=== PATIENT | male | born 1950 | race Caucasian/White ===

== ENCOUNTER 2018-07-02 09:15 | Inpatient (IN) | payer MEDICARE, OTHER ==
[2018-07-02] MEDS ORDERED: IPRATROPIUM-ALBUTEROL 3 ML NEB INHALATION STA (09:45)
[2018-07-02 10:14] LABS: Basophils % (A) 0 %; Eosinophils % (A) 1 %; HCT 37.6 % (39.0-53.0); HGB 12.8 gm/dL (13.0-17.5); Lymphocytes # (A) 0.6 k/uL (1.0-4.8); Lymphocytes % (A) 12 %; MCH 29.5 pg (25.0-35.0); MCV 86.8 fL (80.0-100.0); Mean Platelet Volume 7.6; Monocytes # (A) 0.2 k/uL (0-1.0); Monocytes % (A) 5 %; Neutrophils # (A) 3.6 k/uL (1.3-7.7); Neutrophils % (A) 81 %; Platelet Count 179 k/uL (150-450); RBC 4.33 m/uL (4.30-5.90); RDW 13.2 % (11.5-15.5); WBC 4.5 k/uL (3.8-10.6)
--- NOTE | 2018-07-02 10:15 | ED ---
SOB HPI - General Chief Complaint: Shortness of Breath Stated Complaint: SOB, Chest Pain Time Seen by Provider: 07/02/18 09:37 Source: patient, RN notes reviewed Mode of arrival: ambulatory Limitations: no limitations - History of Present Illness Initial Comments: 67-year-old male presents emergency Department with chief complaint of shortness breath, hemoptysis. Patient states that he was diagnosed with influenza few days ago. Patient states that he's had increased shortness of breath, wheezing. Patient states today he was coughing up chunks of blood. Denies any chest pain. Patient denies any history of PE, blood clots and denies any blood thinners. Patient denies any nausea vomiting diarrhea constipation. Patient states that he had fevers at home. No recent Tylenol Motrin. Denies any history of liver disease no esophageal varices. Patient is a former smoker. - Related Data Home Medications Medication Instructions Recorded Confirmed Lisinopril [Prinivil] 20 mg PO DAILY 02/21/15 07/02/18 Metoprolol Succinate [Toprol XL] 50 mg PO DAILY 02/21/15 07/02/18 Montelukast [Singulair] 10 mg PO HS 02/21/15 07/02/18 Sertraline [Zoloft] 100 mg PO DAILY 02/21/15 07/02/18 lamoTRIgine [LaMICtal] 100 mg PO DAILY 02/21/15 07/02/18 Azithromycin [Zithromax Z-pack] See Taper PO DAILY 07/02/18 07/02/18 Allergies Allergy/AdvReac Type Severity Reaction Status Date / Time Penicillins Allergy Unknown Verified 07/02/18 10:23 Review of Systems ROS Statement: Those systems with pertinent positive or pertinent negative responses have been documented in the HPI. ROS Other: All systems not noted in ROS Statement are negative. Past Medical History Past Medical History: COPD, Hypertension History of Any Multi-Drug Resistant Organisms: None Reported Past Surgical History: No Surgical Hx Reported Past Psychological History: Depression Smoking Status: Former smoker Past Alcohol Use History: Daily Past Drug Use History: None Reported General Exam Limitations: no limitations General appearance: alert, in no apparent distress Head exam: Present: atraumatic, normocephalic, normal inspection Eye exam: Present: normal appearance, PERRL, EOMI. Absent: scleral icterus, conjunctival injection, periorbital swelling ENT exam: Present: normal exam, normal oropharynx, mucous membranes moist Neck exam: Present: normal inspection. Absent: tenderness, meningismus, lymphadenopathy Respiratory exam: Present: wheezes, rhonchi. Absent: normal lung sounds bilaterally, respiratory distress, rales, stridor Cardiovascular Exam: Present: regular rate, normal rhythm, normal heart sounds. Absent: systolic murmur, diastolic murmur, rubs, gallop, clicks GI/Abdominal exam: Present: soft, normal bowel sounds. Absent: distended, tenderness, guarding, rebound, rigid Skin exam: Present: warm, dry, intact, normal color. Absent: rash Course Vital Signs 07/02/18 07/02/18 07/02/18 09:16 10:06 10:36 Temperature 98.2 F Pulse Rate 78 76 Respiratory 18 20 Rate Blood Pressure 98/63 O2 Sat by Pulse 81 L Oximetry 07/02/18 10:51 Temperature Pulse Rate 78 Respiratory Rate Blood Pressure O2 Sat by Pulse Oximetry Medical Decision Making - Medical Decision Making 67 show male presents emergency Department with shortness breath, coughing up of blood. Patient has pneumonia, influenza be admitted for respiratory distress , hypoxic - Lab Data Result diagrams: 07/02/18 09:55 07/02/18 09:55 Lab Results 07/02/18 07/02/18 07/02/18 Range/Units 09:55 09:55 09:55 WBC 4.5 (3.8-10.6) k/uL RBC 4.33 (4.30-5.90) m/uL Hgb 12.8 L (13.0-17.5) gm/dL Hct 37.6 L (39.0-53.0) % MCV 86.8 (80.0-100.0) fL MCH 29.5 (25.0-35.0) pg MCHC 34.0 (31.0-37.0) g/dL RDW 13.2 (11.5-15.5) % Plt Count 179 (150-450) k/uL Neutrophils % 81 % Lymphocytes % 12 % Monocytes % 5 % Eosinophils % 1 % Basophils % 0 % Neutrophils # 3.6 (1.3-7.7) k/uL Lymphocytes # 0.6 L (1.0-4.8) k/uL Monocytes # 0.2 (0-1.0) k/uL Eosinophils # 0.0 (0-0.7) k/uL Basophils # 0.0 (0-0.2) k/uL PT (9.0-12.0) sec INR (<1.2) APTT (22.0-30.0) sec Sodium 128 L (137-145) mmol/L Potassium 3.8 (3.5-5.1) mmol/L Chloride 94 L (98-107) mmol/L Carbon Dioxide 22 (22-30) mmol/L Anion Gap 12 mmol/L BUN 26 H (9-20) mg/dL Creatinine 0.79 (0.66-1.25) mg/dL Est GFR (CKD-EPI)AfAm >90 (>60 ml/min/1.73 sqM) Est GFR (CKD-EPI)NonAf >90 (>60 ml/min/1.73 sqM) Glucose 101 H (74-99) mg/dL Plasma Lactic Acid Shan (0.7-2.0) mmol/L Calcium 8.2 L (8.4-10.2) mg/dL Magnesium 2.0 (1.6-2.3) mg/dL Total Bilirubin 0.6 (0.2-1.3) mg/dL AST 77 H (17-59) U/L ALT 39 (21-72) U/L Alkaline Phosphatase 54 (38-126) U/L Total Creatine Kinase 469 H (55-170) U/L CK-MB (CK-2) 2.2 (0.0-2.4) ng/mL CK-MB (CK-2) Rel Index 0.5 Troponin I <0.012 (0.000-0.034) ng/mL NT-Pro-B Natriuret Pep pg/mL Total Protein 6.4 (6.3-8.2) g/dL Albumin 3.5 (3.5-5.0) g/dL 07/02/18 07/02/18 07/02/18 Range/Units 09:55 09:55 09:55 WBC (3.8-10.6) k/uL RBC (4.30-5.90) m/uL Hgb (13.0-17.5) gm/dL Hct (39.0-53.0) % MCV (80.0-100.0) fL MCH (25.0-35.0) pg MCHC (31.0-37.0) g/dL RDW (11.5-15.5) % Plt Count (150-450) k/uL Neutrophils % % Lymphocytes % % Monocytes % % Eosinophils % % Basophils % % Neutrophils # (1.3-7.7) k/uL Lymphocytes # (1.0-4.8) k/uL Monocytes # (0-1.0) k/uL Eosinophils # (0-0.7) k/uL Basophils # (0-0.2) k/uL PT 9.7 (9.0-12.0) sec INR 0.9 (<1.2) APTT 26.9 (22.0-30.0) sec Sodium (137-145) mmol/L Potassium (3.5-5.1) mmol/L Chloride (98-107) mmol/L Carbon Dioxide (22-30) mmol/L Anion Gap mmol/L BUN (9-20) mg/dL Creatinine (0.66-1.25) mg/dL Est GFR (CKD-EPI)AfAm (>60 ml/min/1.73 sqM) Est GFR (CKD-EPI)NonAf (>60 ml/min/1.73 sqM) Glucose (74-99) mg/dL Plasma Lactic Acid Shan 0.9 (0.7-2.0) mmol/L Calcium (8.4-10.2) mg/dL Magnesium (1.6-2.3) mg/dL Total Bilirubin (0.2-1.3) mg/dL AST (17-59) U/L ALT (21-72) U/L Alkaline Phosphatase (38-126) U/L Total Creatine Kinase (55-170) U/L CK-MB (CK-2) (0.0-2.4) ng/mL CK-MB (CK-2) Rel Index Troponin I (0.000-0.034) ng/mL NT-Pro-B Natriuret Pep 170 pg/mL Total Protein (6.3-8.2) g/dL Albumin (3.5-5.0) g/dL Disposition Clinical Impression: Hypoxic, COPD (chronic obstructive pulmonary disease), Pneumonia, Influenza Disposition: ADMITTED IP TO THIS HOSP Condition: Fair Referrals: Dimas Christy MD [Primary Care Provider] - 1-2 days
[2018-07-02 10:25] LABS: ALT 39 U/L (21-72); AST 77 U/L (17-59); Albumin 3.5 g/dL (3.5-5.0); Alkaline Phosphatase 54 U/L (38-126); Anion Gap 12 mmol/L; Blood Urea Nitrogen 26 mg/dL (9-20); Calcium 8.2 mg/dL (8.4-10.2); Carbon Dioxide 22 mmol/L (22-30); Chloride 94 mmol/L (98-107); Glucose 101 mg/dL (74-99); Potassium 3.8 mmol/L (3.5-5.1); Sodium 128 mmol/L (137-145); Total Bilirubin 0.6 mg/dL (0.2-1.3); Total Protein 6.4 g/dL (6.3-8.2)
[2018-07-02 10:29] LABS: INR 0.9 (<1.2); Partial Thromboplastin Time 26.9 sec (22.0-30.0); Prothrombin Time 9.7 sec (9.0-12.0)
[2018-07-02 10:36] LABS: Creatine Kinase 469 U/L (55-170)
--- NOTE | 2018-07-02 10:43 | XR ---
EXAMINATION TYPE: XR chest 2V DATE OF EXAM: 07/02/2018 COMPARISON: 03/27/2010 HISTORY: Shortness of breath TECHNIQUE: Frontal and lateral views of the chest are obtained. FINDINGS: Scattered senescent parenchymal changes noted. Hyperinflation compatible with COPD. Patchy perihilar and basilar infiltrates noted. Correlate for pneumonia. Heart size is stable. Mediastinal structures are stable and grossly unremarkable. No evidence for hilar prominence. Degenerative changes dorsal spine. IMPRESSION: 1. Patchy perihilar and basilar infiltrates noted. Correlate for pneumonia.
[2018-07-02 10:49] LABS: Creatine Kinase MB 2.2 ng/mL (0.0-2.4); Troponin I <0.012 ng/mL (0.000-0.034)
[2018-07-02] MEDS ORDERED: AZITHROMYCIN 500 MG in SODIUM CHLORIDE 0.9% 250 ML IVPB STA (10:50)
[2018-07-02] MEDS ORDERED: methylPREDNISolone SOD SUCCI 125 MG/2 ML VIAL IV STA (11:23)
[2018-07-02] MEDS ORDERED: PNEUMONIA PROTOCOL UTILIZED 1 EACH MISC PO PRN (11:24)
[2018-07-02 12:44] LABS: VBG PH 7.32 (7.31-7.41)
[2018-07-02] MEDS: IPRATROPIUM-ALBUTEROL 3 ML NEB INHALATION SCH ×2 (16:17→20:12)
[2018-07-02] MEDS: HEPARIN SODIUM,PORCINE 5,000 UNIT/ML 1 ML VIAL SQ SCH (16:20)
--- NOTE | 2018-07-02 16:57 | P.HPIM ---
History of Present Illness H&P Date: 07/02/18 Chief Complaint: Multilobar pneumonia This is a 67-year-old male one of Dr. Christy with a previous medical history significant for hypertension and hypertensive cardiovascular disease, mild CAD involving the RCA and the the LAD, with a last heart catheterization was done back in 2014, history of bipolar disorder, COPD, remote history of tobacco use and dependence, patient went to a walking clinic on Tuesday and he was diagnosed of having the flu according to him and he was given a Z-Osmani patient was feeling better up until today when he developed to have a significant coughing and increased yellow phlegm production with bloody streaks to it so he ended up coming to the ER at [facility] where he was found to have a multilobar pneumonia he was started on IV antibiotic in the form of Rocephin and Zithromax and and he was placed in droplet precautions until after obtaining the result of the flu swab, pulmonary consultation was obtained from Dr. ADOLFO Ayon. Review of Systems Constitutional: Reports chills, Reports fever, Reports weakness Eyes: denies blurred vision, denies bulging eye Ears: deny: decreased hearing Ears, nose, mouth and throat: Denies dysphagia, Denies neck lump, Denies swelling in throat, Denies sore throat Cardiovascular: Reports decreased exercise tolerance, Reports shortness of breath, Denies chest pain, Denies lightheadedness, Denies rapid heart beat, Denies syncope Respiratory: Reports congestion, Reports cough, Reports hemoptysis, Reports wheezing, Denies home oxygen, Denies sleep apnea, Denies snoring Gastrointestinal: Denies abdominal pain, Denies belching, Denies bloating, Denies heartburn, Denies melena, Denies nausea, Denies vomiting Genitourinary: Denies dysuria, Denies nocturia Musculoskeletal: Denies myalgias Musculoskeletal: absent: ankle pain, ankle stiffness, ankle swelling, elbow pain , elbow stiffness, elbow swelling, foot pain, foot stiffness, foot swelling, hand pain, hand stiffness, hand swelling, hip pain, hip stiffness, hip swelling , knee pain, knee stiffness, knee swelling, shoulder pain, shoulder stiffness, shoulder swelling, wrist pain, wrist stiffness, wrist swelling Integumentary: Denies pruritus, Denies rash Neurological: Denies numbness, Denies weakness Psychiatric: Denies anxiety, Denies depression Endocrine: Denies fatigue, Denies weight change Past Medical History Past Medical History: Coronary Artery Disease (CAD), COPD, Hypertension, Osteoarthritis (OA) History of Any Multi-Drug Resistant Organisms: None Reported Past Surgical History: No Surgical Hx Reported, Heart Catheterization Past Psychological History: Depression Smoking Status: Former smoker (Patient is smoke about pack every day he quit about 12 years ago.) Past Alcohol Use History: Daily Past Drug Use History: None Reported - Past Family History Father Family Medical History: COPD (Father at age of 89 from old age and he also had COPD.) Mother Family Medical History: No Reported History (Mother at age of 68 and she also had history of fibromyalgia.) Brother(s) Family Medical History: No Reported History (Patient has 3 brothers no major medical problems.) Sister(s) Family Medical History: No Reported History (Patient has one sister no major medical problems.) Daughter(s) Family Medical History: No Reported History (Patient has 4 daughters no medical issues.) Medications and Allergies Home Medications Medication Instructions Recorded Confirmed Type Lisinopril [Prinivil] 20 mg PO DAILY 02/21/15 07/02/18 History Metoprolol Succinate [Toprol XL] 50 mg PO DAILY 02/21/15 07/02/18 History Montelukast [Singulair] 10 mg PO HS 02/21/15 07/02/18 History Sertraline [Zoloft] 100 mg PO DAILY 02/21/15 07/02/18 History lamoTRIgine [LaMICtal] 100 mg PO DAILY 02/21/15 07/02/18 History Azithromycin [Zithromax Z-pack] See Taper PO DAILY 07/02/18 07/02/18 History Allergies Allergy/AdvReac Type Severity Reaction Status Date / Time Penicillins Allergy Unknown Verified 07/02/18 10:23 Physical Exam Vitals: Vital Signs Temp Pulse Resp BP Pulse Ox 07/02/18 12:13 83 106/53 94 L 07/02/18 12:00 84 15 95 07/02/18 11:30 81 26 H 93 L 07/02/18 11:00 78 18 88 L 07/02/18 10:51 78 07/02/18 10:45 22 07/02/18 10:36 76 07/02/18 10:33 75 33 H 95 07/02/18 10:06 20 07/02/18 10:00 75 25 H 96 07/02/18 09:30 75 20 89 L 07/02/18 09:26 75 L 07/02/18 09:16 98.2 F 78 18 98/63 81 L Intake and Output 07/02/18 07/02/18 07/02/18 06:59 14:59 22:59 Intake Total 610 Balance 610 Intake: Amount of Fluid Infused ( 250 ml) Oral 360 Other: Weight 86.183 kg - Constitutional General appearance: average body habitus, mild distress - EENT Eyes: anicteric sclerae, EOMI, PERRLA, no ptosis, no scleral icterus, normal appearance ENT: hearing grossly normal, NA/AT, normal oropharynx, no thrush Ears: bilateral: normal - Neck Neck: no lymphadenopathy, normal ROM, no rigidity Carotids: bilateral: upstroke normal Thyroid: bilateral: normal size - Respiratory Respiratory: bilateral: diminished, rhonchi, wheezing, prolonged expiration, negative: dullness, rales - Cardiovascular Rhythm: regular Heart sounds: normal: S1, S2 Abnormal Heart Sounds: systolic murmur, no S3 Gallop, no S4 Gallop - Gastrointestinal General gastrointestinal: normal bowel sounds, soft, no splenomegaly, no tenderness, no umbilical hernia, no ventral hernia - Integumentary Integumentary: normal, normal turgor - Neurologic Neurologic: CNII-XII intact - Musculoskeletal Musculoskeletal: gait normal, strength equal bilaterally - Psychiatric Psychiatric: A&O x's 3, appropriate affect, intact judgment & insight Results CBC & Chem 7: 07/02/18 09:55 07/02/18 09:55 Labs: Abnormal Lab Results - Last 24 Hours (Table) 07/02/18 07/02/18 07/02/18 Range/Units 09:55 09:55 09:55 Hgb 12.8 L (13.0-17.5) gm/dL Hct 37.6 L (39.0-53.0) % Lymphocytes # 0.6 L (1.0-4.8) k/uL Sodium 128 L (137-145) mmol/L Chloride 94 L (98-107) mmol/L BUN 26 H (9-20) mg/dL Glucose 101 H (74-99) mg/dL Calcium 8.2 L (8.4-10.2) mg/dL AST 77 H (17-59) U/L Total Creatine Kinase 469 H (55-170) U/L Thrombosis Risk Factor Assmnt - DVT/VTE Prophylaxis DVT/VTE Prophylaxis: Pharmacologic Prophylaxis ordered, Mechanical Prophylaxis ordered Assessment and Plan Assessment: Assessment and plan: 1. Acute respiratory failure secondary to multilobar pneumonia and acute COPD exacerbation. Continue patient on Rocephin 1 g IV piggyback every 24 hours, Zithromax 500 mg IV piggyback every 24 hours, DuoNeb 3 mL nebulization 4 times every day, Pulmicort 4 mg nebulization twice every day, oxygen 5 L nasal cannula keep saturation greater than 92%, pulmonary consultation from Dr. ADOLFO yAon, droplet isolation, influenza swab, if it's positive start the patient on Tamiflu 75 mg orally twice every day for 5 days. Sputum culture. 2. COPD exacerbation. Continue oxygen, DuoNeb 3 mL nebulization 4 times every day, Pulmicort 1 mg nebulization twice every day, Solu-Medrol 40 mg IV push every 8 hours. 3. Mild CAD status post left heart cath physician back in 2014 that showed mild disease of the LAD and RCA. Stable at this time continue patient on Toprol -XL 50 mg orally once every day. 4. Hypertension and hypertensive cardiovascular disease. Continue Toprol-XL 50 mg orally once every day, lisinopril 20 mg orally once every day. 5. Bipolar disorder. Continue Lamictal 100 mg orally once every day as well as sertraline 100 mg orally once every day. 6. GI prophylaxis. Protonix 40 mg once every day. 7. DVT prophylaxis. Heparin 5000 units subcutaneously every 8 hours. 8. Admit to inpatient. Estimated length of stay 2 midnights. 9. Patient is full code.
[2018-07-02] MEDS: methylPREDNISolone SOD SUCCI 40 MG/ML 1 ML VIAL IV SCH (17:46)
[2018-07-02] MEDS: BUDESONIDE 1 MG/2 ML NEBU INHALATION SCH (20:12)
[2018-07-02] MEDS: MONTELUKAST 10 MG TAB PO SCH (20:33)
[2018-07-03] MEDS: HEPARIN SODIUM,PORCINE 5,000 UNIT/ML 1 ML VIAL SQ SCH ×4 (00:45→23:29)
[2018-07-03] MEDS: methylPREDNISolone SOD SUCCI 40 MG/ML 1 ML VIAL IV SCH ×4 (00:45→23:30)
[2018-07-03 06:49] LABS: Basophils % (A) 0 %; Eosinophils % (A) 0 %; HCT 40.2 % (39.0-53.0); HGB 13.2 gm/dL (13.0-17.5); Lymphocytes # (A) 0.7 k/uL (1.0-4.8); Lymphocytes % (A) 13 %; MCH 29.6 pg (25.0-35.0); MCHC 32.8 g/dL (31.0-37.0); MCV 90.4 fL (80.0-100.0); Mean Platelet Volume 6.7; Monocytes # (A) 0.3 k/uL (0-1.0); Monocytes % (A) 5 %; Neutrophils # (A) 4.2 k/uL (1.3-7.7); Neutrophils % (A) 80 %; Platelet Count 183 k/uL (150-450); RBC 4.45 m/uL (4.30-5.90); RDW 13.2 % (11.5-15.5); WBC 5.2 k/uL (3.8-10.6)
[2018-07-03 07:17] LABS: ALT 32 U/L (21-72); AST 68 U/L (17-59); Albumin 3.3 g/dL (3.5-5.0); Alkaline Phosphatase 50 U/L (38-126); Anion Gap 7 mmol/L; Blood Urea Nitrogen 20 mg/dL (9-20); Calcium 8.7 mg/dL (8.4-10.2); Carbon Dioxide 26 mmol/L (22-30); Chloride 104 mmol/L (98-107); Glucose 179 mg/dL (74-99); Potassium 4.1 mmol/L (3.5-5.1); Sodium 137 mmol/L (137-145); Total Bilirubin 0.4 mg/dL (0.2-1.3); Total Protein 6.2 g/dL (6.3-8.2)
[2018-07-03] MEDS: BUDESONIDE 1 MG/2 ML NEBU INHALATION SCH ×3 (07:58→20:40)
[2018-07-03] MEDS: IPRATROPIUM-ALBUTEROL 3 ML NEB INHALATION SCH ×4 (07:58→20:38)
[2018-07-03] MEDS: AZITHROMYCIN 500 MG in SODIUM CHLORIDE 0.9% 250 ML IVPB SCH (08:10)
[2018-07-03] MEDS: PANTOPRAZOLE 40 MG TABLET PO SCH (08:10)
[2018-07-03] MEDS: lamoTRIgine 100 MG TAB PO SCH (08:11)
[2018-07-03] MEDS: METOPROLOL SUCCINATE (ER) 50 MG TAB.ER.24H PO SCH (08:11)
[2018-07-03] MEDS: SERTRALINE 100 MG TAB PO SCH (08:11)
[2018-07-03] MEDS: LISINOPRIL 20 MG TAB PO SCH (08:11)
--- NOTE | 2018-07-03 09:37 | XR ---
EXAMINATION TYPE: XR chest 2V DATE OF EXAM: 07/03/2018 COMPARISON: 07/02/2018 TECHNIQUE: PA and lateral views submitted. HISTORY: Cough possible pneumonia FINDINGS: Patchy bilateral areas of infiltrate with coarsened interstitium correlate for chronic interstitial l nida disease. Small bilateral effusion. No pneumothorax. Arthropathy shoulders. Heart size normal. IMPRESSION: 1. Chronic interstitial lung disease with underlying COPD and stable patchy bilateral infiltrate.
--- NOTE | 2018-07-03 11:16 | CT ---
EXAMINATION TYPE: CT angio chest DATE OF EXAM: 07/03/2018 COMPARISON: NONE HISTORY: Pneumonia, Influenza, COPD and Hypoxia CT DLP: 410.3 mGycm. Automated Exposure Control for Dose Reduction was Utilized. CONTRAST: CTA scan of the thorax is performed without and with IV Contrast, patient injected with 100 ml mL of Isovue 370, pulmonary embolism protocol. MIP Images are created on CT scanner and reviewed. FINDINGS: LUNGS: Peripheral basilar predominant groundglass opacities and consolidations. These are predominant ly paraseptal in location and seen centrally surrounding the mediastinum in the upper lungs. Scattere d blebs are noted throughout the lungs. Minimal bibasilar Focal bronchiectasis is noted. MEDIASTINUM: There is suboptimal enhancement of the pulmonary artery and its branches, there is no ev idence for intra-pulmonary embolism. Subsegmental pulmonary arteries are nondiagnostic for evaluation of pulmonary embolus and. There are no greater than 1 cm hilar or mediastinal lymph nodes. No card iomegaly or pericardial effusion is seen. OTHER: 2.5 cm right thyroid peripherally calcified nodule is seen for which thyroid ultrasound is rec ommended for further evaluation. Multilevel degenerative change of the thoracic spine is noted. IMPRESSION: 1. No evidence of central pulmonary embolism. Subsegmental pulmonary arteries are nondiagnostic. 2. Interstitial lung disease. Findings favoring NSIP with no current evidence of fibrosis. Alternativ luz maria hypersensitivity pneumonitis or cryptogenic organizing pneumonia are possible.
--- NOTE | 2018-07-03 11:59 | P.PN ---
Subjective Progress Note Date: 07/03/18 This is a 67-year-old male one of Dr. Christy with a previous medical history significant for hypertension and hypertensive cardiovascular disease, mild CAD involving the RCA and the the LAD, with a last heart catheterization was done back in 2014, history of bipolar disorder, COPD, remote history of tobacco use and dependence, patient went to a walking clinic on Tuesday and he was diagnosed of having the flu according to him and he was given a Z-Osmani patient was feeling better up until today when he developed to have a significant coughing and increased yellow phlegm production with bloody streaks to it so he ended up coming to the ER at [facility] where he was found to have a multilobar pneumonia he was started on IV antibiotic in the form of Rocephin and Zithromax and and he was placed in droplet precautions until after obtaining the result of the flu swab, pulmonary consultation was obtained from Dr. ADOLFO Ayon. 07/03: Patient is currently on 10 L high flow O2 pulse oxing 92-96%. He states he is slightly better from yesterday. He is having more cough today. Influenza testing came back negative. Repeat chest x-ray this morning shows chronic interstitial lung disease with underlying COPD and stable patchy bilateral infiltrate. CT injury of the chest showed no evidence of central pulmonary embolism. Subsegmental pulmonary arteries are nondiagnostic. Interstitial lung disease. Findings favoring NSIP with no current evidence of fibrosis. Alternatively hypersensitivity pneumonitis or cryptogenic organizing pneumonia or possible. Consult in place with pulmonary medicine which will be seeing him today. Solu-Medrol will remain the same at 40 mg IV every 8 hours. Continue same medications. Review of Systems Constitutional: Reports chills, Reports fever, Reports weakness Eyes: denies blurred vision, denies bulging eye Ears: deny: decreased hearing Ears, nose, mouth and throat: Denies dysphagia, Denies neck lump, Denies swelling in throat, Denies sore throat Cardiovascular: Reports decreased exercise tolerance, Reports shortness of breath, Denies chest pain, Denies lightheadedness, Denies rapid heart beat, Denies syncope Respiratory: Reports congestion, Reports cough, Reports hemoptysis, Reports wheezing, Denies home oxygen, Denies sleep apnea, Denies snoring Gastrointestinal: Denies abdominal pain, Denies belching, Denies bloating, Denies heartburn, Denies melena, Denies nausea, Denies vomiting Genitourinary: Denies dysuria, Denies nocturia Musculoskeletal: Denies myalgias Musculoskeletal: absent: ankle pain, ankle stiffness, ankle swelling, elbow pain , elbow stiffness, elbow swelling, foot pain, foot stiffness, foot swelling, hand pain, hand stiffness, hand swelling, hip pain, hip stiffness, hip swelling , knee pain, knee stiffness, knee swelling, shoulder pain, shoulder stiffness, shoulder swelling, wrist pain, wrist stiffness, wrist swelling Integumentary: Denies pruritus, Denies rash Neurological: Denies numbness, Denies weakness Psychiatric: Denies anxiety, Denies depression Endocrine: Denies fatigue, Objective - Vital Signs Vital signs: Vital Signs Temp 98.2 F 07/03/18 00:01 Pulse 80 07/03/18 08:09 Resp 16 07/03/18 00:01 BP 135/78 07/03/18 00:01 Pulse Ox 96 07/03/18 00:01 Intake & Output 07/02/18 07/03/18 07/03/18 18:59 06:59 18:59 Intake Total 906 400 Output Total 1 Balance 905 400 Weight 86.183 kg Intake: Amount of Fluid Infused ( 250 ml) Oral 656 400 Output: Urine 1 Other: Voiding Method Toilet # Voids 1 - Exam General appearance: average body habitus, mild distress while at rest - EENT Eyes: anicteric sclerae, EOMI, PERRLA, no ptosis, no scleral icterus, normal appearance ENT: hearing grossly normal, NA/AT, normal oropharynx, no thrush Ears: bilateral: normal - Neck Neck: no lymphadenopathy, normal ROM, no rigidity Carotids: bilateral: upstroke normal Thyroid: bilateral: normal size - Respiratory Respiratory: bilateral: diminished, rhonchi, wheezing, prolonged expiration, negative: dullness, rales - Cardiovascular Rhythm: regular Heart sounds: normal: S1, S2 Abnormal Heart Sounds: systolic murmur, no S3 Gallop, no S4 Gallop - Gastrointestinal General gastrointestinal: normal bowel sounds, soft, no splenomegaly, no tenderness, no umbilical hernia, no ventral hernia - Integumentary Integumentary: normal, normal turgor - Neurologic Neurologic: CNII-XII intact - Musculoskeletal Musculoskeletal: gait normal, strength equal bilaterally - Psychiatric Psychiatric: A&O x's 3, appropriate affect, intact judgment & insight - Labs CBC & Chem 7: 07/03/18 06:27 07/03/18 06:27 Labs: Abnormal Lab Results - Last 24 Hours (Table) 07/02/18 07/02/18 07/02/18 Range/Units 09:55 09:55 09:55 Hgb 12.8 L (13.0-17.5) gm/dL Hct 37.6 L (39.0-53.0) % Lymphocytes # 0.6 L (1.0-4.8) k/uL Sodium 128 L (137-145) mmol/L Chloride 94 L (98-107) mmol/L BUN 26 H (9-20) mg/dL Glucose 101 H (74-99) mg/dL Calcium 8.2 L (8.4-10.2) mg/dL AST 77 H (17-59) U/L Total Creatine Kinase 469 H (55-170) U/L Total Protein (6.3-8.2) g/dL Albumin (3.5-5.0) g/dL 07/03/18 07/03/18 Range/Units 06:27 06:27 Hgb (13.0-17.5) gm/dL Hct (39.0-53.0) % Lymphocytes # 0.7 L (1.0-4.8) k/uL Sodium (137-145) mmol/L Chloride (98-107) mmol/L BUN (9-20) mg/dL Glucose 179 H (74-99) mg/dL Calcium (8.4-10.2) mg/dL AST 68 H (17-59) U/L Total Creatine Kinase (55-170) U/L Total Protein 6.2 L (6.3-8.2) g/dL Albumin 3.3 L (3.5-5.0) g/dL Assessment and Plan Plan: 1. Acute hypoxic respiratory failure secondary to multilobar pneumonia and acute COPD exacerbation. Continue patient on Rocephin 1 g IV piggyback every 24 hours, Zithromax 500 mg IV piggyback every 24 hours, DuoNeb 3 mL nebulization 4 times every day, Pulmicort 4 mg nebulization twice every day, oxygen 5 L nasal cannula keep saturation greater than 92%, pulmonary consultation from Dr. ADOLFO Ayon, influenza testing was negative. Sputum culture. Solu-Medrol 40 mg IV every 8 hours. CTA of the chest as above. 2. COPD exacerbation. Continue oxygen, DuoNeb 3 mL nebulization 4 times every day, Pulmicort 1 mg nebulization twice every day, Solu-Medrol 40 mg IV push every 8 hours. 3. Mild CAD status post left heart cath physician back in 2014 that showed mild disease of the LAD and RCA. Stable at this time continue patient on Toprol -XL 50 mg orally once every day. 4. Hypertension and hypertensive cardiovascular disease. Continue Toprol-XL 50 mg orally once every day, lisinopril 20 mg orally once every day. 5. Bipolar disorder. Continue Lamictal 100 mg orally once every day as well as sertraline 100 mg orally once every day. 6. GI prophylaxis. Protonix 40 mg once every day. 7. DVT prophylaxis. Heparin 5000 units subcutaneously every 8 hours. 8. Patient is full code. Discharge plan: Return home Impression and plan of care have been directed as dictated by the signing physician. Meghna Larry nurse practitioner acting as scribe for signing physician.
[2018-07-03] MEDS: INSULIN ASPART (NovoLOG) 100 UNIT/ML VIAL SQ SCH ×3 (13:43→22:29)
--- NOTE | 2018-07-03 14:40 | P.CNPUL ---
<Samaria Simmons E - Last Filed: 07/03/18 16:10> History of Present Illness Consult date: 07/03/18 Requesting physician: Hai Anderson Reason for consult: dyspnea, pneumonia Chief complaint: shortness of breath History of present illness: This is a 67-year-old male being seen examined and evaluated today for consultation. This patient does have a past medical history significant for hypertension, hypertensive cardiovascular disease, mild CAD involving the RCA and the LAD, last stent heart catheterization was in 2014, history of bipolar, COPD, remote history of tobacco use and dependence. The patient was seen in the urgent care setting on Tuesday and was told he has "the flu" and the patient was given a Z-Osmani to take in the outpatient setting. The patient was starting to feel better and then he started to get significantly worse yesterday so he came into the emergency room. The patient was found to have a multilobar pneumonia he was started on IV antibiotics and steroids. He did have an influenza swab that was negative. 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 He denies any exposures to any birds or farm animals or farmland. He has 3. He quit smoking approximately 12 years ago. He does not have wood-burning stove at home. Upon examination the patient's resting up in bed on 10 L of high flow and oxygen via nasal cannula. He continues to have shortness of breath cough and congestion. He has been unable to provide a sputum sample thus far. He does feel the breathing treatments are helping. He has been afebrile no further complaints. Review of Systems 14 point review of systems was completed and is negative unless noted above in the HPI Past Medical History Past Medical History: Coronary Artery Disease (CAD), COPD, Hypertension, Osteoarthritis (OA) History of Any Multi-Drug Resistant Organisms: None Reported Past Surgical History: No Surgical Hx Reported, Heart Catheterization Past Psychological History: Depression Smoking Status: Former smoker (Patient is smoke about pack every day he quit about 12 years ago.) Past Alcohol Use History: Daily Past Drug Use History: None Reported - Past Family History Father Family Medical History: COPD (Father at age of 89 from old age and he also had COPD.) Mother Family Medical History: No Reported History (Mother at age of 68 and she also had history of fibromyalgia.) Brother(s) Family Medical History: No Reported History (Patient has 3 brothers no major medical problems.) Sister(s) Family Medical History: No Reported History (Patient has one sister no major medical problems.) Daughter(s) Family Medical History: No Reported History (Patient has 4 daughters no medical issues.) Medications and Allergies Home Medications Medication Instructions Recorded Confirmed Type Lisinopril [Prinivil] 20 mg PO DAILY 02/21/15 07/02/18 History Metoprolol Succinate [Toprol XL] 50 mg PO DAILY 02/21/15 07/02/18 History Montelukast [Singulair] 10 mg PO HS 02/21/15 07/02/18 History Sertraline [Zoloft] 100 mg PO DAILY 02/21/15 07/02/18 History lamoTRIgine [LaMICtal] 100 mg PO DAILY 02/21/15 07/02/18 History Azithromycin [Zithromax Z-pack] See Taper PO DAILY 07/02/18 07/02/18 History Allergies Allergy/AdvReac Type Severity Reaction Status Date / Time Penicillins Allergy Unknown Verified 07/02/18 10:23 Physical Exam Vitals: Vital Signs Temp Pulse Pulse Resp BP Pulse Ox 07/03/18 11:51 80 07/03/18 11:38 84 07/03/18 11:24 92 L 07/03/18 08:09 80 07/03/18 07:58 80 07/03/18 07:00 97.4 F L 83 17 125/78 92 L 07/03/18 00:01 98.2 F 85 16 135/78 96 07/02/18 20:30 81 92 L 07/02/18 20:14 79 07/02/18 19:15 97.5 F L 82 15 116/68 93 L 07/02/18 16:30 83 07/02/18 16:23 93 L 07/02/18 16:22 81 Intake and Output 07/02/18 07/03/18 07/03/18 22:59 06:59 14:59 Intake Total 496 200 Output Total 1 Balance 495 200 Intake: Oral 496 200 Output: Urine 1 Other: Voiding Method Toilet Toilet # Voids 1 1 GENERAL EXAM: Alert, mild apparent distress. HEAD: Normocephalic. EYES: Normal reaction of pupils, equal size. NOSE: Clear with pink turbinates. THROAT: No erythema or exudates. NECK: No masses, no JVD. CHEST: No chest wall deformity. LUNGS: Lungs noted to be rhonchorous with wheezing scattered throughout and prolonged expiration CVS: S1 and S2 normal with no audible mumurs, regular rhythm. ABDOMEN: No hepatosplenomegaly, normal bowel sounds, no guarding or rigidity. EXTREMITIES: No edema noted, pedal pulses palpable. CENTRAL NERVOUS SYSTEM: No focal deficits, tone is normal in all 4 extremities. Results - Laboratory Findings CBC and BMP: 07/03/18 06:27 07/03/18 06:27 PT/INR, D-dimer PT 9.7 sec (9.0-12.0) 07/02/18 09:55 INR 0.9 (<1.2) 07/02/18 09:55 Abnormal lab findings: Abnormal Labs 07/02/18 07/02/18 07/02/18 09:55 09:55 09:55 Hgb 12.8 L Hct 37.6 L Lymphocytes # 0.6 L Sodium 128 L Chloride 94 L BUN 26 H Glucose 101 H Calcium 8.2 L AST 77 H Total Creatine Kinase 469 H Total Protein Albumin Procalcitonin 07/02/18 07/03/18 07/03/18 09:55 06:27 06:27 Hgb Hct Lymphocytes # 0.7 L Sodium Chloride BUN Glucose 179 H Calcium AST 68 H Total Creatine Kinase Total Protein 6.2 L Albumin 3.3 L Procalcitonin 0.23 H - Diagnostic Findings Chest x-ray: report reviewed, image reviewed Assessment and Plan Assessment: Assessment Acute hypoxic respiratory failure requiring supplemental oxygen Acute exacerbation of COPD Multilobar pneumonia CAD with previous stenting Hypertension Bipolar disorder Plan Medications have been reviewed and will be continued as ordered. Lab work including HP panel, allergens, IgE, A1AT Continue antibiotics and steroid taper Obtain sputum culture Influenza swab negative CTA of the chest reviewed, we'll need a repeat CT in the outpatient setting in 4 -6 weeks Chest x-ray reviewed Initiate and encourage incentive spirometer Continue with pulmonary hygiene, coughing and deep breathing exercises, and supportive care. Supplemental oxygen to maintain oxygen saturations of 92% or better. Continue nebulizer treatments. GI and DVT prophylaxis. We will continue to monitor labs/results and adjust treatment as necessary. Further recommendations pending. I, the signing physician performed an examination of the patient, discussed and directed their management with the nurse practitioner. I have reviewed the nurse practitioner's note and agree with the documented findings, orders and plan of care. Nurse practitioner acting as a scribe for the signing physician. <Muriel Delgado - Last Filed: 07/03/18 16:21> Physical Exam Osteopathic Statement: *. No significant issues noted on an osteopathic structural exam other than those noted in the History and Physical/Consult. Vitals: Vital Signs Temp Pulse Pulse Resp BP Pulse Ox 07/03/18 11:51 80 07/03/18 11:38 84 07/03/18 11:24 92 L 07/03/18 08:09 80 07/03/18 07:58 80 07/03/18 07:00 97.4 F L 83 17 125/78 92 L 07/03/18 00:01 98.2 F 85 16 135/78 96 07/02/18 20:30 81 92 L 07/02/18 20:14 79 07/02/18 19:15 97.5 F L 82 15 116/68 93 L 07/02/18 16:30 83 07/02/18 16:23 93 L 07/02/18 16:22 81 Intake and Output 07/03/18 07/03/18 07/03/18 06:59 14:59 22:59 Intake Total 200 Balance 200 Intake: Oral 200 Other: Voiding Method Toilet # Voids 1 1 Results - Laboratory Findings CBC and BMP: 07/03/18 06:27 07/03/18 06:27 PT/INR, D-dimer PT 9.7 sec (9.0-12.0) 07/02/18 09:55 INR 0.9 (<1.2) 07/02/18 09:55 Abnormal lab findings: Abnormal Labs 07/02/18 07/02/18 07/02/18 09:55 09:55 09:55 Hgb 12.8 L Hct 37.6 L Lymphocytes # 0.6 L Sodium 128 L Chloride 94 L BUN 26 H Glucose 101 H Calcium 8.2 L AST 77 H Total Creatine Kinase 469 H Total Protein Albumin Procalcitonin 07/02/18 07/03/18 07/03/18 09:55 06:27 06:27 Hgb Hct Lymphocytes # 0.7 L Sodium Chloride BUN Glucose 179 H Calcium AST 68 H Total Creatine Kinase Total Protein 6.2 L Albumin 3.3 L Procalcitonin 0.23 H Assessment and Plan Assessment: Patient seen and examined. CT of the chest is reviewed and discussed with the patient at length. Questionable NSI PE versus HP. The patient denies any exposures that he is aware of. He does have cats in the home. Influenza is negative. Will check mycoplasma, legionella. Sputum culture pending. HP and ALLERGY panel pending. Patient should have 1 mg/kg daily of prednisone. We will taper this as an outpatient. This is discussed with the patient at length. ~Muriel Delgado DO
[2018-07-03 17:13] LABS: Glucose,Whole Blood 209 mg/dL (75-99)
[2018-07-03 20:09] LABS: Hemoglobin A1C 6.2 % (4.0-6.0)
[2018-07-03 20:42] LABS: Glucose,Whole Blood 143 mg/dL (75-99)
[2018-07-03] MEDS: MONTELUKAST 10 MG TAB PO SCH (22:30)
[2018-07-04 06:56] LABS: Glucose,Whole Blood 147 mg/dL (75-99)
[2018-07-04] MEDS: INSULIN ASPART (NovoLOG) 100 UNIT/ML VIAL SQ SCH ×4 (07:32→20:29)
[2018-07-04] MEDS: SERTRALINE 100 MG TAB PO SCH (07:32)
[2018-07-04] MEDS: methylPREDNISolone SOD SUCCI 40 MG/ML 1 ML VIAL IV SCH ×2 (07:33→17:10)
[2018-07-04] MEDS: LISINOPRIL 20 MG TAB PO SCH (07:33)
[2018-07-04] MEDS: PANTOPRAZOLE 40 MG TABLET PO SCH (07:33)
[2018-07-04] MEDS: HEPARIN SODIUM,PORCINE 5,000 UNIT/ML 1 ML VIAL SQ SCH ×2 (07:33→17:10)
[2018-07-04] MEDS: lamoTRIgine 100 MG TAB PO SCH (07:33)
[2018-07-04] MEDS: METOPROLOL SUCCINATE (ER) 50 MG TAB.ER.24H PO SCH (07:34)
[2018-07-04] MEDS: IPRATROPIUM-ALBUTEROL 3 ML NEB INHALATION SCH ×4 (09:41→20:08)
[2018-07-04] MEDS: BUDESONIDE 1 MG/2 ML NEBU INHALATION SCH ×2 (09:41→20:08)
[2018-07-04] MEDS: AZITHROMYCIN 500 MG in SODIUM CHLORIDE 0.9% 250 ML IVPB SCH (10:22)
[2018-07-04 12:04] LABS: Glucose,Whole Blood 146 mg/dL (75-99)
--- NOTE | 2018-07-04 12:45 | P.PN ---
Subjective Progress Note Date: 07/04/18 HPI: This is a 67-year-old male being seen examined and evaluated today for consultation. This patient does have a past medical history significant for hypertension, hypertensive cardiovascular disease, mild CAD involving the RCA and the LAD, last stent heart catheterization was in 2014, history of bipolar, COPD, remote history of tobacco use and dependence. The patient was seen in the urgent care setting on Tuesday and was told he has "the flu" and the patient was given a Z-Osmani to take in the outpatient setting. The patient was starting to feel better and then he started to get significantly worse yesterday so he came into the emergency room. The patient was found to have a multilobar pneumonia he was started on IV antibiotics and steroids. He did have an influenza swab that was negative. 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 He denies any exposures to any birds or farm animals or farmland. He has 3. He quit smoking approximately 12 years ago. He does not have wood-burning stove at home. Upon examination the patient's resting up in bed on 10 L of high flow and oxygen via nasal cannula. He continues to have shortness of breath cough and congestion. He has been unable to provide a sputum sample thus far. He does feel the breathing treatments are helping. He has been afebrile no further complaints. Interval History: 07/04/18- patient is being seen examined and evaluated today on rounds. He is resting up in bed on 10 L high flow nasal cannula. Still feels quite dyspneic and short of breath even at rest. We will switch patient over to Airvo to help his breathing. Currently being worked up for questionable an SIEP versus HP. Multiple labs have been obtained and are pending. Patient will require 1 mg/kg daily of prednisone with a very slow outpatient taper. This is again discussed with the patient at length and he is agreeable. He is afebrile. All labs and reports reviewed Objective - Vital Signs Vital signs: Vital Signs Temp 98.5 F 07/04/18 07:40 Pulse 84 07/04/18 09:47 Resp 20 07/04/18 07:40 BP 131/70 07/04/18 07:40 Pulse Ox 90 L 07/04/18 10:54 Intake & Output 07/03/18 07/04/18 07/04/18 18:59 06:59 18:59 Intake Total 1600 296 Balance 1600 296 Intake: IV 1200 0.9 Normal Saline 1200 Oral 400 296 Other: Voiding Method Toilet Toilet # Voids 1 2 - Exam GENERAL EXAM: Alert, mild apparent distress. HEAD: Normocephalic. EYES: Normal reaction of pupils, equal size. NOSE: Clear with pink turbinates. THROAT: No erythema or exudates. NECK: No masses, no JVD. CHEST: No chest wall deformity. LUNGS: Lungs noted to be rhonchorous with wheezing scattered throughout and prolonged expiration CVS: S1 and S2 normal with no audible mumurs, regular rhythm. ABDOMEN: No hepatosplenomegaly, normal bowel sounds, no guarding or rigidity. EXTREMITIES: No edema noted, pedal pulses palpable. CENTRAL NERVOUS SYSTEM: No focal deficits, tone is normal in all 4 extremities. - Labs CBC & Chem 7: 07/03/18 06:27 07/03/18 06:27 Labs: Abnormal Lab Results - Last 24 Hours (Table) 07/03/18 07/03/18 07/03/18 Range/Units 06:27 17:11 20:41 POC Glucose (mg/dL) 209 H 143 H (75-99) mg/dL Hemoglobin A1c 6.2 H (4.0-6.0) % 07/04/18 07/04/18 Range/Units 06:54 12:02 POC Glucose (mg/dL) 147 H 146 H (75-99) mg/dL Hemoglobin A1c (4.0-6.0) % Microbiology - Last 24 Hours (Table) 07/02/18 09:55 Blood Culture - Preliminary Blood No Growth after 48 hours 07/02/18 20:00 Gram Stain - Preliminary Sputum Assessment and Plan Assessment: Assessment Acute hypoxic respiratory failure requiring supplemental oxygen Acute exacerbation of COPD Multilobar pneumonia CAD with previous stenting Hypertension Bipolar disorder Plan Medications have been reviewed and will be continued as ordered. Lab work including HP panel, allergens, IgE, A1AT, Legionella and Mycoplasma all pending Continue antibiotics and steroid taper Obtain sputum culture Influenza swab negative CTA of the chest reviewed, we'll need a repeat CT in the outpatient setting in 4 -6 weeks questionable NSIP vs HP Will require 1mg/kg daily of prednisone with a slow taper in the outpatient setting Chest x-ray reviewed Initiate and encourage incentive spirometer Continue with pulmonary hygiene, coughing and deep breathing exercises, and supportive care. Supplemental oxygen to maintain oxygen saturations of 92% or better. Continue nebulizer treatments. GI and DVT prophylaxis. We will continue to monitor labs/results and adjust treatment as necessary. Further recommendations pending. I, the signing physician performed an examination of the patient, discussed and directed their management with the nurse practitioner. I have reviewed the nurse practitioner's note and agree with the documented findings, orders and plan of care. Nurse practitioner acting as a scribe for the signing physician.
--- NOTE | 2018-07-04 16:01 | P.PN ---
Subjective Progress Note Date: 07/04/18 This is a 67-year-old male one of Dr. Christy with a previous medical history significant for hypertension and hypertensive cardiovascular disease, mild CAD involving the RCA and the the LAD, with a last heart catheterization was done back in 2014, history of bipolar disorder, COPD, remote history of tobacco use and dependence, patient went to a walking clinic on Tuesday and he was diagnosed of having the flu according to him and he was given a Z-Osmani patient was feeling better up until today when he developed to have a significant coughing and increased yellow phlegm production with bloody streaks to it so he ended up coming to the ER at [facility] where he was found to have a multilobar pneumonia he was started on IV antibiotic in the form of Rocephin and Zithromax and and he was placed in droplet precautions until after obtaining the result of the flu swab, pulmonary consultation was obtained from Dr. ADOLFO Ayon. 07/03: Patient is currently on 10 L high flow O2 pulse oxing 92-96%. He states he is slightly better from yesterday. He is having more cough today. Influenza testing came back negative. Repeat chest x-ray this morning shows chronic interstitial lung disease with underlying COPD and stable patchy bilateral infiltrate. CT injury of the chest showed no evidence of central pulmonary embolism. Subsegmental pulmonary arteries are nondiagnostic. Interstitial lung disease. Findings favoring NSIP with no current evidence of fibrosis. Alternatively hypersensitivity pneumonitis or cryptogenic organizing pneumonia or possible. Consult in place with pulmonary medicine which will be seeing him today. Solu-Medrol will remain the same at 40 mg IV every 8 hours. Continue same medications. 07/04: CT results reviewed with patient. 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 Patient states that he had a rough night and does not seem like he is much better. He is bringing up sputum that is light in color. Patient was seen by Dr. Delgado. Solu-Medrol will remain at 40 mg every 8 hours. Sputum culture is in progress. Blood cultures showing no growth after 24 hours. He has been afebrile, heart rate running in the 80s and 90s, blood pressure 131/70, pulse ox 92% on 10 L high flow. Patient is now on humidified oxygen. Review of Systems Constitutional: Reports chills, Reports fever, Reports weakness Eyes: denies blurred vision, denies bulging eye Ears: deny: decreased hearing Ears, nose, mouth and throat: Denies dysphagia, Denies neck lump, Denies swelling in throat, Denies sore throat Cardiovascular: Reports decreased exercise tolerance, Reports shortness of breath, Denies chest pain, Denies lightheadedness, Denies rapid heart beat, Denies syncope Respiratory: Reports congestion, Reports cough, reports sputum, Reports hemoptysis, Reports wheezing, Denies home oxygen, Denies sleep apnea, Denies snoring Gastrointestinal: Denies abdominal pain, Denies belching, Denies bloating, Denies heartburn, Denies melena, Denies nausea, Denies vomiting Genitourinary: Denies dysuria, Denies nocturia Musculoskeletal: Denies myalgias Musculoskeletal: absent: ankle pain, ankle stiffness, ankle swelling, elbow pain , elbow stiffness, elbow swelling, foot pain, foot stiffness, foot swelling, hand pain, hand stiffness, hand swelling, hip pain, hip stiffness, hip swelling , knee pain, knee stiffness, knee swelling, shoulder pain, shoulder stiffness, shoulder swelling, wrist pain, wrist stiffness, wrist swelling Integumentary: Denies pruritus, Denies rash Neurological: Denies numbness, Denies weakness Psychiatric: Denies anxiety, Denies depression Endocrine: Denies fatigue, Objective - Vital Signs Vital signs: Vital Signs Temp 98.5 F 07/04/18 07:40 Pulse 92 07/04/18 07:40 Resp 20 07/04/18 07:40 BP 131/70 07/04/18 07:40 Pulse Ox 92 L 07/04/18 07:40 Intake & Output 07/03/18 07/04/18 07/04/18 18:59 06:59 18:59 Intake Total 1600 296 Balance 1600 296 Intake: IV 1200 0.9 Normal Saline 1200 Oral 400 296 Other: Voiding Method Toilet Toilet # Voids 1 2 - Exam General appearance: average body habitus, mild distress while at rest. - EENT Eyes: anicteric sclerae, EOMI, PERRLA, no ptosis, no scleral icterus, normal appearance ENT: hearing grossly normal, NA/AT, normal oropharynx, no thrush Ears: bilateral: normal - Neck Neck: no lymphadenopathy, normal ROM, no rigidity Carotids: bilateral: upstroke normal Thyroid: bilateral: normal size - Respiratory Respiratory: bilateral: diminished, rhonchi, wheezing, prolonged expiration, negative: dullness, rales - Cardiovascular Rhythm: regular Heart sounds: normal: S1, S2 Abnormal Heart Sounds: systolic murmur, no S3 Gallop, no S4 Gallop - Gastrointestinal General gastrointestinal: normal bowel sounds, soft, no splenomegaly, no tenderness, no umbilical hernia, no ventral hernia - Integumentary Integumentary: normal, normal turgor - Neurologic Neurologic: CNII-XII intact - Musculoskeletal Musculoskeletal: gait normal, strength equal bilaterally - Psychiatric Psychiatric: A&O x's 3, appropriate affect, intact judgment & insight - Labs CBC & Chem 7: 07/03/18 06:27 07/03/18 06:27 Labs: Abnormal Lab Results - Last 24 Hours (Table) 07/02/18 07/03/18 07/03/18 Range/Units 09:55 06:27 17:11 POC Glucose (mg/dL) 209 H (75-99) mg/dL Hemoglobin A1c 6.2 H (4.0-6.0) % Procalcitonin 0.23 H (0.02-0.09) ng/mL 07/03/18 07/04/18 Range/Units 20:41 06:54 POC Glucose (mg/dL) 143 H 147 H (75-99) mg/dL Hemoglobin A1c (4.0-6.0) % Procalcitonin (0.02-0.09) ng/mL Microbiology - Last 24 Hours (Table) 07/02/18 20:00 Gram Stain - Preliminary Sputum 07/02/18 09:55 Blood Culture - Preliminary Blood No Growth after 24 hours Assessment and Plan Plan: 1. Acute hypoxic respiratory failure secondary to multilobar pneumonia and acute COPD exacerbation. Continue patient on Rocephin 1 g IV piggyback every 24 hours, Zithromax 500 mg IV piggyback every 24 hours, DuoNeb 3 mL nebulization 4 times every day, Pulmicort 4 mg nebulization twice every day, oxygen 5 L nasal cannula keep saturation greater than 92%, pulmonary consultation from Dr. Delgado, influenza testing was negative. Sputum culture. Solu-Medrol 40 mg IV every 8 hours. CTA of the chest as above. 2. COPD exacerbation. Continue oxygen, DuoNeb 3 mL nebulization 4 times every day, Pulmicort 1 mg nebulization twice every day, Solu-Medrol 40 mg IV push every 8 hours. 3. Mild CAD status post left heart cath physician back in 2014 that showed mild disease of the LAD and RCA. Stable at this time continue patient on Toprol -XL 50 mg orally once every day. 4. Hypertension and hypertensive cardiovascular disease. Continue Toprol-XL 50 mg orally once every day, lisinopril 20 mg orally once every day. 5. Bipolar disorder. Continue Lamictal 100 mg orally once every day as well as sertraline 100 mg orally once every day. 6. GI prophylaxis. Protonix 40 mg once every day. 7. DVT prophylaxis. Heparin 5000 units subcutaneously every 8 hours. 8. Patient is full code. Discharge plan: Return home Impression and plan of care have been directed as dictated by the signing physician. Meghna Larry nurse practitioner acting as scribe for signing physician.
[2018-07-04 17:06] LABS: Glucose,Whole Blood 130 mg/dL (75-99)
[2018-07-04] MEDS ORDERED: ACETAMINOPHEN TAB 325 MG TAB PO PRN (18:02)
[2018-07-04 20:13] LABS: Glucose,Whole Blood 144 mg/dL (75-99)
[2018-07-04] MEDS: MONTELUKAST 10 MG TAB PO SCH (20:29)
[2018-07-05] MEDS: methylPREDNISolone SOD SUCCI 40 MG/ML 1 ML VIAL IV SCH ×3 (00:13→17:12)
[2018-07-05] MEDS: HEPARIN SODIUM,PORCINE 5,000 UNIT/ML 1 ML VIAL SQ SCH ×3 (00:13→17:12)
[2018-07-05 07:20] LABS: Glucose,Whole Blood 144 mg/dL (75-99)
[2018-07-05] MEDS: AZITHROMYCIN 500 MG TAB PO SCH (07:44)
[2018-07-05] MEDS: PANTOPRAZOLE 40 MG TABLET PO SCH (07:44)
[2018-07-05] MEDS: SERTRALINE 100 MG TAB PO SCH (07:45)
[2018-07-05] MEDS: lamoTRIgine 100 MG TAB PO SCH (07:45)
[2018-07-05] MEDS: METOPROLOL SUCCINATE (ER) 50 MG TAB.ER.24H PO SCH (07:45)
[2018-07-05] MEDS: LISINOPRIL 20 MG TAB PO SCH (07:45)
[2018-07-05] MEDS: INSULIN ASPART (NovoLOG) 100 UNIT/ML VIAL SQ SCH ×4 (07:53→20:40)
[2018-07-05] MEDS: BUDESONIDE 1 MG/2 ML NEBU INHALATION SCH ×2 (08:26→20:21)
[2018-07-05] MEDS: IPRATROPIUM-ALBUTEROL 3 ML NEB INHALATION SCH ×4 (08:26→20:21)
[2018-07-05 11:36] LABS: Basophils % (A) 0 %; Eosinophils % (A) 0 %; HCT 35.3 % (39.0-53.0); HGB 11.2 gm/dL (13.0-17.5); Lymphocytes # (A) 0.4 k/uL (1.0-4.8); Lymphocytes % (A) 6 %; MCH 29.2 pg (25.0-35.0); MCHC 31.8 g/dL (31.0-37.0); MCV 91.7 fL (80.0-100.0); Mean Platelet Volume 7.4; Monocytes # (A) 0.4 k/uL (0-1.0); Monocytes % (A) 6 %; Neutrophils # (A) 6.5 k/uL (1.3-7.7); Neutrophils % (A) 86 %; Platelet Count 208 k/uL (150-450); RBC 3.85 m/uL (4.30-5.90); RDW 14.1 % (11.5-15.5); WBC 7.6 k/uL (3.8-10.6)
[2018-07-05 11:49] LABS: ALT 42 U/L (21-72); AST 65 U/L (17-59); Albumin 2.7 g/dL (3.5-5.0); Alkaline Phosphatase 49 U/L (38-126); Anion Gap 4 mmol/L; Blood Urea Nitrogen 15 mg/dL (9-20); Calcium 7.8 mg/dL (8.4-10.2); Carbon Dioxide 26 mmol/L (22-30); Chloride 105 mmol/L (98-107); Glucose 183 mg/dL (74-99); Potassium 3.9 mmol/L (3.5-5.1); Sodium 135 mmol/L (137-145); Total Bilirubin 0.3 mg/dL (0.2-1.3); Total Protein 5.2 g/dL (6.3-8.2)
[2018-07-05 12:03] LABS: Glucose,Whole Blood 157 mg/dL (75-99)
--- NOTE | 2018-07-05 12:24 | P.PN ---
Subjective Progress Note Date: 07/05/18 HPI: This is a 67-year-old male being seen examined and evaluated today for consultation. This patient does have a past medical history significant for hypertension, hypertensive cardiovascular disease, mild CAD involving the RCA and the LAD, last stent heart catheterization was in 2014, history of bipolar, COPD, remote history of tobacco use and dependence. The patient was seen in the urgent care setting on Tuesday and was told he has "the flu" and the patient was given a Z-Osmani to take in the outpatient setting. The patient was starting to feel better and then he started to get significantly worse yesterday so he came into the emergency room. The patient was found to have a multilobar pneumonia he was started on IV antibiotics and steroids. He did have an influenza swab that was negative. 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 He denies any exposures to any birds or farm animals or farmland. He has 3. He quit smoking approximately 12 years ago. He does not have wood-burning stove at home. Upon examination the patient's resting up in bed on 10 L of high flow and oxygen via nasal cannula. He continues to have shortness of breath cough and congestion. He has been unable to provide a sputum sample thus far. He does feel the breathing treatments are helping. He has been afebrile no further complaints. Interval History: 07/04/18- patient is being seen examined and evaluated today on rounds. He is resting up in bed on 10 L high flow nasal cannula. Still feels quite dyspneic and short of breath even at rest. We will switch patient over to Airvo to help his breathing. Currently being worked up for questionable an SIEP versus HP. Multiple labs have been obtained and are pending. Patient will require 1 mg/kg daily of prednisone with a very slow outpatient taper. This is again discussed with the patient at length and he is agreeable. He is afebrile. All labs and reports reviewed 07/05/18- patient is being seen examined and evaluated today on rounds. He currenlty is one Airvo high flow at 55 L and 90% FiO2. He feels his breathing is less labored with using this type of supplemental oxygen. He is slowly improving. Most likely will require a home oxygen assessment prior to discharge. Objective - Vital Signs Vital signs: Vital Signs Temp 97.5 F L 07/05/18 07:55 Pulse 84 07/05/18 12:04 Resp 22 07/05/18 12:04 BP 125/71 07/05/18 07:55 Pulse Ox 94 L 07/05/18 10:35 Intake & Output 07/04/18 07/05/18 07/05/18 18:59 06:59 18:59 Intake Total 1362 1070 240 Output Total 300 Balance 1362 770 240 Intake: Intake, IV Titration 650 Amount Azithromycin 500 mg In 250 Sodium Chloride 0.9% 250 ml @ 250 mls/hr IVPB DAILY [facility] Rx#:[id number] cefTRIAXone 1,000 mg In 400 Sodium Chloride 0.9% 50 ml @ 100 mls/hr IVPB Q24HR [facility] Rx#:[id number] Oral 712 1070 240 Output: Urine 300 Other: # Voids 2 1 - Exam GENERAL EXAM: Alert, mild apparent distress. HEAD: Normocephalic. EYES: Normal reaction of pupils, equal size. NOSE: Clear with pink turbinates. THROAT: No erythema or exudates. NECK: No masses, no JVD. CHEST: No chest wall deformity. LUNGS: Lungs noted to be rhonchorous with wheezing scattered throughout and prolonged expiration, slowly improving CVS: S1 and S2 normal with no audible mumurs, regular rhythm. ABDOMEN: No hepatosplenomegaly, normal bowel sounds, no guarding or rigidity. EXTREMITIES: No edema noted, pedal pulses palpable. CENTRAL NERVOUS SYSTEM: No focal deficits, tone is normal in all 4 extremities. - Labs CBC & Chem 7: 07/05/18 10:57 07/05/18 10:57 Labs: Abnormal Lab Results - Last 24 Hours (Table) 07/04/18 07/04/18 07/04/18 Range/Units 17:04 18:24 20:12 RBC (4.30-5.90) m/uL Hgb (13.0-17.5) gm/dL Hct (39.0-53.0) % Lymphocytes # (1.0-4.8) k/uL Sodium (137-145) mmol/L Glucose (74-99) mg/dL POC Glucose (mg/dL) 130 H 144 H (75-99) mg/dL Calcium (8.4-10.2) mg/dL AST (17-59) U/L Total Protein (6.3-8.2) g/dL Albumin (3.5-5.0) g/dL IgE 115.00 H (0.00-114.00) IU/mL 07/05/18 07/05/18 07/05/18 Range/Units 07:08 10:57 10:57 RBC 3.85 L (4.30-5.90) m/uL Hgb 11.2 L (13.0-17.5) gm/dL Hct 35.3 L (39.0-53.0) % Lymphocytes # 0.4 L (1.0-4.8) k/uL Sodium 135 L (137-145) mmol/L Glucose 183 H (74-99) mg/dL POC Glucose (mg/dL) 144 H (75-99) mg/dL Calcium 7.8 L (8.4-10.2) mg/dL AST 65 H (17-59) U/L Total Protein 5.2 L (6.3-8.2) g/dL Albumin 2.7 L (3.5-5.0) g/dL IgE (0.00-114.00) IU/mL 07/05/18 Range/Units 11:44 RBC (4.30-5.90) m/uL Hgb (13.0-17.5) gm/dL Hct (39.0-53.0) % Lymphocytes # (1.0-4.8) k/uL Sodium (137-145) mmol/L Glucose (74-99) mg/dL POC Glucose (mg/dL) 157 H (75-99) mg/dL Calcium (8.4-10.2) mg/dL AST (17-59) U/L Total Protein (6.3-8.2) g/dL Albumin (3.5-5.0) g/dL IgE (0.00-114.00) IU/mL Microbiology - Last 24 Hours (Table) 07/02/18 09:55 Blood Culture - Preliminary Blood No Growth after 72 hours 07/02/18 20:00 Gram Stain - Final Sputum Sputum Culture - Final Assessment and Plan Assessment: Assessment Acute hypoxic respiratory failure requiring supplemental oxygen Acute exacerbation of COPD Multilobar pneumonia CAD with previous stenting Hypertension Bipolar disorder Plan Medications have been reviewed and will be continued as ordered. Lab work including HP panel, allergens, IgE, A1AT, Legionella and Mycoplasma all pending Continue antibiotics and steroid taper Obtain sputum culture Influenza swab negative CTA of the chest reviewed, we'll need a repeat CT in the outpatient setting in 4 -6 weeks questionable NSIP vs HP Will require 1mg/kg daily of prednisone with a slow taper in the outpatient setting Chest x-ray reviewed Initiate and encourage incentive spirometer Continue with pulmonary hygiene, coughing and deep breathing exercises, and supportive care. Supplemental oxygen to maintain oxygen saturations of 92% or better. Continue nebulizer treatments. GI and DVT prophylaxis. We will continue to monitor labs/results and adjust treatment as necessary. Further recommendations pending. I, the signing physician performed an examination of the patient, discussed and directed their management with the nurse practitioner. I have reviewed the nurse practitioner's note and agree with the documented findings, orders and plan of care. Nurse practitioner acting as a scribe for the signing physician.
--- NOTE | 2018-07-05 14:26 | P.PN ---
Subjective Progress Note Date: 07/05/18 This is a 67-year-old male one of Dr. Christy with a previous medical history significant for hypertension and hypertensive cardiovascular disease, mild CAD involving the RCA and the the LAD, with a last heart catheterization was done back in 2014, history of bipolar disorder, COPD, remote history of tobacco use and dependence, patient went to a walking clinic on Tuesday and he was diagnosed of having the flu according to him and he was given a Z-Osmani patient was feeling better up until today when he developed to have a significant coughing and increased yellow phlegm production with bloody streaks to it so he ended up coming to the ER at [facility] where he was found to have a multilobar pneumonia he was started on IV antibiotic in the form of Rocephin and Zithromax and and he was placed in droplet precautions until after obtaining the result of the flu swab, pulmonary consultation was obtained from Dr. ADOLFO Ayon. 07/03: Patient is currently on 10 L high flow O2 pulse oxing 92-96%. He states he is slightly better from yesterday. He is having more cough today. Influenza testing came back negative. Repeat chest x-ray this morning shows chronic interstitial lung disease with underlying COPD and stable patchy bilateral infiltrate. CT injury of the chest showed no evidence of central pulmonary embolism. Subsegmental pulmonary arteries are nondiagnostic. Interstitial lung disease. Findings favoring NSIP with no current evidence of fibrosis. Alternatively hypersensitivity pneumonitis or cryptogenic organizing pneumonia or possible. Consult in place with pulmonary medicine which will be seeing him today. Solu-Medrol will remain the same at 40 mg IV every 8 hours. Continue same medications. 07/04: CT results reviewed with patient. 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 Patient states that he had a rough night and does not seem like he is much better. He is bringing up sputum that is light in color. Patient was seen by Dr. Delgado. Solu-Medrol will remain at 40 mg every 8 hours. Sputum culture is in progress. Blood cultures showing no growth after 24 hours. He has been afebrile, heart rate running in the 80s and 90s, blood pressure 131/70, pulse ox 92% on 10 L high flow. Patient is now on humidified oxygen. 07/05: Patient is now on Airvo with FiO2 of 55 pulse oxing 94%. Breathing status is more comfortable using this. Discussed case with Dr. Delgado for possible bronchoscopy. Patient has had a bowel movement. He denies any diarrhea. Legionella, mycoplasma, hypersensitivity panels and alpha-1 antitrypsin are all pending. IgE is elevated at 115. His white count is normal, hemoglobin 9.2, creatinine 0.68. Blood sugars running between 144 and 187. Sputum culture is finalized with normal respiratory mehran. Review of Systems Constitutional: Reports chills, Reports fever, Reports weakness Eyes: denies blurred vision, denies double vision, denies bulging eye Ears: deny: decreased hearing Ears, nose, mouth and throat: Denies dysphagia, Denies neck lump, Denies swelling in throat, Denies sore throat Cardiovascular: Reports decreased exercise tolerance, Reports shortness of breath, Denies chest pain, Denies lightheadedness, Denies rapid heart beat, Denies syncope Respiratory: Reports congestion, Reports cough, reports sputum, Reports hemoptysis, Reports wheezing, Denies home oxygen, Denies sleep apnea, Denies snoring Gastrointestinal: Denies abdominal pain, Denies belching, Denies bloating, Denies heartburn, Denies melena, Denies nausea, Denies vomiting Genitourinary: Denies dysuria, Denies nocturia Musculoskeletal: Denies myalgias Musculoskeletal: absent: ankle pain, ankle stiffness, ankle swelling, elbow pain , elbow stiffness, elbow swelling, foot pain, foot stiffness, foot swelling, hand pain, hand stiffness, hand swelling, hip pain, hip stiffness, hip swelling , knee pain, knee stiffness, knee swelling, shoulder pain, shoulder stiffness, shoulder swelling, wrist pain, wrist stiffness, wrist swelling Integumentary: Denies pruritus, Denies rash Neurological: Denies numbness, Denies weakness Psychiatric: Denies anxiety, Denies depression Endocrine: Denies fatigue, Objective - Vital Signs Vital signs: Vital Signs Temp 97.5 F L 07/05/18 07:55 Pulse 84 07/05/18 12:04 Resp 22 07/05/18 12:04 BP 125/71 07/05/18 07:55 Pulse Ox 94 L 07/05/18 10:35 Intake & Output 07/04/18 07/05/18 07/05/18 18:59 06:59 18:59 Intake Total 1362 1070 240 Output Total 300 Balance 1362 770 240 Intake: Intake, IV Titration 650 Amount Azithromycin 500 mg In 250 Sodium Chloride 0.9% 250 ml @ 250 mls/hr IVPB DAILY [facility] Rx#:[id number] cefTRIAXone 1,000 mg In 400 Sodium Chloride 0.9% 50 ml @ 100 mls/hr IVPB Q24HR [facility] Rx#:[id number] Oral 712 1070 240 Output: Urine 300 Other: # Voids 2 1 - Exam General appearance: average body habitus, mild distress while at rest. Appears more comfortable today on Airvo. - EENT Eyes: anicteric sclerae, EOMI, PERRLA, no ptosis, no scleral icterus, normal appearance ENT: hearing grossly normal, NA/AT, normal oropharynx, no thrush Ears: bilateral: normal - Neck Neck: no lymphadenopathy, normal ROM, no rigidity Carotids: bilateral: upstroke normal Thyroid: bilateral: normal size - Respiratory Respiratory: bilateral: diminished, rhonchi, wheezing, prolonged expiration, negative: dullness, rales - Cardiovascular Rhythm: regular Heart sounds: normal: S1, S2 Abnormal Heart Sounds: systolic murmur, no S3 Gallop, no S4 Gallop - Gastrointestinal General gastrointestinal: normal bowel sounds, soft, no splenomegaly, no tenderness, no umbilical hernia, no ventral hernia - Integumentary Integumentary: normal, normal turgor - Neurologic Neurologic: CNII-XII intact - Musculoskeletal Musculoskeletal: gait normal, strength equal bilaterally - Psychiatric Psychiatric: A&O x's 3, appropriate affect, intact judgment & insight - Labs CBC & Chem 7: 07/05/18 10:57 07/05/18 10:57 Labs: Abnormal Lab Results - Last 24 Hours (Table) 07/04/18 07/04/18 07/04/18 Range/Units 17:04 18:24 20:12 RBC (4.30-5.90) m/uL Hgb (13.0-17.5) gm/dL Hct (39.0-53.0) % Lymphocytes # (1.0-4.8) k/uL Sodium (137-145) mmol/L Glucose (74-99) mg/dL POC Glucose (mg/dL) 130 H 144 H (75-99) mg/dL Calcium (8.4-10.2) mg/dL AST (17-59) U/L Total Protein (6.3-8.2) g/dL Albumin (3.5-5.0) g/dL IgE 115.00 H (0.00-114.00) IU/mL 07/05/18 07/05/18 07/05/18 Range/Units 07:08 10:57 10:57 RBC 3.85 L (4.30-5.90) m/uL Hgb 11.2 L (13.0-17.5) gm/dL Hct 35.3 L (39.0-53.0) % Lymphocytes # 0.4 L (1.0-4.8) k/uL Sodium 135 L (137-145) mmol/L Glucose 183 H (74-99) mg/dL POC Glucose (mg/dL) 144 H (75-99) mg/dL Calcium 7.8 L (8.4-10.2) mg/dL AST 65 H (17-59) U/L Total Protein 5.2 L (6.3-8.2) g/dL Albumin 2.7 L (3.5-5.0) g/dL IgE (0.00-114.00) IU/mL 07/05/18 Range/Units 11:44 RBC (4.30-5.90) m/uL Hgb (13.0-17.5) gm/dL Hct (39.0-53.0) % Lymphocytes # (1.0-4.8) k/uL Sodium (137-145) mmol/L Glucose (74-99) mg/dL POC Glucose (mg/dL) 157 H (75-99) mg/dL Calcium (8.4-10.2) mg/dL AST (17-59) U/L Total Protein (6.3-8.2) g/dL Albumin (3.5-5.0) g/dL IgE (0.00-114.00) IU/mL Microbiology - Last 24 Hours (Table) 07/02/18 09:55 Blood Culture - Preliminary Blood No Growth after 72 hours 07/02/18 20:00 Gram Stain - Final Sputum Sputum Culture - Final Assessment and Plan Plan: 1. Acute hypoxic respiratory failure secondary to multilobar pneumonia and acute COPD exacerbation. Continue patient on Rocephin 1 g IV piggyback every 24 hours, Zithromax 500 mg IV piggyback every 24 hours, DuoNeb 3 mL nebulization 4 times every day, Pulmicort 4 mg nebulization twice every day, oxygen to keep saturation greater than 92%, pulmonary consultation from Dr. Delgado, influenza testing was negative. Sputum culture reveals normal mehran. Solu-Medrol 40 mg IV every 8 hours. CTA of the chest as above. 2. COPD exacerbation. Continue oxygen, DuoNeb 3 mL nebulization 4 times every day, Pulmicort 1 mg nebulization twice every day, Solu-Medrol 40 mg IV push every 8 hours. 3. Mild CAD status post left heart cath physician back in 2014 that showed mild disease of the LAD and RCA. Stable at this time continue patient on Toprol -XL 50 mg orally once every day. 4. Hypertension and hypertensive cardiovascular disease. Continue Toprol-XL 50 mg orally once every day, lisinopril 20 mg orally once every day. 5. Bipolar disorder. Continue Lamictal 100 mg orally once every day as well as sertraline 100 mg orally once every day. 6. GI prophylaxis. Protonix 40 mg once every day. 7. DVT prophylaxis. Heparin 5000 units subcutaneously every 8 hours. 8. Patient is full code. Discharge plan: Return home Impression and plan of care have been directed as dictated by the signing physician. Meghna Larry nurse practitioner acting as scribe for signing physician.
[2018-07-05] MEDS: ACETYLCYSTEINE 800 MG/4 ML VIAL INHALATION SCH ×2 (16:47→20:21)
[2018-07-05 17:17] LABS: Glucose,Whole Blood 157 mg/dL (75-99)
[2018-07-05 19:55] LABS: Glucose,Whole Blood 192 mg/dL (75-99)
[2018-07-05] MEDS: FORMOTEROL FUMARATE 20 MCG/2 ML NEBU INHALATION SCH (20:21)
[2018-07-05] MEDS: MONTELUKAST 10 MG TAB PO SCH (20:40)
[2018-07-05] MEDS: FUROSEMIDE 10 MG/ML 2 ML VIAL IV SCH (20:40)
[2018-07-06] MEDS: methylPREDNISolone SOD SUCCI 40 MG/ML 1 ML VIAL IV SCH ×2 (00:13→07:51)
[2018-07-06] MEDS: HEPARIN SODIUM,PORCINE 5,000 UNIT/ML 1 ML VIAL SQ SCH ×4 (00:13→23:26)
[2018-07-06 06:54] LABS: Glucose,Whole Blood 140 mg/dL (75-99)
[2018-07-06] MEDS: BUDESONIDE 1 MG/2 ML NEBU INHALATION SCH ×2 (07:17→19:58)
[2018-07-06] MEDS: ACETYLCYSTEINE 800 MG/4 ML VIAL INHALATION SCH ×4 (07:17→19:58)
[2018-07-06] MEDS: FORMOTEROL FUMARATE 20 MCG/2 ML NEBU INHALATION SCH ×2 (07:17→19:58)
[2018-07-06] MEDS: IPRATROPIUM-ALBUTEROL 3 ML NEB INHALATION SCH ×4 (07:17→19:58)
[2018-07-06] MEDS: PANTOPRAZOLE 40 MG TABLET PO SCH (07:48)
[2018-07-06] MEDS: AZITHROMYCIN 500 MG TAB PO SCH (07:49)
[2018-07-06] MEDS: lamoTRIgine 100 MG TAB PO SCH (07:49)
[2018-07-06] MEDS: FUROSEMIDE 10 MG/ML 2 ML VIAL IV SCH ×2 (07:50→20:35)
[2018-07-06] MEDS: LISINOPRIL 20 MG TAB PO SCH (07:50)
[2018-07-06] MEDS: SERTRALINE 100 MG TAB PO SCH (07:50)
[2018-07-06] MEDS: METOPROLOL SUCCINATE (ER) 50 MG TAB.ER.24H PO SCH (07:50)
[2018-07-06] MEDS ORDERED: cefTRIAXone 1 GM VIAL ONE (07:50)
[2018-07-06] MEDS: INSULIN ASPART (NovoLOG) 100 UNIT/ML VIAL SQ SCH ×4 (07:51→20:35)
[2018-07-06 09:54] LABS: Basophils % (A) 0 %; Eosinophils % (A) 0 %; HCT 38.8 % (39.0-53.0); HGB 12.1 gm/dL (13.0-17.5); Lymphocytes # (A) 0.5 k/uL (1.0-4.8); Lymphocytes % (A) 4 %; MCH 28.6 pg (25.0-35.0); MCHC 31.1 g/dL (31.0-37.0); Mean Platelet Volume 7.5; Monocytes # (A) 0.8 k/uL (0-1.0); Monocytes % (A) 7 %; Neutrophils # (A) 9.3 k/uL (1.3-7.7); Neutrophils % (A) 86 %; Platelet Count 326 k/uL (150-450); RBC 4.21 m/uL (4.30-5.90); WBC 10.8 k/uL (3.8-10.6)
[2018-07-06 10:10] LABS: ALT 47 U/L (21-72); AST 64 U/L (17-59); Albumin 3.1 g/dL (3.5-5.0); Alkaline Phosphatase 60 U/L (38-126); Anion Gap 8 mmol/L; Blood Urea Nitrogen 19 mg/dL (9-20); Calcium 8.3 mg/dL (8.4-10.2); Carbon Dioxide 25 mmol/L (22-30); Chloride 104 mmol/L (98-107); Glucose 162 mg/dL (74-99); Potassium 3.6 mmol/L (3.5-5.1); Sodium 137 mmol/L (137-145); Total Bilirubin 0.4 mg/dL (0.2-1.3); Total Protein 5.9 g/dL (6.3-8.2)
[2018-07-06] MEDS: LEVOFLOXACIN 750 MG TAB PO SCH (10:39)
[2018-07-06 11:29] LABS: Alpha 1 Anti-Trypsin 197 mg/dL (90 - 200)
--- NOTE | 2018-07-06 11:33 | P.PN ---
Subjective Progress Note Date: 07/06/18 HPI: This is a 67-year-old male being seen examined and evaluated today for consultation. This patient does have a past medical history significant for hypertension, hypertensive cardiovascular disease, mild CAD involving the RCA and the LAD, last stent heart catheterization was in 2014, history of bipolar, COPD, remote history of tobacco use and dependence. The patient was seen in the urgent care setting on Tuesday and was told he has "the flu" and the patient was given a Z-Osmani to take in the outpatient setting. The patient was starting to feel better and then he started to get significantly worse yesterday so he came into the emergency room. The patient was found to have a multilobar pneumonia he was started on IV antibiotics and steroids. He did have an influenza swab that was negative. 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 He denies any exposures to any birds or farm animals or farmland. He has 3. He quit smoking approximately 12 years ago. He does not have wood-burning stove at home. Upon examination the patient's resting up in bed on 10 L of high flow and oxygen via nasal cannula. He continues to have shortness of breath cough and congestion. He has been unable to provide a sputum sample thus far. He does feel the breathing treatments are helping. He has been afebrile no further complaints. Interval History: 07/04/18- patient is being seen examined and evaluated today on rounds. He is resting up in bed on 10 L high flow nasal cannula. Still feels quite dyspneic and short of breath even at rest. We will switch patient over to Airvo to help his breathing. Currently being worked up for questionable an SIEP versus HP. Multiple labs have been obtained and are pending. Patient will require 1 mg/kg daily of prednisone with a very slow outpatient taper. This is again discussed with the patient at length and he is agreeable. He is afebrile. All labs and reports reviewed 07/05/18- patient is being seen examined and evaluated today on rounds. He currenlty is one Airvo high flow at 55 L and 90% FiO2. He feels his breathing is less labored with using this type of supplemental oxygen. He is slowly improving. Most likely will require a home oxygen assessment prior to discharge. 07/06/18- patient is being seen examined and evaluated today on rounds. He continues on Airvo high flow oxygen at 55 L and 90% FiO2. He is very slow to recover when he does get short of breath. His steroids are increased. His antibiotics is switched to Levaquin. Yesterday we also added Perforomist and Mucomyst inhalation. He seems to feel those are helping him as well. The patient could potentially undergo a bronchoscopy once his oxygen demand significantly decreased. He is not a candidate at this time due to his high oxygen demands. This is discussed with him at length as well as the attending provider. The patient has not ambulated much since being admitted. We will consult PT and OT as well as PMNR for possible inpatient rehab on discharge. Objective - Vital Signs Vital signs: Vital Signs Temp 98.5 F 07/06/18 07:07 Pulse 76 07/06/18 11:10 Resp 20 07/06/18 07:07 BP 126/84 07/06/18 07:07 Pulse Ox 92 L 07/06/18 07:07 Intake & Output 07/05/18 07/06/18 07/06/18 18:59 06:59 18:59 Intake Total 580 240 Output Total 1850 Balance 580 -1850 240 Intake: Oral 480 240 Other 100 Output: Urine 1850 Other: # Voids 3 - Exam GENERAL EXAM: Alert, mild apparent distress. HEAD: Normocephalic. EYES: Normal reaction of pupils, equal size. NOSE: Clear with pink turbinates. THROAT: No erythema or exudates. NECK: No masses, no JVD. CHEST: No chest wall deformity. LUNGS: Lungs noted to be rhonchorous with wheezing scattered throughout and prolonged expiration, slowly improving CVS: S1 and S2 normal with no audible mumurs, regular rhythm. ABDOMEN: No hepatosplenomegaly, normal bowel sounds, no guarding or rigidity. EXTREMITIES: No edema noted, pedal pulses palpable. CENTRAL NERVOUS SYSTEM: No focal deficits, tone is normal in all 4 extremities. - Labs CBC & Chem 7: 07/06/18 09:07 07/06/18 09:07 Labs: Abnormal Lab Results - Last 24 Hours (Table) 07/05/18 07/05/18 07/05/18 Range/Units 10:57 10:57 11:44 WBC (3.8-10.6) k/uL RBC 3.85 L (4.30-5.90) m/uL Hgb 11.2 L (13.0-17.5) gm/dL Hct 35.3 L (39.0-53.0) % Neutrophils # (1.3-7.7) k/uL Lymphocytes # 0.4 L (1.0-4.8) k/uL Sodium 135 L (137-145) mmol/L Glucose 183 H (74-99) mg/dL POC Glucose (mg/dL) 157 H (75-99) mg/dL Calcium 7.8 L (8.4-10.2) mg/dL AST 65 H (17-59) U/L Total Protein 5.2 L (6.3-8.2) g/dL Albumin 2.7 L (3.5-5.0) g/dL 07/05/18 07/05/18 07/06/18 Range/Units 17:05 19:53 06:52 WBC (3.8-10.6) k/uL RBC (4.30-5.90) m/uL Hgb (13.0-17.5) gm/dL Hct (39.0-53.0) % Neutrophils # (1.3-7.7) k/uL Lymphocytes # (1.0-4.8) k/uL Sodium (137-145) mmol/L Glucose (74-99) mg/dL POC Glucose (mg/dL) 157 H 192 H 140 H (75-99) mg/dL Calcium (8.4-10.2) mg/dL AST (17-59) U/L Total Protein (6.3-8.2) g/dL Albumin (3.5-5.0) g/dL 07/06/18 07/06/18 Range/Units 09:07 09:07 WBC 10.8 H (3.8-10.6) k/uL RBC 4.21 L (4.30-5.90) m/uL Hgb 12.1 L (13.0-17.5) gm/dL Hct 38.8 L (39.0-53.0) % Neutrophils # 9.3 H (1.3-7.7) k/uL Lymphocytes # 0.5 L (1.0-4.8) k/uL Sodium (137-145) mmol/L Glucose 162 H (74-99) mg/dL POC Glucose (mg/dL) (75-99) mg/dL Calcium 8.3 L (8.4-10.2) mg/dL AST 64 H (17-59) U/L Total Protein 5.9 L (6.3-8.2) g/dL Albumin 3.1 L (3.5-5.0) g/dL Microbiology - Last 24 Hours (Table) 07/04/18 18:24 Blood Culture - Preliminary Blood No Growth after 24 hours 07/02/18 09:55 Blood Culture - Preliminary Blood No Growth after 72 hours 07/02/18 20:00 Gram Stain - Final Sputum Sputum Culture - Final Assessment and Plan Assessment: Assessment Acute hypoxic respiratory failure requiring supplemental oxygen Acute exacerbation of COPD Multilobar pneumonia CAD with previous stenting Hypertension Bipolar disorder Plan Medications have been reviewed and will be continued as ordered. Lab work including HP panel, allergens, IgE, A1AT, Legionella and Mycoplasma all pending Antibiotics switched to Levaquin Solu-Medrol dose is increased DuoNeb, budesonide, Mucomyst and Perforomist Potential bronchoscopy once oxygen demands significantly decreased Obtain sputum culture Influenza swab negative CTA of the chest reviewed, we'll need a repeat CT in the outpatient setting in 4 -6 weeks questionable NSIP vs HP Will require 1mg/kg daily of prednisone with a slow taper in the outpatient setting Chest x-ray reviewed Initiate and encourage incentive spirometer Continue with pulmonary hygiene, coughing and deep breathing exercises, and supportive care. Supplemental oxygen to maintain oxygen saturations of 92% or better. Continue nebulizer treatments. GI and DVT prophylaxis. Increase activity as tolerated, PT and OT, PM & R consultation We will continue to monitor labs/results and adjust treatment as necessary. Further recommendations pending. I, the signing physician performed an examination of the patient, discussed and directed their management with the nurse practitioner. I have reviewed the nurse practitioner's note and agree with the documented findings, orders and plan of care. Nurse practitioner acting as a scribe for the signing physician.
--- NOTE | 2018-07-06 11:56 | P.PN ---
Subjective Progress Note Date: 07/06/18 This is a 67-year-old male one of Dr. Christy with a previous medical history significant for hypertension and hypertensive cardiovascular disease, mild CAD involving the RCA and the the LAD, with a last heart catheterization was done back in 2014, history of bipolar disorder, COPD, remote history of tobacco use and dependence, patient went to a walking clinic on Tuesday and he was diagnosed of having the flu according to him and he was given a Z-Osmani patient was feeling better up until today when he developed to have a significant coughing and increased yellow phlegm production with bloody streaks to it so he ended up coming to the ER at [facility] where he was found to have a multilobar pneumonia he was started on IV antibiotic in the form of Rocephin and Zithromax and and he was placed in droplet precautions until after obtaining the result of the flu swab, pulmonary consultation was obtained from Dr. ADOLFO Ayon. 07/03: Patient is currently on 10 L high flow O2 pulse oxing 92-96%. He states he is slightly better from yesterday. He is having more cough today. Influenza testing came back negative. Repeat chest x-ray this morning shows chronic interstitial lung disease with underlying COPD and stable patchy bilateral infiltrate. CT injury of the chest showed no evidence of central pulmonary embolism. Subsegmental pulmonary arteries are nondiagnostic. Interstitial lung disease. Findings favoring NSIP with no current evidence of fibrosis. Alternatively hypersensitivity pneumonitis or cryptogenic organizing pneumonia or possible. Consult in place with pulmonary medicine which will be seeing him today. Solu-Medrol will remain the same at 40 mg IV every 8 hours. Continue same medications. 07/04: CT results reviewed with patient. 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 Patient states that he had a rough night and does not seem like he is much better. He is bringing up sputum that is light in color. Patient was seen by Dr. Delgado. Solu-Medrol will remain at 40 mg every 8 hours. Sputum culture is in progress. Blood cultures showing no growth after 24 hours. He has been afebrile, heart rate running in the 80s and 90s, blood pressure 131/70, pulse ox 92% on 10 L high flow. Patient is now on humidified oxygen. 07/05: Patient is now on Airvo with FiO2 of 55 pulse oxing 94%. Breathing status is more comfortable using this. Discussed case with Dr. Delgado for possible bronchoscopy. Patient has had a bowel movement. He denies any diarrhea. Legionella, mycoplasma, hypersensitivity panels and alpha-1 antitrypsin are all pending. IgE is elevated at 115. His white count is normal, hemoglobin 9.2, creatinine 0.68. Blood sugars running between 144 and 187. Sputum culture is finalized with normal respiratory mehran. 07/06: Patient is requiring FiO2 of 90% on Airvo. Pulse ox is 92%. Patient has been afebrile, heart rate running in the 80s. Blood pressure 126/84. Dr. Delgado does not plan to do bronchoscopy while patient oxygen needs are high. Her recommendations are to increase steroids to 60 mg IV every 6 hours and change antibiotics to Levaquin. Perforomist and Mucomyst were added yesterday. Pulmonary as noted in consult with Dr. Ware for inpatient rehab. Alpha I antitrypsin came back negative. Mycoplasma and Legionella are pending. Review of Systems Constitutional: Reports chills, Reports fever, Reports weakness Eyes: denies blurred vision, denies double vision, denies bulging eye Ears: deny: decreased hearing Ears, nose, mouth and throat: Denies dysphagia, Denies neck lump, Denies swelling in throat, Denies sore throat Cardiovascular: Reports decreased exercise tolerance, Reports shortness of breath, Denies chest pain, Denies lightheadedness, Denies rapid heart beat, Denies syncope Respiratory: Reports congestion, Reports cough, reports sputum, Reports hemoptysis, Reports wheezing, Denies home oxygen, Denies sleep apnea, Denies snoring Gastrointestinal: Denies abdominal pain, Denies belching, Denies bloating, Denies heartburn, Denies melena, Denies nausea, Denies vomiting Genitourinary: Denies dysuria, Denies nocturia Musculoskeletal: Denies myalgias Musculoskeletal: absent: ankle pain, ankle stiffness, ankle swelling, elbow pain , elbow stiffness, elbow swelling, foot pain, foot stiffness, foot swelling, hand pain, hand stiffness, hand swelling, hip pain, hip stiffness, hip swelling , knee pain, knee stiffness, knee swelling, shoulder pain, shoulder stiffness, shoulder swelling, wrist pain, wrist stiffness, wrist swelling Integumentary: Denies pruritus, Denies rash Neurological: Denies numbness, Denies weakness Psychiatric: Denies anxiety, Denies depression Endocrine: Denies fatigue, abnormal blood sugars Objective - Vital Signs Vital signs: Vital Signs Temp 98.5 F 07/06/18 07:07 Pulse 76 07/06/18 07:53 Resp 20 07/06/18 07:07 BP 126/84 07/06/18 07:07 Pulse Ox 92 L 07/06/18 07:07 Intake & Output 07/05/18 07/06/18 07/06/18 18:59 06:59 18:59 Intake Total 580 Output Total 1850 Balance 580 -1850 Intake: Oral 480 Other 100 Output: Urine 1850 Other: # Voids 3 - Exam General appearance: average body habitus, mild to moderate distress while at rest. - EENT Eyes: anicteric sclerae, EOMI, PERRLA, no ptosis, no scleral icterus, normal appearance ENT: hearing grossly normal, NA/AT, normal oropharynx, no thrush Ears: bilateral: normal - Neck Neck: no lymphadenopathy, normal ROM, no rigidity Carotids: bilateral: upstroke normal Thyroid: bilateral: normal size - Respiratory Respiratory: bilateral: diminished, rhonchi, wheezing, prolonged expiration, negative: dullness, rales - Cardiovascular Rhythm: regular Heart sounds: normal: S1, S2 Abnormal Heart Sounds: systolic murmur, no S3 Gallop, no S4 Gallop - Gastrointestinal General gastrointestinal: normal bowel sounds, soft, no splenomegaly, no tenderness, no umbilical hernia, no ventral hernia - Integumentary Integumentary: normal, normal turgor - Neurologic Neurologic: CNII-XII intact - Musculoskeletal Musculoskeletal: gait normal, strength equal bilaterally - Psychiatric Psychiatric: A&O x's 3, appropriate affect, intact judgment & insight - Labs CBC & Chem 7: 07/06/18 09:07 07/06/18 09:07 Labs: Abnormal Lab Results - Last 24 Hours (Table) 07/05/18 07/05/18 07/05/18 Range/Units 10:57 10:57 11:44 RBC 3.85 L (4.30-5.90) m/uL Hgb 11.2 L (13.0-17.5) gm/dL Hct 35.3 L (39.0-53.0) % Lymphocytes # 0.4 L (1.0-4.8) k/uL Sodium 135 L (137-145) mmol/L Glucose 183 H (74-99) mg/dL POC Glucose (mg/dL) 157 H (75-99) mg/dL Calcium 7.8 L (8.4-10.2) mg/dL AST 65 H (17-59) U/L Total Protein 5.2 L (6.3-8.2) g/dL Albumin 2.7 L (3.5-5.0) g/dL 07/05/18 07/05/18 07/06/18 Range/Units 17:05 19:53 06:52 RBC (4.30-5.90) m/uL Hgb (13.0-17.5) gm/dL Hct (39.0-53.0) % Lymphocytes # (1.0-4.8) k/uL Sodium (137-145) mmol/L Glucose (74-99) mg/dL POC Glucose (mg/dL) 157 H 192 H 140 H (75-99) mg/dL Calcium (8.4-10.2) mg/dL AST (17-59) U/L Total Protein (6.3-8.2) g/dL Albumin (3.5-5.0) g/dL Microbiology - Last 24 Hours (Table) 07/04/18 18:24 Blood Culture - Preliminary Blood No Growth after 24 hours 07/02/18 09:55 Blood Culture - Preliminary Blood No Growth after 72 hours 07/02/18 20:00 Gram Stain - Final Sputum Sputum Culture - Final Assessment and Plan Plan: 1. Acute hypoxic respiratory failure secondary to multilobar pneumonia and acute COPD exacerbation. Continue patient on Rocephin 1 g IV piggyback every 24 hours, Zithromax changed to Levaquin, DuoNeb 3 mL nebulization 4 times every day, Pulmicort 4 mg nebulization twice every day, oxygen to keep saturation greater than 92%, pulmonary consultation from Dr. Delgado, influenza testing was negative. Sputum culture reveals normal mehran. Solu-Medrol increased to 60 mg IV every 6 hours. Perforomist and Mucomyst added yesterday by pulmonary medicine. CTA of the chest as above. 2. COPD exacerbation. Continue oxygen, DuoNeb 3 mL nebulization 4 times every day, Pulmicort 1 mg nebulization twice every day, Solu-Medrol. Continue as in # 1 3. Mild CAD status post left heart cath physician back in 2014 that showed mild disease of the LAD and RCA. Stable at this time continue patient on Toprol -XL 50 mg orally once every day. 4. Hypertension and hypertensive cardiovascular disease. Continue Toprol-XL 50 mg orally once every day, lisinopril 20 mg orally once every day. 5. Bipolar disorder. Continue Lamictal 100 mg orally once every day as well as sertraline 100 mg orally once every day. 6. GI prophylaxis. Protonix 40 mg once every day. 7. DVT prophylaxis. Heparin 5000 units subcutaneously every 8 hours. 8. Patient is full code. Discharge plan: Return home. Consult with Dr. Ware for inpatient rehab, PT and OT Impression and plan of care have been directed as dictated by the signing physician. Meghna Larry nurse practitioner acting as scribe for signing physician.
--- NOTE | 2018-07-06 12:03 | P.CONS ---
History of Present Illness - Chief Complaint Medical debility - History of Present Illness I had the opportunity to see patient for inpatient rehab consultation with regard to medical debility. He was admitted to [facility] July 02 with multilobular pneumonia, acute respiratory failure, hypoxic as well as COPD exacerbation. Seen by Drs. Dillard her band instrument repairer. Chest x-ray demonstrates only chronic interstitial change. Chest CTA negative for PE. PT and OT prescribed. Previous functional history as elicited patient: 67 showed right-handed white male who is lives and 2 floor home alone. Retired. Describes independent with cooking, laundry, sitdown shower and gait without device. Does not drive. Dr. Christy is regular doctor. History smoking but doesn't smoke or drink currently. Review of Systems Review of systems: ENT: Denies sneezes or discharge. Eyes: Denies discharge or photophobia. Cardiac: Denies chest pain or palpitation. Pulmonary: At least mild shortness of breath. Gastrointestinal: Denies nausea, emesis, constipation, diarrhea. Genitourinary: Denies discharge or frequency. Musculoskeletal: Denies muscle or bone aches. Neurologic: At least mild generalized weakness. Endocrine: Denies shakes or sweats. Oncology: Denies cancers. Dermatologic: Denies rash, itching, pruritus. ALLERGY/immunology: Denies sneezes, rashes. Past Medical History Past Medical History: Coronary Artery Disease (CAD), COPD, Hypertension, Osteoarthritis (OA) History of Any Multi-Drug Resistant Organisms: None Reported Past Surgical History: No Surgical Hx Reported, Heart Catheterization Past Psychological History: Depression Smoking Status: Former smoker (Patient is smoke about pack every day he quit about 12 years ago.) Past Alcohol Use History: Daily Past Drug Use History: None Reported - Past Family History Father Family Medical History: COPD (Father at age of 89 from old age and he also had COPD.) Mother Family Medical History: No Reported History (Mother at age of 68 and she also had history of fibromyalgia.) Brother(s) Family Medical History: No Reported History (Patient has 3 brothers no major medical problems.) Sister(s) Family Medical History: No Reported History (Patient has one sister no major medical problems.) Daughter(s) Family Medical History: No Reported History (Patient has 4 daughters no medical issues.) Medications and Allergies Home Medications Medication Instructions Recorded Confirmed Type Lisinopril [Prinivil] 20 mg PO DAILY 02/21/15 07/02/18 History Metoprolol Succinate [Toprol XL] 50 mg PO DAILY 02/21/15 07/02/18 History Montelukast [Singulair] 10 mg PO HS 02/21/15 07/02/18 History Sertraline [Zoloft] 100 mg PO DAILY 02/21/15 07/02/18 History lamoTRIgine [LaMICtal] 100 mg PO DAILY 02/21/15 07/02/18 History Azithromycin [Zithromax Z-pack] See Taper PO DAILY 07/02/18 07/02/18 History Allergies Allergy/AdvReac Type Severity Reaction Status Date / Time Penicillins Allergy Unknown Verified 07/02/18 10:23 Physical Exam Vitals: Vital Signs Temp Pulse Pulse Resp BP Pulse Ox 07/06/18 11:10 76 07/06/18 11:01 72 07/06/18 07:53 76 07/06/18 07:46 80 07/06/18 07:30 82 07/06/18 07:07 98.5 F 83 20 126/84 92 L 07/05/18 23:00 86 128/71 93 L 07/05/18 20:45 78 07/05/18 20:37 71 07/05/18 20:22 74 07/05/18 20:12 92 L 07/05/18 19:16 98.1 F 87 36 H 136/78 92 L 07/05/18 16:53 78 07/05/18 16:42 73 20 93 L 07/05/18 15:00 98.0 F 82 18 121/70 92 L 07/05/18 14:25 92 L 07/05/18 12:29 94 L 07/05/18 12:04 84 22 Intake and Output 07/05/18 07/06/18 07/06/18 22:59 06:59 14:59 Intake Total 240 Output Total 1500 350 Balance -1500 -350 240 Intake: Oral 240 Output: Urine 1500 350 Skin: Good color, texture, turgor. General: Medium build and comfortable appearance. Head: Normocephalic, atraumatic. Eyes: Symmetric. Pupils equal round. Ears: Symmetric. Hearing within normal limits. Mouth: Clear. Neck: Supple. Carotid without bruit. Cardiac: Regular rate and rhythm. Lungs: Clear anteriorly and posteriorly. Abdomen: Soft active nontender. Extremities: Normal tone. Neurological: Mental status: Alert, cooperative, pleasant. Cranial nerves: Symmetric facial tone and trapezius. Motor: Normal strength and isolation all 4 limbs. Sensation: Intact throughout. DTRs: Symmetric and equal throughout. Mobility: Describes independent in room. Results CBC & Chem 7: 07/06/18 09:07 07/06/18 09:07 Labs: Abnormal Lab Results - Last 24 Hours (Table) 07/05/18 07/05/18 07/05/18 Range/Units 11:44 17:05 19:53 WBC (3.8-10.6) k/uL RBC (4.30-5.90) m/uL Hgb (13.0-17.5) gm/dL Hct (39.0-53.0) % Neutrophils # (1.3-7.7) k/uL Lymphocytes # (1.0-4.8) k/uL Glucose (74-99) mg/dL POC Glucose (mg/dL) 157 H 157 H 192 H (75-99) mg/dL Calcium (8.4-10.2) mg/dL AST (17-59) U/L Total Protein (6.3-8.2) g/dL Albumin (3.5-5.0) g/dL 07/06/18 07/06/18 07/06/18 Range/Units 06:52 09:07 09:07 WBC 10.8 H (3.8-10.6) k/uL RBC 4.21 L (4.30-5.90) m/uL Hgb 12.1 L (13.0-17.5) gm/dL Hct 38.8 L (39.0-53.0) % Neutrophils # 9.3 H (1.3-7.7) k/uL Lymphocytes # 0.5 L (1.0-4.8) k/uL Glucose 162 H (74-99) mg/dL POC Glucose (mg/dL) 140 H (75-99) mg/dL Calcium 8.3 L (8.4-10.2) mg/dL AST 64 H (17-59) U/L Total Protein 5.9 L (6.3-8.2) g/dL Albumin 3.1 L (3.5-5.0) g/dL Microbiology - Last 24 Hours (Table) 07/04/18 18:24 Blood Culture - Preliminary Blood No Growth after 24 hours 07/02/18 09:55 Blood Culture - Preliminary Blood No Growth after 72 hours 07/02/18 20:00 Gram Stain - Final Sputum Sputum Culture - Final Assessment and Plan (1) COPD (chronic obstructive pulmonary disease) Current Visit: Yes Status: Acute Code(s): J44.9 - CHRONIC OBSTRUCTIVE PULMONARY DISEASE, UNSPECIFIED SNOMED Code(s): 31834532 (2) Hypoxic Current Visit: Yes Status: Acute Code(s): R09.02 - HYPOXEMIA SNOMED Code(s ): 589562221 (3) Pneumonia Current Visit: Yes Status: Acute Code(s): J18.9 - PNEUMONIA, UNSPECIFIED ORGANISM SNOMED Code(s): 091745875 Plan: Impression: 1. Medical debility. 2. Acute hypoxic respiratory failure. 3. COPD exacerbation. 4. Coronary disease. 5. Hypertension. 6. Osteoarthritis. Constant plan: At this time PT and OT prescribed. We'll follow therapies with yourself. At this time anticipate patient will do well though.
[2018-07-06 12:12] LABS: Alt. alternata IgE Class CLASS 0; Alternaria alternata IgE <0.35 kU/L (<0.35); Asperg. fumagatus IgE <0.35 kU/L (<0.35); Asperg. fumagatus IgE Class CLASS 0; Bermuda Grass IgE 7.76 kU/L (<0.35); Birch(Com.Silvr) IgE 4.99 kU/L (<0.35); Birch(Com.Silvr) IgE Class CLASS III; Cat Epith & Dander IgE <0.35 kU/L (<0.35); Cat Epith & Dander IgE Class CLASS 0; Clad herbarum IgE <0.35 kU/L (<0.35); Cockroach IgE 4.72 kU/L (<0.35); Cottonwood IgE 5.56 kU/L (<0.35); Dermato. farinae IgE 1.61 kU/L (<0.35); Dermato. farinae IgE Class CLASS II; Dog Dander IgE <0.35 kU/L (<0.35); Elm IgE 8.01 kU/L (<0.35); Maple (Box Elder) IgE 7.38 kU/L (<0.35); Maple (Box Elder) IgE Class CLASS III; Mountain Cedar IgE 5.59 kU/L (<0.35); Mountain Cedar IgE Class CLASS III; Mouse Urine IgE Class CLASS 0; Nettle IgE 5.39 kU/L (<0.35); Nettle IgE Class CLASS III; Oak IgE 7.41 kU/L (<0.35); Penicillium notatum IgE Class CLASS 0; Rough Marshelder IgE 7.59 kU/L (<0.35); Rough Marshelder IgE Class CLASS III; Timothy Grass IgE 7.95 kU/L (<0.35); White Ash IgE Class CLASS III
[2018-07-06 12:25] LABS: Glucose,Whole Blood 129 mg/dL (75-99)
[2018-07-06] MEDS: methylPREDNISolone SOD SUCCI 125 MG/2 ML VIAL IV SCH ×3 (12:43→23:26)
[2018-07-06] MEDS ORDERED: MAGNESIUM HYDROXIDE 2,400 MG/10 ML CUP PO PRN (13:55)
[2018-07-06 17:13] LABS: Glucose,Whole Blood 145 mg/dL (75-99)
[2018-07-06] MEDS ORDERED: Potassium Replacement Protocol 1 EACH MISC MISCELLANE PRN (19:33)
[2018-07-06 20:31] LABS: Glucose,Whole Blood 235 mg/dL (75-99)
[2018-07-06] MEDS: MONTELUKAST 10 MG TAB PO SCH (20:35)
[2018-07-07] MEDS: methylPREDNISolone SOD SUCCI 125 MG/2 ML VIAL IV SCH ×4 (06:06→23:47)
[2018-07-07 06:20] LABS: Mycoplasma IgM Antibody 0.13 INDEX (<=0.90)
[2018-07-07 07:10] LABS: Glucose,Whole Blood 132 mg/dL (75-99)
[2018-07-07 07:41] LABS: Basophils % (A) 0 %; Eosinophils % (A) 0 %; HCT 34.2 % (39.0-53.0); HGB 11.1 gm/dL (13.0-17.5); Lymphocytes # (A) 0.6 k/uL (1.0-4.8); Lymphocytes % (A) 5 %; MCH 29.5 pg (25.0-35.0); MCHC 32.4 g/dL (31.0-37.0); MCV 90.9 fL (80.0-100.0); Mean Platelet Volume 7.4; Monocytes # (A) 0.6 k/uL (0-1.0); Monocytes % (A) 5 %; Neutrophils # (A) 9.3 k/uL (1.3-7.7); Neutrophils % (A) 88 %; Platelet Count 363 k/uL (150-450); RBC 3.76 m/uL (4.30-5.90); RDW 13.9 % (11.5-15.5); WBC 10.6 k/uL (3.8-10.6)
[2018-07-07 07:58] LABS: ALT 41 U/L (21-72); AST 48 U/L (17-59); Albumin 2.8 g/dL (3.5-5.0); Alkaline Phosphatase 58 U/L (38-126); Anion Gap 4 mmol/L; Blood Urea Nitrogen 17 mg/dL (9-20); Carbon Dioxide 29 mmol/L (22-30); Chloride 103 mmol/L (98-107); Glucose 134 mg/dL (74-99); Sodium 136 mmol/L (137-145); Total Bilirubin 0.5 mg/dL (0.2-1.3); Total Protein 5.5 g/dL (6.3-8.2)
[2018-07-07] MEDS: FUROSEMIDE 10 MG/ML 2 ML VIAL IV SCH (08:07)
[2018-07-07] MEDS: HEPARIN SODIUM,PORCINE 5,000 UNIT/ML 1 ML VIAL SQ SCH ×3 (08:07→23:47)
[2018-07-07] MEDS: LISINOPRIL 20 MG TAB PO SCH (08:08)
[2018-07-07] MEDS: INSULIN ASPART (NovoLOG) 100 UNIT/ML VIAL SQ SCH ×4 (08:08→21:15)
[2018-07-07] MEDS: lamoTRIgine 100 MG TAB PO SCH (08:08)
[2018-07-07] MEDS: PANTOPRAZOLE 40 MG TABLET PO SCH (08:08)
[2018-07-07] MEDS: METOPROLOL SUCCINATE (ER) 50 MG TAB.ER.24H PO SCH (08:08)
[2018-07-07] MEDS: SERTRALINE 100 MG TAB PO SCH (08:08)
[2018-07-07] MEDS: LEVOFLOXACIN 750 MG TAB PO SCH (08:08)
[2018-07-07] MEDS: BUDESONIDE 1 MG/2 ML NEBU INHALATION SCH ×2 (08:57→20:20)
[2018-07-07] MEDS: IPRATROPIUM-ALBUTEROL 3 ML NEB INHALATION SCH ×4 (08:57→20:19)
[2018-07-07] MEDS: FORMOTEROL FUMARATE 20 MCG/2 ML NEBU INHALATION SCH ×2 (08:57→20:19)
[2018-07-07] MEDS: ACETYLCYSTEINE 800 MG/4 ML VIAL INHALATION SCH ×4 (08:57→20:19)
[2018-07-07 11:35] LABS: Glucose,Whole Blood 136 mg/dL (75-99)
--- NOTE | 2018-07-07 12:34 | P.PN ---
Subjective Progress Note Date: 07/07/18 HPI: This is a 67-year-old male being seen examined and evaluated today for consultation. This patient does have a past medical history significant for hypertension, hypertensive cardiovascular disease, mild CAD involving the RCA and the LAD, last stent heart catheterization was in 2014, history of bipolar, COPD, remote history of tobacco use and dependence. The patient was seen in the urgent care setting on Tuesday and was told he has "the flu" and the patient was given a Z-Osmani to take in the outpatient setting. The patient was starting to feel better and then he started to get significantly worse yesterday so he came into the emergency room. The patient was found to have a multilobar pneumonia he was started on IV antibiotics and steroids. He did have an influenza swab that was negative. 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 He denies any exposures to any birds or farm animals or farmland. He has 3. He quit smoking approximately 12 years ago. He does not have wood-burning stove at home. Upon examination the patient's resting up in bed on 10 L of high flow and oxygen via nasal cannula. He continues to have shortness of breath cough and congestion. He has been unable to provide a sputum sample thus far. He does feel the breathing treatments are helping. He has been afebrile no further complaints. Interval History: 07/04/18- patient is being seen examined and evaluated today on rounds. He is resting up in bed on 10 L high flow nasal cannula. Still feels quite dyspneic and short of breath even at rest. We will switch patient over to Airvo to help his breathing. Currently being worked up for questionable an SIEP versus HP. Multiple labs have been obtained and are pending. Patient will require 1 mg/kg daily of prednisone with a very slow outpatient taper. This is again discussed with the patient at length and he is agreeable. He is afebrile. All labs and reports reviewed 07/05/18- patient is being seen examined and evaluated today on rounds. He currenlty is one Airvo high flow at 55 L and 90% FiO2. He feels his breathing is less labored with using this type of supplemental oxygen. He is slowly improving. Most likely will require a home oxygen assessment prior to discharge. 07/06/18- patient is being seen examined and evaluated today on rounds. He continues on Airvo high flow oxygen at 55 L and 90% FiO2. He is very slow to recover when he does get short of breath. His steroids are increased. His antibiotics is switched to Levaquin. Yesterday we also added Perforomist and Mucomyst inhalation. He seems to feel those are helping him as well. The patient could potentially undergo a bronchoscopy once his oxygen demand significantly decreased. He is not a candidate at this time due to his high oxygen demands. This is discussed with him at length as well as the attending provider. The patient has not ambulated much since being admitted. We will consult PT and OT as well as PMNR for possible inpatient rehab on discharge. 07/07/18- patient is being seen examined and evaluated today on rounds. The patient continues on Airvo high flow oxygen and 55 L and 90% FiO2. This is discussed with the patient's direct care nurse to start weaning the patient, on oxygen as tolerated. He states he feels less short of breath today. He does have multiple environmental ALLERGIES that came back positive which are discussed with him today. He will be provided a list of these ALLERGIES. Neoplasm was negative. Legionella is pending, HP panel is pending. He seems to be responding well to the increase in steroids in the antibiotics. All labs and reports have been reviewed. Objective - Vital Signs Vital signs: Vital Signs Temp 98.5 F 07/07/18 07:00 Pulse 78 07/07/18 12:12 Resp 18 07/07/18 12:12 BP 152/87 07/07/18 07:00 Pulse Ox 91 L 07/07/18 07:00 Intake & Output 07/06/18 07/07/18 07/07/18 18:59 06:59 18:59 Intake Total 480 240 Balance 480 240 Intake: Oral 480 240 Other: Voiding Method Toilet # Voids 3 1 - Exam GENERAL EXAM: Alert, mild apparent distress. HEAD: Normocephalic. EYES: Normal reaction of pupils, equal size. NOSE: Clear with pink turbinates. THROAT: No erythema or exudates. NECK: No masses, no JVD. CHEST: No chest wall deformity. LUNGS: Lungs noted to be rhonchorous with wheezing scattered throughout and prolonged expiration, slowly improving CVS: S1 and S2 normal with no audible mumurs, regular rhythm. ABDOMEN: No hepatosplenomegaly, normal bowel sounds, no guarding or rigidity. EXTREMITIES: No edema noted, pedal pulses palpable. CENTRAL NERVOUS SYSTEM: No focal deficits, tone is normal in all 4 extremities. - Labs CBC & Chem 7: 07/07/18 06:45 07/07/18 06:45 Labs: Abnormal Lab Results - Last 24 Hours (Table) 07/06/18 07/06/18 07/07/18 Range/Units 17:12 20:30 06:45 RBC 3.76 L (4.30-5.90) m/uL Hgb 11.1 L (13.0-17.5) gm/dL Hct 34.2 L (39.0-53.0) % Neutrophils # 9.3 H (1.3-7.7) k/uL Lymphocytes # 0.6 L (1.0-4.8) k/uL Sodium (137-145) mmol/L Glucose (74-99) mg/dL POC Glucose (mg/dL) 145 H 235 H (75-99) mg/dL Calcium (8.4-10.2) mg/dL Total Protein (6.3-8.2) g/dL Albumin (3.5-5.0) g/dL 07/07/18 07/07/18 07/07/18 Range/Units 06:45 07:05 11:33 RBC (4.30-5.90) m/uL Hgb (13.0-17.5) gm/dL Hct (39.0-53.0) % Neutrophils # (1.3-7.7) k/uL Lymphocytes # (1.0-4.8) k/uL Sodium 136 L (137-145) mmol/L Glucose 134 H (74-99) mg/dL POC Glucose (mg/dL) 132 H 136 H (75-99) mg/dL Calcium 8.0 L (8.4-10.2) mg/dL Total Protein 5.5 L (6.3-8.2) g/dL Albumin 2.8 L (3.5-5.0) g/dL Microbiology - Last 24 Hours (Table) 07/02/18 09:55 Blood Culture - Preliminary Blood No Growth after 120 hours 07/04/18 18:24 Blood Culture - Preliminary Blood No Growth after 48 hours Assessment and Plan Assessment: Assessment Acute hypoxic respiratory failure requiring supplemental oxygen Acute exacerbation of COPD Multilobar pneumonia CAD with previous stenting Hypertension Bipolar disorder Plan Medications have been reviewed and will be continued as ordered. Lab work including HP panel, Legionella pending Results for allergens, IgE, A1AT, and Mycoplasma all reviewed with the patient Allergen avoidance is discussed with the patient Antibiotics switched to Levaquin Solu-Medrol as ordered DuoNeb, budesonide, Mucomyst and Perforomist Potential bronchoscopy once oxygen demands significantly decreased Obtain sputum culture Influenza swab negative CTA of the chest reviewed, we'll need a repeat CT in the outpatient setting in 4 -6 weeks questionable NSIP vs HP Will require 1mg/kg daily of prednisone with a slow taper in the outpatient setting Chest x-ray reviewed Initiate and encourage incentive spirometer Continue with pulmonary hygiene, coughing and deep breathing exercises, and supportive care. Supplemental oxygen to maintain oxygen saturations of 92% or better. Continue nebulizer treatments. GI and DVT prophylaxis. Increase activity as tolerated, PT and OT, PM & R consultation We will continue to monitor labs/results and adjust treatment as necessary. Further recommendations pending. I, the signing physician performed an examination of the patient, discussed and directed their management with the nurse practitioner. I have reviewed the nurse practitioner's note and agree with the documented findings, orders and plan of care. Nurse practitioner acting as a scribe for the signing physician.
--- NOTE | 2018-07-07 14:56 | P.PN ---
Subjective Progress Note Date: 07/07/18 This is a 67-year-old male one of Dr. Christy with a previous medical history significant for hypertension and hypertensive cardiovascular disease, mild CAD involving the RCA and the the LAD, with a last heart catheterization was done back in 2014, history of bipolar disorder, COPD, remote history of tobacco use and dependence, patient went to a walking clinic on Tuesday and he was diagnosed of having the flu according to him and he was given a Z-Osmani patient was feeling better up until today when he developed to have a significant coughing and increased yellow phlegm production with bloody streaks to it so he ended up coming to the ER at [facility] where he was found to have a multilobar pneumonia he was started on IV antibiotic in the form of Rocephin and Zithromax and and he was placed in droplet precautions until after obtaining the result of the flu swab, pulmonary consultation was obtained from Dr. ADOLFO Ayon. 07/03: Patient is currently on 10 L high flow O2 pulse oxing 92-96%. He states he is slightly better from yesterday. He is having more cough today. Influenza testing came back negative. Repeat chest x-ray this morning shows chronic interstitial lung disease with underlying COPD and stable patchy bilateral infiltrate. CT injury of the chest showed no evidence of central pulmonary embolism. Subsegmental pulmonary arteries are nondiagnostic. Interstitial lung disease. Findings favoring NSIP with no current evidence of fibrosis. Alternatively hypersensitivity pneumonitis or cryptogenic organizing pneumonia or possible. Consult in place with pulmonary medicine which will be seeing him today. Solu-Medrol will remain the same at 40 mg IV every 8 hours. Continue same medications. 07/04: CT results reviewed with patient. 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 Patient states that he had a rough night and does not seem like he is much better. He is bringing up sputum that is light in color. Patient was seen by Dr. Delgado. Solu-Medrol will remain at 40 mg every 8 hours. Sputum culture is in progress. Blood cultures showing no growth after 24 hours. He has been afebrile, heart rate running in the 80s and 90s, blood pressure 131/70, pulse ox 92% on 10 L high flow. Patient is now on humidified oxygen. 07/05: Patient is now on Airvo with FiO2 of 55 pulse oxing 94%. Breathing status is more comfortable using this. Discussed case with Dr. Delgado for possible bronchoscopy. Patient has had a bowel movement. He denies any diarrhea. Legionella, mycoplasma, hypersensitivity panels and alpha-1 antitrypsin are all pending. IgE is elevated at 115. His white count is normal, hemoglobin 9.2, creatinine 0.68. Blood sugars running between 144 and 187. Sputum culture is finalized with normal respiratory mehran. 07/06: Patient is requiring FiO2 of 90% on Airvo. Pulse ox is 92%. Patient has been afebrile, heart rate running in the 80s. Blood pressure 126/84. Dr. Delgado does not plan to do bronchoscopy while patient oxygen needs are high. Her recommendations are to increase steroids to 60 mg IV every 6 hours and change antibiotics to Levaquin. Perforomist and Mucomyst were added yesterday. Pulmonary as noted in consult with Dr. Ware for inpatient rehab. Alpha I antitrypsin came back negative. Mycoplasma and Legionella are pending. 07/07: Patient continues to have significant shortness of breath and states he can 't catch his breath. He is now on FiO2 of 90. He states he feels well otherwise and is found sitting up in a recliner. He did receive Lasix which is discontinued. Mycoplasma came back negative. Legionella pending. White count was normal, hemoglobin 11.1, creatinine 0.74. Blood sugars run between 132 and 235. Pulse ox is 95% on high flow nasal cannula, afebrile, heart rate running in the 70s and 80s, blood pressure 135/78. Patient has been seen by Dr. Ware and plan is to follow notes. Doubt the patient will be a candidate for inpatient rehab. Review of Systems Constitutional: Reports chills, Reports fever, Reports weakness Eyes: denies blurred vision, denies double vision, denies bulging eye Ears: deny: decreased hearing Ears, nose, mouth and throat: Denies dysphagia, Denies neck lump, Denies swelling in throat, Denies sore throat Cardiovascular: Reports decreased exercise tolerance, Reports shortness of breath, Denies chest pain, Denies lightheadedness, Denies rapid heart beat, Denies syncope Respiratory: Reports shortness of breath, reports congestion, Reports cough, reports sputum, Reports hemoptysis, Reports wheezing, Denies home oxygen, Denies sleep apnea, Denies snoring Gastrointestinal: Denies abdominal pain, Denies belching, Denies bloating, Denies heartburn, Denies melena, Denies nausea, Denies vomiting Genitourinary: Denies dysuria, Denies nocturia Musculoskeletal: Denies myalgias Musculoskeletal: absent: ankle pain, ankle stiffness, ankle swelling, elbow pain , elbow stiffness, elbow swelling, foot pain, foot stiffness, foot swelling, hand pain, hand stiffness, hand swelling, hip pain, hip stiffness, hip swelling , knee pain, knee stiffness, knee swelling, shoulder pain, shoulder stiffness, shoulder swelling, wrist pain, wrist stiffness, wrist swelling Integumentary: Denies pruritus, Denies rash Neurological: Denies numbness, Denies weakness Psychiatric: Denies anxiety, Denies depression Endocrine: Denies fatigue, abnormal blood sugars Objective - Vital Signs Vital signs: Vital Signs Temp 98.5 F 07/07/18 07:00 Pulse 90 07/07/18 09:30 Resp 18 07/07/18 09:30 BP 152/87 07/07/18 07:00 Pulse Ox 91 L 07/07/18 07:00 Intake & Output 07/06/18 07/07/18 07/07/18 18:59 06:59 18:59 Intake Total 480 240 Balance 480 240 Intake: Oral 480 240 Other: # Voids 3 1 - Exam General appearance: average body habitus, moderate distress while at rest in recliner. - EENT Eyes: anicteric sclerae, EOMI, PERRLA, no ptosis, no scleral icterus, normal appearance ENT: hearing grossly normal, NA/AT, normal oropharynx, no thrush Ears: bilateral: normal - Neck Neck: no lymphadenopathy, normal ROM, no rigidity Carotids: bilateral: upstroke normal Thyroid: bilateral: normal size - Respiratory Respiratory: bilateral: diminished, rhonchi, wheezing, prolonged expiration, negative: dullness, rales - Cardiovascular Rhythm: regular Heart sounds: normal: S1, S2 Abnormal Heart Sounds: systolic murmur, no S3 Gallop, no S4 Gallop - Gastrointestinal General gastrointestinal: normal bowel sounds, soft, no splenomegaly, no tenderness, no umbilical hernia, no ventral hernia - Integumentary Integumentary: normal, normal turgor - Neurologic Neurologic: CNII-XII intact - Musculoskeletal Musculoskeletal: gait normal, strength equal bilaterally - Psychiatric Psychiatric: A&O x's 3, appropriate affect, intact judgment & insight - Labs CBC & Chem 7: 07/07/18 06:45 07/07/18 06:45 Labs: Abnormal Lab Results - Last 24 Hours (Table) 07/03/18 07/06/18 07/06/18 Range/Units 14:14 12:21 17:12 RBC (4.30-5.90) m/uL Hgb (13.0-17.5) gm/dL Hct (39.0-53.0) % Neutrophils # (1.3-7.7) k/uL Lymphocytes # (1.0-4.8) k/uL Sodium (137-145) mmol/L Glucose (74-99) mg/dL POC Glucose (mg/dL) 129 H 145 H (75-99) mg/dL Calcium (8.4-10.2) mg/dL Total Protein (6.3-8.2) g/dL Albumin (3.5-5.0) g/dL D. farinae Allrgen IgE 1.61 H (<0.35) kU/L D. pteronyssinus IgE 0.60 H (<0.35) kU/L Amenia IgE Ab 4.99 H (<0.35) kU/L [place] IgE Ab 5.56 H (<0.35) kU/L Elm Tree Allergen IgE 8.01 H (<0.35) kU/L Maple (Lamb) IgE 7.38 H (<0.35) kU/L [place] Tree IgE Ab 5.59 H (<0.35) kU/L [place] Tree IgE Ab 5.52 H (<0.35) kU/L [place] Tree Allerg IgE Ab 7.41 H (<0.35) kU/L White Rob[place] Tree IgE Ab 8.23 H (<0.35) kU/L [place]erm[place] Grass IgE Ab 7.76 H (<0.35) kU/L Fredi Grass IgE Ab 7.95 H (<0.35) kU/L Common Ragweed IgE Ab 7.57 H (<0.35) kU/L Leonard Elder (Rough) 7.59 H (<0.35) kU/L Nettle Allerg IgE Ab 5.39 H (<0.35) kU/L Latvian Thistle IgE Ab 7.55 H (<0.35) kU/L Cockroach Allergen IgE 4.72 H (<0.35) kU/L 07/06/18 07/07/18 07/07/18 Range/Units 20:30 06:45 06:45 RBC 3.76 L (4.30-5.90) m/uL Hgb 11.1 L (13.0-17.5) gm/dL Hct 34.2 L (39.0-53.0) % Neutrophils # 9.3 H (1.3-7.7) k/uL Lymphocytes # 0.6 L (1.0-4.8) k/uL Sodium 136 L (137-145) mmol/L Glucose 134 H (74-99) mg/dL POC Glucose (mg/dL) 235 H (75-99) mg/dL Calcium 8.0 L (8.4-10.2) mg/dL Total Protein 5.5 L (6.3-8.2) g/dL Albumin 2.8 L (3.5-5.0) g/dL D. farinae Allrgen IgE (<0.35) kU/L D. pteronyssinus IgE (<0.35) kU/L Amenia IgE Ab (<0.35) kU/L [place] IgE Ab (<0.35) kU/L Elm Tree Allergen IgE (<0.35) kU/L Maple (Lamb) IgE (<0.35) kU/L [place] Tree IgE Ab (<0.35) kU/L [place] Tree IgE Ab (<0.35) kU/L [place] Tree Allerg IgE Ab (<0.35) kU/L [place] Rob[place] Tree IgE Ab (<0.35) kU/L [place] Grass IgE Ab (<0.35) kU/L Fredi Grass IgE Ab (<0.35) kU/L Common Ragweed IgE Ab (<0.35) kU/L Leonard Elder (Rough) (<0.35) kU/L Nettle Allerg IgE Ab (<0.35) kU/L Latvian Thistle IgE Ab (<0.35) kU/L Cockroach Allergen IgE (<0.35) kU/L 07/07/18 Range/Units 07:05 RBC (4.30-5.90) m/uL Hgb (13.0-17.5) gm/dL Hct (39.0-53.0) % Neutrophils # (1.3-7.7) k/uL Lymphocytes # (1.0-4.8) k/uL Sodium (137-145) mmol/L Glucose (74-99) mg/dL POC Glucose (mg/dL) 132 H (75-99) mg/dL Calcium (8.4-10.2) mg/dL Total Protein (6.3-8.2) g/dL Albumin (3.5-5.0) g/dL D. farinae Allrgen IgE (<0.35) kU/L D. pteronyssinus IgE (<0.35) kU/L Amenia IgE Ab (<0.35) kU/L [place] IgE Ab (<0.35) kU/L Elm Tree Allergen IgE (<0.35) kU/L Maple (Lamb) IgE (<0.35) kU/L [place] Tree IgE Ab (<0.35) kU/L [place] Tree IgE Ab (<0.35) kU/L [place] Tree Allerg IgE Ab (<0.35) kU/L [place] Tree IgE Ab (<0.35) kU/L [place] Grass IgE Ab (<0.35) kU/L Fredi Grass IgE Ab (<0.35) kU/L Common Ragweed IgE Ab (<0.35) kU/L Leonard Elder (Rough) (<0.35) kU/L Nettle Allerg IgE Ab (<0.35) kU/L Latvian Thistle IgE Ab (<0.35) kU/L Cockroach Allergen IgE (<0.35) kU/L Microbiology - Last 24 Hours (Table) 07/04/18 18:24 Blood Culture - Preliminary Blood No Growth after 48 hours 07/02/18 09:55 Blood Culture - Preliminary Blood No Growth after 96 hours Assessment and Plan Plan: 1. Acute hypoxic respiratory failure secondary to multilobar pneumonia and acute COPD exacerbation. Continue patient on Rocephin 1 g IV piggyback every 24 hours, Zithromax changed to Levaquin, DuoNeb 3 mL nebulization 4 times every day, Pulmicort 4 mg nebulization twice every day, oxygen to keep saturation greater than 92%, pulmonary consultation from Dr. Delgado, influenza testing was negative. Sputum culture reveals normal mehran. Solu-Medrol increased to 60 mg IV every 6 hours. Perforomist and Mucomyst added yesterday by pulmonary medicine. CTA of the chest as above. No changes in medications today 2. COPD exacerbation. Continue oxygen, DuoNeb 3 mL nebulization 4 times every day, Pulmicort 1 mg nebulization twice every day, Solu-Medrol. Continue as in # 1 3. Mild CAD status post left heart cath physician back in 2014 that showed mild disease of the LAD and RCA. Stable at this time continue patient on Toprol -XL 50 mg orally once every day. 4. Hypertension and hypertensive cardiovascular disease. Continue Toprol-XL 50 mg orally once every day, lisinopril 20 mg orally once every day. 5. Bipolar disorder. Continue Lamictal 100 mg orally once every day as well as sertraline 100 mg orally once every day. 6. GI prophylaxis. Protonix 40 mg once every day. 7. DVT prophylaxis. Heparin 5000 units subcutaneously every 8 hours. 8. Patient is full code. Discharge plan: Return home. Consult with Dr. Ware for inpatient rehab, PT and OT Impression and plan of care have been directed as dictated by the signing physician. Meghna Larry nurse practitioner acting as scribe for signing physician.
[2018-07-07 16:44] LABS: Glucose,Whole Blood 155 mg/dL (75-99)
[2018-07-07 20:17] LABS: Glucose,Whole Blood 217 mg/dL (75-99)
[2018-07-07] MEDS: MONTELUKAST 10 MG TAB PO SCH (21:15)
[2018-07-08] MEDS: methylPREDNISolone SOD SUCCI 125 MG/2 ML VIAL IV SCH ×4 (05:59→23:58)
[2018-07-08 07:13] LABS: Glucose,Whole Blood 136 mg/dL (75-99)
[2018-07-08] MEDS: lamoTRIgine 100 MG TAB PO SCH (07:26)
[2018-07-08] MEDS: HEPARIN SODIUM,PORCINE 5,000 UNIT/ML 1 ML VIAL SQ SCH ×3 (07:26→23:50)
[2018-07-08] MEDS: INSULIN ASPART (NovoLOG) 100 UNIT/ML VIAL SQ SCH ×4 (07:26→21:06)
[2018-07-08] MEDS: METOPROLOL SUCCINATE (ER) 50 MG TAB.ER.24H PO SCH (07:27)
[2018-07-08] MEDS: LISINOPRIL 20 MG TAB PO SCH (07:27)
[2018-07-08] MEDS: PANTOPRAZOLE 40 MG TABLET PO SCH (07:27)
[2018-07-08] MEDS: SERTRALINE 100 MG TAB PO SCH (07:27)
[2018-07-08] MEDS: LEVOFLOXACIN 750 MG TAB PO SCH (07:27)
[2018-07-08] MEDS: ACETYLCYSTEINE 800 MG/4 ML VIAL INHALATION SCH ×2 (08:03→11:09)
[2018-07-08] MEDS: IPRATROPIUM-ALBUTEROL 3 ML NEB INHALATION SCH ×4 (08:04→20:28)
[2018-07-08] MEDS: FORMOTEROL FUMARATE 20 MCG/2 ML NEBU INHALATION SCH ×2 (08:04→20:28)
[2018-07-08] MEDS: BUDESONIDE 1 MG/2 ML NEBU INHALATION SCH ×2 (08:04→20:28)
[2018-07-08 09:13] LABS: Basophils % (A) 0 %; Eosinophils % (A) 0 %; HCT 36.3 % (39.0-53.0); HGB 11.7 gm/dL (13.0-17.5); Lymphocytes # (A) 0.5 k/uL (1.0-4.8); Lymphocytes % (A) 5 %; MCH 29.8 pg (25.0-35.0); MCHC 32.2 g/dL (31.0-37.0); MCV 92.7 fL (80.0-100.0); Mean Platelet Volume 6.6; Monocytes # (A) 0.4 k/uL (0-1.0); Monocytes % (A) 3 %; Neutrophils # (A) 9.3 k/uL (1.3-7.7); Neutrophils % (A) 90 %; Platelet Count 449 k/uL (150-450); RBC 3.91 m/uL (4.30-5.90); RDW 13.8 % (11.5-15.5); WBC 10.3 k/uL (3.8-10.6)
[2018-07-08 09:20] VITALS: BMI 28.8
[2018-07-08 09:26] LABS: ALT 42 U/L (21-72); AST 54 U/L (17-59); Albumin 2.8 g/dL (3.5-5.0); Alkaline Phosphatase 61 U/L (38-126); Anion Gap 6 mmol/L; Blood Urea Nitrogen 17 mg/dL (9-20); Carbon Dioxide 30 mmol/L (22-30); Chloride 103 mmol/L (98-107); Glucose 165 mg/dL (74-99); Potassium 3.8 mmol/L (3.5-5.1); Sodium 139 mmol/L (137-145); Total Bilirubin 0.6 mg/dL (0.2-1.3); Total Protein 5.6 g/dL (6.3-8.2)
[2018-07-08] MEDS: FLUCONAZOLE 100 MG TAB PO SCH (09:53)
[2018-07-08] MEDS: guaiFENesin 600 MG TABLET.ER PO SCH ×2 (09:53→21:03)
[2018-07-08 11:35] LABS: Glucose,Whole Blood 176 mg/dL (75-99)
--- NOTE | 2018-07-08 13:03 | XR ---
EXAMINATION TYPE: XR chest 1V portable DATE OF EXAM: 07/08/2018 COMPARISON: 07/03/2018 HISTORY: Follow-up for pneumonia. Influenza, COPD and hypoxemia. TECHNIQUE: Single frontal view of the chest is obtained. FINDINGS: There is marked worsening of the multifocal opacities in comparison to the prior chest rad iograph. These are alveolar and interstitial. Cardiomediastinal silhouette is mildly enlarged. Trace pleural effusions are seen with no sizable pneumothorax. Osseous structures appear grossly intact. IMPRESSION: Marked worsening of the multifocal alveolar and interstitial opacities in comparison to the prior of 07/03/2018. Multifocal pneumonia, pulmonary edema, or ARDS should be considered.
--- NOTE | 2018-07-08 13:19 | P.PN ---
Subjective Progress Note Date: 07/08/18 HPI: This is a 67-year-old male being seen examined and evaluated today for consultation. This patient does have a past medical history significant for hypertension, hypertensive cardiovascular disease, mild CAD involving the RCA and the LAD, last stent heart catheterization was in 2014, history of bipolar, COPD, remote history of tobacco use and dependence. The patient was seen in the urgent care setting on Tuesday and was told he has "the flu" and the patient was given a Z-Osmani to take in the outpatient setting. The patient was starting to feel better and then he started to get significantly worse yesterday so he came into the emergency room. The patient was found to have a multilobar pneumonia he was started on IV antibiotics and steroids. He did have an influenza swab that was negative. 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 He denies any exposures to any birds or farm animals or farmland. He has 3. He quit smoking approximately 12 years ago. He does not have wood-burning stove at home. Upon examination the patient's resting up in bed on 10 L of high flow and oxygen via nasal cannula. He continues to have shortness of breath cough and congestion. He has been unable to provide a sputum sample thus far. He does feel the breathing treatments are helping. He has been afebrile no further complaints. Interval History: 07/04/18- patient is being seen examined and evaluated today on rounds. He is resting up in bed on 10 L high flow nasal cannula. Still feels quite dyspneic and short of breath even at rest. We will switch patient over to Airvo to help his breathing. Currently being worked up for questionable an SIEP versus HP. Multiple labs have been obtained and are pending. Patient will require 1 mg/kg daily of prednisone with a very slow outpatient taper. This is again discussed with the patient at length and he is agreeable. He is afebrile. All labs and reports reviewed 07/05/18- patient is being seen examined and evaluated today on rounds. He currenlty is one Airvo high flow at 55 L and 90% FiO2. He feels his breathing is less labored with using this type of supplemental oxygen. He is slowly improving. Most likely will require a home oxygen assessment prior to discharge. 07/06/18- patient is being seen examined and evaluated today on rounds. He continues on Airvo high flow oxygen at 55 L and 90% FiO2. He is very slow to recover when he does get short of breath. His steroids are increased. His antibiotics is switched to Levaquin. Yesterday we also added Perforomist and Mucomyst inhalation. He seems to feel those are helping him as well. The patient could potentially undergo a bronchoscopy once his oxygen demand significantly decreased. He is not a candidate at this time due to his high oxygen demands. This is discussed with him at length as well as the attending provider. The patient has not ambulated much since being admitted. We will consult PT and OT as well as PMNR for possible inpatient rehab on discharge. 07/07/18- patient is being seen examined and evaluated today on rounds. The patient continues on Airvo high flow oxygen and 55 L and 90% FiO2. This is discussed with the patient's direct care nurse to start weaning the patient, on oxygen as tolerated. He states he feels less short of breath today. He does have multiple environmental ALLERGIES that came back positive which are discussed with him today. He will be provided a list of these ALLERGIES. Neoplasm was negative. Legionella is pending, HP panel is pending. He seems to be responding well to the increase in steroids in the antibiotics. All labs and reports have been reviewed. 07/08/2017: Patient seen and examined with his daughter at bedside. The patient states he is getting discouraged because he is still very short of breath with minimal exertion. The patient is on airvo at 55 L/m and 85% FiO2. Chest x-ray is obtained and reviewed. There is marked worsening of the bilateral infiltrates. Bronchoscopy is discussed with the patient at length. He is aware that he is too unstable at this point for bronchoscopy and that he would likely end up on mechanical ventilation if bronchoscopy were attempted. It is possible that later in the week it will be an option. Continue high-dose steroids and diuresis for now. Objective - Vital Signs Vital signs: Vital Signs Temp 98.4 F 07/08/18 07:34 Pulse 86 02/09/19 11:25 Resp 20 07/08/18 07:34 BP 130/71 07/08/18 07:34 Pulse Ox 94 L 07/08/18 11:15 Intake & Output 07/07/18 07/08/18 07/08/18 18:59 06:59 18:59 Intake Total 480 Output Total 150 500 Balance -150 -500 480 Weight 86.183 kg Intake: Oral 480 Output: Urine 150 500 Other: Voiding Method Toilet Urinal # Voids 2 3 - Exam GENERAL EXAM: Alert, mild apparent distress. HEAD: Normocephalic. EYES: Normal reaction of pupils, equal size. NOSE: Clear with pink turbinates. THROAT: No erythema or exudates. NECK: No masses, no JVD. CHEST: No chest wall deformity. LUNGS: Lungs noted to be rhonchorous with wheezing scattered throughout and prolonged expiration, slowly improving CVS: S1 and S2 normal with no audible mumurs, regular rhythm. ABDOMEN: No hepatosplenomegaly, normal bowel sounds, no guarding or rigidity. EXTREMITIES: No edema noted, pedal pulses palpable. CENTRAL NERVOUS SYSTEM: No focal deficits, tone is normal in all 4 extremities. - Labs CBC & Chem 7: 07/08/18 07:39 07/08/18 07:39 Labs: Abnormal Lab Results - Last 24 Hours (Table) 07/07/18 07/07/18 07/08/18 Range/Units 16:41 20:16 07:10 RBC (4.30-5.90) m/uL Hgb (13.0-17.5) gm/dL Hct (39.0-53.0) % Neutrophils # (1.3-7.7) k/uL Lymphocytes # (1.0-4.8) k/uL Glucose (74-99) mg/dL POC Glucose (mg/dL) 155 H 217 H 136 H (75-99) mg/dL Calcium (8.4-10.2) mg/dL Total Protein (6.3-8.2) g/dL Albumin (3.5-5.0) g/dL 07/08/18 07/08/18 07/08/18 Range/Units 07:39 07:39 11:33 RBC 3.91 L (4.30-5.90) m/uL Hgb 11.7 L (13.0-17.5) gm/dL Hct 36.3 L (39.0-53.0) % Neutrophils # 9.3 H (1.3-7.7) k/uL Lymphocytes # 0.5 L (1.0-4.8) k/uL Glucose 165 H (74-99) mg/dL POC Glucose (mg/dL) 176 H (75-99) mg/dL Calcium 8.0 L (8.4-10.2) mg/dL Total Protein 5.6 L (6.3-8.2) g/dL Albumin 2.8 L (3.5-5.0) g/dL Microbiology - Last 24 Hours (Table) 07/02/18 09:55 Blood Culture - Final Blood No Growth after 144 hours 07/04/18 18:24 Blood Culture - Preliminary Blood No Growth after 72 hours Assessment and Plan Assessment: Acute hypoxic respiratory failure requiring supplemental oxygen Acute exacerbation of COPD Multilobar pneumonia -worsening bilateral infiltrates on CXR - ARDS/pulmonary edema/worsening pna/HP in the differential CAD with previous stenting Hypertension Bipolar disorder Multiple allergies with elevated IgE Plan Medications have been reviewed and will be continued as ordered. Results for allergens, IgE, A1AT, and Mycoplasma all reviewed with the patient Allergen avoidance is discussed with the patient Levaquin Solu-Medrol as ordered DuoNeb, budesonide, Perforomist Discontinue Mucomyst Potential bronchoscopy once oxygen demands significantly decreased CTA of the chest reviewed, we'll need a repeat CT in the outpatient setting in 4 -6 weeks questionable NSIP vs HP Will require 1mg/kg daily of prednisone with a slow taper in the outpatient setting Chest x-ray reviewed Initiate and encourage incentive spirometer and flutter tx Continue with pulmonary hygiene, coughing and deep breathing exercises, and supportive care. Supplemental oxygen to maintain oxygen saturations of 92% or better. Continue nebulizer treatments. GI and DVT prophylaxis. Increase activity as tolerated, PT and OT Diuresis to continue - Lasix 40 mg IV Q8 hours We will continue to monitor labs/results and adjust treatment as necessary. Further recommendations pending.
--- NOTE | 2018-07-08 13:53 | P.PN ---
Subjective Progress Note Date: 07/08/18 This is a 67-year-old male one of Dr. Christy with a previous medical history significant for hypertension and hypertensive cardiovascular disease, mild CAD involving the RCA and the the LAD, with a last heart catheterization was done back in 2014, history of bipolar disorder, COPD, remote history of tobacco use and dependence, patient went to a walking clinic on Tuesday and he was diagnosed of having the flu according to him and he was given a Z-Osmani patient was feeling better up until today when he developed to have a significant coughing and increased yellow phlegm production with bloody streaks to it so he ended up coming to the ER at [facility] where he was found to have a multilobar pneumonia he was started on IV antibiotic in the form of Rocephin and Zithromax and and he was placed in droplet precautions until after obtaining the result of the flu swab, pulmonary consultation was obtained from Dr. ADOLFO Ayon. 07/03: Patient is currently on 10 L high flow O2 pulse oxing 92-96%. He states he is slightly better from yesterday. He is having more cough today. Influenza testing came back negative. Repeat chest x-ray this morning shows chronic interstitial lung disease with underlying COPD and stable patchy bilateral infiltrate. CT injury of the chest showed no evidence of central pulmonary embolism. Subsegmental pulmonary arteries are nondiagnostic. Interstitial lung disease. Findings favoring NSIP with no current evidence of fibrosis. Alternatively hypersensitivity pneumonitis or cryptogenic organizing pneumonia or possible. Consult in place with pulmonary medicine which will be seeing him today. Solu-Medrol will remain the same at 40 mg IV every 8 hours. Continue same medications. 07/04: CT results reviewed with patient. 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 Patient states that he had a rough night and does not seem like he is much better. He is bringing up sputum that is light in color. Patient was seen by Dr. Delgado. Solu-Medrol will remain at 40 mg every 8 hours. Sputum culture is in progress. Blood cultures showing no growth after 24 hours. He has been afebrile, heart rate running in the 80s and 90s, blood pressure 131/70, pulse ox 92% on 10 L high flow. Patient is now on humidified oxygen. 07/05: Patient is now on Airvo with FiO2 of 55 pulse oxing 94%. Breathing status is more comfortable using this. Discussed case with Dr. Delgado for possible bronchoscopy. Patient has had a bowel movement. He denies any diarrhea. Legionella, mycoplasma, hypersensitivity panels and alpha-1 antitrypsin are all pending. IgE is elevated at 115. His white count is normal, hemoglobin 9.2, creatinine 0.68. Blood sugars running between 144 and 187. Sputum culture is finalized with normal respiratory mehran. 07/06: Patient is requiring FiO2 of 90% on Airvo. Pulse ox is 92%. Patient has been afebrile, heart rate running in the 80s. Blood pressure 126/84. Dr. Delgado does not plan to do bronchoscopy while patient oxygen needs are high. Her recommendations are to increase steroids to 60 mg IV every 6 hours and change antibiotics to Levaquin. Perforomist and Mucomyst were added yesterday. Pulmonary as noted in consult with Dr. Ware for inpatient rehab. Alpha I antitrypsin came back negative. Mycoplasma and Legionella are pending. 07/07: Patient continues to have significant shortness of breath and states he can 't catch his breath. He is now on FiO2 of 90. He states he feels well otherwise and is found sitting up in a recliner. He did receive Lasix which is discontinued. Mycoplasma came back negative. Legionella pending. White count was normal, hemoglobin 11.1, creatinine 0.74. Blood sugars run between 132 and 235. Pulse ox is 95% on high flow nasal cannula, afebrile, heart rate running in the 70s and 80s, blood pressure 135/78. Patient has been seen by Dr. Ware and plan is to follow notes. Doubt the patient will be a candidate for inpatient rehab. 07/08: Patient continues to have significant shortness of breath feeling that he cannot catch his breath at all. Mucinex, flutter valve and Diflucan added today. He states he has bringing up a little bit of sputum but not very much. He has been afebrile, pulse ox is 94% on FiO2 of 85, heart rate running in the 80s and 90s, blood pressure 130/71. Review of Systems Constitutional: Reports chills, Reports fever, Reports weakness Eyes: denies blurred vision, denies double vision, denies bulging eye Ears: deny: decreased hearing Ears, nose, mouth and throat: Denies dysphagia, Denies neck lump, Denies swelling in throat, Denies sore throat Cardiovascular: Reports decreased exercise tolerance, Reports shortness of breath, Denies chest pain, Denies lightheadedness, Denies rapid heart beat, Denies syncope Respiratory: Reports shortness of breath, reports congestion, Reports cough, reports sputum, Reports hemoptysis, Reports wheezing, Denies home oxygen, Denies sleep apnea, Denies snoring Gastrointestinal: Denies abdominal pain, Denies belching, Denies bloating, Denies heartburn, Denies melena, Denies nausea, Denies vomiting Genitourinary: Denies dysuria, Denies nocturia Musculoskeletal: Denies myalgias Musculoskeletal: absent: ankle pain, ankle stiffness, ankle swelling, elbow pain , elbow stiffness, elbow swelling, foot pain, foot stiffness, foot swelling, hand pain, hand stiffness, hand swelling, hip pain, hip stiffness, hip swelling , knee pain, knee stiffness, knee swelling, shoulder pain, shoulder stiffness, shoulder swelling, wrist pain, wrist stiffness, wrist swelling Integumentary: Denies pruritus, Denies rash, denies wounds Neurological: Denies numbness, Denies weakness Psychiatric: Denies anxiety, Denies depression Endocrine: Denies fatigue, abnormal blood sugars Objective - Vital Signs Vital signs: Vital Signs Temp 98.4 F 07/08/18 07:34 Pulse 88 07/08/18 08:35 Resp 20 07/08/18 07:34 BP 130/71 07/08/18 07:34 Pulse Ox 94 L 07/08/18 07:34 Intake & Output 07/07/18 07/08/18 07/08/18 18:59 06:59 18:59 Intake Total 480 Output Total 150 500 Balance -150 -500 480 Weight 86.183 kg Intake: Oral 480 Output: Urine 150 500 Other: Voiding Method Toilet Urinal # Voids 2 3 - Exam General appearance: average body habitus, moderate distress while at rest in bed - EENT Eyes: anicteric sclerae, EOMI, PERRLA, no ptosis, no scleral icterus, normal appearance ENT: hearing grossly normal, NA/AT, normal oropharynx, no thrush Ears: bilateral: normal - Neck Neck: no lymphadenopathy, normal ROM, no rigidity Carotids: bilateral: upstroke normal Thyroid: bilateral: normal size - Respiratory Respiratory: bilateral: diminished, rhonchi, wheezing, prolonged expiration, negative: dullness, rales - Cardiovascular Rhythm: regular Heart sounds: normal: S1, S2 Abnormal Heart Sounds: systolic murmur, no S3 Gallop, no S4 Gallop - Gastrointestinal General gastrointestinal: normal bowel sounds, soft, no splenomegaly, no tenderness, no umbilical hernia, no ventral hernia - Integumentary Integumentary: normal, normal turgor - Neurologic Neurologic: CNII-XII intact - Musculoskeletal Musculoskeletal: gait normal, strength equal bilaterally - Psychiatric Psychiatric: A&O x's 3, appropriate affect, intact judgment & insight - Labs CBC & Chem 7: 07/08/18 07:39 07/08/18 07:39 Labs: Abnormal Lab Results - Last 24 Hours (Table) 07/07/18 07/07/18 07/07/18 Range/Units 11:33 16:41 20:16 Glucose (74-99) mg/dL POC Glucose (mg/dL) 136 H 155 H 217 H (75-99) mg/dL Calcium (8.4-10.2) mg/dL Total Protein (6.3-8.2) g/dL Albumin (3.5-5.0) g/dL 07/08/18 07/08/18 Range/Units 07:10 07:39 Glucose 165 H (74-99) mg/dL POC Glucose (mg/dL) 136 H (75-99) mg/dL Calcium 8.0 L (8.4-10.2) mg/dL Total Protein 5.6 L (6.3-8.2) g/dL Albumin 2.8 L (3.5-5.0) g/dL Microbiology - Last 24 Hours (Table) 07/04/18 18:24 Blood Culture - Preliminary Blood No Growth after 72 hours 07/02/18 09:55 Blood Culture - Preliminary Blood No Growth after 120 hours Assessment and Plan Plan: 1. Acute hypoxic respiratory failure secondary to multilobar pneumonia and acute COPD exacerbation. Continue patient on Rocephin 1 g IV piggyback every 24 hours, Zithromax changed to Levaquin, DuoNeb 3 mL nebulization 4 times every day, Pulmicort 4 mg nebulization twice every day, oxygen to keep saturation greater than 92%, pulmonary consultation from Dr. Delgado, influenza testing was negative. Sputum culture reveals normal mehran. Solu-Medrol increased to 60 mg IV every 6 hours. Perforomist and Mucomyst. Mucinex and Diflucan added. Flutter valve added. CTA of the chest as above. No changes in medications today 2. COPD exacerbation. Continue oxygen, DuoNeb 3 mL nebulization 4 times every day, Pulmicort 1 mg nebulization twice every day, Solu-Medrol. Continue as in # 1 3. Mild CAD status post left heart cath physician back in 2014 that showed mild disease of the LAD and RCA. Stable at this time continue patient on Toprol -XL 50 mg orally once every day. 4. Hypertension and hypertensive cardiovascular disease. Continue Toprol-XL 50 mg orally once every day, lisinopril 20 mg orally once every day. 5. Bipolar disorder. Continue Lamictal 100 mg orally once every day as well as sertraline 100 mg orally once every day. 6. GI prophylaxis. Protonix 40 mg once every day. 7. DVT prophylaxis. Heparin 5000 units subcutaneously every 8 hours. 8. Patient is full code. Discharge plan: Return home. Consult with Dr. Ware for inpatient rehab, PT and OT Impression and plan of care have been directed as dictated by the signing physician. Meghna Larry nurse practitioner acting as scribe for signing physician.
[2018-07-08] MEDS: FUROSEMIDE 10 MG/ML 4 ML VIAL IV SCH ×2 (16:19→23:50)
[2018-07-08 16:52] LABS: Glucose,Whole Blood 194 mg/dL (75-99)
[2018-07-08] MEDS ORDERED: SODIUM CHLORIDE 0.9% NEBULIZ 3 ML INHALATION ONE (16:53)
[2018-07-08] MEDS: HYPERTONIC SALINE 3% NEBULIZ 4 ML NEBU INHALATION SCH (16:56)
[2018-07-08] MEDS ORDERED: OMALIZUMAB 150 MG/ML SYRINGE SQ ONE (18:00)
[2018-07-08 20:57] LABS: Glucose,Whole Blood 162 mg/dL (75-99)
[2018-07-08] MEDS: MONTELUKAST 10 MG TAB PO SCH (21:06)
[2018-07-09 00:14] LABS: Cat Epith & Dander IgE <0.10 kU/L
[2018-07-09 00:24] LABS: Dermato. farinae IgE 0.58 kU/L; Oak IgE 6.31 kU/L
[2018-07-09 00:26] LABS: Birch IgE 3.24 kU/L; Elm IgE 2.15 kU/L; Maple (Box Elder) IgE 5.86 kU/L; Ragweed,Common IgE 3.29 kU/L
[2018-07-09 00:27] LABS: Alternaria alternata IgE <0.10 kU/L
[2018-07-09 00:28] LABS: Dog Dander IgE <0.10 kU/L
[2018-07-09] MEDS: HYPERTONIC SALINE 3% NEBULIZ 4 ML NEBU INHALATION SCH ×3 (03:56→16:39)
[2018-07-09] MEDS: methylPREDNISolone SOD SUCCI 125 MG/2 ML VIAL IV SCH ×3 (06:05→17:35)
[2018-07-09 06:57] LABS: Glucose,Whole Blood 128 mg/dL (75-99)
[2018-07-09] MEDS: INSULIN ASPART (NovoLOG) 100 UNIT/ML VIAL SQ SCH ×4 (07:38→21:37)
[2018-07-09] MEDS: FUROSEMIDE 10 MG/ML 4 ML VIAL IV SCH ×2 (07:48→16:56)
[2018-07-09] MEDS: LISINOPRIL 20 MG TAB PO SCH (07:49)
[2018-07-09] MEDS: guaiFENesin 600 MG TABLET.ER PO SCH ×2 (07:49→21:37)
[2018-07-09] MEDS: lamoTRIgine 100 MG TAB PO SCH (07:49)
[2018-07-09] MEDS: HEPARIN SODIUM,PORCINE 5,000 UNIT/ML 1 ML VIAL SQ SCH ×2 (07:49→16:56)
[2018-07-09] MEDS: SERTRALINE 100 MG TAB PO SCH (07:49)
[2018-07-09] MEDS: METOPROLOL SUCCINATE (ER) 50 MG TAB.ER.24H PO SCH (07:49)
[2018-07-09] MEDS: FLUCONAZOLE 100 MG TAB PO SCH (07:50)
[2018-07-09] MEDS: PANTOPRAZOLE 40 MG TABLET PO SCH (07:50)
[2018-07-09] MEDS: LEVOFLOXACIN 750 MG TAB PO SCH (07:50)
[2018-07-09] MEDS: BUDESONIDE 1 MG/2 ML NEBU INHALATION SCH ×2 (08:21→20:52)
[2018-07-09] MEDS: IPRATROPIUM-ALBUTEROL 3 ML NEB INHALATION SCH ×4 (08:21→20:52)
[2018-07-09] MEDS: FORMOTEROL FUMARATE 20 MCG/2 ML NEBU INHALATION SCH ×2 (08:21→20:52)
[2018-07-09] MEDS ORDERED: OMALIZUMAB 150 MG/ML SYRINGE SQ ONE (09:00)
--- NOTE | 2018-07-09 10:13 | P.PN ---
Subjective Progress Note Date: 07/09/18 This is a 67-year-old male one of Dr. Christy with a previous medical history significant for hypertension and hypertensive cardiovascular disease, mild CAD involving the RCA and the the LAD, with a last heart catheterization was done back in 2014, history of bipolar disorder, COPD, remote history of tobacco use and dependence, patient went to a walking clinic on Tuesday and he was diagnosed of having the flu according to him and he was given a Z-Osmani patient was feeling better up until today when he developed to have a significant coughing and increased yellow phlegm production with bloody streaks to it so he ended up coming to the ER at [facility] where he was found to have a multilobar pneumonia he was started on IV antibiotic in the form of Rocephin and Zithromax and and he was placed in droplet precautions until after obtaining the result of the flu swab, pulmonary consultation was obtained from Dr. ADOLFO Ayon. 07/03: Patient is currently on 10 L high flow O2 pulse oxing 92-96%. He states he is slightly better from yesterday. He is having more cough today. Influenza testing came back negative. Repeat chest x-ray this morning shows chronic interstitial lung disease with underlying COPD and stable patchy bilateral infiltrate. CT injury of the chest showed no evidence of central pulmonary embolism. Subsegmental pulmonary arteries are nondiagnostic. Interstitial lung disease. Findings favoring NSIP with no current evidence of fibrosis. Alternatively hypersensitivity pneumonitis or cryptogenic organizing pneumonia or possible. Consult in place with pulmonary medicine which will be seeing him today. Solu-Medrol will remain the same at 40 mg IV every 8 hours. Continue same medications. 07/04: CT results reviewed with patient. 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 Patient states that he had a rough night and does not seem like he is much better. He is bringing up sputum that is light in color. Patient was seen by Dr. Delgado. Solu-Medrol will remain at 40 mg every 8 hours. Sputum culture is in progress. Blood cultures showing no growth after 24 hours. He has been afebrile, heart rate running in the 80s and 90s, blood pressure 131/70, pulse ox 92% on 10 L high flow. Patient is now on humidified oxygen. 07/05: Patient is now on Airvo with FiO2 of 55 pulse oxing 94%. Breathing status is more comfortable using this. Discussed case with Dr. Delgado for possible bronchoscopy. Patient has had a bowel movement. He denies any diarrhea. Legionella, mycoplasma, hypersensitivity panels and alpha-1 antitrypsin are all pending. IgE is elevated at 115. His white count is normal, hemoglobin 9.2, creatinine 0.68. Blood sugars running between 144 and 187. Sputum culture is finalized with normal respiratory mehran. 07/06: Patient is requiring FiO2 of 90% on Airvo. Pulse ox is 92%. Patient has been afebrile, heart rate running in the 80s. Blood pressure 126/84. Dr. Delgado does not plan to do bronchoscopy while patient oxygen needs are high. Her recommendations are to increase steroids to 60 mg IV every 6 hours and change antibiotics to Levaquin. Perforomist and Mucomyst were added yesterday. Pulmonary as noted in consult with Dr. Ware for inpatient rehab. Alpha I antitrypsin came back negative. Mycoplasma and Legionella are pending. 07/07: Patient continues to have significant shortness of breath and states he can 't catch his breath. He is now on FiO2 of 90. He states he feels well otherwise and is found sitting up in a recliner. He did receive Lasix which is discontinued. Mycoplasma came back negative. Legionella pending. White count was normal, hemoglobin 11.1, creatinine 0.74. Blood sugars run between 132 and 235. Pulse ox is 95% on high flow nasal cannula, afebrile, heart rate running in the 70s and 80s, blood pressure 135/78. Patient has been seen by Dr. Ware and plan is to follow notes. Doubt the patient will be a candidate for inpatient rehab. 07/08: Patient continues to have significant shortness of breath feeling that he cannot catch his breath at all. Mucinex, flutter valve and Diflucan added today. He states he has bringing up a little bit of sputum but not very much. He has been afebrile, pulse ox is 94% on FiO2 of 85, heart rate running in the 80s and 90s, blood pressure 130/71. 07/09: Dr. Delgado has added Lasix 40mg every 8 hours IV. Xolair was attempted but not covered as Inpatient treatment. He has been started on hypertonic nebulizer treatments. Patient denies any improvement in breathing today. He still feels he can't catch his breath. He is onFIO2 85 with pulse ox of 95%. He has been afebrile, heart rate in the 80s, BP 148/78. Repeat chest x-ray reveals marked worsening of multifocal alveolar and interstitial opacities. Multifocal pneumonia, pulmonary edema or ARDS. Chest physiotherapy ordered. Review of Systems Constitutional: Reports chills, Reports fever, Reports weakness Eyes: denies blurred vision, denies double vision, denies bulging eye Ears: deny: decreased hearing Ears, nose, mouth and throat: Denies dysphagia, Denies neck lump, Denies swelling in throat, Denies sore throat Cardiovascular: Reports decreased exercise tolerance, Reports shortness of breath, Denies chest pain, Denies lightheadedness, Denies rapid heart beat, Denies syncope Respiratory: Reports shortness of breath, reports congestion, Reports cough, reports sputum, Reports hemoptysis, Reports wheezing, Denies home oxygen, Denies sleep apnea, Denies snoring Gastrointestinal: Denies abdominal pain, Denies belching, Denies bloating, Denies heartburn, Denies melena, Denies nausea, Denies vomiting Genitourinary: Denies dysuria, Denies nocturia Musculoskeletal: Denies myalgias Integumentary: Denies pruritus, Denies rash, denies wounds Neurological: Denies numbness, Denies weakness Psychiatric: Denies anxiety, Denies depression Endocrine: Denies fatigue, abnormal blood sugars Objective - Vital Signs Vital signs: Vital Signs Temp 97.9 F 07/09/18 07:54 Pulse 84 07/09/18 08:22 Resp 20 07/09/18 07:54 BP 148/78 07/09/18 07:54 Pulse Ox 95 07/09/18 08:22 Intake & Output 07/08/18 07/09/18 07/09/18 18:59 06:59 18:59 Intake Total 1040 360 Output Total 700 Balance 1040 -340 Weight 86.183 kg Intake: IV 160 0.9 Normal Saline 160 Oral 840 200 Other 200 Output: Urine 700 Other: Voiding Method Toilet # Voids 1 - Exam General appearance: average body habitus, moderate distress while at rest in bed. Daughter at bedside. - EENT Eyes: anicteric sclerae, EOMI, PERRLA, no ptosis, no scleral icterus, normal appearance ENT: hearing grossly normal, NA/AT, normal oropharynx, no thrush Ears: bilateral: normal - Neck Neck: no lymphadenopathy, normal ROM, no rigidity Carotids: bilateral: upstroke normal Thyroid: bilateral: normal size - Respiratory Respiratory: bilateral: diminished, rhonchi, wheezing, prolonged expiration, negative: dullness, rales - Cardiovascular Rhythm: regular Heart sounds: normal: S1, S2 Abnormal Heart Sounds: systolic murmur, no S3 Gallop, no S4 Gallop - Gastrointestinal General gastrointestinal: normal bowel sounds, soft, no splenomegaly, no tenderness, no umbilical hernia, no ventral hernia - Integumentary Integumentary: normal, normal turgor - Neurologic Neurologic: CNII-XII intact - Musculoskeletal Musculoskeletal: gait normal, strength equal bilaterally - Psychiatric Psychiatric: A&O x's 3, appropriate affect, intact judgment & insight - Labs CBC & Chem 7: 07/08/18 07:39 07/08/18 07:39 Labs: Abnormal Lab Results - Last 24 Hours (Table) 07/08/18 07/08/18 07/08/18 Range/Units 07:39 07:39 11:33 RBC 3.91 L (4.30-5.90) m/uL Hgb 11.7 L (13.0-17.5) gm/dL Hct 36.3 L (39.0-53.0) % Neutrophils # 9.3 H (1.3-7.7) k/uL Lymphocytes # 0.5 L (1.0-4.8) k/uL Glucose 165 H (74-99) mg/dL POC Glucose (mg/dL) 176 H (75-99) mg/dL Calcium 8.0 L (8.4-10.2) mg/dL Total Protein 5.6 L (6.3-8.2) g/dL Albumin 2.8 L (3.5-5.0) g/dL 07/08/18 07/08/18 07/09/18 Range/Units 16:50 20:56 06:55 RBC (4.30-5.90) m/uL Hgb (13.0-17.5) gm/dL Hct (39.0-53.0) % Neutrophils # (1.3-7.7) k/uL Lymphocytes # (1.0-4.8) k/uL Glucose (74-99) mg/dL POC Glucose (mg/dL) 194 H 162 H 128 H (75-99) mg/dL Calcium (8.4-10.2) mg/dL Total Protein (6.3-8.2) g/dL Albumin (3.5-5.0) g/dL Microbiology - Last 24 Hours (Table) 07/04/18 18:24 Blood Culture - Preliminary Blood No Growth after 96 hours 07/02/18 09:55 Blood Culture - Final Blood No Growth after 144 hours Assessment and Plan Plan: 1. Acute hypoxic respiratory failure secondary to multilobar pneumonia and acute COPD exacerbation. Continue patient on Rocephin 1 g IV piggyback every 24 hours, Zithromax changed to Levaquin, DuoNeb 3 mL nebulization 4 times every day, Pulmicort 4 mg nebulization twice every day, oxygen to keep saturation greater than 92%, pulmonary consultation from Dr. Delgado, influenza testing was negative. Sputum culture reveals normal mehran. Solu-Medrol increased to 60 mg IV every 6 hours. Perforomist and Mucomyst. Mucinex and Diflucan added. Flutter valve added. CTA of the chest as above. Lasix 40mg every 8 hours IV. Xolair was attempted but not covered as Inpatient treatment. He has been started on hypertonic nebulizer treatments. Chest physiotherapy ordered. 2. COPD exacerbation. Continue oxygen, DuoNeb 3 mL nebulization 4 times every day, Pulmicort 1 mg nebulization twice every day, Solu-Medrol. Continue as in # 1 3. Mild CAD status post left heart cath physician back in 2014 that showed mild disease of the LAD and RCA. Stable at this time continue patient on Toprol -XL 50 mg orally once every day. 4. Hypertension and hypertensive cardiovascular disease. Continue Toprol-XL 50 mg orally once every day, lisinopril 20 mg orally once every day. 5. Bipolar disorder. Continue Lamictal 100 mg orally once every day as well as sertraline 100 mg orally once every day. 6. GI prophylaxis. Protonix 40 mg once every day. 7. DVT prophylaxis. Heparin 5000 units subcutaneously every 8 hours. 8. Patient is full code. Discharge plan: Return home. Consult with Dr. Jeanie for inpatient rehab, PT and OT Impression and plan of care have been directed as dictated by the signing physician. Meghna Larry nurse practitioner acting as scribe for signing physician.
[2018-07-09 11:53] LABS: Glucose,Whole Blood 125 mg/dL (75-99)
--- NOTE | 2018-07-09 12:32 | P.PN ---
Subjective Progress Note Date: 07/09/18 HPI: This is a 67-year-old male being seen examined and evaluated today for consultation. This patient does have a past medical history significant for hypertension, hypertensive cardiovascular disease, mild CAD involving the RCA and the LAD, last stent heart catheterization was in 2014, history of bipolar, COPD, remote history of tobacco use and dependence. The patient was seen in the urgent care setting on Tuesday and was told he has "the flu" and the patient was given a Z-Osmani to take in the outpatient setting. The patient was starting to feel better and then he started to get significantly worse yesterday so he came into the emergency room. The patient was found to have a multilobar pneumonia he was started on IV antibiotics and steroids. He did have an influenza swab that was negative. 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 He denies any exposures to any birds or farm animals or farmland. He has 3. He quit smoking approximately 12 years ago. He does not have wood-burning stove at home. Upon examination the patient's resting up in bed on 10 L of high flow and oxygen via nasal cannula. He continues to have shortness of breath cough and congestion. He has been unable to provide a sputum sample thus far. He does feel the breathing treatments are helping. He has been afebrile no further complaints. Interval History: 07/04/18- patient is being seen examined and evaluated today on rounds. He is resting up in bed on 10 L high flow nasal cannula. Still feels quite dyspneic and short of breath even at rest. We will switch patient over to Airvo to help his breathing. Currently being worked up for questionable an SIEP versus HP. Multiple labs have been obtained and are pending. Patient will require 1 mg/kg daily of prednisone with a very slow outpatient taper. This is again discussed with the patient at length and he is agreeable. He is afebrile. All labs and reports reviewed 07/05/18- patient is being seen examined and evaluated today on rounds. He currenlty is one Airvo high flow at 55 L and 90% FiO2. He feels his breathing is less labored with using this type of supplemental oxygen. He is slowly improving. Most likely will require a home oxygen assessment prior to discharge. 07/06/18- patient is being seen examined and evaluated today on rounds. He continues on Airvo high flow oxygen at 55 L and 90% FiO2. He is very slow to recover when he does get short of breath. His steroids are increased. His antibiotics is switched to Levaquin. Yesterday we also added Perforomist and Mucomyst inhalation. He seems to feel those are helping him as well. The patient could potentially undergo a bronchoscopy once his oxygen demand significantly decreased. He is not a candidate at this time due to his high oxygen demands. This is discussed with him at length as well as the attending provider. The patient has not ambulated much since being admitted. We will consult PT and OT as well as PMNR for possible inpatient rehab on discharge. 07/07/18- patient is being seen examined and evaluated today on rounds. The patient continues on Airvo high flow oxygen and 55 L and 90% FiO2. This is discussed with the patient's direct care nurse to start weaning the patient, on oxygen as tolerated. He states he feels less short of breath today. He does have multiple environmental ALLERGIES that came back positive which are discussed with him today. He will be provided a list of these ALLERGIES. Neoplasm was negative. Legionella is pending, HP panel is pending. He seems to be responding well to the increase in steroids in the antibiotics. All labs and reports have been reviewed. 07/08/2017: Patient seen and examined with his daughter at bedside. The patient states he is getting discouraged because he is still very short of breath with minimal exertion. The patient is on airvo at 55 L/m and 85% FiO2. Chest x-ray is obtained and reviewed. There is marked worsening of the bilateral infiltrates. Bronchoscopy is discussed with the patient at length. He is aware that he is too unstable at this point for bronchoscopy and that he would likely end up on mechanical ventilation if bronchoscopy were attempted. It is possible that later in the week it will be an option. Continue high-dose steroids and diuresis for now. 07/09/2018: Patient seen and examined with his daughter at bedside. The patient and his daughter expressed concerns that the patient is not getting any better. Chest x-ray from yesterday is reviewed with them and the patient was found to have worsening bilateral infiltrates. The risks versus benefits of doing a bronchoscopy is discussed with the patient. He would like to try to continue the hypertonic saline, antibiotics, diuresis for now and consider bronchoscopy in 48-72 hours if he is not improving. The possibility of a surgical lung biopsy was also discussed with the patient. I did discuss the possibility of Xolair with the pharmacy. It has been declined for inpatient use at this time. However I will continue to try to obtain this for the patient. Objective - Vital Signs Vital signs: Vital Signs Temp 97.9 F 07/09/18 07:54 Pulse 85 07/09/18 08:45 Resp 20 07/09/18 07:54 BP 148/78 07/09/18 07:54 Pulse Ox 95 07/09/18 08:22 Intake & Output 07/08/18 07/09/18 07/09/18 18:59 06:59 18:59 Intake Total 1040 360 200 Output Total 700 Balance 1040 -340 200 Weight 86.183 kg Intake: IV 160 0.9 Normal Saline 160 Oral 840 200 200 Other 200 Output: Urine 700 Other: Voiding Method Toilet Toilet # Voids 1 - Exam GENERAL EXAM: Alert, mild apparent distress. HEAD: Normocephalic. EYES: Normal reaction of pupils, equal size. NOSE: Clear with pink turbinates. THROAT: No erythema or exudates. NECK: No masses, no JVD. CHEST: No chest wall deformity. LUNGS: Lungs noted to be rhonchorous with wheezing scattered throughout and prolonged expiration, slowly improving CVS: S1 and S2 normal with no audible mumurs, regular rhythm. ABDOMEN: No hepatosplenomegaly, normal bowel sounds, no guarding or rigidity. EXTREMITIES: No edema noted, pedal pulses palpable. CENTRAL NERVOUS SYSTEM: No focal deficits, tone is normal in all 4 extremities. - Labs CBC & Chem 7: 07/08/18 07:39 07/08/18 07:39 Labs: Abnormal Lab Results - Last 24 Hours (Table) 07/08/18 07/08/18 07/09/18 Range/Units 16:50 20:56 06:55 POC Glucose (mg/dL) 194 H 162 H 128 H (75-99) mg/dL 02/10/19 Range/Units 11:51 POC Glucose (mg/dL) 125 H (75-99) mg/dL Microbiology - Last 24 Hours (Table) 07/04/18 18:24 Blood Culture - Preliminary Blood No Growth after 96 hours 07/02/18 09:55 Blood Culture - Final Blood No Growth after 144 hours Assessment and Plan Assessment: Acute hypoxic respiratory failure requiring supplemental oxygen Acute exacerbation of COPD Multilobar pneumonia -worsening bilateral infiltrates on CXR - ARDS/pulmonary edema/worsening pna/HP in the differential CAD with previous stenting Hypertension Bipolar disorder Multiple allergies with elevated IgE Plan Medications have been reviewed and will be continued as ordered. Results for allergens, IgE, A1AT, and Mycoplasma all reviewed with the patient Allergen avoidance is discussed with the patient Levaquin Solu-Medrol as ordered DuoNeb, budesonide, Perforomist Hypertonic saline nebs Potential bronchoscopy once oxygen demands significantly decreased CTA of the chest reviewed, we'll need a repeat CT in the outpatient setting in 4 -6 weeks questionable NSIP vs HP Will require 1mg/kg daily of prednisone with a slow taper in the outpatient setting Chest x-ray reviewed Initiate and encourage incentive spirometer and flutter tx, chest PT Continue with pulmonary hygiene, coughing and deep breathing exercises, and supportive care. Supplemental oxygen to maintain oxygen saturations of 92% or better. Continue nebulizer treatments. GI and DVT prophylaxis. Increase activity as tolerated, PT and OT Diuresis to continue - Lasix 40 mg IV Q8 hours We will continue to monitor labs/results and adjust treatment as necessary. Further recommendations pending. Repeat CXR in AM Consult ID, respiratory viral panel is pending
[2018-07-09 17:24] LABS: Glucose,Whole Blood 130 mg/dL (75-99)
--- NOTE | 2018-07-09 19:13 | CT ---
EXAMINATION TYPE: CT chest wo con DATE OF EXAM: 07/09/2018 COMPARISON: 07/03/2018 HISTORY: COPD, hypoxia, influenza, pneumonia/concern for NSIP/ILD CT DLP: 616.5 mGycm, Automated exposure control for dose reduction was used. CONTRAST: None TECHNIQUE: Axial images were obtained at 1 mm thick sections at 10 mm intervals. This will limit po rtions of the examination which may not be visualized within the [id number]. Images were obtained in the prone and supine views. FINDINGS: Portion of the thyroid visualized is normal. No suspicious lung nodules or focal infiltrat es are present. Less opacities are present throughout the bilateral lungs is slightly patchy distribution. Underlying emphysematous bulla and blebs are likely present. Bronchiectasis is present. There are scattered are as of pneumonitis within the periphery of the lungs. No enlarged mediastinal or hilar adenopathy is evident. The ascending aorta diameter at the level o f the main pulmonary artery is 3.4 cm. The main pulmonary artery diameter at the bifurcation is 2.[address] sections are obtained through the upper abdomen. Abdomen is essentially unremarkable. IMPRESSIONS: 1. There is a patchy distribution of groundglass opacities. Peripheral pneumonitis type changes and m ultiple tiny bulla. Consider ARDS, differential diagnosis should also Consider unusual etiologies suc h as hypersensitivity pneumonitis UIP and chronic hypersensitivity pneumonitis among other etiologies .
[2018-07-09 20:56] LABS: Glucose,Whole Blood 188 mg/dL (75-99)
[2018-07-09] MEDS: MONTELUKAST 10 MG TAB PO SCH (21:37)
[2018-07-10] MEDS: methylPREDNISolone SOD SUCCI 125 MG/2 ML VIAL IV SCH ×5 (00:03→23:27)
[2018-07-10] MEDS: FUROSEMIDE 10 MG/ML 4 ML VIAL IV SCH ×4 (00:03→23:28)
[2018-07-10] MEDS: HEPARIN SODIUM,PORCINE 5,000 UNIT/ML 1 ML VIAL SQ SCH ×4 (00:03→23:28)
[2018-07-10] MEDS: HYPERTONIC SALINE 3% NEBULIZ 4 ML NEBU INHALATION SCH ×3 (00:26→16:19)
--- NOTE | 2018-07-10 05:51 | CONS ---
CONSULTATION DATE OF SERVICE: 07/09/2018. REASON FOR CONSULTATION: Pneumonia. HISTORY OF PRESENT ILLNESS: The patient is a 67-year-old male presenting to the ER at on 07/02/2018 with chief complaints of increasing shortness of breath. The patient's symptoms apparently has been going on for a few days before he presented to the hospital and apparently has been diagnosed in outpatient setting with flu and has been treated with Zithromax. The patient's main symptom has been increasing shortness of breath with minimal exertion even at rest and did have an episode of blood-stained sputum. The patient denies having any chest pain. He did have a cough which was mild- to-moderate in intensity. Some sore throat, but no other URI symptoms. No nausea, no vomiting. No abdominal pain. No diarrhea and no choking on food. With these symptoms, the patient has been evaluated by the ER physician. On arrival to the ER, the patient did have a chest x-ray and that shows patchy perihilar and basilar infiltrate noted. Correlate for pneumonia. The patient treated with Rocephin and Zithromax. The patient also had a CT angiogram completed on 07/03/2018 that was negative for PE however did show interstitial lung disease hypersensitive pneumonitis or cryptogenic organizing pneumonia are a possibility. The patient did have influenza serology that was negative. The urine for Legionella antigen was negative. Mycoplasma as well as IgM were negative. The patient did have elevated IgE level. The patient has been treated with increasing courses of steroids as well as Levaquin. I was asked to see the patient today for further recommendation regarding antibiotic therapy and possible pneumonia. The patient did have only 1 fever during this admission which was 100.7 on 07/04 however no fever has been recorded since then. REVIEW OF SYSTEMS: Positive points have been mentioned in the HPI. Rest of the systems have been negative. PAST MEDICAL HISTORY: Coronary artery disease, COPD, hypertension, osteoarthritis. PAST SURGICAL HISTORY: Heart catheterization. SOCIAL HISTORY: Remote history of smoking, quit about 12 years ago. Rarely drinks. No drug use. FAMILY HISTORY: Father history of COPD. Mother with history of fibromyalgia. ALLERGIES: PENICILLIN, however tolerated without any problem. MEDICATION: Medications include the patient is currently on: Tylenol, DuoNeb, Pulmicort, Diflucan, Lasix, Mucinex, heparin, NovoLog, Lamictal, Levaquin 750 p.o. daily, Zestril, Milk of magnesia, Solu-Medrol. Toprol-XL, Singulair, Protonix, Zoloft, heparin and saline. PHYSICAL EXAMINATION: On examination, blood pressure 123/71 with a pulse of 78, temperature 98.3. He is 97% on room air. General description is an elderly male lying in bed in no distress. No tachypnea or accessory muscles of respiration use. HEENT: Shows no pallor or scleral icterus. Oral mucosal membranes are moist. No pharyngeal erythema or thrush. NECK: Trachea central. No thyromegaly. Lungs unlabored breathing with decreased intensity of breath sounds. No wheeze. Heart S1, S2. Regular rate and rhythm. Abdomen soft. No tenderness. No guarding. No rigidity. Extremities: No edema of the feet. Skin examination: No rash or mass palpable. Neurological: Patient is awake, alert, oriented times three. Mood and affect normal. LABS: Hemoglobin is 11.7, white count 10.3 with a BUN of 17, creatinine 0.77. Electrolytes have been normal. Liver enzymes are normal. Elevated IgE. Influenza, legionella and mycoplasma serologies were negative. CT report as mentioned above. DIAGNOSTIC IMPRESSION AND PLAN: Patient admitted to the hospital with difficulty in breathing, hypoxemia in this patient who predominantly has interstitial infiltrate with concern for possible cryptogenic organizing pneumonia to be the likely possibility or an atypical pneumonia less likely atypical bacterial pneumonia in this patient who apparently seemed to have shown clinical improvement to steroids and the Levaquin with no clear microbiological data. PLAN: 1. We will keep the patient on Levaquin 750 p.o. daily along with as started by Pulmonary in addition to the breathing treatment. 2. The patient may benefit from bronchoscopy as well as bronchial lavage and possible biopsy to better diagnose the underlying pulmonary condition. This was explained to the patient and will be discussed with Pulmonary. 3. We will follow up on clinical condition and further adjust medication if needed. Thank you for this consultation. Will follow this patient along with you. MMODL / IJN: [id number] /
[2018-07-10 07:07] LABS: Glucose,Whole Blood 153 mg/dL (75-99)
[2018-07-10] MEDS: IPRATROPIUM-ALBUTEROL 3 ML NEB INHALATION SCH ×4 (08:10→20:58)
[2018-07-10] MEDS: FORMOTEROL FUMARATE 20 MCG/2 ML NEBU INHALATION SCH ×2 (08:10→20:58)
[2018-07-10] MEDS: BUDESONIDE 1 MG/2 ML NEBU INHALATION SCH ×2 (08:10→20:58)
--- NOTE | 2018-07-10 08:11 | XR ---
EXAMINATION TYPE: XR chest 1V portable DATE OF EXAM: 07/10/2018 COMPARISON: Prior chest x-ray 07/08/2018 HISTORY: Hypoxia, pneumonia, COPD TECHNIQUE: Single frontal view of the chest is obtained. FINDINGS: Pleural-parenchymal changes may be slightly improved in the interval. Heart size is not si gnificantly changed. No evident pneumothorax or pleural effusion. There are cardiac leads. IMPRESSION: Some improvement in aeration
[2018-07-10] MEDS: SERTRALINE 100 MG TAB PO SCH (08:53)
[2018-07-10] MEDS: lamoTRIgine 100 MG TAB PO SCH (08:53)
[2018-07-10] MEDS: LISINOPRIL 20 MG TAB PO SCH (08:54)
[2018-07-10] MEDS: PANTOPRAZOLE 40 MG TABLET PO SCH (08:54)
[2018-07-10] MEDS: METOPROLOL SUCCINATE (ER) 50 MG TAB.ER.24H PO SCH (08:54)
[2018-07-10] MEDS: INSULIN ASPART (NovoLOG) 100 UNIT/ML VIAL SQ SCH ×4 (08:54→21:30)
[2018-07-10] MEDS: FLUCONAZOLE 100 MG TAB PO SCH (08:54)
[2018-07-10] MEDS: guaiFENesin 600 MG TABLET.ER PO SCH ×2 (08:54→21:30)
[2018-07-10] MEDS: LEVOFLOXACIN 750 MG TAB PO SCH (08:57)
[2018-07-10 09:20] LABS: Rheumatoid Factor 14 IU/mL (0-15)
[2018-07-10 09:54] LABS: Procalcitonin 0.08 ng/mL (0.02-0.09)
--- NOTE | 2018-07-10 12:06 | P.PN ---
Subjective Progress Note Date: 07/10/18 This is a 67-year-old male one of Dr. Christy with a previous medical history significant for hypertension and hypertensive cardiovascular disease, mild CAD involving the RCA and the the LAD, with a last heart catheterization was done back in 2014, history of bipolar disorder, COPD, remote history of tobacco use and dependence, patient went to a walking clinic on Tuesday and he was diagnosed of having the flu according to him and he was given a Z-Osmani patient was feeling better up until today when he developed to have a significant coughing and increased yellow phlegm production with bloody streaks to it so he ended up coming to the ER at [facility] where he was found to have a multilobar pneumonia he was started on IV antibiotic in the form of Rocephin and Zithromax and and he was placed in droplet precautions until after obtaining the result of the flu swab, pulmonary consultation was obtained from Dr. ADOLFO Ayon. 07/03: Patient is currently on 10 L high flow O2 pulse oxing 92-96%. He states he is slightly better from yesterday. He is having more cough today. Influenza testing came back negative. Repeat chest x-ray this morning shows chronic interstitial lung disease with underlying COPD and stable patchy bilateral infiltrate. CT injury of the chest showed no evidence of central pulmonary embolism. Subsegmental pulmonary arteries are nondiagnostic. Interstitial lung disease. Findings favoring NSIP with no current evidence of fibrosis. Alternatively hypersensitivity pneumonitis or cryptogenic organizing pneumonia or possible. Consult in place with pulmonary medicine which will be seeing him today. Solu-Medrol will remain the same at 40 mg IV every 8 hours. Continue same medications. 07/04: CT results reviewed with patient. 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 Patient states that he had a rough night and does not seem like he is much better. He is bringing up sputum that is light in color. Patient was seen by Dr. Delgado. Solu-Medrol will remain at 40 mg every 8 hours. Sputum culture is in progress. Blood cultures showing no growth after 24 hours. He has been afebrile, heart rate running in the 80s and 90s, blood pressure 131/70, pulse ox 92% on 10 L high flow. Patient is now on humidified oxygen. 07/05: Patient is now on Airvo with FiO2 of 55 pulse oxing 94%. Breathing status is more comfortable using this. Discussed case with Dr. Delgado for possible bronchoscopy. Patient has had a bowel movement. He denies any diarrhea. Legionella, mycoplasma, hypersensitivity panels and alpha-1 antitrypsin are all pending. IgE is elevated at 115. His white count is normal, hemoglobin 9.2, creatinine 0.68. Blood sugars running between 144 and 187. Sputum culture is finalized with normal respiratory mehran. 07/06: Patient is requiring FiO2 of 90% on Airvo. Pulse ox is 92%. Patient has been afebrile, heart rate running in the 80s. Blood pressure 126/84. Dr. Delgado does not plan to do bronchoscopy while patient oxygen needs are high. Her recommendations are to increase steroids to 60 mg IV every 6 hours and change antibiotics to Levaquin. Perforomist and Mucomyst were added yesterday. Pulmonary as noted in consult with Dr. Ware for inpatient rehab. Alpha I antitrypsin came back negative. Mycoplasma and Legionella are pending. 07/07: Patient continues to have significant shortness of breath and states he can 't catch his breath. He is now on FiO2 of 90. He states he feels well otherwise and is found sitting up in a recliner. He did receive Lasix which is discontinued. Mycoplasma came back negative. Legionella pending. White count was normal, hemoglobin 11.1, creatinine 0.74. Blood sugars run between 132 and 235. Pulse ox is 95% on high flow nasal cannula, afebrile, heart rate running in the 70s and 80s, blood pressure 135/78. Patient has been seen by Dr. Ware and plan is to follow notes. Doubt the patient will be a candidate for inpatient rehab. 07/08: Patient continues to have significant shortness of breath feeling that he cannot catch his breath at all. Mucinex, flutter valve and Diflucan added today. He states he has bringing up a little bit of sputum but not very much. He has been afebrile, pulse ox is 94% on FiO2 of 85, heart rate running in the 80s and 90s, blood pressure 130/71. 07/09: Dr. Delgado has added Lasix 40mg every 8 hours IV. Xolair was attempted but not covered as Inpatient treatment. He has been started on hypertonic nebulizer treatments. Patient denies any improvement in breathing today. He still feels he can't catch his breath. He is onFIO2 85 with pulse ox of 95%. He has been afebrile, heart rate in the 80s, BP 148/78. Repeat chest x-ray reveals marked worsening of multifocal alveolar and interstitial opacities. Multifocal pneumonia, pulmonary edema or ARDS. Chest physiotherapy ordered. 07/10: Patient denies any significant improvement from yesterday. He did start chest physiotherapy yesterday. He states he feels more tired today but he did sleep well last night. Cough is nonproductive. Dr. Núñez discussed case with Dr. Delgado and plan is if patient is not improved by Tuesday, transferred at [facility]. Pulse ox is 95% on FiO2 of 85 by high flow nasal cannula, heart rate running in the 90s, afebrile, blood pressure 103/68. No change in medications. Review of Systems Constitutional: Reports chills, Reports fever, Reports weakness, reports daytime sleepiness Eyes: denies blurred vision, denies double vision, denies bulging eye Ears: deny: decreased hearing Ears, nose, mouth and throat: Denies dysphagia, Denies neck lump, Denies swelling in throat, Denies sore throat Cardiovascular: Reports decreased exercise tolerance, Reports shortness of breath, Denies chest pain, Denies lightheadedness, Denies rapid heart beat, Denies syncope Respiratory: Reports shortness of breath, reports congestion, Reports cough, reports sputum, Reports hemoptysis, Reports wheezing, Denies home oxygen, Denies sleep apnea, Denies snoring Gastrointestinal: Denies abdominal pain, Denies belching, Denies bloating, Denies heartburn, Denies melena, Denies nausea, Denies vomiting Genitourinary: Denies dysuria, Denies nocturia Musculoskeletal: Denies myalgias Integumentary: Denies pruritus, Denies rash, denies wounds Neurological: Denies numbness, Denies weakness Psychiatric: Denies anxiety, Denies depression Endocrine: Denies fatigue, abnormal blood sugars Objective - Vital Signs Vital signs: Vital Signs Temp 97.9 F 07/09/18 23:25 Pulse 95 07/10/18 08:34 Resp 20 07/10/18 08:34 BP 128/74 07/09/18 23:25 Pulse Ox 95 07/10/18 08:10 Intake & Output 07/09/18 07/10/18 07/10/18 18:59 06:59 18:59 Intake Total 600 200 Output Total 1900 Balance 600 -1700 Intake: Oral 400 200 Other 200 Output: Urine 1900 Other: Voiding Method Toilet # Voids 3 4 - Exam General appearance: average body habitus, moderate distress while at rest in bed. - EENT Eyes: anicteric sclerae, EOMI, PERRLA, no ptosis, no scleral icterus, normal appearance ENT: hearing grossly normal, NA/AT, normal oropharynx, no thrush Ears: bilateral: normal - Neck Neck: no lymphadenopathy, normal ROM, no rigidity Carotids: bilateral: upstroke normal Thyroid: bilateral: normal size - Respiratory Respiratory: bilateral: diminished, rhonchi, wheezing, prolonged expiration, negative: dullness, rales - Cardiovascular Rhythm: regular Heart sounds: normal: S1, S2 Abnormal Heart Sounds: systolic murmur, no S3 Gallop, no S4 Gallop - Gastrointestinal General gastrointestinal: normal bowel sounds, soft, no splenomegaly, no tenderness, no umbilical hernia, no ventral hernia - Integumentary Integumentary: normal, normal turgor - Neurologic Neurologic: CNII-XII intact - Musculoskeletal Musculoskeletal: gait normal, strength equal bilaterally - Psychiatric Psychiatric: A&O x's 3, appropriate affect, intact judgment & insight - Labs CBC & Chem 7: 07/08/18 07:39 07/08/18 07:39 Labs: Abnormal Lab Results - Last 24 Hours (Table) 07/09/18 07/09/18 07/09/18 Range/Units 11:51 17:03 20:55 POC Glucose (mg/dL) 125 H 130 H 188 H (75-99) mg/dL 07/10/18 Range/Units 07:04 POC Glucose (mg/dL) 153 H (75-99) mg/dL Microbiology - Last 24 Hours (Table) 07/04/18 18:24 Blood Culture - Preliminary Blood No Growth after 120 hours Assessment and Plan Plan: 1. Acute hypoxic respiratory failure secondary to multilobar pneumonia and acute COPD exacerbation. Continue patient on Rocephin 1 g IV piggyback every 24 hours, Zithromax changed to Levaquin, DuoNeb 3 mL nebulization 4 times every day, Pulmicort 4 mg nebulization twice every day, oxygen to keep saturation greater than 92%, pulmonary consultation from Dr. Delgaod, influenza testing was negative. Sputum culture reveals normal mehran. Solu-Medrol increased to 60 mg IV every 6 hours. Perforomist and Mucomyst. Mucinex and Diflucan added. Flutter valve added. CTA of the chest as above. Lasix 40mg every 8 hours IV. Xolair was attempted but not covered as Inpatient treatment. He has been started on hypertonic nebulizer treatments. Chest physiotherapy in place. 2. COPD exacerbation. Continue oxygen, DuoNeb 3 mL nebulization 4 times every day, Pulmicort 1 mg nebulization twice every day, Solu-Medrol. Continue as in # 1 3. Mild CAD status post left heart cath physician back in 2014 that showed mild disease of the LAD and RCA. Stable at this time continue patient on Toprol -XL 50 mg orally once every day. 4. Hypertension and hypertensive cardiovascular disease. Continue Toprol-XL 50 mg orally once every day, lisinopril 20 mg orally once every day. 5. Bipolar disorder. Continue Lamictal 100 mg orally once every day as well as sertraline 100 mg orally once every day. 6. GI prophylaxis. Protonix 40 mg once every day. 7. DVT prophylaxis. Heparin 5000 units subcutaneously every 8 hours. 8. Patient is full code. Discharge plan: Return home. Consult with Dr. Ware for inpatient rehab, PT and OT Impression and plan of care have been directed as dictated by the signing physician. Meghna Larry nurse practitioner acting as scribe for signing physician.
[2018-07-10 12:07] LABS: Glucose,Whole Blood 117 mg/dL (75-99)
[2018-07-10 13:42] LABS: HIV P24 AG Non-Reactive (Non-Reactive)
[2018-07-10 13:43] LABS: HIV 1 AB Non-Reactive (Non-Reactive); HIV AB P24 Non-Reactive (Non-Reactive)
--- NOTE | 2018-07-10 15:31 | PN ---
PROGRESS NOTE DATE OF SERVICE: 07/10/2018 Patient is a 67-year-old male who is seen sitting up in bed. He is on BiPAP, appears comfortable at this time. The patient does verbalize starting to cough and bring up a little bit of phlegm, still hard to get up. The patient is afebrile. Hemodynamically stable in no acute distress. PHYSICAL EXAM: VITAL SIGNS: Temperature 97.5, heart rate 89, respiratory rate 18, blood pressure is 103/68, O2 sats 96% on high-flow O2 with an FiO2 at 85%. HEENT. Head is normocephalic, atraumatic. Neck is supple. Trachea is midline. LUNGS: Decreased with a few fine scattered rales. HEART: S1, S2 are heard. Not tachycardic. ABDOMEN: Soft. Bowel sounds are heard. EXTREMITIES: With no edema. NEUROLOGIC: Patient is awake and alert. LABS: No new labs to review. IMAGING: Chest x-ray done this morning shows some improvement in aeration. IMPRESSION: 1. Acute hypoxic respiratory failure requiring supplemental oxygen. 2. Acute exacerbation of chronic obstructive pulmonary disease. 3. Multilobar pneumonia, worsening bilateral infiltrates on chest x-ray - NSIP versus ARDS versus other. However, does show some improvement today. 4. Coronary artery disease with previous stenting. 5. Hypertension. 6. Bipolar disorder. 7. Multiple allergies with elevated IgE. PLAN: Continue current medications which have been reviewed. Continue bronchodilators , aerosol steroids. Continue IV Solu-Medrol. Continue IV antibiotics per Infectious Disease. Continue GI and DVT prophylaxis. Encourage incentive spirometry and flutter valve treatment. Continue with pulmonary hygiene, coughing and deep breathing exercises and supportive care. Continue oxygen to maintain sats greater than or equal to 92%. Increase activity as tolerated with PT, OT, and we will follow patient closely with you making further changes as necessary. I performed a History & Physical Examination of the patient and discussed their management with nurse practitioner. I reviewed the nurse practitioner's note and agree with the documented findings and plan of care. MMODL / IJN: [id number] / Patient seen and examined. Patient states he is starting to feel a little bit better. The patient did undergo repeat CT of the chest with high resolution imaging. This does show improvement of the bilateral infiltrates. Continue to titrate FiO2 for saturation greater than or equal to 92%. Continue steroids. I 'll check histoplasma and coccidiodes antibodies. Possible plan for bronchoscopy this week depending on the patient's clinic course. ~Muriel Delgado, DO WILLIAM
[2018-07-10 17:01] LABS: Glucose,Whole Blood 134 mg/dL (75-99)
[2018-07-10 20:30] LABS: Glucose,Whole Blood 173 mg/dL (75-99)
[2018-07-10] MEDS: MONTELUKAST 10 MG TAB PO SCH (21:30)
[2018-07-11] MEDS: HYPERTONIC SALINE 3% NEBULIZ 4 ML NEBU INHALATION SCH ×4 (00:21→23:17)
[2018-07-11] MEDS: IPRATROPIUM-ALBUTEROL 3 ML NEB INHALATION PRN (00:25)
[2018-07-11] MEDS: methylPREDNISolone SOD SUCCI 125 MG/2 ML VIAL IV SCH ×4 (05:26→23:33)
--- NOTE | 2018-07-11 07:06 | PN ---
PROGRESS NOTE DATE OF SERVICE: 07/10/2018. REASON FOR FOLLOWUP: Pneumonia. INTERVAL HISTORY: The patient is afebrile. He seems to be breathing slightly comfortably. The patient denies having any chest pain. Very minimal cough. No nausea, no vomiting. No abdominal pain. No diarrhea. PHYSICAL EXAMINATION: On examination, blood pressure 112/67 with a pulse of 81, temperature of 98.2. He is 95% on 55% high-flow oxygen. General description is an elderly male up in the bed in no distress. HEENT EXAMINATION: Slight pallor. No scleral icterus. LUNGS: Unlabored breathing, with decreased breath sounds at the bases. No wheeze. HEART: S1, S2. Regular rate and rhythm. ABDOMEN: Soft, no tenderness. LABS: No new labs been obtained today. Blood culture has been negative. DIAGNOSTIC IMPRESSION AND PLAN: Patient with interstitial pneumonitis with a question of infectious versus noninfectious etiology. The patient is currently on Levaquin and steroids to continue for now. Clinical suspicion for remains to be low. Once his respiratory status slightly stabilized then benefit from bronchoscopy. Discussed further with Pulmonary team and continue with supportive care. MMODL / IJN: [id number] /
[2018-07-11 07:12] LABS: Glucose,Whole Blood 139 mg/dL (75-99)
[2018-07-11] MEDS: BUDESONIDE 1 MG/2 ML NEBU INHALATION SCH ×2 (07:33→19:43)
[2018-07-11] MEDS: IPRATROPIUM-ALBUTEROL 3 ML NEB INHALATION SCH ×4 (07:34→19:43)
[2018-07-11] MEDS: FORMOTEROL FUMARATE 20 MCG/2 ML NEBU INHALATION SCH ×2 (07:34→19:43)
[2018-07-11 07:59] LABS: HCT 35.9 % (39.0-53.0); HGB 11.5 gm/dL (13.0-17.5); MCH 29.7 pg (25.0-35.0); MCHC 32.2 g/dL (31.0-37.0); MCV 92.2 fL (80.0-100.0); Mean Platelet Volume 6.8; Platelet Count 550 k/uL (150-450); RBC 3.89 m/uL (4.30-5.90); RDW 13.8 % (11.5-15.5); WBC 13.9 k/uL (3.8-10.6)
[2018-07-11] MEDS: guaiFENesin 600 MG TABLET.ER PO SCH ×2 (08:11→20:31)
[2018-07-11] MEDS: FLUCONAZOLE 100 MG TAB PO SCH (08:11)
[2018-07-11] MEDS: SERTRALINE 100 MG TAB PO SCH (08:11)
[2018-07-11] MEDS: LISINOPRIL 20 MG TAB PO SCH (08:11)
[2018-07-11] MEDS: METOPROLOL SUCCINATE (ER) 50 MG TAB.ER.24H PO SCH (08:11)
[2018-07-11] MEDS: PANTOPRAZOLE 40 MG TABLET PO SCH (08:11)
[2018-07-11] MEDS: lamoTRIgine 100 MG TAB PO SCH (08:12)
[2018-07-11] MEDS: INSULIN ASPART (NovoLOG) 100 UNIT/ML VIAL SQ SCH ×4 (08:12→20:26)
[2018-07-11] MEDS: LEVOFLOXACIN 750 MG TAB PO SCH (08:12)
[2018-07-11] MEDS: HEPARIN SODIUM,PORCINE 5,000 UNIT/ML 1 ML VIAL SQ SCH ×3 (08:13→23:34)
[2018-07-11] MEDS: FUROSEMIDE 10 MG/ML 4 ML VIAL IV SCH ×3 (08:14→23:33)
[2018-07-11 08:28] LABS: ALT 58 U/L (21-72); AST 36 U/L (17-59); Albumin 2.9 g/dL (3.5-5.0); Alkaline Phosphatase 60 U/L (38-126); Anion Gap 6 mmol/L; Blood Urea Nitrogen 30 mg/dL (9-20); Calcium 7.8 mg/dL (8.4-10.2); Carbon Dioxide 33 mmol/L (22-30); Chloride 101 mmol/L (98-107); Glucose 142 mg/dL (74-99); Potassium 3.8 mmol/L (3.5-5.1); Sodium 140 mmol/L (137-145); Total Bilirubin 0.5 mg/dL (0.2-1.3); Total Protein 5.8 g/dL (6.3-8.2)
[2018-07-11] MEDS ORDERED: OMALIZUMAB 150 MG/ML SYRINGE SQ NR (09:00)
[2018-07-11 11:56] LABS: Glucose,Whole Blood 120 mg/dL (75-99)
--- NOTE | 2018-07-11 12:19 | P.PN ---
Subjective Progress Note Date: 07/11/18 HPI: This is a 67-year-old male being seen examined and evaluated today for consultation. This patient does have a past medical history significant for hypertension, hypertensive cardiovascular disease, mild CAD involving the RCA and the LAD, last stent heart catheterization was in 2014, history of bipolar, COPD, remote history of tobacco use and dependence. The patient was seen in the urgent care setting on Tuesday and was told he has "the flu" and the patient was given a Z-Osmani to take in the outpatient setting. The patient was starting to feel better and then he started to get significantly worse yesterday so he came into the emergency room. The patient was found to have a multilobar pneumonia he was started on IV antibiotics and steroids. He did have an influenza swab that was negative. 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 He denies any exposures to any birds or farm animals or farmland. He has 3. He quit smoking approximately 12 years ago. He does not have wood-burning stove at home. Upon examination the patient's resting up in bed on 10 L of high flow and oxygen via nasal cannula. He continues to have shortness of breath cough and congestion. He has been unable to provide a sputum sample thus far. He does feel the breathing treatments are helping. He has been afebrile no further complaints. Interval History: 07/04/18- patient is being seen examined and evaluated today on rounds. He is resting up in bed on 10 L high flow nasal cannula. Still feels quite dyspneic and short of breath even at rest. We will switch patient over to Airvo to help his breathing. Currently being worked up for questionable an SIEP versus HP. Multiple labs have been obtained and are pending. Patient will require 1 mg/kg daily of prednisone with a very slow outpatient taper. This is again discussed with the patient at length and he is agreeable. He is afebrile. All labs and reports reviewed 07/05/18- patient is being seen examined and evaluated today on rounds. He currenlty is one Airvo high flow at 55 L and 90% FiO2. He feels his breathing is less labored with using this type of supplemental oxygen. He is slowly improving. Most likely will require a home oxygen assessment prior to discharge. 07/06/18- patient is being seen examined and evaluated today on rounds. He continues on Airvo high flow oxygen at 55 L and 90% FiO2. He is very slow to recover when he does get short of breath. His steroids are increased. His antibiotics is switched to Levaquin. Yesterday we also added Perforomist and Mucomyst inhalation. He seems to feel those are helping him as well. The patient could potentially undergo a bronchoscopy once his oxygen demand significantly decreased. He is not a candidate at this time due to his high oxygen demands. This is discussed with him at length as well as the attending provider. The patient has not ambulated much since being admitted. We will consult PT and OT as well as PMNR for possible inpatient rehab on discharge. 07/07/18- patient is being seen examined and evaluated today on rounds. The patient continues on Airvo high flow oxygen and 55 L and 90% FiO2. This is discussed with the patient's direct care nurse to start weaning the patient, on oxygen as tolerated. He states he feels less short of breath today. He does have multiple environmental ALLERGIES that came back positive which are discussed with him today. He will be provided a list of these ALLERGIES. Neoplasm was negative. Legionella is pending, HP panel is pending. He seems to be responding well to the increase in steroids in the antibiotics. All labs and reports have been reviewed. 07/08/2017: Patient seen and examined with his daughter at bedside. The patient states he is getting discouraged because he is still very short of breath with minimal exertion. The patient is on airvo at 55 L/m and 85% FiO2. Chest x-ray is obtained and reviewed. There is marked worsening of the bilateral infiltrates. Bronchoscopy is discussed with the patient at length. He is aware that he is too unstable at this point for bronchoscopy and that he would likely end up on mechanical ventilation if bronchoscopy were attempted. It is possible that later in the week it will be an option. Continue high-dose steroids and diuresis for now. 07/09/2018: Patient seen and examined with his daughter at bedside. The patient and his daughter expressed concerns that the patient is not getting any better. Chest x-ray from yesterday is reviewed with them and the patient was found to have worsening bilateral infiltrates. The risks versus benefits of doing a bronchoscopy is discussed with the patient. He would like to try to continue the hypertonic saline, antibiotics, diuresis for now and consider bronchoscopy in 48-72 hours if he is not improving. The possibility of a surgical lung biopsy was also discussed with the patient. I did discuss the possibility of Xolair with the pharmacy. It has been declined for inpatient use at this time. However I will continue to try to obtain this for the patient. 07/11/2018: Patient seen and examined. Patient states he feels like his breathing is starting to improve. He has been able to ambulate around the room. He states he finally feels hope that his breathing is improving. He denies fevers and chills. Objective - Vital Signs Vital signs: Vital Signs Temp 98.2 F 07/11/18 07:00 Pulse 77 07/11/18 11:32 Resp 17 07/11/18 08:15 BP 110/69 07/11/18 07:00 Pulse Ox 95 07/11/18 11:24 Intake & Output 07/10/18 07/11/18 07/11/18 18:59 06:59 18:59 Intake Total 636 320 Output Total 1200 Balance 636 -880 Intake: IV 320 0.9 Normal Saline 320 Oral 636 Output: Urine 1200 Other: Voiding Method Toilet Urinal Urinal # Voids 3 - Exam GENERAL EXAM: Alert, mild apparent distress. HEAD: Normocephalic. EYES: Normal reaction of pupils, equal size. NOSE: Clear with pink turbinates. THROAT: No erythema or exudates. NECK: No masses, no JVD. CHEST: No chest wall deformity. LUNGS: Lungs noted to be rhonchorous with wheezing scattered throughout and prolonged expiration, slowly improving CVS: S1 and S2 normal with no audible mumurs, regular rhythm. ABDOMEN: No hepatosplenomegaly, normal bowel sounds, no guarding or rigidity. EXTREMITIES: No edema noted, pedal pulses palpable. CENTRAL NERVOUS SYSTEM: No focal deficits, tone is normal in all 4 extremities. - Labs CBC & Chem 7: 07/11/18 07:36 07/11/18 07:36 Labs: Abnormal Lab Results - Last 24 Hours (Table) 07/08/18 07/10/1807/10/19 Range/Units 07:39 12:01 16:49 WBC (3.8-10.6) k/uL RBC (4.30-5.90) m/uL Hgb (13.0-17.5) gm/dL Hct (39.0-53.0) % Plt Count (150-450) k/uL Carbon Dioxide (22-30) mmol/L BUN (9-20) mg/dL Glucose (74-99) mg/dL POC Glucose (mg/dL) 117 H 134 H (75-99) mg/dL Calcium (8.4-10.2) mg/dL Total Protein (6.3-8.2) g/dL Albumin (3.5-5.0) g/dL TRACEY Screen POSITIVE H (NEGATIVE) 07/10/18 07/11/18 07/11/18 Range/Units 20:29 07:11 07:36 WBC 13.9 H (3.8-10.6) k/uL RBC 3.89 L (4.30-5.90) m/uL Hgb 11.5 L (13.0-17.5) gm/dL Hct 35.9 L (39.0-53.0) % Plt Count 550 H (150-450) k/uL Carbon Dioxide (22-30) mmol/L BUN (9-20) mg/dL Glucose (74-99) mg/dL POC Glucose (mg/dL) 173 H 139 H (75-99) mg/dL Calcium (8.4-10.2) mg/dL Total Protein (6.3-8.2) g/dL Albumin (3.5-5.0) g/dL TRACEY Screen (NEGATIVE) 07/11/18 07/11/18 Range/Units 07:36 11:53 WBC (3.8-10.6) k/uL RBC (4.30-5.90) m/uL Hgb (13.0-17.5) gm/dL Hct (39.0-53.0) % Plt Count (150-450) k/uL Carbon Dioxide 33 H (22-30) mmol/L BUN 30 H (9-20) mg/dL Glucose 142 H (74-99) mg/dL POC Glucose (mg/dL) 120 H (75-99) mg/dL Calcium 7.8 L (8.4-10.2) mg/dL Total Protein 5.8 L (6.3-8.2) g/dL Albumin 2.9 L (3.5-5.0) g/dL TRACEY Screen (NEGATIVE) Microbiology - Last 24 Hours (Table) 07/04/18 18:24 Blood Culture - Final Blood No Growth after 144 hours Assessment and Plan Assessment: Acute hypoxic respiratory failure requiring supplemental oxygen Acute exacerbation of COPD Multilobar pneumonia -worsening bilateral infiltrates on CXR - ARDS/pulmonary edema/worsening pna/HP in the differential CAD with previous stenting Hypertension Bipolar disorder Multiple allergies with elevated IgE Plan Medications have been reviewed and will be continued as ordered. Results for allergens, IgE, A1AT, and Mycoplasma all reviewed with the patient Allergen avoidance is discussed with the patient Levaquin Solu-Medrol as ordered DuoNeb, budesonide, Perforomist Hypertonic saline nebs Will require 1mg/kg daily of prednisone with a slow taper in the outpatient setting Chest x-ray reviewed Initiate and encourage incentive spirometer and flutter tx, chest PT Continue with pulmonary hygiene, coughing and deep breathing exercises, and supportive care. Supplemental oxygen to maintain oxygen saturations of 92% or better. Continue nebulizer treatments. GI and DVT prophylaxis. Increase activity as tolerated, PT and OT Diuresis to continue - Lasix 40 mg IV Q8 hours Repeat CXR in AM Plan for bronchoscopy tomorrow if O2 can be further titrated down
[2018-07-11 14:49] LABS: ANA Pattern See Footnote
--- NOTE | 2018-07-11 14:51 | ECHOF ---
Referral Reason:LVF MEASUREMENTS -------- HEIGHT: 172.7 cm WEIGHT: 86.2 kg BP: 110/69 RVIDd: 3.1 cm (< 3.3) IVSd: 1.1 cm (0.6 - 1.1) LVIDd: 4.1 cm (3.9 - 5.3) LVPWd: 1.0 cm (0.6 - 1.1) IVSs: 1.5 cm LVIDs: 2.6 cm LVPWs: 1.8 cm LA Diam: 3.4 cm (2.7 - 3.8) LAESV Index (A-L): 15.72 ml/m Ao Diam: 3.2 cm (2.0 - 3.7) AV Cusp: 2.2 cm (1.5 - 2.6) MV EXCURSION: 20.824 mm (> 18.000) MV EF SLOPE: 73 mm/s (70 - 150) EPSS: 0.7 cm MV E Wilmer: 0.95 m/s MV DecT: 249 ms MV A Wilmer: 1.16 m/s MV E/A Ratio: 0.82 RAP: 5.00 mmHg RVSP: 38.79 mmHg FINDINGS -------- Sinus rhythm. This was a technically adequate study. The left ventricular size is normal. There is borderline concentric left ventricular hypertrophy. Overall left ventricular systolic function is normal with, an EF between 60 - 65 %. The right ventricle is mildly enlarged. Normal LA size by volume 22+/-6 ml/m2. The right atrium is normal in size. The aortic valve is trileaflet and appears structurally normal. There is trace mitral regurgitation. Mild tricuspid regurgitation present. There is mild pulmonary hypertension. The right ventricular systolic pressure, as measured by Doppler, is 38.79mmHg. There is no pulmonic regurgitation present. The aortic root size is normal. Normal inferior vena cava with normal inspiratory collapse consistent with estimated right atrial pre ssure of 5 mmHg. There is no pericardial effusion. CONCLUSIONS -------- 1. Sinus rhythm. 2. This was a technically adequate study. 3. The left ventricular size is normal. 4. There is borderline concentric left ventricular hypertrophy. 5. Overall left ventricular systolic function is normal with, an EF between 60 - 65 %. 6. The right ventricle is mildly enlarged. 7. Normal LA size by volume 22+/-6 ml/m2. 8. The right atrium is normal in size. 9. The aortic valve is trileaflet and appears structurally normal. 10. There is trace mitral regurgitation. 11. Mild tricuspid regurgitation present. 12. There is mild pulmonary hypertension. 13. The right ventricular systolic pressure, as measured by Doppler, is 38.79mmHg. 14. There is no pulmonic regurgitation present. 15. The aortic root size is normal. 16. Normal inferior vena cava with normal inspiratory collapse consistent with estimated right atrial pressure of 5 mmHg. 17. There is no pericardial effusion. BRANCH LEAD: Faith Merino RDCS
--- NOTE | 2018-07-11 15:11 | P.PN ---
Subjective Progress Note Date: 07/11/18 This is a 67-year-old male one of Dr. Christy with a previous medical history significant for hypertension and hypertensive cardiovascular disease, mild CAD involving the RCA and the the LAD, with a last heart catheterization was done back in 2014, history of bipolar disorder, COPD, remote history of tobacco use and dependence, patient went to a walking clinic on Tuesday and he was diagnosed of having the flu according to him and he was given a Z-Osmani patient was feeling better up until today when he developed to have a significant coughing and increased yellow phlegm production with bloody streaks to it so he ended up coming to the ER at [facility] where he was found to have a multilobar pneumonia he was started on IV antibiotic in the form of Rocephin and Zithromax and and he was placed in droplet precautions until after obtaining the result of the flu swab, pulmonary consultation was obtained from Dr. ADOLFO Ayon. 07/03: Patient is currently on 10 L high flow O2 pulse oxing 92-96%. He states he is slightly better from yesterday. He is having more cough today. Influenza testing came back negative. Repeat chest x-ray this morning shows chronic interstitial lung disease with underlying COPD and stable patchy bilateral infiltrate. CT injury of the chest showed no evidence of central pulmonary embolism. Subsegmental pulmonary arteries are nondiagnostic. Interstitial lung disease. Findings favoring NSIP with no current evidence of fibrosis. Alternatively hypersensitivity pneumonitis or cryptogenic organizing pneumonia or possible. Consult in place with pulmonary medicine which will be seeing him today. Solu-Medrol will remain the same at 40 mg IV every 8 hours. Continue same medications. 07/04: CT results reviewed with patient. 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 Patient states that he had a rough night and does not seem like he is much better. He is bringing up sputum that is light in color. Patient was seen by Dr. Delgado. Solu-Medrol will remain at 40 mg every 8 hours. Sputum culture is in progress. Blood cultures showing no growth after 24 hours. He has been afebrile, heart rate running in the 80s and 90s, blood pressure 131/70, pulse ox 92% on 10 L high flow. Patient is now on humidified oxygen. 07/05: Patient is now on Airvo with FiO2 of 55 pulse oxing 94%. Breathing status is more comfortable using this. Discussed case with Dr. Delgado for possible bronchoscopy. Patient has had a bowel movement. He denies any diarrhea. Legionella, mycoplasma, hypersensitivity panels and alpha-1 antitrypsin are all pending. IgE is elevated at 115. His white count is normal, hemoglobin 9.2, creatinine 0.68. Blood sugars running between 144 and 187. Sputum culture is finalized with normal respiratory mehran. 07/06: Patient is requiring FiO2 of 90% on Airvo. Pulse ox is 92%. Patient has been afebrile, heart rate running in the 80s. Blood pressure 126/84. Dr. Delgado does not plan to do bronchoscopy while patient oxygen needs are high. Her recommendations are to increase steroids to 60 mg IV every 6 hours and change antibiotics to Levaquin. Perforomist and Mucomyst were added yesterday. Pulmonary as noted in consult with Dr. Ware for inpatient rehab. Alpha I antitrypsin came back negative. Mycoplasma and Legionella are pending. 07/07: Patient continues to have significant shortness of breath and states he can 't catch his breath. He is now on FiO2 of 90. He states he feels well otherwise and is found sitting up in a recliner. He did receive Lasix which is discontinued. Mycoplasma came back negative. Legionella pending. White count was normal, hemoglobin 11.1, creatinine 0.74. Blood sugars run between 132 and 235. Pulse ox is 95% on high flow nasal cannula, afebrile, heart rate running in the 70s and 80s, blood pressure 135/78. Patient has been seen by Dr. Ware and plan is to follow notes. Doubt the patient will be a candidate for inpatient rehab. 07/08: Patient continues to have significant shortness of breath feeling that he cannot catch his breath at all. Mucinex, flutter valve and Diflucan added today. He states he has bringing up a little bit of sputum but not very much. He has been afebrile, pulse ox is 94% on FiO2 of 85, heart rate running in the 80s and 90s, blood pressure 130/71. 07/09: Dr. Delgado has added Lasix 40mg every 8 hours IV. Xolair was attempted but not covered as Inpatient treatment. He has been started on hypertonic nebulizer treatments. Patient denies any improvement in breathing today. He still feels he can't catch his breath. He is onFIO2 85 with pulse ox of 95%. He has been afebrile, heart rate in the 80s, BP 148/78. Repeat chest x-ray reveals marked worsening of multifocal alveolar and interstitial opacities. Multifocal pneumonia, pulmonary edema or ARDS. Chest physiotherapy ordered. 07/10: Patient denies any significant improvement from yesterday. He did start chest physiotherapy yesterday. He states he feels more tired today but he did sleep well last night. Cough is nonproductive. Dr. Núñez discussed case with Dr. Delgado and plan is if patient is not improved by Tuesday, transferred at [facility]. Pulse ox is 95% on FiO2 of 85 by high flow nasal cannula, heart rate running in the 90s, afebrile, blood pressure 103/68. No change in medications. 07/11: Patient states that he woke up this morning feeling better. He states he can almost take a half of breath today. He is not bringing up sputum. Wheezing is improved. He has tried to increase activity within his room. He states he only received chest physiotherapy twice yesterday. We'll plan to request this done 4 times daily. He has been afebrile, heart rate running in the 70s, pulse ox 91% on FiO2 of 75. Dr. Delgado is attempting to obtain Xolair from the office for patient to take while in the hospital. Review of Systems Constitutional: Reports chills, Reports fever, Reports weakness, denies daytime sleepiness Eyes: denies blurred vision, denies double vision, denies bulging eye Ears: deny: decreased hearing Ears, nose, mouth and throat: Denies dysphagia, Denies neck lump, Denies swelling in throat, Denies sore throat Cardiovascular: Reports decreased exercise tolerance, Reports shortness of breath, Denies chest pain, Denies lightheadedness, Denies rapid heart beat, Denies syncope Respiratory: Reports shortness of breath, reports congestion, Reports cough, reports sputum, Reports hemoptysis, Reports wheezing, Denies home oxygen, Denies sleep apnea, Denies snoring Gastrointestinal: Denies abdominal pain, Denies belching, Denies bloating, Denies heartburn, Denies melena, Denies nausea, Denies vomiting Genitourinary: Denies dysuria, Denies nocturia Musculoskeletal: Denies myalgias Integumentary: Denies pruritus, Denies rash, denies wounds Neurological: Denies numbness, Denies weakness Psychiatric: Denies anxiety, Denies depression Endocrine: Denies fatigue, abnormal blood sugars Objective - Vital Signs Vital signs: Vital Signs Temp 98.2 F 07/11/18 07:00 Pulse 94 07/11/18 08:10 Resp 17 07/11/18 08:15 BP 110/69 07/11/18 07:00 Pulse Ox 94 L 07/11/18 07:35 Intake & Output 07/10/18 07/11/18 07/11/18 18:59 06:59 18:59 Intake Total 636 320 Output Total 1200 Balance 636 -880 Intake: IV 320 0.9 Normal Saline 320 Oral 636 Output: Urine 1200 Other: Voiding Method Toilet Urinal Urinal # Voids 3 - Exam General appearance: average body habitus, minimal distress while at rest in bed. - EENT Eyes: anicteric sclerae, EOMI, PERRLA, no ptosis, no scleral icterus, normal appearance ENT: hearing grossly normal, NA/AT, normal oropharynx, no thrush Ears: bilateral: normal - Neck Neck: no lymphadenopathy, normal ROM, no rigidity Carotids: bilateral: upstroke normal Thyroid: bilateral: normal size - Respiratory Respiratory: bilateral: diminished, rhonchi, wheezing, prolonged expiration, negative: dullness, rales - Cardiovascular Rhythm: regular Heart sounds: normal: S1, S2 Abnormal Heart Sounds: systolic murmur, no S3 Gallop, no S4 Gallop - Gastrointestinal General gastrointestinal: normal bowel sounds, soft, no splenomegaly, no tenderness, no umbilical hernia, no ventral hernia - Integumentary Integumentary: normal, normal turgor - Neurologic Neurologic: CNII-XII intact - Musculoskeletal Musculoskeletal: gait normal, strength equal bilaterally - Psychiatric Psychiatric: A&O x's 3, appropriate affect, intact judgment & insight - Labs CBC & Chem 7: 07/11/18 07:36 07/11/18 07:36 Labs: Abnormal Lab Results - Last 24 Hours (Table) 07/08/18 07/10/18 07/10/18 Range/Units 07:39 12:01 16:49 WBC (3.8-10.6) k/uL RBC (4.30-5.90) m/uL Hgb (13.0-17.5) gm/dL Hct (39.0-53.0) % Plt Count (150-450) k/uL Carbon Dioxide (22-30) mmol/L BUN (9-20) mg/dL Glucose (74-99) mg/dL POC Glucose (mg/dL) 117 H 134 H (75-99) mg/dL Calcium (8.4-10.2) mg/dL Total Protein (6.3-8.2) g/dL Albumin (3.5-5.0) g/dL TRACEY Screen POSITIVE H (NEGATIVE) 07/10/18 07/11/18 07/11/18 Range/Units 20:29 07:11 07:36 WBC 13.9 H (3.8-10.6) k/uL RBC 3.89 L (4.30-5.90) m/uL Hgb 11.5 L (13.0-17.5) gm/dL Hct 35.9 L (39.0-53.0) % Plt Count 550 H (150-450) k/uL Carbon Dioxide (22-30) mmol/L BUN (9-20) mg/dL Glucose (74-99) mg/dL POC Glucose (mg/dL) 173 H 139 H (75-99) mg/dL Calcium (8.4-10.2) mg/dL Total Protein (6.3-8.2) g/dL Albumin (3.5-5.0) g/dL TRACEY Screen (NEGATIVE) 07/11/18 Range/Units 07:36 WBC (3.8-10.6) k/uL RBC (4.30-5.90) m/uL Hgb (13.0-17.5) gm/dL Hct (39.0-53.0) % Plt Count (150-450) k/uL Carbon Dioxide 33 H (22-30) mmol/L BUN 30 H (9-20) mg/dL Glucose 142 H (74-99) mg/dL POC Glucose (mg/dL) (75-99) mg/dL Calcium 7.8 L (8.4-10.2) mg/dL Total Protein 5.8 L (6.3-8.2) g/dL Albumin 2.9 L (3.5-5.0) g/dL TRACEY Screen (NEGATIVE) Microbiology - Last 24 Hours (Table) 07/04/18 18:24 Blood Culture - Final Blood No Growth after 144 hours Assessment and Plan Plan: 1. Acute hypoxic respiratory failure secondary to multilobar pneumonia and acute COPD exacerbation. Continue patient on Rocephin 1 g IV piggyback every 24 hours, Zithromax changed to Levaquin, DuoNeb 3 mL nebulization 4 times every day, Pulmicort 4 mg nebulization twice every day, oxygen to keep saturation greater than 92%, pulmonary consultation from Dr. Delgado, influenza testing was negative. Sputum culture reveals normal mehran. Solu-Medrol increased to 60 mg IV every 6 hours. Perforomist and Mucomyst. Mucinex and Diflucan added. Flutter valve added. CTA of the chest as above. Lasix 40mg every 8 hours IV. Xolair was attempted but not covered as Inpatient treatment. He has been started on hypertonic nebulizer treatments. Chest physiotherapy in place. Continue current plan. Possible Xolair during hospital stay as samples from office. 2. COPD exacerbation. Continue oxygen, DuoNeb 3 mL nebulization 4 times every day, Pulmicort 1 mg nebulization twice every day, Solu-Medrol. Continue as in # 1 3. Mild CAD status post left heart cath physician back in 2014 that showed mild disease of the LAD and RCA. Stable at this time continue patient on Toprol -XL 50 mg orally once every day. 4. Hypertension and hypertensive cardiovascular disease. Continue Toprol-XL 50 mg orally once every day, lisinopril 20 mg orally once every day. 5. Bipolar disorder. Continue Lamictal 100 mg orally once every day as well as sertraline 100 mg orally once every day. 6. GI prophylaxis. Protonix 40 mg once every day. 7. DVT prophylaxis. Heparin 5000 units subcutaneously every 8 hours. 8. Patient is full code. Discharge plan: Return home. Consult with Dr. Ware for inpatient rehab, PT and OT Impression and plan of care have been directed as dictated by the signing physician. Meghna Larry nurse practitioner acting as scribe for signing physician.
[2018-07-11 17:07] LABS: Glucose,Whole Blood 182 mg/dL (75-99)
[2018-07-11 19:39] LABS: Glucose,Whole Blood 202 mg/dL (75-99)
[2018-07-11] MEDS: MONTELUKAST 10 MG TAB PO SCH (20:26)
[2018-07-12] MEDS: methylPREDNISolone SOD SUCCI 125 MG/2 ML VIAL IV SCH ×4 (05:15→23:48)
--- NOTE | 2018-07-12 06:10 | PN ---
PROGRESS NOTE DATE OF SERVICE: 07/11/2018 REASON FOR FOLLOWUP: Pneumonia and a question of . INTERVAL HISTORY: The patient is afebrile. He is feeling much better. He is able to take a deep breath. The patient's cough has much improved as well drainage. No nausea, no vomiting. No abdominal pain. No diarrhea. PHYSICAL EXAMINATION: On examination, blood pressure 118/67 with a pulse of 82, temperature 98.2. He is 93% on 55% oxygen. General description is an elderly male up in the bed in no distress. RESPIRATORY SYSTEM: Unlabored breathing with decreased breath sounds at the bases. No wheeze. HEART: S1, S2. Regular rate and rhythm. ABDOMEN: Soft, no tenderness. EXTREMITIES: No edema of the feet. LABS: BUN of 30, creatinine 0.85. Hemoglobin 11.5, white count 13.9. DIAGNOSTIC IMPRESSION AND PLAN: Patient with positive interstitial infiltrate and concern for possible atypical pneumonia versus the likely diagnosis as patient seems to be clinically responding to the high dose steroids we will be continuing in addition to the Levaquin while watching his clinical course closely. Continue supportive care. MMODL / IJN: [id number] /
[2018-07-12 07:10] LABS: Glucose,Whole Blood 161 mg/dL (75-99)
[2018-07-12] MEDS: METOPROLOL SUCCINATE (ER) 50 MG TAB.ER.24H PO SCH (07:40)
[2018-07-12] MEDS: guaiFENesin 600 MG TABLET.ER PO SCH ×2 (07:40→21:18)
[2018-07-12] MEDS: SERTRALINE 100 MG TAB PO SCH (07:40)
[2018-07-12] MEDS: LISINOPRIL 20 MG TAB PO SCH (07:40)
[2018-07-12] MEDS: lamoTRIgine 100 MG TAB PO SCH (07:40)
[2018-07-12] MEDS: LEVOFLOXACIN 750 MG TAB PO SCH (07:40)
[2018-07-12] MEDS: FLUCONAZOLE 100 MG TAB PO SCH (07:40)
[2018-07-12] MEDS: PANTOPRAZOLE 40 MG TABLET PO SCH (07:40)
[2018-07-12] MEDS: FUROSEMIDE 10 MG/ML 4 ML VIAL IV SCH ×3 (07:41→23:45)
[2018-07-12] MEDS: HEPARIN SODIUM,PORCINE 5,000 UNIT/ML 1 ML VIAL SQ SCH ×3 (07:43→23:48)
[2018-07-12] MEDS: INSULIN ASPART (NovoLOG) 100 UNIT/ML VIAL SQ SCH ×4 (07:43→21:19)
[2018-07-12] MEDS: BUDESONIDE 1 MG/2 ML NEBU INHALATION SCH ×2 (08:52→20:07)
[2018-07-12] MEDS: IPRATROPIUM-ALBUTEROL 3 ML NEB INHALATION SCH ×4 (08:52→20:07)
[2018-07-12] MEDS: HYPERTONIC SALINE 3% NEBULIZ 4 ML NEBU INHALATION SCH ×3 (08:52→23:43)
[2018-07-12] MEDS: FORMOTEROL FUMARATE 20 MCG/2 ML NEBU INHALATION SCH ×2 (08:52→20:18)
[2018-07-12] MEDS ORDERED: ALBUTEROL NEBULIZED 2.5 MG/3 ML INHALATION ONE (10:00)
[2018-07-12 11:36] LABS: Glucose,Whole Blood 112 mg/dL (75-99)
--- NOTE | 2018-07-12 11:39 | XR ---
EXAMINATION TYPE: XR chest 1V portable DATE OF EXAM: 07/12/2018 COMPARISON: Prior chest x-ray and chest CT 07/09/2018 HISTORY: Pneumonia TECHNIQUE: Single frontal view of the chest is obtained. FINDINGS: There are cardiac leads. Interstitial changes again noted with groundglass opacities. Ther e is underlying emphysematous change. Heart size is stable. IMPRESSION: Emphysema and interstitial lung disease.
[2018-07-12 12:01] LABS: Alternaria Alternata IgG 5.9 mcg/mL (< 13.6); Aspergillus fumigatus IgG Not detected (Not detected); Aureobasidium pullulans IgG 6.4 mcg/mL (< 13.6); Cladosporium herbarium IgG 13.2 mcg/mL (< 14.7); Phoma ssp. IgG 7.2 mcg/mL (< 6.6); Saccaharomospora viridis Not detected (Not detected); Saccaharopoly. rectivirgula Not detected (Not detected)
[2018-07-12] MEDS ORDERED: LIDOCAINE 2% (PF) 20 MG/ML 2 ML AMP INHALATION ONE (12:13)
[2018-07-12] MEDS ORDERED: KETAMINE 10 MG/ML 20 ML VIAL ONE (12:32)
[2018-07-12] MEDS ORDERED: LIDOCAINE 1% INJ 10MG/ML (20 ML MDV) ONE (12:32)
[2018-07-12] MEDS ORDERED: PROPOFOL 10 MG/ML 20 ML VIAL IV ONE (12:32)
[2018-07-12] MEDS ORDERED: IV FLUID CONTINUATION 1,000 ML IV ONE (13:00)
[2018-07-12] MEDS ORDERED: LIDOCAINE 2% INJ 20 MG/ML INTRATRACH ONE (13:00)
--- NOTE | 2018-07-12 13:15 | P.PCN ---
Date of Procedure: 07/12/18 Preoperative Diagnosis: Concern for an NSIP versus HP Acute hypoxic respiratory failure Postoperative Diagnosis: Same Procedure(s) Performed: Bronchoscopy Surgeon: Muriel Delgado Estimated Blood Loss (ml): 15 Condition: stable Disposition: floor Indications for Procedure: Bilateral interstitial changes with ground glass opacities concerning for ILD - NSIP versus HP Description of Procedure: After review of risks and benefits and discussion of alternative methods of diagnosis, the patient provided informed consent and is willing to proceed with evaluation is recommended. The patient, in endoscopy suite, was placed on continuous electrocardiogram, noninvasive blood pressure monitoring, and SpO2 monitoring. He was administered supplemental oxygen via Ventimask and given IV sedation by the Department of anesthesia. The video bronchoscope was passed through the left nares and carried down to the level of the vocal cords the vocal cords were seen to be moving freely and phonation and respiration. The larynx is normal. The trachea was normal although there does appear to be some excessive dynamic airway collapse with cough. The yaakov is sharp. The right mainstem bronchus was entered first where the right upper lobe, right middle lobe, and right lower lobe were identified. The patient was found to have multiple mucous plugs. Using saline, they are able to be suctioned clear. Pool washings were obtained from the right lung. Cytology brushing was done in the right middle lobe. Transbronchial biopsies were obtained from the right lower lobe. The bronchoscope was then directed into the left mainstem bronchus where a large mucous plug was noted. Using saline, the plug was suctioned clear. The lingula , left upper and left lower lobe were clear. Saline was instilled and suctioned for pooled washings of the left lung. Some bleeding occurred but hemostasis was achieved spontaneously. The bronchoscope was then retracted and the procedure was terminated. The patient tolerated the procedure well. He was discharged to the recovery suite in stable and satisfactory position. Family was updated in the waiting room.
--- NOTE | 2018-07-12 13:47 | P.PN ---
Subjective Progress Note Date: 07/12/18 This is a 67-year-old male one of Dr. Christy with a previous medical history significant for hypertension and hypertensive cardiovascular disease, mild CAD involving the RCA and the the LAD, with a last heart catheterization was done back in 2014, history of bipolar disorder, COPD, remote history of tobacco use and dependence, patient went to a walking clinic on Tuesday and he was diagnosed of having the flu according to him and he was given a Z-Osmani patient was feeling better up until today when he developed to have a significant coughing and increased yellow phlegm production with bloody streaks to it so he ended up coming to the ER at [facility] where he was found to have a multilobar pneumonia he was started on IV antibiotic in the form of Rocephin and Zithromax and and he was placed in droplet precautions until after obtaining the result of the flu swab, pulmonary consultation was obtained from Dr. ADOLFO Ayon. 07/03: Patient is currently on 10 L high flow O2 pulse oxing 92-96%. He states he is slightly better from yesterday. He is having more cough today. Influenza testing came back negative. Repeat chest x-ray this morning shows chronic interstitial lung disease with underlying COPD and stable patchy bilateral infiltrate. CT injury of the chest showed no evidence of central pulmonary embolism. Subsegmental pulmonary arteries are nondiagnostic. Interstitial lung disease. Findings favoring NSIP with no current evidence of fibrosis. Alternatively hypersensitivity pneumonitis or cryptogenic organizing pneumonia or possible. Consult in place with pulmonary medicine which will be seeing him today. Solu-Medrol will remain the same at 40 mg IV every 8 hours. Continue same medications. 07/04: CT results reviewed with patient. 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 Patient states that he had a rough night and does not seem like he is much better. He is bringing up sputum that is light in color. Patient was seen by Dr. Delgado. Solu-Medrol will remain at 40 mg every 8 hours. Sputum culture is in progress. Blood cultures showing no growth after 24 hours. He has been afebrile, heart rate running in the 80s and 90s, blood pressure 131/70, pulse ox 92% on 10 L high flow. Patient is now on humidified oxygen. 07/05: Patient is now on Airvo with FiO2 of 55 pulse oxing 94%. Breathing status is more comfortable using this. Discussed case with Dr. Delgado for possible bronchoscopy. Patient has had a bowel movement. He denies any diarrhea. Legionella, mycoplasma, hypersensitivity panels and alpha-1 antitrypsin are all pending. IgE is elevated at 115. His white count is normal, hemoglobin 9.2, creatinine 0.68. Blood sugars running between 144 and 187. Sputum culture is finalized with normal respiratory mehran. 07/06: Patient is requiring FiO2 of 90% on Airvo. Pulse ox is 92%. Patient has been afebrile, heart rate running in the 80s. Blood pressure 126/84. Dr. Delgado does not plan to do bronchoscopy while patient oxygen needs are high. Her recommendations are to increase steroids to 60 mg IV every 6 hours and change antibiotics to Levaquin. Perforomist and Mucomyst were added yesterday. Pulmonary as noted in consult with Dr. Ware for inpatient rehab. Alpha I antitrypsin came back negative. Mycoplasma and Legionella are pending. 07/07: Patient continues to have significant shortness of breath and states he can 't catch his breath. He is now on FiO2 of 90. He states he feels well otherwise and is found sitting up in a recliner. He did receive Lasix which is discontinued. Mycoplasma came back negative. Legionella pending. White count was normal, hemoglobin 11.1, creatinine 0.74. Blood sugars run between 132 and 235. Pulse ox is 95% on high flow nasal cannula, afebrile, heart rate running in the 70s and 80s, blood pressure 135/78. Patient has been seen by Dr. Ware and plan is to follow notes. Doubt the patient will be a candidate for inpatient rehab. 07/08: Patient continues to have significant shortness of breath feeling that he cannot catch his breath at all. Mucinex, flutter valve and Diflucan added today. He states he has bringing up a little bit of sputum but not very much. He has been afebrile, pulse ox is 94% on FiO2 of 85, heart rate running in the 80s and 90s, blood pressure 130/71. 07/09: Dr. Delgado has added Lasix 40mg every 8 hours IV. Xolair was attempted but not covered as Inpatient treatment. He has been started on hypertonic nebulizer treatments. Patient denies any improvement in breathing today. He still feels he can't catch his breath. He is onFIO2 85 with pulse ox of 95%. He has been afebrile, heart rate in the 80s, BP 148/78. Repeat chest x-ray reveals marked worsening of multifocal alveolar and interstitial opacities. Multifocal pneumonia, pulmonary edema or ARDS. Chest physiotherapy ordered. 07/10: Patient denies any significant improvement from yesterday. He did start chest physiotherapy yesterday. He states he feels more tired today but he did sleep well last night. Cough is nonproductive. Dr. Núñez discussed case with Dr. Delgado and plan is if patient is not improved by Tuesday, transferred at [facility]. Pulse ox is 95% on FiO2 of 85 by high flow nasal cannula, heart rate running in the 90s, afebrile, blood pressure 103/68. No change in medications. 07/11: Patient states that he woke up this morning feeling better. He states he can almost take a half of breath today. He is not bringing up sputum. Wheezing is improved. He has tried to increase activity within his room. He states he only received chest physiotherapy twice yesterday. We'll plan to request this done 4 times daily. He has been afebrile, heart rate running in the 70s, pulse ox 91% on FiO2 of 75. Dr. Delgado is attempting to obtain Xolair from the office for patient to take while in the hospital. 07/12: Patient is tentatively scheduled for bronchoscopy today with Dr. Delgado. He is currently pulse oxing 95% on a 73 FiO2, heart rate 70-80, but pressure 106 /69. He has been afebrile. He states he has been getting his chest physiotherapy. Dr. Tavarez is following and continues to recommend Levaquin for now. Patient is feeling more comfortable and breathing is improving very slowly. Patient has been afebrile, heart rate running in 70s and 80s, blood pressure 106/69. Review of Systems Constitutional: Reports chills, Reports fever, denies weakness, denies daytime sleepiness Eyes: denies blurred vision, denies double vision, denies bulging eye Ears: deny: decreased hearing Ears, nose, mouth and throat: Denies dysphagia, Denies neck lump, Denies swelling in throat, Denies sore throat Cardiovascular: Reports decreased exercise tolerance, Reports shortness of breath, Denies chest pain, Denies lightheadedness, Denies rapid heart beat, Denies syncope Respiratory: Reports shortness of breath, reports congestion, Reports cough, reports sputum, Reports hemoptysis, Reports wheezing, Denies home oxygen, Denies sleep apnea, Denies snoring Gastrointestinal: Denies abdominal pain, Denies belching, Denies bloating, Denies heartburn, Denies melena, Denies nausea, Denies vomiting Genitourinary: Denies dysuria, Denies nocturia Musculoskeletal: Denies myalgias Integumentary: Denies pruritus, Denies rash, denies wounds Neurological: Denies numbness, Denies weakness Psychiatric: Denies anxiety, Denies depression Endocrine: Denies fatigue, abnormal blood sugars Objective - Vital Signs Vital signs: Vital Signs Temp 98.6 F 07/12/18 06:53 Pulse 82 07/12/18 09:24 Resp 14 07/12/18 06:53 BP 106/69 07/12/18 06:53 Pulse Ox 95 07/12/18 08:52 Intake & Output 07/11/18 07/12/18 07/12/18 18:59 06:59 18:59 Intake Total 236 476 Output Total 800 1000 Balance -564 -524 Intake: Oral 236 476 Output: Urine 800 1000 Other: Voiding Method Urinal # Voids 1 1 - Exam General appearance: average body habitus, minimal distress while in bed. - EENT Eyes: anicteric sclerae, EOMI, PERRLA, no ptosis, no scleral icterus, normal appearance ENT: hearing grossly normal, NA/AT, normal oropharynx, no thrush Ears: bilateral: normal - Neck Neck: no lymphadenopathy, normal ROM, no rigidity Carotids: bilateral: upstroke normal Thyroid: bilateral: normal size - Respiratory Respiratory: bilateral: diminished, rhonchi, wheezing, prolonged expiration, negative: dullness, rales - Cardiovascular Rhythm: regular Heart sounds: normal: S1, S2 Abnormal Heart Sounds: systolic murmur, no S3 Gallop, no S4 Gallop - Gastrointestinal General gastrointestinal: normal bowel sounds, soft, no splenomegaly, no tenderness, no umbilical hernia, no ventral hernia - Integumentary Integumentary: normal, normal turgor - Neurologic Neurologic: CNII-XII intact - Musculoskeletal Musculoskeletal: gait normal, strength equal bilaterally - Psychiatric Psychiatric: A&O x's 3, appropriate affect, intact judgment & insight - Labs CBC & Chem 7: 07/11/18 07:36 07/11/18 07:36 Labs: Abnormal Lab Results - Last 24 Hours (Table) 07/11/18 07/11/18 07/11/18 Range/Units 11:53 17:06 19:27 POC Glucose (mg/dL) 120 H 182 H 202 H (75-99) mg/dL 07/12/18 Range/Units 07:08 POC Glucose (mg/dL) 161 H (75-99) mg/dL Assessment and Plan Plan: 1. Acute hypoxic respiratory failure secondary to multilobar pneumonia and acute COPD exacerbation. Continue patient on Rocephin 1 g IV piggyback every 24 hours, Zithromax changed to Levaquin, DuoNeb 3 mL nebulization 4 times every day, Pulmicort 4 mg nebulization twice every day, oxygen to keep saturation greater than 92%, pulmonary consultation from Dr. Delgado, influenza testing was negative. Sputum culture reveals normal mehran. Solu-Medrol increased to 60 mg IV every 6 hours. Perforomist and Mucomyst. Mucinex and Diflucan added. Flutter valve added. CTA of the chest as above. Lasix 40mg every 8 hours IV. Xolair was attempted but not covered as Inpatient treatment. He has been started on hypertonic nebulizer treatments. Chest physiotherapy in place. Continue current plan. Possible Xolair during hospital stay as samples from office. Bronchoscopy is scheduled for today. 2. COPD exacerbation. Continue oxygen, DuoNeb 3 mL nebulization 4 times every day, Pulmicort 1 mg nebulization twice every day, Solu-Medrol. Continue as in # 1 3. Mild CAD status post left heart cath physician back in 2014 that showed mild disease of the LAD and RCA. Stable at this time continue patient on Toprol -XL 50 mg orally once every day. 4. Hypertension and hypertensive cardiovascular disease. Continue Toprol-XL 50 mg orally once every day, lisinopril 20 mg orally once every day. 5. Bipolar disorder. Continue Lamictal 100 mg orally once every day as well as sertraline 100 mg orally once every day. 6. GI prophylaxis. Protonix 40 mg once every day. 7. DVT prophylaxis. Heparin 5000 units subcutaneously every 8 hours. 8. Patient is full code. Discharge plan: Return home. Consult with Dr. Ware for inpatient rehab, PT and OT Impression and plan of care have been directed as dictated by the signing physician. Meghna Larry nurse practitioner acting as scribe for signing physician.
--- NOTE | 2018-07-12 14:36 | XR ---
EXAMINATION TYPE: XR chest 1V portable DATE OF EXAM: 07/12/2018 COMPARISON: Prior chest x-ray same dated earlier time HISTORY: Post bronchoscopy TECHNIQUE: Single frontal view of the chest is obtained. FINDINGS: No interval change. IMPRESSION: No evident complication status post transbronchial biopsies
[2018-07-12 17:06] LABS: Glucose,Whole Blood 241 mg/dL (75-99)
[2018-07-12 20:26] LABS: Glucose,Whole Blood 182 mg/dL (75-99)
[2018-07-12] MEDS: MONTELUKAST 10 MG TAB PO SCH (21:18)
[2018-07-12 21:23] LABS: Appearance,BF Cloudy; Color,BF Colorless; Nucleated Cells, Body Fluid 40 /uL; RBC, Body Fluid 80 /uL
[2018-07-12 21:32] LABS: Mononuclear WBC,Body Fluid 88 %; Polynuclear WBC,Body Fluid 12 %; Total Cells Counted,Body Fluid 100
--- NOTE | 2018-07-12 23:16 | PN ---
PROGRESS NOTE DATE OF SERVICE: 07/12/2018. REASON FOR FOLLOWUP: Possible pneumonia. INTERVAL HISTORY: The patient was seen on rounds this afternoon. The patient had just come back from bronchoscopy. The patient was breathing much comfortably. Denies having any chest pain. Minimal cough. No nausea, vomiting, abdominal pain and no diarrhea. PHYSICAL EXAMINATION: Blood pressure 96/55 with a pulse of 94, temperature 97.7, he is 95% on high-flow oxygen. GENERAL DESCRIPTION: An elderly male lying in bed in no distress. RESPIRATORY SYSTEM: Unlabored breathing with decreased breath sounds in the bases. HEART: S1 and S2 regular. ABDOMEN: Soft, no tenderness. LABS: A bronchial wash was cloudy with 40 nucleated cells, predominantly mononuclear. Cultures currently pending. DIAGNOSTIC IMPRESSION AND PLAN: Patient with bilateral interstitial infiltrate with concern for possible interstitial pneumonitis or pulmonary fibrosis, status post bronch. Cultures obtained which are currently pending. Patient is to continue with steroids and Levaquin while waiting for culture. Condition is stabilized. Continue supportive care. MMODL / IJN: [id number] /
[2018-07-13] MEDS: methylPREDNISolone SOD SUCCI 125 MG/2 ML VIAL IV SCH ×4 (05:06→23:19)
[2018-07-13] MEDS: FORMOTEROL FUMARATE 20 MCG/2 ML NEBU INHALATION SCH ×2 (07:17→20:10)
[2018-07-13] MEDS: BUDESONIDE 1 MG/2 ML NEBU INHALATION SCH ×2 (07:17→20:10)
[2018-07-13] MEDS: IPRATROPIUM-ALBUTEROL 3 ML NEB INHALATION SCH ×4 (07:17→20:10)
[2018-07-13] MEDS: HYPERTONIC SALINE 3% NEBULIZ 4 ML NEBU INHALATION SCH ×3 (07:21→23:55)
[2018-07-13 07:27] LABS: Glucose,Whole Blood 177 mg/dL (75-99)
[2018-07-13] MEDS: LISINOPRIL 20 MG TAB PO SCH (09:09)
[2018-07-13] MEDS: HEPARIN SODIUM,PORCINE 5,000 UNIT/ML 1 ML VIAL SQ SCH ×3 (09:17→23:19)
[2018-07-13] MEDS: FUROSEMIDE 10 MG/ML 4 ML VIAL IV SCH ×2 (09:17→22:46)
[2018-07-13] MEDS: SERTRALINE 100 MG TAB PO SCH (09:18)
[2018-07-13] MEDS: PANTOPRAZOLE 40 MG TABLET PO SCH (09:18)
[2018-07-13] MEDS: INSULIN ASPART (NovoLOG) 100 UNIT/ML VIAL SQ SCH ×4 (09:18→22:42)
[2018-07-13] MEDS: FLUCONAZOLE 100 MG TAB PO SCH (09:18)
[2018-07-13] MEDS: guaiFENesin 600 MG TABLET.ER PO SCH ×2 (09:18→22:46)
[2018-07-13] MEDS: lamoTRIgine 100 MG TAB PO SCH (09:19)
[2018-07-13] MEDS: LEVOFLOXACIN 750 MG TAB PO SCH (09:19)
[2018-07-13] MEDS: METOPROLOL SUCCINATE (ER) 50 MG TAB.ER.24H PO SCH (09:19)
[2018-07-13 11:46] LABS: Glucose,Whole Blood 134 mg/dL (75-99)
--- NOTE | 2018-07-13 15:29 | P.PN ---
Subjective Progress Note Date: 07/13/18 HPI: This is a 67-year-old male being seen examined and evaluated today for consultation. This patient does have a past medical history significant for hypertension, hypertensive cardiovascular disease, mild CAD involving the RCA and the LAD, last stent heart catheterization was in 2014, history of bipolar, COPD, remote history of tobacco use and dependence. The patient was seen in the urgent care setting on Tuesday and was told he has "the flu" and the patient was given a Z-Osmani to take in the outpatient setting. The patient was starting to feel better and then he started to get significantly worse yesterday so he came into the emergency room. The patient was found to have a multilobar pneumonia he was started on IV antibiotics and steroids. He did have an influenza swab that was negative. 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 He denies any exposures to any birds or farm animals or farmland. He has 3. He quit smoking approximately 12 years ago. He does not have wood-burning stove at home. Upon examination the patient's resting up in bed on 10 L of high flow and oxygen via nasal cannula. He continues to have shortness of breath cough and congestion. He has been unable to provide a sputum sample thus far. He does feel the breathing treatments are helping. He has been afebrile no further complaints. Interval History: 07/04/18- patient is being seen examined and evaluated today on rounds. He is resting up in bed on 10 L high flow nasal cannula. Still feels quite dyspneic and short of breath even at rest. We will switch patient over to Airvo to help his breathing. Currently being worked up for questionable an SIEP versus HP. Multiple labs have been obtained and are pending. Patient will require 1 mg/kg daily of prednisone with a very slow outpatient taper. This is again discussed with the patient at length and he is agreeable. He is afebrile. All labs and reports reviewed 07/05/18- patient is being seen examined and evaluated today on rounds. He currenlty is one Airvo high flow at 55 L and 90% FiO2. He feels his breathing is less labored with using this type of supplemental oxygen. He is slowly improving. Most likely will require a home oxygen assessment prior to discharge. 07/06/18- patient is being seen examined and evaluated today on rounds. He continues on Airvo high flow oxygen at 55 L and 90% FiO2. He is very slow to recover when he does get short of breath. His steroids are increased. His antibiotics is switched to Levaquin. Yesterday we also added Perforomist and Mucomyst inhalation. He seems to feel those are helping him as well. The patient could potentially undergo a bronchoscopy once his oxygen demand significantly decreased. He is not a candidate at this time due to his high oxygen demands. This is discussed with him at length as well as the attending provider. The patient has not ambulated much since being admitted. We will consult PT and OT as well as PMNR for possible inpatient rehab on discharge. 07/07/18- patient is being seen examined and evaluated today on rounds. The patient continues on Airvo high flow oxygen and 55 L and 90% FiO2. This is discussed with the patient's direct care nurse to start weaning the patient, on oxygen as tolerated. He states he feels less short of breath today. He does have multiple environmental ALLERGIES that came back positive which are discussed with him today. He will be provided a list of these ALLERGIES. Neoplasm was negative. Legionella is pending, HP panel is pending. He seems to be responding well to the increase in steroids in the antibiotics. All labs and reports have been reviewed. 07/08/2017: Patient seen and examined with his daughter at bedside. The patient states he is getting discouraged because he is still very short of breath with minimal exertion. The patient is on airvo at 55 L/m and 85% FiO2. Chest x-ray is obtained and reviewed. There is marked worsening of the bilateral infiltrates. Bronchoscopy is discussed with the patient at length. He is aware that he is too unstable at this point for bronchoscopy and that he would likely end up on mechanical ventilation if bronchoscopy were attempted. It is possible that later in the week it will be an option. Continue high-dose steroids and diuresis for now. 07/09/2018: Patient seen and examined with his daughter at bedside. The patient and his daughter expressed concerns that the patient is not getting any better. Chest x-ray from yesterday is reviewed with them and the patient was found to have worsening bilateral infiltrates. The risks versus benefits of doing a bronchoscopy is discussed with the patient. He would like to try to continue the hypertonic saline, antibiotics, diuresis for now and consider bronchoscopy in 48-72 hours if he is not improving. The possibility of a surgical lung biopsy was also discussed with the patient. I did discuss the possibility of Xolair with the pharmacy. It has been declined for inpatient use at this time. However I will continue to try to obtain this for the patient. 07/11/2018: Patient seen and examined. Patient states he feels like his breathing is starting to improve. He has been able to ambulate around the room. He states he finally feels hope that his breathing is improving. He denies fevers and chills. 05/11/2019: See bronchoscopy report 05/12/2019: Patient seen and examined. Patient states he is feeling much better overall. He has been able to ambulate around the room. He has been coughing out some phlegm. He denies fevers and chills. Pathology and cultures are pending on bronchoscopy specimens. Objective - Vital Signs Vital signs: Vital Signs Temp 98.2 F 07/13/18 09:41 Pulse 88 07/13/18 11:32 Resp 16 07/13/18 09:41 BP 96/60 07/13/18 09:41 Pulse Ox 96 07/13/18 09:41 Intake & Output 07/12/18 07/13/18 07/13/18 18:59 06:59 18:59 Intake Total 450 118 Output Total 250 Balance 450 -250 118 Intake: IV 250 Oral 200 118 Output: Urine 250 Other: Voiding Method Urinal # Voids 2 # Bowel Movements 1 - Exam GENERAL EXAM: Alert, mild apparent distress. HEAD: Normocephalic. EYES: Normal reaction of pupils, equal size. NOSE: Clear with pink turbinates. THROAT: No erythema or exudates. NECK: No masses, no JVD. CHEST: No chest wall deformity. LUNGS: Lungs noted to be rhonchorous with wheezing scattered throughout and prolonged expiration, slowly improving CVS: S1 and S2 normal with no audible mumurs, regular rhythm. ABDOMEN: No hepatosplenomegaly, normal bowel sounds, no guarding or rigidity. EXTREMITIES: No edema noted, pedal pulses palpable. CENTRAL NERVOUS SYSTEM: No focal deficits, tone is normal in all 4 extremities. - Labs CBC & Chem 7: 07/11/18 07:36 07/11/18 07:36 Labs: Abnormal Lab Results - Last 24 Hours (Table) 07/12/18 07/12/18 07/13/18 Range/Units 16:51 20:25 07:20 POC Glucose (mg/dL) 241 H 182 H 177 H (75-99) mg/dL 07/13/18 Range/Units 11:37 POC Glucose (mg/dL) 134 H (75-99) mg/dL Microbiology - Last 24 Hours (Table) 07/12/18 12:48 Fungal Culture - Preliminary Bronchial Brushings - Right 07/12/18 12:48 Bronchial Washings Culture - Preliminary Bronchial Brushings - Left Assessment and Plan Assessment: Acute hypoxic respiratory failure requiring supplemental oxygen Acute exacerbation of COPD Multilobar pneumonia -worsening bilateral infiltrates on CXR - ARDS/pulmonary edema/worsening pna/HP in the differential CAD with previous stenting Hypertension Bipolar disorder Multiple allergies with elevated IgE Plan Medications have been reviewed and will be continued as ordered. Levaquin per ID Solu-Medrol - taper to 60mg Q8 hours DuoNeb, budesonide, Perforomist Hypertonic saline nebs Will require 1mg/kg daily of prednisone with a slow taper in the outpatient setting Initiate and encourage incentive spirometer and flutter tx, chest PT Continue with pulmonary hygiene, coughing and deep breathing exercises, and supportive care. Supplemental oxygen to maintain oxygen saturations of 92% or better. Continue nebulizer treatments. GI and DVT prophylaxis. Increase activity as tolerated, PT and OT Diuresis to continue - change to Lasix 40 mg IV Q12 hours Bronch cultures and pathology pending
[2018-07-13 16:38] LABS: Glucose,Whole Blood 206 mg/dL (75-99)
[2018-07-13 21:26] LABS: Glucose,Whole Blood 135 mg/dL (75-99)
[2018-07-13] MEDS: MONTELUKAST 10 MG TAB PO SCH (22:46)
--- NOTE | 2018-07-14 05:53 | PN ---
PROGRESS NOTE DATE OF SERVICE: 07/13/2018 REASON FOR FOLLOWUP: Pneumonia. INTERVAL HISTORY: The patient is currently afebrile. He is feeling much better, breathing comfortably. The patient denies having any chest pain. Did have some cough, not bringing up any sputum. No abdominal pain or diarrhea. PHYSICAL EXAMINATION: On examination, blood pressure 126/71 with a pulse of 90, temperature 98.1. He is 96% on high-flow oxygen. General description is an elderly male up in the bed in no distress. RESPIRATORY SYSTEM: Unlabored breathing with decreased breath sounds. No wheeze. HEART: S1, S2. Regular rate and rhythm. ABDOMEN: Soft, no tenderness. LABS: No CBC done today. A bronch culture is currently pending. DIAGNOSTIC IMPRESSION AND PLAN: Patient with bilateral multifocal infiltrate with concern for possible multifocal pneumonia versus interstitial lung disease status post bronchoscopy. We are waiting for the cultures to finalize. Keep the patient on Levaquin and steroid along with bronchodilator and continue supportive care. MMODL / IJN: [id number] /
[2018-07-14 07:07] LABS: Glucose,Whole Blood 146 mg/dL (75-99)
[2018-07-14] MEDS: INSULIN ASPART (NovoLOG) 100 UNIT/ML VIAL SQ SCH ×4 (07:30→21:36)
[2018-07-14] MEDS: PANTOPRAZOLE 40 MG TABLET PO SCH (07:30)
[2018-07-14 07:41] LABS: Basophils % (A) 0 %; Eosinophils % (A) 0 %; HCT 38.2 % (39.0-53.0); HGB 12.1 gm/dL (13.0-17.5); Lymphocytes # (A) 0.6 k/uL (1.0-4.8); Lymphocytes % (A) 5 %; MCH 29.4 pg (25.0-35.0); MCHC 31.7 g/dL (31.0-37.0); MCV 92.8 fL (80.0-100.0); Mean Platelet Volume 6.1; Monocytes # (A) 0.4 k/uL (0-1.0); Monocytes % (A) 3 %; Neutrophils # (A) 11.6 k/uL (1.3-7.7); Neutrophils % (A) 91 %; Platelet Count 501 k/uL (150-450); RBC 4.11 m/uL (4.30-5.90); RDW 13.6 % (11.5-15.5); WBC 12.7 k/uL (3.8-10.6)
[2018-07-14 07:55] LABS: ALT 52 U/L (21-72); AST 23 U/L (17-59); Alkaline Phosphatase 52 U/L (38-126); Anion Gap 6 mmol/L; Blood Urea Nitrogen 34 mg/dL (9-20); Calcium 8.1 mg/dL (8.4-10.2); Carbon Dioxide 33 mmol/L (22-30); Chloride 100 mmol/L (98-107); Glucose 144 mg/dL (74-99); Potassium 3.6 mmol/L (3.5-5.1); Sodium 139 mmol/L (137-145); Total Bilirubin 0.6 mg/dL (0.2-1.3); Total Protein 5.7 g/dL (6.3-8.2)
[2018-07-14] MEDS: FORMOTEROL FUMARATE 20 MCG/2 ML NEBU INHALATION SCH ×2 (08:49→21:10)
[2018-07-14] MEDS: BUDESONIDE 1 MG/2 ML NEBU INHALATION SCH ×2 (08:49→21:10)
[2018-07-14] MEDS: IPRATROPIUM-ALBUTEROL 3 ML NEB INHALATION SCH ×4 (08:49→21:10)
[2018-07-14] MEDS: METOPROLOL SUCCINATE (ER) 50 MG TAB.ER.24H PO SCH (09:57)
[2018-07-14] MEDS: HEPARIN SODIUM,PORCINE 5,000 UNIT/ML 1 ML VIAL SQ SCH ×3 (09:57→23:50)
[2018-07-14] MEDS: SERTRALINE 100 MG TAB PO SCH (09:57)
[2018-07-14] MEDS: FLUCONAZOLE 100 MG TAB PO SCH (09:57)
[2018-07-14] MEDS: guaiFENesin 600 MG TABLET.ER PO SCH ×2 (09:57→21:36)
[2018-07-14] MEDS: methylPREDNISolone SOD SUCCI 125 MG/2 ML VIAL IV SCH ×3 (09:57→23:50)
[2018-07-14] MEDS: LISINOPRIL 20 MG TAB PO SCH (09:57)
[2018-07-14] MEDS: FUROSEMIDE 10 MG/ML 4 ML VIAL IV SCH ×2 (09:57→21:36)
[2018-07-14] MEDS: lamoTRIgine 100 MG TAB PO SCH (09:58)
[2018-07-14 11:58] LABS: Glucose,Whole Blood 115 mg/dL (75-99)
[2018-07-14] MEDS: HYPERTONIC SALINE 3% NEBULIZ 4 ML NEBU INHALATION SCH ×2 (12:51→21:05)
--- NOTE | 2018-07-14 15:08 | P.PN ---
Subjective Progress Note Date: 07/13/18 This is a 67-year-old male one of Dr. Christy with a previous medical history significant for hypertension and hypertensive cardiovascular disease, mild CAD involving the RCA and the the LAD, with a last heart catheterization was done back in 2014, history of bipolar disorder, COPD, remote history of tobacco use and dependence, patient went to a walking clinic on Tuesday and he was diagnosed of having the flu according to him and he was given a Z-Osmani patient was feeling better up until today when he developed to have a significant coughing and increased yellow phlegm production with bloody streaks to it so he ended up coming to the ER at [facility] where he was found to have a multilobar pneumonia he was started on IV antibiotic in the form of Rocephin and Zithromax and and he was placed in droplet precautions until after obtaining the result of the flu swab, pulmonary consultation was obtained from Dr. ADOLFO Ayon. 07/03: Patient is currently on 10 L high flow O2 pulse oxing 92-96%. He states he is slightly better from yesterday. He is having more cough today. Influenza testing came back negative. Repeat chest x-ray this morning shows chronic interstitial lung disease with underlying COPD and stable patchy bilateral infiltrate. CT injury of the chest showed no evidence of central pulmonary embolism. Subsegmental pulmonary arteries are nondiagnostic. Interstitial lung disease. Findings favoring NSIP with no current evidence of fibrosis. Alternatively hypersensitivity pneumonitis or cryptogenic organizing pneumonia or possible. Consult in place with pulmonary medicine which will be seeing him today. Solu-Medrol will remain the same at 40 mg IV every 8 hours. Continue same medications. 07/04: CT results reviewed with patient. 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 Patient states that he had a rough night and does not seem like he is much better. He is bringing up sputum that is light in color. Patient was seen by Dr. Delgado. Solu-Medrol will remain at 40 mg every 8 hours. Sputum culture is in progress. Blood cultures showing no growth after 24 hours. He has been afebrile, heart rate running in the 80s and 90s, blood pressure 131/70, pulse ox 92% on 10 L high flow. Patient is now on humidified oxygen. 07/05: Patient is now on Airvo with FiO2 of 55 pulse oxing 94%. Breathing status is more comfortable using this. Discussed case with Dr. Delgado for possible bronchoscopy. Patient has had a bowel movement. He denies any diarrhea. Legionella, mycoplasma, hypersensitivity panels and alpha-1 antitrypsin are all pending. IgE is elevated at 115. His white count is normal, hemoglobin 9.2, creatinine 0.68. Blood sugars running between 144 and 187. Sputum culture is finalized with normal respiratory mehran. 07/06: Patient is requiring FiO2 of 90% on Airvo. Pulse ox is 92%. Patient has been afebrile, heart rate running in the 80s. Blood pressure 126/84. Dr. Delgado does not plan to do bronchoscopy while patient oxygen needs are high. Her recommendations are to increase steroids to 60 mg IV every 6 hours and change antibiotics to Levaquin. Perforomist and Mucomyst were added yesterday. Pulmonary as noted in consult with Dr. Ware for inpatient rehab. Alpha I antitrypsin came back negative. Mycoplasma and Legionella are pending. 07/07: Patient continues to have significant shortness of breath and states he can 't catch his breath. He is now on FiO2 of 90. He states he feels well otherwise and is found sitting up in a recliner. He did receive Lasix which is discontinued. Mycoplasma came back negative. Legionella pending. White count was normal, hemoglobin 11.1, creatinine 0.74. Blood sugars run between 132 and 235. Pulse ox is 95% on high flow nasal cannula, afebrile, heart rate running in the 70s and 80s, blood pressure 135/78. Patient has been seen by Dr. Ware and plan is to follow notes. Doubt the patient will be a candidate for inpatient rehab. 07/08: Patient continues to have significant shortness of breath feeling that he cannot catch his breath at all. Mucinex, flutter valve and Diflucan added today. He states he has bringing up a little bit of sputum but not very much. He has been afebrile, pulse ox is 94% on FiO2 of 85, heart rate running in the 80s and 90s, blood pressure 130/71. 07/09: Dr. Delgado has added Lasix 40mg every 8 hours IV. Xolair was attempted but not covered as Inpatient treatment. He has been started on hypertonic nebulizer treatments. Patient denies any improvement in breathing today. He still feels he can't catch his breath. He is onFIO2 85 with pulse ox of 95%. He has been afebrile, heart rate in the 80s, BP 148/78. Repeat chest x-ray reveals marked worsening of multifocal alveolar and interstitial opacities. Multifocal pneumonia, pulmonary edema or ARDS. Chest physiotherapy ordered. 07/10: Patient denies any significant improvement from yesterday. He did start chest physiotherapy yesterday. He states he feels more tired today but he did sleep well last night. Cough is nonproductive. Dr. Núñez discussed case with Dr. Delgado and plan is if patient is not improved by Tuesday, transferred at [facility]. Pulse ox is 95% on FiO2 of 85 by high flow nasal cannula, heart rate running in the 90s, afebrile, blood pressure 103/68. No change in medications. 07/11: Patient states that he woke up this morning feeling better. He states he can almost take a half of breath today. He is not bringing up sputum. Wheezing is improved. He has tried to increase activity within his room. He states he only received chest physiotherapy twice yesterday. We'll plan to request this done 4 times daily. He has been afebrile, heart rate running in the 70s, pulse ox 91% on FiO2 of 75. Dr. Delgado is attempting to obtain Xolair from the office for patient to take while in the hospital. 07/12: Patient is tentatively scheduled for bronchoscopy today with Dr. Delgado. He is currently pulse oxing 95% on a 73 FiO2, heart rate 70-80, but pressure 106 /69. He has been afebrile. He states he has been getting his chest physiotherapy. Dr. Tavarez is following and continues to recommend Levaquin for now. Patient is feeling more comfortable and breathing is improving very slowly. Patient has been afebrile, heart rate running in 70s and 80s, blood pressure 106/69. 07/13: Patient states that he is much better today. He is ambulating in his room he states he can actually take a normal breath at this point. He remains on AirVo. Blood pressure is stable, heart rate running and 80s, afebrile. Dr. Tavarez is following and continued on Levaquin. Patient underwent bronchoscopy with removal of mucous plugs. Cytology and cultures are in progress. Review of Systems Constitutional: Reports chills, Reports fever, denies weakness Eyes: denies blurred vision, denies double vision, denies bulging eye Ears: deny: decreased hearing Ears, nose, mouth and throat: Denies dysphagia, Denies neck lump, Denies swelling in throat, Denies sore throat Cardiovascular: Reports decreased exercise tolerance, Reports shortness of breath, Denies chest pain, Denies lightheadedness, Denies rapid heart beat, Denies syncope Respiratory: Reports shortness of breath, reports congestion, Reports cough, reports sputum, Reports hemoptysis, Reports wheezing, Denies home oxygen, Denies sleep apnea, Denies snoring Gastrointestinal: Denies abdominal pain, Denies belching, Denies bloating, Denies heartburn, Denies melena, Denies nausea, Denies vomiting Genitourinary: Denies dysuria, Denies nocturia Musculoskeletal: Denies myalgias Integumentary: Denies pruritus, Denies rash, denies wounds Neurological: Denies numbness, Denies weakness Psychiatric: Denies anxiety, Denies depression Endocrine: Denies fatigue, abnormal blood sugars Objective - Vital Signs Vital signs: Vital Signs Temp 97.9 F 07/13/18 01:11 Pulse 88 07/13/18 07:56 Resp 16 07/13/18 01:11 BP 110/69 07/13/18 01:11 Pulse Ox 94 L 07/13/18 01:11 Intake & Output 07/12/18 07/13/18 07/13/18 18:59 06:59 18:59 Intake Total 450 118 Output Total 250 Balance 450 -250 118 Intake: IV 250 Oral 200 118 Output: Urine 250 Other: Voiding Method Urinal # Bowel Movements 1 - Exam General appearance: average body habitus, no distress while in bed. - EENT Eyes: anicteric sclerae, EOMI, PERRLA, no ptosis, no scleral icterus, normal appearance ENT: hearing grossly normal, NA/AT, normal oropharynx, no thrush Ears: bilateral: normal - Neck Neck: no lymphadenopathy, normal ROM, no rigidity Carotids: bilateral: upstroke normal Thyroid: bilateral: normal size - Respiratory Respiratory: bilateral: diminished, rhonchi, wheezing, prolonged expiration, negative: dullness, rales - Cardiovascular Rhythm: regular Heart sounds: normal: S1, S2 Abnormal Heart Sounds: systolic murmur, no S3 Gallop, no S4 Gallop - Gastrointestinal General gastrointestinal: normal bowel sounds, soft, no splenomegaly, no tenderness, no umbilical hernia, no ventral hernia - Integumentary Integumentary: normal, normal turgor - Neurologic Neurologic: CNII-XII intact - Musculoskeletal Musculoskeletal: gait normal, strength equal bilaterally - Psychiatric Psychiatric: A&O x's 3, appropriate affect, intact judgment & insight - Labs CBC & Chem 7: 07/14/18 07:17 07/14/18 07:17 Labs: Abnormal Lab Results - Last 24 Hours (Table) 07/03/18 07/12/18 07/12/18 Range/Units 14:14 11:35 16:51 POC Glucose (mg/dL) 112 H 241 H (75-99) mg/dL Phoma species IgG Ab 7.2 H (< 6.6) mcg/mL 07/12/18 07/13/18 Range/Units 20:25 07:20 POC Glucose (mg/dL) 182 H 177 H (75-99) mg/dL Phoma species IgG Ab (< 6.6) mcg/mL Microbiology - Last 24 Hours (Table) 07/12/18 12:48 Bronchial Washings Culture - Preliminary Bronchial Brushings - Left 07/12/18 12:48 Fungal Culture - Preliminary Bronchial Brushings - Right Assessment and Plan Plan: 1. Acute hypoxic respiratory failure secondary to multilobar pneumonia and acute COPD exacerbation. Continue patient on Rocephin 1 g IV piggyback every 24 hours, Zithromax changed to Levaquin, DuoNeb 3 mL nebulization 4 times every day, Pulmicort 4 mg nebulization twice every day, oxygen to keep saturation greater than 92%, pulmonary consultation from Dr. Delgado, influenza testing was negative. Sputum culture reveals normal mehran. Solu-Medrol increased to 60 mg IV every 6 hours. Perforomist and Mucomyst. Mucinex and Diflucan added. Flutter valve added. CTA of the chest as above. Lasix 40mg every 8 hours IV. Xolair was attempted but not covered as Inpatient treatment. He has been started on hypertonic nebulizer treatments. Chest physiotherapy in place. Continue current plan. Possible Xolair during hospital stay as samples from office. Bronchoscopy completed yesterday. Cytology and cultures and progress. 2. COPD exacerbation. Continue oxygen, DuoNeb 3 mL nebulization 4 times every day, Pulmicort 1 mg nebulization twice every day, Solu-Medrol. Continue as in # 1 3. Mild CAD status post left heart cath physician back in 2014 that showed mild disease of the LAD and RCA. Stable at this time continue patient on Toprol -XL 50 mg orally once every day. 4. Hypertension and hypertensive cardiovascular disease. Continue Toprol-XL 50 mg orally once every day, lisinopril 20 mg orally once every day. 5. Bipolar disorder. Continue Lamictal 100 mg orally once every day as well as sertraline 100 mg orally once every day. 6. GI prophylaxis. Protonix 40 mg once every day. 7. DVT prophylaxis. Heparin 5000 units subcutaneously every 8 hours. 8. Patient is full code. Discharge plan: Return home. Consult with Dr. Ware for inpatient rehab, PT and OT Impression and plan of care have been directed as dictated by the signing physician. Meghna Larry nurse practitioner acting as scribe for signing physician.
--- NOTE | 2018-07-14 15:12 | P.PN ---
Subjective Progress Note Date: 07/14/18 This is a 67-year-old male one of Dr. Christy with a previous medical history significant for hypertension and hypertensive cardiovascular disease, mild CAD involving the RCA and the the LAD, with a last heart catheterization was done back in 2014, history of bipolar disorder, COPD, remote history of tobacco use and dependence, patient went to a walking clinic on Tuesday and he was diagnosed of having the flu according to him and he was given a Z-Osmani patient was feeling better up until today when he developed to have a significant coughing and increased yellow phlegm production with bloody streaks to it so he ended up coming to the ER at [facility] where he was found to have a multilobar pneumonia he was started on IV antibiotic in the form of Rocephin and Zithromax and and he was placed in droplet precautions until after obtaining the result of the flu swab, pulmonary consultation was obtained from Dr. ADOLFO Ayon. 07/03: Patient is currently on 10 L high flow O2 pulse oxing 92-96%. He states he is slightly better from yesterday. He is having more cough today. Influenza testing came back negative. Repeat chest x-ray this morning shows chronic interstitial lung disease with underlying COPD and stable patchy bilateral infiltrate. CT injury of the chest showed no evidence of central pulmonary embolism. Subsegmental pulmonary arteries are nondiagnostic. Interstitial lung disease. Findings favoring NSIP with no current evidence of fibrosis. Alternatively hypersensitivity pneumonitis or cryptogenic organizing pneumonia or possible. Consult in place with pulmonary medicine which will be seeing him today. Solu-Medrol will remain the same at 40 mg IV every 8 hours. Continue same medications. 07/04: CT results reviewed with patient. 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 Patient states that he had a rough night and does not seem like he is much better. He is bringing up sputum that is light in color. Patient was seen by Dr. Delgado. Solu-Medrol will remain at 40 mg every 8 hours. Sputum culture is in progress. Blood cultures showing no growth after 24 hours. He has been afebrile, heart rate running in the 80s and 90s, blood pressure 131/70, pulse ox 92% on 10 L high flow. Patient is now on humidified oxygen. 07/05: Patient is now on Airvo with FiO2 of 55 pulse oxing 94%. Breathing status is more comfortable using this. Discussed case with Dr. Delgado for possible bronchoscopy. Patient has had a bowel movement. He denies any diarrhea. Legionella, mycoplasma, hypersensitivity panels and alpha-1 antitrypsin are all pending. IgE is elevated at 115. His white count is normal, hemoglobin 9.2, creatinine 0.68. Blood sugars running between 144 and 187. Sputum culture is finalized with normal respiratory mehran. 07/06: Patient is requiring FiO2 of 90% on Airvo. Pulse ox is 92%. Patient has been afebrile, heart rate running in the 80s. Blood pressure 126/84. Dr. Delgado does not plan to do bronchoscopy while patient oxygen needs are high. Her recommendations are to increase steroids to 60 mg IV every 6 hours and change antibiotics to Levaquin. Perforomist and Mucomyst were added yesterday. Pulmonary as noted in consult with Dr. Ware for inpatient rehab. Alpha I antitrypsin came back negative. Mycoplasma and Legionella are pending. 07/07: Patient continues to have significant shortness of breath and states he can 't catch his breath. He is now on FiO2 of 90. He states he feels well otherwise and is found sitting up in a recliner. He did receive Lasix which is discontinued. Mycoplasma came back negative. Legionella pending. White count was normal, hemoglobin 11.1, creatinine 0.74. Blood sugars run between 132 and 235. Pulse ox is 95% on high flow nasal cannula, afebrile, heart rate running in the 70s and 80s, blood pressure 135/78. Patient has been seen by Dr. Ware and plan is to follow notes. Doubt the patient will be a candidate for inpatient rehab. 07/08: Patient continues to have significant shortness of breath feeling that he cannot catch his breath at all. Mucinex, flutter valve and Diflucan added today. He states he has bringing up a little bit of sputum but not very much. He has been afebrile, pulse ox is 94% on FiO2 of 85, heart rate running in the 80s and 90s, blood pressure 130/71. 07/09: Dr. Delgado has added Lasix 40mg every 8 hours IV. Xolair was attempted but not covered as Inpatient treatment. He has been started on hypertonic nebulizer treatments. Patient denies any improvement in breathing today. He still feels he can't catch his breath. He is onFIO2 85 with pulse ox of 95%. He has been afebrile, heart rate in the 80s, BP 148/78. Repeat chest x-ray reveals marked worsening of multifocal alveolar and interstitial opacities. Multifocal pneumonia, pulmonary edema or ARDS. Chest physiotherapy ordered. 07/10: Patient denies any significant improvement from yesterday. He did start chest physiotherapy yesterday. He states he feels more tired today but he did sleep well last night. Cough is nonproductive. Dr. Núñez discussed case with Dr. Delgado and plan is if patient is not improved by Tuesday, transferred at [facility]. Pulse ox is 95% on FiO2 of 85 by high flow nasal cannula, heart rate running in the 90s, afebrile, blood pressure 103/68. No change in medications. 07/11: Patient states that he woke up this morning feeling better. He states he can almost take a half of breath today. He is not bringing up sputum. Wheezing is improved. He has tried to increase activity within his room. He states he only received chest physiotherapy twice yesterday. We'll plan to request this done 4 times daily. He has been afebrile, heart rate running in the 70s, pulse ox 91% on FiO2 of 75. Dr. Delgado is attempting to obtain Xolair from the office for patient to take while in the hospital. 07/12: Patient is tentatively scheduled for bronchoscopy today with Dr. Delgado. He is currently pulse oxing 95% on a 73 FiO2, heart rate 70-80, but pressure 106 /69. He has been afebrile. He states he has been getting his chest physiotherapy. Dr. Tavarez is following and continues to recommend Levaquin for now. Patient is feeling more comfortable and breathing is improving very slowly. Patient has been afebrile, heart rate running in 70s and 80s, blood pressure 106/69. 07/13: Patient states that he is much better today. He is ambulating in his room he states he can actually take a normal breath at this point. He remains on AirVo. Blood pressure is stable, heart rate running and 80s, afebrile. Dr. Tavarez is following and continued on Levaquin. Patient underwent bronchoscopy with removal of mucous plugs. Cytology and cultures are in progress. 07/14: Patient states his breathing continues to be improving. He states he slept well last night. Patient states that Dr. Delgado mentioned he may need to have a second bronchoscopy during this hospitalization. He has been afebrile, blood pressure 113/70, afebrile, heart rate running in the 80s, pulse ox 95% on FiO2 of 70. Blood sugar running in the 140s, WBC 12.7, hemoglobin 12.1, platelet creatinine 0.91. Cytology is negative for malignancy. Anticipate patient will be here over the weekend too early to mid next week. Review of Systems Constitutional: Reports chills, Reports fever, denies weakness, denies daytime sleepiness Eyes: denies blurred vision, denies double vision Ears: deny: decreased hearing Ears, nose, mouth and throat: Denies dysphagia, Denies neck lump, Denies swelling in throat, Denies sore throat Cardiovascular: Reports decreased exercise tolerance, Reports shortness of breath, Denies chest pain, Denies lightheadedness, Denies rapid heart beat, Denies syncope Respiratory: Reports shortness of breath, reports congestion, Reports cough, reports sputum, Reports hemoptysis, Reports wheezing, Denies home oxygen, Denies sleep apnea, Denies snoring Gastrointestinal: Denies abdominal pain, Denies belching, Denies bloating, Denies heartburn, Denies melena, Denies nausea, Denies vomiting Genitourinary: Denies dysuria, Denies nocturia Musculoskeletal: Denies myalgias Integumentary: Denies pruritus, Denies rash, denies wounds Neurological: Denies numbness, Denies weakness Psychiatric: Denies anxiety, Denies depression Endocrine: Denies fatigue, abnormal blood sugars Objective - Vital Signs Vital signs: Vital Signs Temp 98.0 F 07/14/18 07:00 Pulse 84 07/14/18 08:50 Resp 18 07/14/18 08:50 BP 113/70 07/14/18 07:00 Pulse Ox 97 07/14/18 08:50 Intake & Output 07/13/18 07/14/18 07/14/18 18:59 06:59 18:59 Intake Total 338 1180 Output Total 600 Balance 338 580 Intake: Oral 338 1180 Output: Urine 600 Other: # Voids 2 1 - Exam General appearance: average body habitus, no distress while in bed, patient appears comfortable with AirVo. - EENT Eyes: anicteric sclerae, EOMI, PERRLA, no ptosis, no scleral icterus, normal appearance ENT: hearing grossly normal, NA/AT, normal oropharynx, no thrush Ears: bilateral: normal - Neck Neck: no lymphadenopathy, normal ROM, no rigidity Carotids: bilateral: upstroke normal Thyroid: bilateral: normal size - Respiratory Respiratory: bilateral: diminished, rhonchi, wheezing, prolonged expiration, negative: dullness, rales - Cardiovascular Rhythm: regular Heart sounds: normal: S1, S2 Abnormal Heart Sounds: systolic murmur, no S3 Gallop, no S4 Gallop - Gastrointestinal General gastrointestinal: normal bowel sounds, soft, no splenomegaly, no tenderness, no umbilical hernia, no ventral hernia - Integumentary Integumentary: normal, normal turgor - Neurologic Neurologic: CNII-XII intact - Musculoskeletal Musculoskeletal: gait normal, strength equal bilaterally - Psychiatric Psychiatric: A&O x's 3, appropriate affect, intact judgment & insight - Labs CBC & Chem 7: 07/14/18 07:17 07/14/18 07:17 Labs: Abnormal Lab Results - Last 24 Hours (Table) 07/13/18 07/13/18 07/13/18 Range/Units 11:37 16:34 21:25 WBC (3.8-10.6) k/uL RBC (4.30-5.90) m/uL Hgb (13.0-17.5) gm/dL Hct (39.0-53.0) % Plt Count (150-450) k/uL Neutrophils # (1.3-7.7) k/uL Lymphocytes # (1.0-4.8) k/uL Carbon Dioxide (22-30) mmol/L BUN (9-20) mg/dL Glucose (74-99) mg/dL POC Glucose (mg/dL) 134 H 206 H 135 H (75-99) mg/dL Calcium (8.4-10.2) mg/dL Total Protein (6.3-8.2) g/dL Albumin (3.5-5.0) g/dL 07/14/18 07/14/18 07/14/18 Range/Units 07:05 07:17 07:17 WBC 12.7 H (3.8-10.6) k/uL RBC 4.11 L (4.30-5.90) m/uL Hgb 12.1 L (13.0-17.5) gm/dL Hct 38.2 L (39.0-53.0) % Plt Count 501 H (150-450) k/uL Neutrophils # 11.6 H (1.3-7.7) k/uL Lymphocytes # 0.6 L (1.0-4.8) k/uL Carbon Dioxide 33 H (22-30) mmol/L BUN 34 H (9-20) mg/dL Glucose 144 H (74-99) mg/dL POC Glucose (mg/dL) 146 H (75-99) mg/dL Calcium 8.1 L (8.4-10.2) mg/dL Total Protein 5.7 L (6.3-8.2) g/dL Albumin 3.0 L (3.5-5.0) g/dL Microbiology - Last 24 Hours (Table) 07/12/18 12:48 Gram Stain - Preliminary Bronchial Brushings - Left Bronchial Washings Culture - Preliminary 07/12/18 12:48 Fungal Culture - Preliminary Bronchial Brushings - Right Assessment and Plan Plan: 1. Acute hypoxic respiratory failure secondary to multilobar pneumonia and acute COPD exacerbation. Continue patient on Rocephin 1 g IV piggyback every 24 hours, Zithromax changed to Levaquin, DuoNeb 3 mL nebulization 4 times every day, Pulmicort 4 mg nebulization twice every day, oxygen to keep saturation greater than 92%, pulmonary consultation from Dr. Delgado, influenza testing was negative. Sputum culture reveals normal mehran. Solu-Medrol increased to 60 mg IV every 6 hours. Perforomist and Mucomyst. Mucinex and Diflucan added. Flutter valve added. CTA of the chest as above. Lasix 40mg every 8 hours IV. Xolair was attempted but not covered as Inpatient treatment. He has been started on hypertonic nebulizer treatments. Chest physiotherapy in place. Continue current plan. Possible Xolair during hospital stay as samples from office. Bronchoscopy completed yesterday. Cultures in progress. Patient may require repeat on cost daily. 2. COPD exacerbation. Continue oxygen, DuoNeb 3 mL nebulization 4 times every day, Pulmicort 1 mg nebulization twice every day, Solu-Medrol. Continue as in # 1 3. Mild CAD status post left heart cath physician back in 2014 that showed mild disease of the LAD and RCA. Stable at this time continue patient on Toprol -XL 50 mg orally once every day. 4. Hypertension and hypertensive cardiovascular disease. Continue Toprol-XL 50 mg orally once every day, lisinopril 20 mg orally once every day. 5. Bipolar disorder. Continue Lamictal 100 mg orally once every day as well as sertraline 100 mg orally once every day. 6. GI prophylaxis. Protonix 40 mg once every day. 7. DVT prophylaxis. Heparin 5000 units subcutaneously every 8 hours. 8. Patient is full code. Discharge plan: Return home early to mid next week.. Consult with Dr. Ware for inpatient rehab, PT and OT Impression and plan of care have been directed as dictated by the signing physician. Meghna Larry nurse practitioner acting as scribe for signing physician.
--- NOTE | 2018-07-14 16:15 | PN ---
PROGRESS NOTE DATE OF SERVICE: 07/14/2018 Patient is a 67-year-old male who is seen sitting up in bed talking on the telephone, also visiting with a visitor. Patient feeling a bit better every day. He is ambulating in the room trying to increase his activity. Patient is hemodynamically stable, afebrile, in no acute distress. PHYSICAL EXAM: Vital signs, temp is 98.4, heart rate is 84, respiratory rate is 18, blood pressure is 95/65, O2 sats 97% on high-flow nasal cannula, O2 flow rate of 35 with an FiO2 of 65%. HEENT: Head is normocephalic, atraumatic. Neck is supple. Trachea is midline. LUNGS: With decreased breath sounds and a few fine crackles. Heart S1, S2 are heard. Not tachycardic. ABDOMEN: Soft. Bowel sounds are positive. EXTREMITIES: With no edema. NEUROLOGIC: Patient is awake and alert. LABS: White count is 12.7, hemoglobin is 12.1, hematocrit 38.2 with 501,000 platelets. Sodium is 139, potassium is 3.6, chloride is 100, CO2 is 33, anion gap is 6, BUN is 34, creatinine 0.91, glucose is 144, calcium is 8.1, total bilirubin 0.6, AST is 23, ALT is 52, alkaline phosphatase is 52, total protein is 5.7, albumin is 3.0. No new imaging to review. IMPRESSION: 1. Acute hypoxic respiratory failure requiring supplemental oxygen. 2. Acute exacerbation of chronic obstructive pulmonary disease. 3. Multilobar pneumonia, worsening bilateral infiltrates on chest x-ray-ARDS, pulmonary edema, worsening pneumonia HP in the differential. 4. Coronary artery disease with previous stenting. 5. Hypertension. 6. Bipolar disorder. 7. Multiple allergies with elevated IgE. PLAN: Continue current medications which have been reviewed. Continue IV Solu-Medrol, bronchodilators, aerosol steroids, and antibiotics per Infectious Disease. Continue pulmonary hygiene, incentive spirometry, coughing and deep breathing exercises. Continue oxygen to maintain sats greater than or equal to 92%. Continue GI and DVT prophylaxis. Continue to increase activity as tolerated. Results of bronch cultures and pathology will be reviewed with patient when obtained. The patient will require 1 mg/kg daily of prednisone with a slow taper in the outpatient setting. We will continue to follow patient closely with you making further changes as necessary. I performed a History & Physical Examination of the patient and discussed their management with nurse practitioner. I reviewed the nurse practitioner's note and agree with the documented findings and plan of care. SHEREE / MAKAYLA: [id number] /
[2018-07-14 16:57] LABS: Glucose,Whole Blood 169 mg/dL (75-99)
--- NOTE | 2018-07-14 18:05 | P.PN ---
Progress Note - Text Progress Note Date: 07/14/18 Patient seen and examined. Biopsy reports discussed at length. Diagnosis of cryptogenic organizing pneumonia. Patient will need intermediate project manager steroids Prednisone 1 mg/kg day, with slow taper over 2-3 months. As his oxygenation requirements improve, we will discuss discharge planning. See PLAQUE MAKER note.
[2018-07-14 20:40] LABS: Glucose,Whole Blood 205 mg/dL (75-99)
[2018-07-14] MEDS: MONTELUKAST 10 MG TAB PO SCH (21:36)
[2018-07-15] MEDS: HYPERTONIC SALINE 3% NEBULIZ 4 ML NEBU INHALATION SCH ×3 (01:45→16:35)
[2018-07-15 06:46] LABS: Glucose,Whole Blood 163 mg/dL (75-99)
[2018-07-15] MEDS: BUDESONIDE 1 MG/2 ML NEBU INHALATION SCH ×2 (08:12→21:14)
[2018-07-15] MEDS: FORMOTEROL FUMARATE 20 MCG/2 ML NEBU INHALATION SCH ×2 (08:13→21:14)
[2018-07-15] MEDS: IPRATROPIUM-ALBUTEROL 3 ML NEB INHALATION SCH ×4 (08:13→21:14)
[2018-07-15] MEDS: HEPARIN SODIUM,PORCINE 5,000 UNIT/ML 1 ML VIAL SQ SCH ×3 (08:31→23:15)
[2018-07-15] MEDS: methylPREDNISolone SOD SUCCI 125 MG/2 ML VIAL IV SCH ×2 (08:32→20:37)
[2018-07-15] MEDS: INSULIN ASPART (NovoLOG) 100 UNIT/ML VIAL SQ SCH ×4 (08:32→20:31)
[2018-07-15] MEDS: FUROSEMIDE 10 MG/ML 4 ML VIAL IV SCH ×2 (08:32→20:37)
[2018-07-15] MEDS: guaiFENesin 600 MG TABLET.ER PO SCH ×2 (08:33→20:37)
[2018-07-15] MEDS: METOPROLOL SUCCINATE (ER) 50 MG TAB.ER.24H PO SCH (08:33)
[2018-07-15] MEDS: FLUCONAZOLE 100 MG TAB PO SCH (08:33)
[2018-07-15] MEDS: lamoTRIgine 100 MG TAB PO SCH (08:33)
[2018-07-15] MEDS: SERTRALINE 100 MG TAB PO SCH (08:33)
[2018-07-15] MEDS: PANTOPRAZOLE 40 MG TABLET PO SCH (08:33)
[2018-07-15] MEDS: LISINOPRIL 20 MG TAB PO SCH (08:33)
--- NOTE | 2018-07-15 08:39 | PN ---
PROGRESS NOTE DATE OF SERVICE: 07/14/2018. REASON FOR FOLLOWUP: Bilateral interstitial pneumonia/BOOP. INTERVAL HISTORY: The patient is afebrile. He has been breathing more comfortably. The patient denies any chest pain. Did have some cough but not bringing up any sputum. No nausea, vomiting, or abdominal pain or diarrhea. PHYSICAL EXAMINATION: Blood pressure 148/87 with a pulse of 85, temperature 98.3. He is 97% on high-flow oxygen. General description is an elderly male up in the bed in no distress. Respiratory system: Unlabored breathing with decreased breath sounds in the bases. No wheeze. Heart S1, S2. Regular rate and rhythm. Abdomen soft no tenderness. LABS: Hemoglobin 12.1, white count 4.7, BUN 34, creatinine 0.91. Bronch culture has been negative. DIAGNOSTIC IMPRESSION AND PLAN: Patient with bilateral , the patient admitted to the hospital with increasing shortness of breath, status post bronch. Culture has been negative. Biopsy possible BOOP. The patient was treated continue, antibiotic can be safely discontinued. Continue supportive care. MMODL / IJN: [id number] /
[2018-07-15 10:52] LABS: Glucose,Whole Blood 197 mg/dL (75-99)
--- NOTE | 2018-07-15 14:11 | P.PN ---
Subjective Progress Note Date: 07/15/18 HPI: This is a 67-year-old male being seen examined and evaluated today for consultation. This patient does have a past medical history significant for hypertension, hypertensive cardiovascular disease, mild CAD involving the RCA and the LAD, last stent heart catheterization was in 2014, history of bipolar, COPD, remote history of tobacco use and dependence. The patient was seen in the urgent care setting on Tuesday and was told he has "the flu" and the patient was given a Z-Osmani to take in the outpatient setting. The patient was starting to feel better and then he started to get significantly worse yesterday so he came into the emergency room. The patient was found to have a multilobar pneumonia he was started on IV antibiotics and steroids. He did have an influenza swab that was negative. 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 He denies any exposures to any birds or farm animals or farmland. He has 3. He quit smoking approximately 12 years ago. He does not have wood-burning stove at home. Upon examination the patient's resting up in bed on 10 L of high flow and oxygen via nasal cannula. He continues to have shortness of breath cough and congestion. He has been unable to provide a sputum sample thus far. He does feel the breathing treatments are helping. He has been afebrile no further complaints. Interval History: 07/04/18- patient is being seen examined and evaluated today on rounds. He is resting up in bed on 10 L high flow nasal cannula. Still feels quite dyspneic and short of breath even at rest. We will switch patient over to Airvo to help his breathing. Currently being worked up for questionable an SIEP versus HP. Multiple labs have been obtained and are pending. Patient will require 1 mg/kg daily of prednisone with a very slow outpatient taper. This is again discussed with the patient at length and he is agreeable. He is afebrile. All labs and reports reviewed 07/05/18- patient is being seen examined and evaluated today on rounds. He currenlty is one Airvo high flow at 55 L and 90% FiO2. He feels his breathing is less labored with using this type of supplemental oxygen. He is slowly improving. Most likely will require a home oxygen assessment prior to discharge. 07/06/18- patient is being seen examined and evaluated today on rounds. He continues on Airvo high flow oxygen at 55 L and 90% FiO2. He is very slow to recover when he does get short of breath. His steroids are increased. His antibiotics is switched to Levaquin. Yesterday we also added Perforomist and Mucomyst inhalation. He seems to feel those are helping him as well. The patient could potentially undergo a bronchoscopy once his oxygen demand significantly decreased. He is not a candidate at this time due to his high oxygen demands. This is discussed with him at length as well as the attending provider. The patient has not ambulated much since being admitted. We will consult PT and OT as well as PMNR for possible inpatient rehab on discharge. 07/07/18- patient is being seen examined and evaluated today on rounds. The patient continues on Airvo high flow oxygen and 55 L and 90% FiO2. This is discussed with the patient's direct care nurse to start weaning the patient, on oxygen as tolerated. He states he feels less short of breath today. He does have multiple environmental ALLERGIES that came back positive which are discussed with him today. He will be provided a list of these ALLERGIES. Neoplasm was negative. Legionella is pending, HP panel is pending. He seems to be responding well to the increase in steroids in the antibiotics. All labs and reports have been reviewed. 07/08/2017: Patient seen and examined with his daughter at bedside. The patient states he is getting discouraged because he is still very short of breath with minimal exertion. The patient is on airvo at 55 L/m and 85% FiO2. Chest x-ray is obtained and reviewed. There is marked worsening of the bilateral infiltrates. Bronchoscopy is discussed with the patient at length. He is aware that he is too unstable at this point for bronchoscopy and that he would likely end up on mechanical ventilation if bronchoscopy were attempted. It is possible that later in the week it will be an option. Continue high-dose steroids and diuresis for now. 07/09/2018: Patient seen and examined with his daughter at bedside. The patient and his daughter expressed concerns that the patient is not getting any better. Chest x-ray from yesterday is reviewed with them and the patient was found to have worsening bilateral infiltrates. The risks versus benefits of doing a bronchoscopy is discussed with the patient. He would like to try to continue the hypertonic saline, antibiotics, diuresis for now and consider bronchoscopy in 48-72 hours if he is not improving. The possibility of a surgical lung biopsy was also discussed with the patient. I did discuss the possibility of Xolair with the pharmacy. It has been declined for inpatient use at this time. However I will continue to try to obtain this for the patient. 07/11/2018: Patient seen and examined. Patient states he feels like his breathing is starting to improve. He has been able to ambulate around the room. He states he finally feels hope that his breathing is improving. He denies fevers and chills. 05/11/2019: See bronchoscopy report 05/12/2019: Patient seen and examined. Patient states he is feeling much better overall. He has been able to ambulate around the room. He has been coughing out some phlegm. He denies fevers and chills. Pathology and cultures are pending on bronchoscopy specimens. 07/15/2018: Patient seen and examined. Patient states he is feeling better. He states he still does get short of breath with exertion around his room. Antibiotics have been discontinued by infectious disease. The patient did have a positive influenza a culture on the bronchoscopy specimen. His FiO2 is down to 60%. His O2 saturation is 94-95%. We will continue to aggressively titrate down the oxygen. Objective - Vital Signs Vital signs: Vital Signs Temp 98.5 F 07/15/18 07:00 Pulse 87 07/15/18 11:52 Resp 16 07/15/18 07:00 BP 124/75 07/15/18 07:00 Pulse Ox 94 L 07/15/18 11:52 Intake & Output 07/14/18 07/15/18 07/15/18 18:59 06:59 18:59 Intake Total 636 560 716 Output Total 1300 Balance 636 560 -584 Weight 86.183 kg Intake: Oral 636 560 716 Output: Urine 1300 Other: Voiding Method Urinal - Exam GENERAL EXAM: Alert, mild apparent distress. HEAD: Normocephalic. EYES: Normal reaction of pupils, equal size. NOSE: Clear with pink turbinates. THROAT: No erythema or exudates. NECK: No masses, no JVD. CHEST: No chest wall deformity. LUNGS: Lungs noted to be rhonchorous with wheezing scattered throughout and prolonged expiration, slowly improving CVS: S1 and S2 normal with no audible mumurs, regular rhythm. ABDOMEN: No hepatosplenomegaly, normal bowel sounds, no guarding or rigidity. EXTREMITIES: No edema noted, pedal pulses palpable. CENTRAL NERVOUS SYSTEM: No focal deficits, tone is normal in all 4 extremities. - Labs CBC & Chem 7: 07/14/18 07:17 07/14/18 07:17 Labs: Abnormal Lab Results - Last 24 Hours (Table) 07/14/18 07/14/18 07/15/18 Range/Units 16:45 20:38 06:45 POC Glucose (mg/dL) 169 H 205 H 163 H (75-99) mg/dL 07/15/18 Range/Units 10:51 POC Glucose (mg/dL) 197 H (75-99) mg/dL Microbiology - Last 24 Hours (Table) 07/12/18 12:48 Gram Stain - Final Bronchial Brushings - Left Bronchial Washings Culture - Final Assessment and Plan Assessment: Acute hypoxic respiratory failure requiring supplemental oxygen Cryptogenic organizing pneumonia Influenza A Acute exacerbation of COPD CAD with previous stenting Hypertension Bipolar disorder Multiple allergies with elevated IgE Plan Medications have been reviewed and will be continued as ordered. ABX discontinued per ID Solu-Medrol - taper to 60mg Q12 DuoNeb, budesonide, Perforomist Hypertonic saline nebs Will require 1mg/kg daily of prednisone with a slow taper (over 2-3 months) in the outpatient setting Initiate and encourage incentive spirometer and flutter tx, chest PT Continue with pulmonary hygiene, coughing and deep breathing exercises, and supportive care. Supplemental oxygen to maintain oxygen saturations of 92% or better. Continue nebulizer treatments. GI and DVT prophylaxis. Increase activity as tolerated, PT and OT Diuresis to continue - change to Lasix 40 mg IV Q12 hours Bronch cultures and pathology discussed with the patient at length Continue to aggressively titrate FiO2
--- NOTE | 2018-07-15 14:35 | P.PN ---
Subjective Progress Note Date: 07/15/18 Principal diagnosis: Pneumonia Patient feels much improved since yesterday tolerating diet denying chest pain, shortness breath, nausea, vomiting or abdominal pain Objective - Vital Signs Vital signs: Vital Signs Temp 98.3 F 07/15/18 14:11 Pulse 84 07/15/18 14:11 Resp 16 07/15/18 14:11 BP 104/64 07/15/18 14:11 Pulse Ox 97 07/15/18 14:11 Intake & Output 07/14/18 07/15/18 07/15/18 18:59 06:59 18:59 Intake Total 636 560 716 Output Total 1300 Balance 636 560 -584 Weight 86.183 kg Intake: Oral 636 560 716 Output: Urine 1300 Other: Voiding Method Urinal - Exam Lungs coarse breathing sounds bilaterally with scattered rhonchi Heart normal S1-S2 Abdomen soft no tenderness was also 4 quadrants Psych alert and oriented following commands Skin no new rash Lower extremity no significant edema - Labs CBC & Chem 7: 07/14/18 07:17 07/14/18 07:17 Labs: Abnormal Lab Results - Last 24 Hours (Table) 07/14/18 07/14/18 07/15/18 Range/Units 16:45 20:38 06:45 POC Glucose (mg/dL) 169 H 205 H 163 H (75-99) mg/dL 07/15/18 Range/Units 10:51 POC Glucose (mg/dL) 197 H (75-99) mg/dL Microbiology - Last 24 Hours (Table) 07/12/18 12:48 Gram Stain - Final Bronchial Brushings - Left Bronchial Washings Culture - Final Assessment and Plan Assessment: 1. Cryptogenic organizing pneumonia. 2. Acute respiratory failure with hypoxia. 3. Recent influenza A. 4. Acute COPD exacerbation. 5. Multiple allergies with elevated IgE level. 6. Coronary artery disease status post stenting in the past. 7. Hypertension. 8. Bipolar disorder. Would like to continue weaning off oxygen as tolerated, continue aggressive pulmonary hygiene, continue steroid per pulmonary recommendation for prolonged period of time, continue encouraging incentive spirometer and flutter valve, serial chest x-rays, DVT prophylaxis, discharge planning based on clinical progress and we would like to wean off IV steroids to oral medication upon improvement
[2018-07-15 16:35] LABS: Glucose,Whole Blood 135 mg/dL (75-99)
[2018-07-15 20:01] LABS: Glucose,Whole Blood 125 mg/dL (75-99)
[2018-07-15] MEDS: MONTELUKAST 10 MG TAB PO SCH (20:37)
[2018-07-15] MEDS: OSELTAMIVIR 75 MG CAP PO SCH (20:37)
[2018-07-16] MEDS: HYPERTONIC SALINE 3% NEBULIZ 4 ML NEBU INHALATION SCH ×3 (00:59→16:28)
[2018-07-16 05:15] LABS: Histoplasma Abs by ID None Detected (None Detected)
[2018-07-16 07:31] LABS: Glucose,Whole Blood 135 mg/dL (75-99)
[2018-07-16] MEDS: IPRATROPIUM-ALBUTEROL 3 ML NEB INHALATION SCH ×4 (07:54→21:26)
[2018-07-16] MEDS: BUDESONIDE 1 MG/2 ML NEBU INHALATION SCH ×2 (07:54→21:25)
[2018-07-16] MEDS: FORMOTEROL FUMARATE 20 MCG/2 ML NEBU INHALATION SCH ×2 (07:54→21:26)
[2018-07-16 08:45] LABS: HCT 33.9 % (39.0-53.0); HGB 11.1 gm/dL (13.0-17.5); MCH 30.6 pg (25.0-35.0); MCHC 32.7 g/dL (31.0-37.0); MCV 93.4 fL (80.0-100.0); Mean Platelet Volume 6.3; Platelet Count 398 k/uL (150-450); RBC 3.63 m/uL (4.30-5.90); RDW 13.4 % (11.5-15.5); WBC 12.4 k/uL (3.8-10.6)
[2018-07-16 08:48] LABS: ALT 44 U/L (21-72); AST 24 U/L (17-59); Albumin 2.7 g/dL (3.5-5.0); Alkaline Phosphatase 62 U/L (38-126); Anion Gap 6 mmol/L; Blood Urea Nitrogen 33 mg/dL (9-20); Carbon Dioxide 30 mmol/L (22-30); Chloride 101 mmol/L (98-107); Glucose 197 mg/dL (74-99); Potassium 3.7 mmol/L (3.5-5.1); Sodium 137 mmol/L (137-145); Total Bilirubin 0.4 mg/dL (0.2-1.3); Total Protein 5.2 g/dL (6.3-8.2)
[2018-07-16] MEDS: FUROSEMIDE 10 MG/ML 4 ML VIAL IV SCH ×2 (09:22→22:11)
[2018-07-16] MEDS: methylPREDNISolone SOD SUCCI 125 MG/2 ML VIAL IV SCH ×2 (09:22→22:12)
[2018-07-16] MEDS: INSULIN ASPART (NovoLOG) 100 UNIT/ML VIAL SQ SCH ×4 (09:23→22:08)
[2018-07-16] MEDS: HEPARIN SODIUM,PORCINE 5,000 UNIT/ML 1 ML VIAL SQ SCH ×3 (09:23→23:46)
[2018-07-16] MEDS: OSELTAMIVIR 75 MG CAP PO SCH ×2 (09:23→22:12)
[2018-07-16] MEDS: LISINOPRIL 20 MG TAB PO SCH (09:24)
[2018-07-16] MEDS: METOPROLOL SUCCINATE (ER) 50 MG TAB.ER.24H PO SCH (09:24)
[2018-07-16] MEDS: PANTOPRAZOLE 40 MG TABLET PO SCH (09:24)
[2018-07-16] MEDS: FLUCONAZOLE 100 MG TAB PO SCH (09:25)
[2018-07-16] MEDS: SERTRALINE 100 MG TAB PO SCH (09:25)
[2018-07-16] MEDS: lamoTRIgine 100 MG TAB PO SCH (09:25)
[2018-07-16] MEDS: guaiFENesin 600 MG TABLET.ER PO SCH ×2 (09:25→22:12)
[2018-07-16 11:15] LABS: Glucose,Whole Blood 108 mg/dL (75-99)
--- NOTE | 2018-07-16 11:16 | PN ---
PROGRESS NOTE DATE OF SERVICE: 07/15/2018. REASON FOR FOLLOW UP: Possible pneumonia. INTERVAL HISTORY: The patient is afebrile. He has been breathing more comfortably. The patient denies having any chest pain. He did have some cough and bringing up some sputum. No nausea, vomiting. No abdominal pain or any diarrhea. PHYSICAL EXAMINATION: Blood pressure 118/70 with a pulse of 83, temperature 98.6, he is 94% on high-flow oxygen. General description is an elderly male up in the bed in no distress. Respiratory system: Unlabored breathing with decreased breath sounds in the bases. No wheeze. Heart S1, S2. Regular rate and rhythm. Abdomen soft, no tenderness. LABS: Bronch culture negative. However, positive with influenza. DIAGNOSTIC IMPRESSION AND PLAN: Patient with with bronch cultures positive for influenza, but the patient is on treatment. However in view of the persistent symptoms, may benefit from addition of the Tamiflu. This was discussed with the gem setter. continue to monitor his clinical course closely. Continue supportive care. MMODL / IJN: [id number] /
--- NOTE | 2018-07-16 13:55 | P.PN ---
Subjective Progress Note Date: 07/16/18 Principal diagnosis: Pneumonia Patient feels much improved since yesterday tolerating diet denying chest pain, shortness breath, nausea, vomiting or abdominal pain patient is still lethargic overall and felt slightly short of breath after reducing oxygen this morning Objective - Vital Signs Vital signs: Vital Signs Temp 98.0 F 07/16/18 07:00 Pulse 92 07/16/18 11:28 Resp 20 07/16/18 07:00 BP 132/78 07/16/18 07:00 Pulse Ox 92 L 07/16/18 07:00 Intake & Output 07/15/18 07/16/18 07/16/18 18:59 06:59 18:59 Intake Total 1196 1080 Output Total 1300 Balance -104 1080 Intake: Oral 1196 1080 Output: Urine 1300 Other: # Voids 2 - Exam Lungs coarse breathing sounds bilaterally with scattered rhonchi Heart normal S1-S2 Abdomen soft no tenderness was also 4 quadrants Psych alert and oriented following commands Skin no new rash Lower extremity no significant edema - Labs CBC & Chem 7: 07/16/18 07:57 07/16/18 07:57 Labs: Abnormal Lab Results - Last 24 Hours (Table) 07/15/18 07/15/18 07/16/18 Range/Units 16:33 19:56 07:02 WBC (3.8-10.6) k/uL RBC (4.30-5.90) m/uL Hgb (13.0-17.5) gm/dL Hct (39.0-53.0) % BUN (9-20) mg/dL Glucose (74-99) mg/dL POC Glucose (mg/dL) 135 H 125 H 135 H (75-99) mg/dL Total Protein (6.3-8.2) g/dL Albumin (3.5-5.0) g/dL 07/16/18 07/16/18 07/16/18 Range/Units 07:57 07:57 11:14 WBC 12.4 H (3.8-10.6) k/uL RBC 3.63 L (4.30-5.90) m/uL Hgb 11.1 L (13.0-17.5) gm/dL Hct 33.9 L (39.0-53.0) % BUN 33 H (9-20) mg/dL Glucose 197 H (74-99) mg/dL POC Glucose (mg/dL) 108 H (75-99) mg/dL Total Protein 5.2 L (6.3-8.2) g/dL Albumin 2.7 L (3.5-5.0) g/dL Microbiology - Last 24 Hours (Table) 07/12/18 12:48 Gram Stain - Final Bronchial Brushings - Left Bronchial Washings Culture - Final Assessment and Plan Assessment: 1. Cryptogenic organizing pneumonia. 2. Acute respiratory failure with hypoxia. 3. Recent influenza A. 4. Acute COPD exacerbation. 5. Multiple allergies with elevated IgE level. 6. Coronary artery disease status post stenting in the past. 7. Hypertension. 8. Bipolar disorder. Would like to continue weaning off oxygen as tolerated, continue aggressive pulmonary hygiene, continue steroid per pulmonary recommendation for prolonged period of time, continue encouraging incentive spirometer and flutter valve, serial chest x-rays, DVT prophylaxis, discharge planning based on clinical progress plan discussed with patient and client relationship consultant on the case
[2018-07-16 16:45] LABS: Glucose,Whole Blood 134 mg/dL (75-99)
--- NOTE | 2018-07-16 16:52 | P.PN ---
Subjective Progress Note Date: 07/16/18 HPI: This is a 67-year-old male being seen examined and evaluated today for consultation. This patient does have a past medical history significant for hypertension, hypertensive cardiovascular disease, mild CAD involving the RCA and the LAD, last stent heart catheterization was in 2014, history of bipolar, COPD, remote history of tobacco use and dependence. The patient was seen in the urgent care setting on Tuesday and was told he has "the flu" and the patient was given a Z-Osmani to take in the outpatient setting. The patient was starting to feel better and then he started to get significantly worse yesterday so he came into the emergency room. The patient was found to have a multilobar pneumonia he was started on IV antibiotics and steroids. He did have an influenza swab that was negative. 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 He denies any exposures to any birds or farm animals or farmland. He has 3. He quit smoking approximately 12 years ago. He does not have wood-burning stove at home. Upon examination the patient's resting up in bed on 10 L of high flow and oxygen via nasal cannula. He continues to have shortness of breath cough and congestion. He has been unable to provide a sputum sample thus far. He does feel the breathing treatments are helping. He has been afebrile no further complaints. Interval History: 07/04/18- patient is being seen examined and evaluated today on rounds. He is resting up in bed on 10 L high flow nasal cannula. Still feels quite dyspneic and short of breath even at rest. We will switch patient over to Airvo to help his breathing. Currently being worked up for questionable an SIEP versus HP. Multiple labs have been obtained and are pending. Patient will require 1 mg/kg daily of prednisone with a very slow outpatient taper. This is again discussed with the patient at length and he is agreeable. He is afebrile. All labs and reports reviewed 07/05/18- patient is being seen examined and evaluated today on rounds. He currenlty is one Airvo high flow at 55 L and 90% FiO2. He feels his breathing is less labored with using this type of supplemental oxygen. He is slowly improving. Most likely will require a home oxygen assessment prior to discharge. 07/06/18- patient is being seen examined and evaluated today on rounds. He continues on Airvo high flow oxygen at 55 L and 90% FiO2. He is very slow to recover when he does get short of breath. His steroids are increased. His antibiotics is switched to Levaquin. Yesterday we also added Perforomist and Mucomyst inhalation. He seems to feel those are helping him as well. The patient could potentially undergo a bronchoscopy once his oxygen demand significantly decreased. He is not a candidate at this time due to his high oxygen demands. This is discussed with him at length as well as the attending provider. The patient has not ambulated much since being admitted. We will consult PT and OT as well as PMNR for possible inpatient rehab on discharge. 07/07/18- patient is being seen examined and evaluated today on rounds. The patient continues on Airvo high flow oxygen and 55 L and 90% FiO2. This is discussed with the patient's direct care nurse to start weaning the patient, on oxygen as tolerated. He states he feels less short of breath today. He does have multiple environmental ALLERGIES that came back positive which are discussed with him today. He will be provided a list of these ALLERGIES. Neoplasm was negative. Legionella is pending, HP panel is pending. He seems to be responding well to the increase in steroids in the antibiotics. All labs and reports have been reviewed. 07/08/2017: Patient seen and examined with his daughter at bedside. The patient states he is getting discouraged because he is still very short of breath with minimal exertion. The patient is on airvo at 55 L/m and 85% FiO2. Chest x-ray is obtained and reviewed. There is marked worsening of the bilateral infiltrates. Bronchoscopy is discussed with the patient at length. He is aware that he is too unstable at this point for bronchoscopy and that he would likely end up on mechanical ventilation if bronchoscopy were attempted. It is possible that later in the week it will be an option. Continue high-dose steroids and diuresis for now. 07/09/2018: Patient seen and examined with his daughter at bedside. The patient and his daughter expressed concerns that the patient is not getting any better. Chest x-ray from yesterday is reviewed with them and the patient was found to have worsening bilateral infiltrates. The risks versus benefits of doing a bronchoscopy is discussed with the patient. He would like to try to continue the hypertonic saline, antibiotics, diuresis for now and consider bronchoscopy in 48-72 hours if he is not improving. The possibility of a surgical lung biopsy was also discussed with the patient. I did discuss the possibility of Xolair with the pharmacy. It has been declined for inpatient use at this time. However I will continue to try to obtain this for the patient. 07/11/2018: Patient seen and examined. Patient states he feels like his breathing is starting to improve. He has been able to ambulate around the room. He states he finally feels hope that his breathing is improving. He denies fevers and chills. 05/11/2019: See bronchoscopy report 05/12/2019: Patient seen and examined. Patient states he is feeling much better overall. He has been able to ambulate around the room. He has been coughing out some phlegm. He denies fevers and chills. Pathology and cultures are pending on bronchoscopy specimens. 07/15/2018: Patient seen and examined. Patient states he is feeling better. He states he still does get short of breath with exertion around his room. Antibiotics have been discontinued by infectious disease. The patient did have a positive influenza a culture on the bronchoscopy specimen. His FiO2 is down to 60%. His O2 saturation is 94-95%. We will continue to aggressively titrate down the oxygen. 07/16/2018: Patient seen and examined. Patient is ambulating back to bed from the bathroom. O2 saturation is 88% on 50% FiO2. The patient sits down quickly recovers to 90%. He states he still gets does get short of breath with exertion. He denies fevers and chills. Objective - Vital Signs Vital signs: Vital Signs Temp 98.0 F 07/16/18 14:49 Pulse 82 07/16/18 16:29 Resp 20 07/16/18 07:00 BP 116/68 07/16/18 14:49 Pulse Ox 94 L 07/16/18 16:28 Intake & Output 07/15/18 07/16/18 07/16/18 18:59 06:59 18:59 Intake Total 1196 1080 Output Total 1300 Balance -104 1080 Intake: Oral 1196 1080 Output: Urine 1300 Other: # Voids 2 2 - Exam GENERAL EXAM: Alert, mild apparent distress. HEAD: Normocephalic. EYES: Normal reaction of pupils, equal size. NOSE: Clear with pink turbinates. THROAT: No erythema or exudates. NECK: No masses, no JVD. CHEST: No chest wall deformity. LUNGS: Lungs noted to be rhonchorous with wheezing scattered throughout and prolonged expiration, slowly improving CVS: S1 and S2 normal with no audible mumurs, regular rhythm. ABDOMEN: No hepatosplenomegaly, normal bowel sounds, no guarding or rigidity. EXTREMITIES: No edema noted, pedal pulses palpable. CENTRAL NERVOUS SYSTEM: No focal deficits, tone is normal in all 4 extremities. - Labs CBC & Chem 7: 07/16/18 07:57 07/16/18 07:57 Labs: Abnormal Lab Results - Last 24 Hours (Table) 07/15/18 07/16/18 07/16/18 Range/Units 19:56 07:02 07:57 WBC 12.4 H (3.8-10.6) k/uL RBC 3.63 L (4.30-5.90) m/uL Hgb 11.1 L (13.0-17.5) gm/dL Hct 33.9 L (39.0-53.0) % BUN (9-20) mg/dL Glucose (74-99) mg/dL POC Glucose (mg/dL) 125 H 135 H (75-99) mg/dL Total Protein (6.3-8.2) g/dL Albumin (3.5-5.0) g/dL 07/16/18 07/16/18 07/16/18 Range/Units 07:57 11:14 16:43 WBC (3.8-10.6) k/uL RBC (4.30-5.90) m/uL Hgb (13.0-17.5) gm/dL Hct (39.0-53.0) % BUN 33 H (9-20) mg/dL Glucose 197 H (74-99) mg/dL POC Glucose (mg/dL) 108 H 134 H (75-99) mg/dL Total Protein 5.2 L (6.3-8.2) g/dL Albumin 2.7 L (3.5-5.0) g/dL Assessment and Plan Assessment: Acute hypoxic respiratory failure requiring supplemental oxygen Cryptogenic organizing pneumonia Influenza A Acute exacerbation of COPD CAD with previous stenting Hypertension Bipolar disorder Multiple allergies with elevated IgE Plan Medications have been reviewed and will be continued as ordered. ABX discontinued per ID, initiate Tamiflu Solu-Medrol - taper to 60mg Q12 DuoNeb, budesonide, Perforomist Hypertonic saline nebs Will require 1mg/kg daily of prednisone with a slow taper (over 2-3 months) in the outpatient setting Initiate and encourage incentive spirometery and flutter tx, chest PT Continue with pulmonary hygiene, coughing and deep breathing exercises, and supportive care. Supplemental oxygen to maintain oxygen saturations of 92% or better. Continue nebulizer treatments. GI and DVT prophylaxis. Increase activity as tolerated, PT and OT Diuresis to continue - change to Lasix 40 mg IV Q12 hours Bronch cultures and pathology discussed with the patient at length Continue to aggressively titrate FiO2 AM CXR
[2018-07-16 21:10] LABS: Glucose,Whole Blood 118 mg/dL (75-99)
[2018-07-16] MEDS: MONTELUKAST 10 MG TAB PO SCH (22:12)
[2018-07-17] MEDS: HYPERTONIC SALINE 3% NEBULIZ 4 ML NEBU INHALATION SCH ×4 (00:41→23:20)
--- NOTE | 2018-07-17 05:38 | PN ---
PROGRESS NOTE DATE OF SERVICE: 07/16/2018 REASON FOR FOLLOWUP: Acute pneumonia. INTERVAL HISTORY: The patient is afebrile. He seemed to be breathing more comfortably. The patient denies having any chest pain. Did have some cough, bringing up some sputum. Overall feeling better. No nausea, no vomiting and no diarrhea. PHYSICAL EXAMINATION: On examination, blood pressure 102/66 with pulse of 86, temperature 97.3. He is 93% on high-flow oxygen. General description is an elderly male up in the bed in no distress. RESPIRATORY SYSTEM: Unlabored breathing, with decreased breath sounds at the bases. No wheeze. HEART: S1, S2. Regular rate and rhythm. ABDOMEN: Soft, no tenderness. LABS: Hemoglobin 11.1, white count 12.4, BUN of 33, creatinine 0.89. DIAGNOSTIC IMPRESSION AND PLAN: Patient admitted to the hospital with difficulty breathing and respiratory with concern for possible BOOP also with bronch specimen positive for acute influenza. The patient is currently covered with steroids. Tamiflu to continue for now to finish a 5-day course of therapy. Continue supportive care. MMODL / IJN: [id number] /
[2018-07-17 07:04] LABS: Glucose,Whole Blood 155 mg/dL (75-99)
--- NOTE | 2018-07-17 08:18 | XR ---
EXAMINATION TYPE: XR chest 1V portable DATE OF EXAM: 07/17/2018 COMPARISON: 07/12/2018 HISTORY: Abnormal x-ray FINDINGS: There are bilateral pleural effusions with cardiomegaly and bibasilar infiltrate. There is a diffuse interstitial pattern. Arthropathy shoulders. No. IMPRESSION: 1. Diffuse bilateral airspace disease and pleural effusion correlate for diffuse pneumonia or pulmona ry edema.
[2018-07-17] MEDS: BUDESONIDE 1 MG/2 ML NEBU INHALATION SCH ×2 (08:43→20:07)
[2018-07-17] MEDS: FORMOTEROL FUMARATE 20 MCG/2 ML NEBU INHALATION SCH ×2 (08:43→20:07)
[2018-07-17] MEDS: IPRATROPIUM-ALBUTEROL 3 ML NEB INHALATION SCH ×4 (08:43→20:07)
[2018-07-17] MEDS: METOPROLOL SUCCINATE (ER) 50 MG TAB.ER.24H PO SCH (09:09)
[2018-07-17] MEDS: lamoTRIgine 100 MG TAB PO SCH (09:09)
[2018-07-17] MEDS: HEPARIN SODIUM,PORCINE 5,000 UNIT/ML 1 ML VIAL SQ SCH ×3 (09:09→23:34)
[2018-07-17] MEDS: guaiFENesin 600 MG TABLET.ER PO SCH ×2 (09:10→21:31)
[2018-07-17] MEDS: LISINOPRIL 20 MG TAB PO SCH (09:10)
[2018-07-17] MEDS: FLUCONAZOLE 100 MG TAB PO SCH (09:10)
[2018-07-17] MEDS: OSELTAMIVIR 75 MG CAP PO SCH ×2 (09:10→21:32)
[2018-07-17] MEDS: INSULIN ASPART (NovoLOG) 100 UNIT/ML VIAL SQ SCH ×4 (09:11→21:31)
[2018-07-17] MEDS: PANTOPRAZOLE 40 MG TABLET PO SCH ×2 (10:32→18:25)
[2018-07-17] MEDS: FUROSEMIDE 10 MG/ML 4 ML VIAL IV SCH ×2 (10:32→21:30)
[2018-07-17] MEDS: methylPREDNISolone SOD SUCCI 125 MG/2 ML VIAL IV SCH ×2 (10:32→21:30)
[2018-07-17] MEDS: SERTRALINE 100 MG TAB PO SCH (10:34)
[2018-07-17 11:26] LABS: Glucose,Whole Blood 90 mg/dL (75-99)
--- NOTE | 2018-07-17 12:50 | P.PN ---
Subjective Progress Note Date: 07/17/18 HPI: This is a 67-year-old male being seen examined and evaluated today for consultation. This patient does have a past medical history significant for hypertension, hypertensive cardiovascular disease, mild CAD involving the RCA and the LAD, last stent heart catheterization was in 2014, history of bipolar, COPD, remote history of tobacco use and dependence. The patient was seen in the urgent care setting on Tuesday and was told he has "the flu" and the patient was given a Z-Osmani to take in the outpatient setting. The patient was starting to feel better and then he started to get significantly worse yesterday so he came into the emergency room. The patient was found to have a multilobar pneumonia he was started on IV antibiotics and steroids. He did have an influenza swab that was negative. 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 He denies any exposures to any birds or farm animals or farmland. He has 3. He quit smoking approximately 12 years ago. He does not have wood-burning stove at home. Upon examination the patient's resting up in bed on 10 L of high flow and oxygen via nasal cannula. He continues to have shortness of breath cough and congestion. He has been unable to provide a sputum sample thus far. He does feel the breathing treatments are helping. He has been afebrile no further complaints. Interval History: 07/04/18- patient is being seen examined and evaluated today on rounds. He is resting up in bed on 10 L high flow nasal cannula. Still feels quite dyspneic and short of breath even at rest. We will switch patient over to Airvo to help his breathing. Currently being worked up for questionable an SIEP versus HP. Multiple labs have been obtained and are pending. Patient will require 1 mg/kg daily of prednisone with a very slow outpatient taper. This is again discussed with the patient at length and he is agreeable. He is afebrile. All labs and reports reviewed 07/05/18- patient is being seen examined and evaluated today on rounds. He currenlty is one Airvo high flow at 55 L and 90% FiO2. He feels his breathing is less labored with using this type of supplemental oxygen. He is slowly improving. Most likely will require a home oxygen assessment prior to discharge. 07/06/18- patient is being seen examined and evaluated today on rounds. He continues on Airvo high flow oxygen at 55 L and 90% FiO2. He is very slow to recover when he does get short of breath. His steroids are increased. His antibiotics is switched to Levaquin. Yesterday we also added Perforomist and Mucomyst inhalation. He seems to feel those are helping him as well. The patient could potentially undergo a bronchoscopy once his oxygen demand significantly decreased. He is not a candidate at this time due to his high oxygen demands. This is discussed with him at length as well as the attending provider. The patient has not ambulated much since being admitted. We will consult PT and OT as well as PMNR for possible inpatient rehab on discharge. 07/07/18- patient is being seen examined and evaluated today on rounds. The patient continues on Airvo high flow oxygen and 55 L and 90% FiO2. This is discussed with the patient's direct care nurse to start weaning the patient, on oxygen as tolerated. He states he feels less short of breath today. He does have multiple environmental ALLERGIES that came back positive which are discussed with him today. He will be provided a list of these ALLERGIES. Neoplasm was negative. Legionella is pending, HP panel is pending. He seems to be responding well to the increase in steroids in the antibiotics. All labs and reports have been reviewed. 07/08/2017: Patient seen and examined with his daughter at bedside. The patient states he is getting discouraged because he is still very short of breath with minimal exertion. The patient is on airvo at 55 L/m and 85% FiO2. Chest x-ray is obtained and reviewed. There is marked worsening of the bilateral infiltrates. Bronchoscopy is discussed with the patient at length. He is aware that he is too unstable at this point for bronchoscopy and that he would likely end up on mechanical ventilation if bronchoscopy were attempted. It is possible that later in the week it will be an option. Continue high-dose steroids and diuresis for now. 07/09/2018: Patient seen and examined with his daughter at bedside. The patient and his daughter expressed concerns that the patient is not getting any better. Chest x-ray from yesterday is reviewed with them and the patient was found to have worsening bilateral infiltrates. The risks versus benefits of doing a bronchoscopy is discussed with the patient. He would like to try to continue the hypertonic saline, antibiotics, diuresis for now and consider bronchoscopy in 48-72 hours if he is not improving. The possibility of a surgical lung biopsy was also discussed with the patient. I did discuss the possibility of Xolair with the pharmacy. It has been declined for inpatient use at this time. However I will continue to try to obtain this for the patient. 07/11/2018: Patient seen and examined. Patient states he feels like his breathing is starting to improve. He has been able to ambulate around the room. He states he finally feels hope that his breathing is improving. He denies fevers and chills. 05/11/2019: See bronchoscopy report 05/12/2019: Patient seen and examined. Patient states he is feeling much better overall. He has been able to ambulate around the room. He has been coughing out some phlegm. He denies fevers and chills. Pathology and cultures are pending on bronchoscopy specimens. 07/15/2018: Patient seen and examined. Patient states he is feeling better. He states he still does get short of breath with exertion around his room. Antibiotics have been discontinued by infectious disease. The patient did have a positive influenza a culture on the bronchoscopy specimen. His FiO2 is down to 60%. His O2 saturation is 94-95%. We will continue to aggressively titrate down the oxygen. 07/16/2018: Patient seen and examined. Patient is ambulating back to bed from the bathroom. O2 saturation is 88% on 50% FiO2. The patient sits down quickly recovers to 90%. He states he still gets does get short of breath with exertion. He denies fevers and chills. 07/17/2018: Patient seen and examined. Patient states he doesn't feel as good today. He is a little more short of breath with exertion. FiO2 is at 50%, O2 saturation 94%. He is having a hard time coughing up phlegm. Objective - Vital Signs Vital signs: Vital Signs Temp 98.8 F 07/17/18 07:00 Pulse 86 07/17/18 12:35 Resp 18 07/17/18 08:00 BP 117/73 07/17/18 07:00 Pulse Ox 91 L 07/17/18 08:46 Intake & Output 07/16/18 07/17/18 07/17/18 18:59 06:59 18:59 Intake Total 710 Balance 710 Intake: Intake, IV Titration 160 Amount IV Fluid Continuation 1, 160 000 ml @ 0 mls/hr IV .STK -MED ONE Rx#:[id number] Oral 550 Other: Voiding Method Toilet Urinal # Voids 2 2 - Exam GENERAL EXAM: Alert, mild apparent distress. HEAD: Normocephalic. EYES: Normal reaction of pupils, equal size. NOSE: Clear with pink turbinates. THROAT: No erythema or exudates. NECK: No masses, no JVD. CHEST: No chest wall deformity. LUNGS: Lungs noted to be rhonchorous with wheezing scattered throughout and prolonged expiration, slowly improving CVS: S1 and S2 normal with no audible mumurs, regular rhythm. ABDOMEN: No hepatosplenomegaly, normal bowel sounds, no guarding or rigidity. EXTREMITIES: No edema noted, pedal pulses palpable. CENTRAL NERVOUS SYSTEM: No focal deficits, tone is normal in all 4 extremities. - Labs CBC & Chem 7: 07/16/18 07:57 07/16/18 07:57 Labs: Abnormal Lab Results - Last 24 Hours (Table) 07/16/18 07/16/18 07/17/18 Range/Units 16:43 21:09 07:02 POC Glucose (mg/dL) 134 H 118 H 155 H (75-99) mg/dL Assessment and Plan Assessment: Acute hypoxic respiratory failure requiring supplemental oxygen Cryptogenic organizing pneumonia Influenza A Acute exacerbation of COPD CAD with previous stenting Hypertension Bipolar disorder Multiple allergies with elevated IgE Plan Medications have been reviewed and will be continued as ordered. ABX discontinued per ID, initiate Tamiflu Solu-Medrol - taper to 60mg Q12 DuoNeb, budesonide, Perforomist Hypertonic saline nebs Will require 1mg/kg daily of prednisone with a slow taper (over 2-3 months) in the outpatient setting Initiate and encourage incentive spirometery and flutter tx, chest PT Continue with pulmonary hygiene, coughing and deep breathing exercises, and supportive care. Supplemental oxygen to maintain oxygen saturations of 92% or better. Continue nebulizer treatments. GI and DVT prophylaxis. Increase activity as tolerated, PT and OT Diuresis to continue - to Lasix 40 mg IV Q12 hours Bronch cultures and pathology discussed with the patient at length Continue to aggressively titrate FiO2 AM CXR reviewed Will plan for bronchoscpy in the next 24-48 hours for mucous clearance, patient agreeable
--- NOTE | 2018-07-17 14:59 | P.PN ---
Subjective Progress Note Date: 07/17/18 This is a 67-year-old male one of Dr. Christy with a previous medical history significant for hypertension and hypertensive cardiovascular disease, mild CAD involving the RCA and the the LAD, with a last heart catheterization was done back in 2014, history of bipolar disorder, COPD, remote history of tobacco use and dependence, patient went to a walking clinic on Tuesday and he was diagnosed of having the flu according to him and he was given a Z-Osmani patient was feeling better up until today when he developed to have a significant coughing and increased yellow phlegm production with bloody streaks to it so he ended up coming to the ER at [facility] where he was found to have a multilobar pneumonia he was started on IV antibiotic in the form of Rocephin and Zithromax and and he was placed in droplet precautions until after obtaining the result of the flu swab, pulmonary consultation was obtained from Dr. ADOLFO Ayon. 07/03: Patient is currently on 10 L high flow O2 pulse oxing 92-96%. He states he is slightly better from yesterday. He is having more cough today. Influenza testing came back negative. Repeat chest x-ray this morning shows chronic interstitial lung disease with underlying COPD and stable patchy bilateral infiltrate. CT injury of the chest showed no evidence of central pulmonary embolism. Subsegmental pulmonary arteries are nondiagnostic. Interstitial lung disease. Findings favoring NSIP with no current evidence of fibrosis. Alternatively hypersensitivity pneumonitis or cryptogenic organizing pneumonia or possible. Consult in place with pulmonary medicine which will be seeing him today. Solu-Medrol will remain the same at 40 mg IV every 8 hours. Continue same medications. 07/04: CT results reviewed with patient. 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 Patient states that he had a rough night and does not seem like he is much better. He is bringing up sputum that is light in color. Patient was seen by Dr. Delgado. Solu-Medrol will remain at 40 mg every 8 hours. Sputum culture is in progress. Blood cultures showing no growth after 24 hours. He has been afebrile, heart rate running in the 80s and 90s, blood pressure 131/70, pulse ox 92% on 10 L high flow. Patient is now on humidified oxygen. 07/05: Patient is now on Airvo with FiO2 of 55 pulse oxing 94%. Breathing status is more comfortable using this. Discussed case with Dr. Delgado for possible bronchoscopy. Patient has had a bowel movement. He denies any diarrhea. Legionella, mycoplasma, hypersensitivity panels and alpha-1 antitrypsin are all pending. IgE is elevated at 115. His white count is normal, hemoglobin 9.2, creatinine 0.68. Blood sugars running between 144 and 187. Sputum culture is finalized with normal respiratory mehran. 07/06: Patient is requiring FiO2 of 90% on Airvo. Pulse ox is 92%. Patient has been afebrile, heart rate running in the 80s. Blood pressure 126/84. Dr. Delgado does not plan to do bronchoscopy while patient oxygen needs are high. Her recommendations are to increase steroids to 60 mg IV every 6 hours and change antibiotics to Levaquin. Perforomist and Mucomyst were added yesterday. Pulmonary as noted in consult with Dr. Ware for inpatient rehab. Alpha I antitrypsin came back negative. Mycoplasma and Legionella are pending. 07/07: Patient continues to have significant shortness of breath and states he can 't catch his breath. He is now on FiO2 of 90. He states he feels well otherwise and is found sitting up in a recliner. He did receive Lasix which is discontinued. Mycoplasma came back negative. Legionella pending. White count was normal, hemoglobin 11.1, creatinine 0.74. Blood sugars run between 132 and 235. Pulse ox is 95% on high flow nasal cannula, afebrile, heart rate running in the 70s and 80s, blood pressure 135/78. Patient has been seen by Dr. Ware and plan is to follow notes. Doubt the patient will be a candidate for inpatient rehab. 07/08: Patient continues to have significant shortness of breath feeling that he cannot catch his breath at all. Mucinex, flutter valve and Diflucan added today. He states he has bringing up a little bit of sputum but not very much. He has been afebrile, pulse ox is 94% on FiO2 of 85, heart rate running in the 80s and 90s, blood pressure 130/71. 07/09: Dr. Delgado has added Lasix 40mg every 8 hours IV. Xolair was attempted but not covered as Inpatient treatment. He has been started on hypertonic nebulizer treatments. Patient denies any improvement in breathing today. He still feels he can't catch his breath. He is onFIO2 85 with pulse ox of 95%. He has been afebrile, heart rate in the 80s, BP 148/78. Repeat chest x-ray reveals marked worsening of multifocal alveolar and interstitial opacities. Multifocal pneumonia, pulmonary edema or ARDS. Chest physiotherapy ordered. 07/10: Patient denies any significant improvement from yesterday. He did start chest physiotherapy yesterday. He states he feels more tired today but he did sleep well last night. Cough is nonproductive. Dr. Núñez discussed case with Dr. Delgado and plan is if patient is not improved by Tuesday, transferred at [facility]. Pulse ox is 95% on FiO2 of 85 by high flow nasal cannula, heart rate running in the 90s, afebrile, blood pressure 103/68. No change in medications. 07/11: Patient states that he woke up this morning feeling better. He states he can almost take a half of breath today. He is not bringing up sputum. Wheezing is improved. He has tried to increase activity within his room. He states he only received chest physiotherapy twice yesterday. We'll plan to request this done 4 times daily. He has been afebrile, heart rate running in the 70s, pulse ox 91% on FiO2 of 75. Dr. Delgado is attempting to obtain Xolair from the office for patient to take while in the hospital. 07/12: Patient is tentatively scheduled for bronchoscopy today with Dr. Delgado. He is currently pulse oxing 95% on a 73 FiO2, heart rate 70-80, but pressure 106 /69. He has been afebrile. He states he has been getting his chest physiotherapy. Dr. Tavarez is following and continues to recommend Levaquin for now. Patient is feeling more comfortable and breathing is improving very slowly. Patient has been afebrile, heart rate running in 70s and 80s, blood pressure 106/69. 07/13: Patient states that he is much better today. He is ambulating in his room he states he can actually take a normal breath at this point. He remains on AirVo. Blood pressure is stable, heart rate running and 80s, afebrile. Dr. Tavarez is following and continued on Levaquin. Patient underwent bronchoscopy with removal of mucous plugs. Cytology and cultures are in progress. 07/14: Patient states his breathing continues to be improving. He states he slept well last night. Patient states that Dr. Delgado mentioned he may need to have a second bronchoscopy during this hospitalization. He has been afebrile, blood pressure 113/70, afebrile, heart rate running in the 80s, pulse ox 95% on FiO2 of 70. Blood sugar running in the 140s, WBC 12.7, hemoglobin 12.1, platelet creatinine 0.91. Cytology is negative for malignancy. Anticipate patient will be here over the weekend too early to mid next week. 07/15: Patient feels much improved since yesterday tolerating diet denying chest pain, shortness breath, nausea, vomiting or abdominal pain. Would like to continue weaning off oxygen as tolerated, continue aggressive pulmonary hygiene , continue steroid per pulmonary recommendation for prolonged period of time, continue encouraging incentive spirometer and flutter valve, serial chest x-rays , DVT prophylaxis, discharge planning based on clinical progress and we would like to wean off IV steroids to oral medication upon improvement 07/16: Patient feels much improved since yesterday tolerating diet denying chest pain, shortness breath, nausea, vomiting or abdominal pain patient is still lethargic overall and felt slightly short of breath after reducing oxygen this morning. Would like to continue weaning off oxygen as tolerated, continue aggressive pulmonary hygiene, continue steroid per pulmonary recommendation for prolonged period of time, continue encouraging incentive spirometer and flutter valve, serial chest x-rays, DVT prophylaxis, discharge planning based on clinical progress plan discussed with patient and customer consultant on the case 07/17: Repeat chest x-ray shows diffuse bilateral airspace disease and pleural effusion correlate for diffuse pneumonia or pulmonary edema. Bronchoscopy was concern for both and proximal specimen positive for acute influenza and patient has been started on Tamiflu. He has continued on steroids. Patient does continue to improve very slowly. He continues to have some shortness of breath with exertion. FiO2 is 50% with O2 saturation of 94%. He continues to have cough with very minimal sputum production. He has been afebrile Review of Systems Constitutional: Reports chills, Reports fever, denies weakness, denies daytime sleepiness Eyes: denies blurred vision, denies double vision Ears: deny: decreased hearing Ears, nose, mouth and throat: Denies dysphagia, Denies neck lump, Denies swelling in throat, Denies sore throat Cardiovascular: Reports decreased exercise tolerance, Reports shortness of breath, Denies chest pain, Denies lightheadedness, Denies rapid heart beat, Denies syncope Respiratory: Reports shortness of breath, reports congestion, Reports cough, reports sputum, Reports hemoptysis, Reports wheezing, Denies home oxygen, Denies sleep apnea, Denies snoring Gastrointestinal: Denies abdominal pain, Denies belching, Denies bloating, Denies heartburn, Denies melena, Denies nausea, Denies vomiting Genitourinary: Denies dysuria, Denies nocturia Musculoskeletal: Denies myalgias Integumentary: Denies pruritus, Denies rash, denies wounds Neurological: Denies numbness, Denies weakness Psychiatric: Denies anxiety, Denies depression Endocrine: Denies fatigue, abnormal blood sugars Objective - Vital Signs Vital signs: Vital Signs Temp 98.8 F 07/17/18 07:00 Pulse 86 07/17/18 09:25 Resp 18 07/17/18 08:00 BP 117/73 07/17/18 07:00 Pulse Ox 91 L 07/17/18 08:46 Intake & Output 07/16/18 07/17/18 07/17/18 18:59 06:59 18:59 Intake Total 710 Balance 710 Intake: Intake, IV Titration 160 Amount IV Fluid Continuation 1, 160 000 ml @ 0 mls/hr IV .STK -MED ONE Rx#:[id number] Oral 550 Other: Voiding Method Toilet Urinal # Voids 2 2 - Exam General appearance: average body habitus, no distress while in bed, patient appears comfortable with AirVo. - EENT Eyes: anicteric sclerae, EOMI, PERRLA, no ptosis, no scleral icterus, normal appearance ENT: hearing grossly normal, NA/AT, normal oropharynx, no thrush Ears: bilateral: normal - Neck Neck: no lymphadenopathy, normal ROM, no rigidity Carotids: bilateral: upstroke normal Thyroid: bilateral: normal size - Respiratory Respiratory: bilateral: diminished, rhonchi, wheezing, prolonged expiration, negative: dullness, rales - Cardiovascular Rhythm: regular Heart sounds: normal: S1, S2 Abnormal Heart Sounds: systolic murmur, no S3 Gallop, no S4 Gallop - Gastrointestinal General gastrointestinal: normal bowel sounds, soft, no splenomegaly, no tenderness, no umbilical hernia, no ventral hernia - Integumentary Integumentary: normal, normal turgor - Neurologic Neurologic: CNII-XII intact - Musculoskeletal Musculoskeletal: gait normal, strength equal bilaterally - Psychiatric Psychiatric: A&O x's 3, appropriate affect, intact judgment & insight - Labs CBC & Chem 7: 07/16/18 07:57 07/16/18 07:57 Labs: Abnormal Lab Results - Last 24 Hours (Table) 07/16/18 07/16/18 07/16/18 Range/Units 11:14 16:43 21:09 POC Glucose (mg/dL) 108 H 134 H 118 H (75-99) mg/dL 07/17/18 Range/Units 07:02 POC Glucose (mg/dL) 155 H (75-99) mg/dL Assessment and Plan Plan: 1. Acute hypoxic respiratory failure secondary to cryptogenic organizing pneumonia and acute COPD exacerbation, influenza (most likely present on admission). Continue DuoNeb 3 mL nebulization 4 times every day, Pulmicort 1 mg nebulization twice every day, Perforomist twice daily, Mucinex twice daily, Solu-Medrol 60 mg IV every 6 hours, Singulair, Tamiflu, Diflucan, oxygen to keep saturation greater than 92%, pulmonary consultation from Dr. Delgado. Status post Bronchoscopy. 2. COPD exacerbation. Continue oxygen, DuoNeb 3 mL nebulization 4 times every day, Pulmicort 1 mg nebulization twice every day, Solu-Medrol. Continue as in # 1 3. Mild CAD status post left heart cath physician back in 2014 that showed mild disease of the LAD and RCA. Stable at this time continue patient on Toprol -XL 50 mg orally once every day. 4. Hypertension and hypertensive cardiovascular disease. Continue Toprol-XL 50 mg orally once every day, lisinopril 20 mg orally once every day. 5. Bipolar disorder. Continue Lamictal 100 mg orally once every day as well as sertraline 100 mg orally once every day. 6. GI prophylaxis. Protonix 40 mg once every day. 7. DVT prophylaxis. Heparin 5000 units subcutaneously every 8 hours. 8. Patient is full code. Discharge plan: Return home mid week. Impression and plan of care have been directed as dictated by the signing physician. Meghna Convery nurse practitioner acting as scribe for signing physician.
[2018-07-17 17:31] LABS: Glucose,Whole Blood 276 mg/dL (75-99)
[2018-07-17 20:07] LABS: Glucose,Whole Blood 295 mg/dL (75-99)
[2018-07-17] MEDS ORDERED: INSULIN ASPART (NovoLOG) 100 UNIT/ML VIAL SQ ONE (20:34)
[2018-07-17] MEDS: INSULIN DETEMIR (LEVEMIR) 100 UNIT/ML SYR SQ SCH (21:31)
[2018-07-17] MEDS: MONTELUKAST 10 MG TAB PO SCH (21:32)
--- NOTE | 2018-07-17 23:02 | PN ---
PROGRESS NOTE DATE OF SERVICE: 07/17/2018. REASON FOR FOLLOWUP: Pneumonia. INTERVAL HISTORY: The patient is currently afebrile. He seems to be breathing more comfortably. Patient denies having any chest pain. Did have some cough, not bringing up any sputum. No abdominal pain, no diarrhea. PHYSICAL EXAMINATION: Blood pressure is 100/60 with a pulse of 94, temperature 98.1, he is 93% on high-flow oxygen. GENERAL DESCRIPTION: An elderly male lying in bed in no distress. RESPIRATORY SYSTEM: Unlabored breathing with decreased breath sounds. No wheeze. HEART: S1, S2. Regular rate and rhythm. ABDOMEN: Soft. LABS: No new labs have been obtained today. DIAGNOSTIC IMPRESSION AND PLAN: Patient with bilateral interstitial infiltrate with concern of possible BOOP. No diffuse pneumonia. The patient is currently covered with Tamiflu and Levaquin. Possible repeat bronch on Tuesday. Patient to continue with supportive care. MMODL / IJN: [id number] /
[2018-07-18 07:13] LABS: Glucose,Whole Blood 138 mg/dL (75-99)
[2018-07-18] MEDS: BUDESONIDE 1 MG/2 ML NEBU INHALATION SCH ×2 (08:08→20:24)
[2018-07-18] MEDS: HYPERTONIC SALINE 3% NEBULIZ 4 ML NEBU INHALATION SCH ×3 (08:08→23:51)
[2018-07-18] MEDS: IPRATROPIUM-ALBUTEROL 3 ML NEB INHALATION SCH ×4 (08:08→20:24)
[2018-07-18] MEDS: FORMOTEROL FUMARATE 20 MCG/2 ML NEBU INHALATION SCH ×3 (08:08→20:24)
[2018-07-18] MEDS: HEPARIN SODIUM,PORCINE 5,000 UNIT/ML 1 ML VIAL SQ SCH ×2 (08:45→17:08)
[2018-07-18] MEDS: methylPREDNISolone SOD SUCCI 125 MG/2 ML VIAL IV SCH ×2 (08:45→21:35)
[2018-07-18] MEDS: OSELTAMIVIR 75 MG CAP PO SCH ×2 (08:46→21:35)
[2018-07-18] MEDS: lamoTRIgine 100 MG TAB PO SCH (08:46)
[2018-07-18] MEDS: FLUCONAZOLE 100 MG TAB PO SCH (08:46)
[2018-07-18] MEDS: FUROSEMIDE 10 MG/ML 4 ML VIAL IV SCH ×2 (08:46→21:34)
[2018-07-18] MEDS: PANTOPRAZOLE 40 MG TABLET PO SCH ×2 (08:47→17:08)
[2018-07-18] MEDS: SERTRALINE 100 MG TAB PO SCH (08:47)
[2018-07-18] MEDS: METOPROLOL SUCCINATE (ER) 50 MG TAB.ER.24H PO SCH (08:47)
[2018-07-18] MEDS: LISINOPRIL 20 MG TAB PO SCH (08:48)
[2018-07-18] MEDS: guaiFENesin 600 MG TABLET.ER PO SCH ×2 (08:48→21:34)
[2018-07-18] MEDS: INSULIN ASPART (NovoLOG) 100 UNIT/ML VIAL SQ SCH ×4 (08:48→21:27)
[2018-07-18 11:21] LABS: Glucose,Whole Blood 120 mg/dL (75-99)
--- NOTE | 2018-07-18 11:58 | P.PN ---
Subjective Progress Note Date: 07/18/18 HPI: This is a 67-year-old male being seen examined and evaluated today for consultation. This patient does have a past medical history significant for hypertension, hypertensive cardiovascular disease, mild CAD involving the RCA and the LAD, last stent heart catheterization was in 2014, history of bipolar, COPD, remote history of tobacco use and dependence. The patient was seen in the urgent care setting on Tuesday and was told he has "the flu" and the patient was given a Z-Osmani to take in the outpatient setting. The patient was starting to feel better and then he started to get significantly worse yesterday so he came into the emergency room. The patient was found to have a multilobar pneumonia he was started on IV antibiotics and steroids. He did have an influenza swab that was negative. 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 He denies any exposures to any birds or farm animals or farmland. He has 3. He quit smoking approximately 12 years ago. He does not have wood-burning stove at home. Upon examination the patient's resting up in bed on 10 L of high flow and oxygen via nasal cannula. He continues to have shortness of breath cough and congestion. He has been unable to provide a sputum sample thus far. He does feel the breathing treatments are helping. He has been afebrile no further complaints. Interval History: 07/04/18- patient is being seen examined and evaluated today on rounds. He is resting up in bed on 10 L high flow nasal cannula. Still feels quite dyspneic and short of breath even at rest. We will switch patient over to Airvo to help his breathing. Currently being worked up for questionable an SIEP versus HP. Multiple labs have been obtained and are pending. Patient will require 1 mg/kg daily of prednisone with a very slow outpatient taper. This is again discussed with the patient at length and he is agreeable. He is afebrile. All labs and reports reviewed 07/05/18- patient is being seen examined and evaluated today on rounds. He currenlty is one Airvo high flow at 55 L and 90% FiO2. He feels his breathing is less labored with using this type of supplemental oxygen. He is slowly improving. Most likely will require a home oxygen assessment prior to discharge. 07/06/18- patient is being seen examined and evaluated today on rounds. He continues on Airvo high flow oxygen at 55 L and 90% FiO2. He is very slow to recover when he does get short of breath. His steroids are increased. His antibiotics is switched to Levaquin. Yesterday we also added Perforomist and Mucomyst inhalation. He seems to feel those are helping him as well. The patient could potentially undergo a bronchoscopy once his oxygen demand significantly decreased. He is not a candidate at this time due to his high oxygen demands. This is discussed with him at length as well as the attending provider. The patient has not ambulated much since being admitted. We will consult PT and OT as well as PMNR for possible inpatient rehab on discharge. 07/07/18- patient is being seen examined and evaluated today on rounds. The patient continues on Airvo high flow oxygen and 55 L and 90% FiO2. This is discussed with the patient's direct care nurse to start weaning the patient, on oxygen as tolerated. He states he feels less short of breath today. He does have multiple environmental ALLERGIES that came back positive which are discussed with him today. He will be provided a list of these ALLERGIES. Neoplasm was negative. Legionella is pending, HP panel is pending. He seems to be responding well to the increase in steroids in the antibiotics. All labs and reports have been reviewed. 07/08/2017: Patient seen and examined with his daughter at bedside. The patient states he is getting discouraged because he is still very short of breath with minimal exertion. The patient is on airvo at 55 L/m and 85% FiO2. Chest x-ray is obtained and reviewed. There is marked worsening of the bilateral infiltrates. Bronchoscopy is discussed with the patient at length. He is aware that he is too unstable at this point for bronchoscopy and that he would likely end up on mechanical ventilation if bronchoscopy were attempted. It is possible that later in the week it will be an option. Continue high-dose steroids and diuresis for now. 07/09/2018: Patient seen and examined with his daughter at bedside. The patient and his daughter expressed concerns that the patient is not getting any better. Chest x-ray from yesterday is reviewed with them and the patient was found to have worsening bilateral infiltrates. The risks versus benefits of doing a bronchoscopy is discussed with the patient. He would like to try to continue the hypertonic saline, antibiotics, diuresis for now and consider bronchoscopy in 48-72 hours if he is not improving. The possibility of a surgical lung biopsy was also discussed with the patient. I did discuss the possibility of Xolair with the pharmacy. It has been declined for inpatient use at this time. However I will continue to try to obtain this for the patient. 07/11/2018: Patient seen and examined. Patient states he feels like his breathing is starting to improve. He has been able to ambulate around the room. He states he finally feels hope that his breathing is improving. He denies fevers and chills. 05/11/2019: See bronchoscopy report 05/12/2019: Patient seen and examined. Patient states he is feeling much better overall. He has been able to ambulate around the room. He has been coughing out some phlegm. He denies fevers and chills. Pathology and cultures are pending on bronchoscopy specimens. 07/15/2018: Patient seen and examined. Patient states he is feeling better. He states he still does get short of breath with exertion around his room. Antibiotics have been discontinued by infectious disease. The patient did have a positive influenza a culture on the bronchoscopy specimen. His FiO2 is down to 60%. His O2 saturation is 94-95%. We will continue to aggressively titrate down the oxygen. 07/16/2018: Patient seen and examined. Patient is ambulating back to bed from the bathroom. O2 saturation is 88% on 50% FiO2. The patient sits down quickly recovers to 90%. He states he still gets does get short of breath with exertion. He denies fevers and chills. 07/17/2018: Patient seen and examined. Patient states he doesn't feel as good today. He is a little more short of breath with exertion. FiO2 is at 50%, O2 saturation 94%. He is having a hard time coughing up phlegm. 07/18/2018: Patient seen and examined. FiO2 has been decreased to 45% and flow has been decreased to 40 L/m. The patient states he is starting to feel better. He still feels like he cannot cough up his phlegm. The respiratory therapist is at bedside and states she will keep a close eye on him and progressively wean his oxygen throughout the day. She also notes that his pulse ox on his ear is markedly higher than on his finger. On his ear his O2 saturation is 98-99%. Objective - Vital Signs Vital signs: Vital Signs Temp 98.3 F 07/18/18 07:00 Pulse 88 07/18/18 11:53 Resp 22 07/18/18 07:00 BP 124/76 07/18/18 07:00 Pulse Ox 100 07/18/18 11:35 Intake & Output 07/17/18 07/18/18 07/18/18 18:59 06:59 18:59 Intake Total 720 750 200 Output Total 597 903 7815 Balance 120 150 -1800 Intake: IV 160 0.9 Normal Saline 160 Oral 720 590 200 Output: Urine 675 111 0689 Other: # Voids 2 - Exam GENERAL EXAM: Alert, mild apparent distress. HEAD: Normocephalic. EYES: Normal reaction of pupils, equal size. NOSE: Clear with pink turbinates. THROAT: No erythema or exudates. NECK: No masses, no JVD. CHEST: No chest wall deformity. LUNGS: Lungs noted to be rhonchorous with wheezing scattered throughout and prolonged expiration, slowly improving CVS: S1 and S2 normal with no audible mumurs, regular rhythm. ABDOMEN: No hepatosplenomegaly, normal bowel sounds, no guarding or rigidity. EXTREMITIES: No edema noted, pedal pulses palpable. CENTRAL NERVOUS SYSTEM: No focal deficits, tone is normal in all 4 extremities. - Labs CBC & Chem 7: 07/16/18 07:57 07/16/18 07:57 Labs: Abnormal Lab Results - Last 24 Hours (Table) 07/17/18 07/17/18 07/18/18 Range/Units 17:18 20:05 07:04 POC Glucose (mg/dL) 276 H 295 H 138 H (75-99) mg/dL 07/18/18 Range/Units 11:10 POC Glucose (mg/dL) 120 H (75-99) mg/dL Microbiology - Last 24 Hours (Table) 07/12/18 12:48 Fungal Culture - Preliminary Bronchial Brushings - Right Anna albicans Assessment and Plan Assessment: Acute hypoxic respiratory failure requiring supplemental oxygen Cryptogenic organizing pneumonia Influenza A Acute exacerbation of COPD CAD with previous stenting Hypertension Bipolar disorder Multiple allergies with elevated IgE Plan Medications have been reviewed and will be continued as ordered. ABX discontinued per ID, continue Tamiflu Solu-Medrol - taper to 60mg Q12 DuoNeb, budesonide, Perforomist Hypertonic saline nebs Will require 1mg/kg daily of prednisone with a slow taper (over 2-3 months) in the outpatient setting Initiate and encourage incentive spirometery and flutter tx, chest PT Continue with pulmonary hygiene, coughing and deep breathing exercises, and supportive care. Supplemental oxygen to maintain oxygen saturations of 92% or better. Continue nebulizer treatments. GI and DVT prophylaxis. Increase activity as tolerated, PT and OT Diuresis to continue - to Lasix 40 mg IV Q12 hours Continue to aggressively titrate FiO2 Bronchoscopy scheduled for tomorrow at 1230
--- NOTE | 2018-07-18 13:46 | P.PN ---
Subjective Progress Note Date: 07/18/18 This is a 67-year-old male one of Dr. Christy with a previous medical history significant for hypertension and hypertensive cardiovascular disease, mild CAD involving the RCA and the the LAD, with a last heart catheterization was done back in 2014, history of bipolar disorder, COPD, remote history of tobacco use and dependence, patient went to a walking clinic on Tuesday and he was diagnosed of having the flu according to him and he was given a Z-Osmani patient was feeling better up until today when he developed to have a significant coughing and increased yellow phlegm production with bloody streaks to it so he ended up coming to the ER at [facility] where he was found to have a multilobar pneumonia he was started on IV antibiotic in the form of Rocephin and Zithromax and and he was placed in droplet precautions until after obtaining the result of the flu swab, pulmonary consultation was obtained from Dr. ADOLFO Ayon. 07/03: Patient is currently on 10 L high flow O2 pulse oxing 92-96%. He states he is slightly better from yesterday. He is having more cough today. Influenza testing came back negative. Repeat chest x-ray this morning shows chronic interstitial lung disease with underlying COPD and stable patchy bilateral infiltrate. CT injury of the chest showed no evidence of central pulmonary embolism. Subsegmental pulmonary arteries are nondiagnostic. Interstitial lung disease. Findings favoring NSIP with no current evidence of fibrosis. Alternatively hypersensitivity pneumonitis or cryptogenic organizing pneumonia or possible. Consult in place with pulmonary medicine which will be seeing him today. Solu-Medrol will remain the same at 40 mg IV every 8 hours. Continue same medications. 07/04: CT results reviewed with patient. 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 Patient states that he had a rough night and does not seem like he is much better. He is bringing up sputum that is light in color. Patient was seen by Dr. Delgado. Solu-Medrol will remain at 40 mg every 8 hours. Sputum culture is in progress. Blood cultures showing no growth after 24 hours. He has been afebrile, heart rate running in the 80s and 90s, blood pressure 131/70, pulse ox 92% on 10 L high flow. Patient is now on humidified oxygen. 07/05: Patient is now on Airvo with FiO2 of 55 pulse oxing 94%. Breathing status is more comfortable using this. Discussed case with Dr. Delgado for possible bronchoscopy. Patient has had a bowel movement. He denies any diarrhea. Legionella, mycoplasma, hypersensitivity panels and alpha-1 antitrypsin are all pending. IgE is elevated at 115. His white count is normal, hemoglobin 9.2, creatinine 0.68. Blood sugars running between 144 and 187. Sputum culture is finalized with normal respiratory mehran. 07/06: Patient is requiring FiO2 of 90% on Airvo. Pulse ox is 92%. Patient has been afebrile, heart rate running in the 80s. Blood pressure 126/84. Dr. Delgado does not plan to do bronchoscopy while patient oxygen needs are high. Her recommendations are to increase steroids to 60 mg IV every 6 hours and change antibiotics to Levaquin. Perforomist and Mucomyst were added yesterday. Pulmonary as noted in consult with Dr. Ware for inpatient rehab. Alpha I antitrypsin came back negative. Mycoplasma and Legionella are pending. 07/07: Patient continues to have significant shortness of breath and states he can 't catch his breath. He is now on FiO2 of 90. He states he feels well otherwise and is found sitting up in a recliner. He did receive Lasix which is discontinued. Mycoplasma came back negative. Legionella pending. White count was normal, hemoglobin 11.1, creatinine 0.74. Blood sugars run between 132 and 235. Pulse ox is 95% on high flow nasal cannula, afebrile, heart rate running in the 70s and 80s, blood pressure 135/78. Patient has been seen by Dr. Ware and plan is to follow notes. Doubt the patient will be a candidate for inpatient rehab. 07/08: Patient continues to have significant shortness of breath feeling that he cannot catch his breath at all. Mucinex, flutter valve and Diflucan added today. He states he has bringing up a little bit of sputum but not very much. He has been afebrile, pulse ox is 94% on FiO2 of 85, heart rate running in the 80s and 90s, blood pressure 130/71. 07/09: Dr. Delgado has added Lasix 40mg every 8 hours IV. Xolair was attempted but not covered as Inpatient treatment. He has been started on hypertonic nebulizer treatments. Patient denies any improvement in breathing today. He still feels he can't catch his breath. He is onFIO2 85 with pulse ox of 95%. He has been afebrile, heart rate in the 80s, BP 148/78. Repeat chest x-ray reveals marked worsening of multifocal alveolar and interstitial opacities. Multifocal pneumonia, pulmonary edema or ARDS. Chest physiotherapy ordered. 07/10: Patient denies any significant improvement from yesterday. He did start chest physiotherapy yesterday. He states he feels more tired today but he did sleep well last night. Cough is nonproductive. Dr. Núñez discussed case with Dr. Delgado and plan is if patient is not improved by Tuesday, transferred at [facility]. Pulse ox is 95% on FiO2 of 85 by high flow nasal cannula, heart rate running in the 90s, afebrile, blood pressure 103/68. No change in medications. 07/11: Patient states that he woke up this morning feeling better. He states he can almost take a half of breath today. He is not bringing up sputum. Wheezing is improved. He has tried to increase activity within his room. He states he only received chest physiotherapy twice yesterday. We'll plan to request this done 4 times daily. He has been afebrile, heart rate running in the 70s, pulse ox 91% on FiO2 of 75. Dr. Delgado is attempting to obtain Xolair from the office for patient to take while in the hospital. 07/12: Patient is tentatively scheduled for bronchoscopy today with Dr. Delgado. He is currently pulse oxing 95% on a 73 FiO2, heart rate 70-80, but pressure 106 /69. He has been afebrile. He states he has been getting his chest physiotherapy. Dr. Tavarez is following and continues to recommend Levaquin for now. Patient is feeling more comfortable and breathing is improving very slowly. Patient has been afebrile, heart rate running in 70s and 80s, blood pressure 106/69. 07/13: Patient states that he is much better today. He is ambulating in his room he states he can actually take a normal breath at this point. He remains on AirVo. Blood pressure is stable, heart rate running and 80s, afebrile. Dr. Tavarez is following and continued on Levaquin. Patient underwent bronchoscopy with removal of mucous plugs. Cytology and cultures are in progress. 07/14: Patient states his breathing continues to be improving. He states he slept well last night. Patient states that Dr. Delgado mentioned he may need to have a second bronchoscopy during this hospitalization. He has been afebrile, blood pressure 113/70, afebrile, heart rate running in the 80s, pulse ox 95% on FiO2 of 70. Blood sugar running in the 140s, WBC 12.7, hemoglobin 12.1, platelet creatinine 0.91. Cytology is negative for malignancy. Anticipate patient will be here over the weekend too early to mid next week. 07/15: Patient feels much improved since yesterday tolerating diet denying chest pain, shortness breath, nausea, vomiting or abdominal pain. Would like to continue weaning off oxygen as tolerated, continue aggressive pulmonary hygiene , continue steroid per pulmonary recommendation for prolonged period of time, continue encouraging incentive spirometer and flutter valve, serial chest x-rays , DVT prophylaxis, discharge planning based on clinical progress and we would like to wean off IV steroids to oral medication upon improvement 07/16: Patient feels much improved since yesterday tolerating diet denying chest pain, shortness breath, nausea, vomiting or abdominal pain patient is still lethargic overall and felt slightly short of breath after reducing oxygen this morning. 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 Bronchoscopy was concern for organizing pneumonia and positive for acute influenza and patient has been started on Tamiflu. He has continued on steroids. Patient does continue to improve very slowly. He continues to have some shortness of breath with exertion. FiO2 is 50% with O2 saturation of 94%. He continues to have cough with very minimal sputum production. He has been afebrile 07/18: Patient's respiratory status is currently stable from yesterday. Patient continues on Tamiflu and is in droplet isolation. He states that he has plan for bronchoscopy tomorrow. O2 needs are decreased to 45 FiO2 with O2 saturation of 100. He remains afebrile. He is continued on Solu-Medrol 60 mg every 12 hours. No change in medications today. Review of Systems Constitutional: Reports chills, Reports fever, denies weakness, denies daytime sleepiness Eyes: denies blurred vision, denies double vision Ears: deny: decreased hearing Ears, nose, mouth and throat: Denies dysphagia, Denies neck lump, Denies swelling in throat, Denies sore throat Cardiovascular: Reports decreased exercise tolerance, Reports shortness of breath, Denies chest pain, Denies lightheadedness, Denies rapid heart beat, Denies syncope Respiratory: Reports shortness of breath, reports congestion, Reports cough, reports sputum, denies hemoptysis, Reports wheezing, Denies home oxygen, Denies sleep apnea, Denies snoring Gastrointestinal: Denies abdominal pain, Denies belching, Denies bloating, Denies heartburn, Denies melena, Denies nausea, Denies vomiting Genitourinary: Denies dysuria, Denies nocturia Musculoskeletal: Denies myalgias Integumentary: Denies pruritus, Denies rash, denies wounds Neurological: Denies numbness, Denies weakness Psychiatric: Denies anxiety, Denies depression Endocrine: Denies fatigue, abnormal blood sugars Objective - Vital Signs Vital signs: Vital Signs Temp 98.3 F 07/18/18 07:00 Pulse 94 07/18/18 08:44 Resp 22 07/18/18 07:00 BP 124/76 07/18/18 07:00 Pulse Ox 100 07/18/18 08:08 Intake & Output 07/17/18 07/18/18 07/18/18 18:59 06:59 18:59 Intake Total 720 750 Output Total 600 600 Balance 120 150 Intake: IV 160 0.9 Normal Saline 160 Oral 720 590 Output: Urine 600 600 Other: # Voids 2 - Exam General appearance: average body habitus, appears comfortable while in bed, patient appears comfortable with AirVo. - EENT Eyes: anicteric sclerae, EOMI, PERRLA, no ptosis, no scleral icterus, normal appearance ENT: hearing grossly normal, NA/AT, normal oropharynx, no thrush Ears: bilateral: normal - Neck Neck: no lymphadenopathy, normal ROM, no rigidity Carotids: bilateral: upstroke normal Thyroid: bilateral: normal size - Respiratory Respiratory: bilateral: diminished, rhonchi, wheezing, prolonged expiration, negative: dullness, rales - Cardiovascular Rhythm: regular Heart sounds: normal: S1, S2 Abnormal Heart Sounds: systolic murmur, no S3 Gallop, no S4 Gallop - Gastrointestinal General gastrointestinal: normal bowel sounds, soft, no splenomegaly, no tenderness, no umbilical hernia, no ventral hernia - Integumentary Integumentary: normal, normal turgor - Neurologic Neurologic: CNII-XII intact - Musculoskeletal Musculoskeletal: gait normal, strength equal bilaterally - Psychiatric Psychiatric: A&O x's 3, appropriate affect, intact judgment & insight - Labs CBC & Chem 7: 07/16/18 07:57 07/16/18 07:57 Labs: Abnormal Lab Results - Last 24 Hours (Table) 07/17/18 07/17/18 07/18/18 Range/Units 17:18 20:05 07:04 POC Glucose (mg/dL) 276 H 295 H 138 H (75-99) mg/dL Microbiology - Last 24 Hours (Table) 07/12/18 12:48 Fungal Culture - Preliminary Bronchial Brushings - Right Anna albicans Assessment and Plan Plan: 1. Acute hypoxic respiratory failure secondary to cryptogenic organizing pneumonia and acute COPD exacerbation, influenza (most likely present on admission). Continue DuoNeb 3 mL nebulization 4 times every day, Pulmicort 1 mg nebulization twice every day, Perforomist twice daily, Mucinex twice daily, Solu-Medrol 60 mg IV every 12 hours, Singulair, Tamiflu, Diflucan, oxygen to keep saturation greater than 92%, pulmonary consultation from Dr. Delgado. Status post Bronchoscopy. Repeat bronchoscopy for tomorrow. Continue to wean oxygen. 2. COPD exacerbation. Continue oxygen, DuoNeb 3 mL nebulization 4 times every day, Pulmicort 1 mg nebulization twice every day, Solu-Medrol. Continue as in # 1 3. Mild CAD status post left heart cath physician back in 2014 that showed mild disease of the LAD and RCA. Stable at this time continue patient on Toprol -XL 50 mg orally once every day. 4. Hypertension and hypertensive cardiovascular disease. Continue Toprol-XL 50 mg orally once every day, lisinopril 20 mg orally once every day. 5. Bipolar disorder. Continue Lamictal 100 mg orally once every day as well as sertraline 100 mg orally once every day. 6. GI prophylaxis. Protonix 40 mg once every day. 7. DVT prophylaxis. Heparin 5000 units subcutaneously every 8 hours. 8. Patient is full code. Discharge plan: Return home Impression and plan of care have been directed as dictated by the signing physician. Meghna Larry nurse practitioner acting as scribe for signing physician.
[2018-07-18 17:03] LABS: Glucose,Whole Blood 146 mg/dL (75-99)
[2018-07-18 21:15] LABS: Glucose,Whole Blood 97 mg/dL (75-99)
[2018-07-18] MEDS: MONTELUKAST 10 MG TAB PO SCH (21:35)
[2018-07-18] MEDS: INSULIN DETEMIR (LEVEMIR) 100 UNIT/ML SYR SQ SCH (23:12)
[2018-07-18] MEDS: IPRATROPIUM-ALBUTEROL 3 ML NEB INHALATION PRN (23:52)
[2018-07-19] MEDS: HEPARIN SODIUM,PORCINE 5,000 UNIT/ML 1 ML VIAL SQ SCH ×3 (00:46→15:57)
--- NOTE | 2018-07-19 06:31 | PN ---
PROGRESS NOTE DATE OF SERVICE: 07/18/2018. REASON FOR FOLLOWUP: Pneumonia. INTERVAL HISTORY: The patient is afebrile. He seemed to be breathing more comfortably. Patient denies having any chest pain. Occasional cough. No abdominal pain or any diarrhea. PHYSICAL EXAMINATION: Blood pressure 109/56 with a pulse of 79, temperature 98.2. He is 94% on high-flow oxygen. General description is an elderly male up in the bed in no distress. Respiratory system: Unlabored breathing with decreased breath sounds at bases. No wheeze. Heart S1, S2. Regular rate and rhythm. Abdomen soft, no tenderness. LABS: Bronch wash with Anna albicans. DIAGNOSTIC IMPRESSION AND PLAN: Patient with difficulty breathing. 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 The patient is currently on Solu-Medrol, bronchodilators to continue for now. Blood culture also shows influenza A and the patient is currently on Tamiflu. The patient to continue a five day course of therapy. Continue supportive care. MMODL / IJN: [id number] /
[2018-07-19 07:17] LABS: Glucose,Whole Blood 147 mg/dL (75-99)
[2018-07-19] MEDS: BUDESONIDE 1 MG/2 ML NEBU INHALATION SCH ×2 (08:51→21:07)
[2018-07-19] MEDS: HYPERTONIC SALINE 3% NEBULIZ 4 ML NEBU INHALATION SCH ×2 (08:51→17:04)
[2018-07-19] MEDS: IPRATROPIUM-ALBUTEROL 3 ML NEB INHALATION SCH ×4 (08:51→21:06)
[2018-07-19] MEDS: FORMOTEROL FUMARATE 20 MCG/2 ML NEBU INHALATION SCH ×2 (08:51→21:07)
[2018-07-19] MEDS: methylPREDNISolone SOD SUCCI 125 MG/2 ML VIAL IV SCH ×2 (09:43→22:41)
[2018-07-19] MEDS: guaiFENesin 600 MG TABLET.ER PO SCH ×2 (09:48→22:42)
[2018-07-19] MEDS: PANTOPRAZOLE 40 MG TABLET PO SCH ×2 (09:48→18:18)
[2018-07-19] MEDS: METOPROLOL SUCCINATE (ER) 50 MG TAB.ER.24H PO SCH (09:50)
[2018-07-19] MEDS: LISINOPRIL 20 MG TAB PO SCH (09:50)
[2018-07-19] MEDS: lamoTRIgine 100 MG TAB PO SCH (09:50)
[2018-07-19] MEDS: FUROSEMIDE 10 MG/ML 4 ML VIAL IV SCH ×2 (09:51→22:42)
[2018-07-19] MEDS: INSULIN ASPART (NovoLOG) 100 UNIT/ML VIAL SQ SCH ×4 (10:00→22:43)
[2018-07-19 11:47] LABS: Glucose,Whole Blood 131 mg/dL (75-99)
[2018-07-19] MEDS ORDERED: KETAMINE 10 MG/ML 20 ML VIAL ONE (12:32)
[2018-07-19] MEDS ORDERED: LIDOCAINE 1% INJ 10MG/ML (20 ML MDV) ONE (12:32)
[2018-07-19] MEDS ORDERED: MIDAZOLAM 2 MG/2 ML VIAL ONE (12:32)
[2018-07-19] MEDS ORDERED: PROPOFOL 10 MG/ML 20 ML VIAL IV ONE (12:32)
[2018-07-19] MEDS ORDERED: IV FLUID CONTINUATION 1,000 ML IV ONE (12:45)
[2018-07-19] MEDS ORDERED: LIDOCAINE 2% INJ 20 MG/ML INTRATRACH ONE (13:18)
--- NOTE | 2018-07-19 15:16 | P.PN ---
Subjective Progress Note Date: 07/19/18 This is a 67-year-old male one of Dr. Christy with a previous medical history significant for hypertension and hypertensive cardiovascular disease, mild CAD involving the RCA and the the LAD, with a last heart catheterization was done back in 2014, history of bipolar disorder, COPD, remote history of tobacco use and dependence, patient went to a walking clinic on Tuesday and he was diagnosed of having the flu according to him and he was given a Z-Osmani patient was feeling better up until today when he developed to have a significant coughing and increased yellow phlegm production with bloody streaks to it so he ended up coming to the ER at [facility] where he was found to have a multilobar pneumonia he was started on IV antibiotic in the form of Rocephin and Zithromax and and he was placed in droplet precautions until after obtaining the result of the flu swab, pulmonary consultation was obtained from Dr. ADOLFO Ayon. 07/03: Patient is currently on 10 L high flow O2 pulse oxing 92-96%. He states he is slightly better from yesterday. He is having more cough today. Influenza testing came back negative. Repeat chest x-ray this morning shows chronic interstitial lung disease with underlying COPD and stable patchy bilateral infiltrate. CT injury of the chest showed no evidence of central pulmonary embolism. Subsegmental pulmonary arteries are nondiagnostic. Interstitial lung disease. Findings favoring NSIP with no current evidence of fibrosis. Alternatively hypersensitivity pneumonitis or cryptogenic organizing pneumonia or possible. Consult in place with pulmonary medicine which will be seeing him today. Solu-Medrol will remain the same at 40 mg IV every 8 hours. Continue same medications. 07/04: CT results reviewed with patient. 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 Patient states that he had a rough night and does not seem like he is much better. He is bringing up sputum that is light in color. Patient was seen by Dr. Delgado. Solu-Medrol will remain at 40 mg every 8 hours. Sputum culture is in progress. Blood cultures showing no growth after 24 hours. He has been afebrile, heart rate running in the 80s and 90s, blood pressure 131/70, pulse ox 92% on 10 L high flow. Patient is now on humidified oxygen. 07/05: Patient is now on Airvo with FiO2 of 55 pulse oxing 94%. Breathing status is more comfortable using this. Discussed case with Dr. Delgado for possible bronchoscopy. Patient has had a bowel movement. He denies any diarrhea. Legionella, mycoplasma, hypersensitivity panels and alpha-1 antitrypsin are all pending. IgE is elevated at 115. His white count is normal, hemoglobin 9.2, creatinine 0.68. Blood sugars running between 144 and 187. Sputum culture is finalized with normal respiratory mehran. 07/06: Patient is requiring FiO2 of 90% on Airvo. Pulse ox is 92%. Patient has been afebrile, heart rate running in the 80s. Blood pressure 126/84. Dr. Delgado does not plan to do bronchoscopy while patient oxygen needs are high. Her recommendations are to increase steroids to 60 mg IV every 6 hours and change antibiotics to Levaquin. Perforomist and Mucomyst were added yesterday. Pulmonary as noted in consult with Dr. Ware for inpatient rehab. Alpha I antitrypsin came back negative. Mycoplasma and Legionella are pending. 07/07: Patient continues to have significant shortness of breath and states he can 't catch his breath. He is now on FiO2 of 90. He states he feels well otherwise and is found sitting up in a recliner. He did receive Lasix which is discontinued. Mycoplasma came back negative. Legionella pending. White count was normal, hemoglobin 11.1, creatinine 0.74. Blood sugars run between 132 and 235. Pulse ox is 95% on high flow nasal cannula, afebrile, heart rate running in the 70s and 80s, blood pressure 135/78. Patient has been seen by Dr. Ware and plan is to follow notes. Doubt the patient will be a candidate for inpatient rehab. 07/08: Patient continues to have significant shortness of breath feeling that he cannot catch his breath at all. Mucinex, flutter valve and Diflucan added today. He states he has bringing up a little bit of sputum but not very much. He has been afebrile, pulse ox is 94% on FiO2 of 85, heart rate running in the 80s and 90s, blood pressure 130/71. 07/09: Dr. Delgado has added Lasix 40mg every 8 hours IV. Xolair was attempted but not covered as Inpatient treatment. He has been started on hypertonic nebulizer treatments. Patient denies any improvement in breathing today. He still feels he can't catch his breath. He is onFIO2 85 with pulse ox of 95%. He has been afebrile, heart rate in the 80s, BP 148/78. Repeat chest x-ray reveals marked worsening of multifocal alveolar and interstitial opacities. Multifocal pneumonia, pulmonary edema or ARDS. Chest physiotherapy ordered. 07/10: Patient denies any significant improvement from yesterday. He did start chest physiotherapy yesterday. He states he feels more tired today but he did sleep well last night. Cough is nonproductive. Dr. Núñez discussed case with Dr. Delgado and plan is if patient is not improved by Tuesday, transferred at [facility]. Pulse ox is 95% on FiO2 of 85 by high flow nasal cannula, heart rate running in the 90s, afebrile, blood pressure 103/68. No change in medications. 07/11: Patient states that he woke up this morning feeling better. He states he can almost take a half of breath today. He is not bringing up sputum. Wheezing is improved. He has tried to increase activity within his room. He states he only received chest physiotherapy twice yesterday. We'll plan to request this done 4 times daily. He has been afebrile, heart rate running in the 70s, pulse ox 91% on FiO2 of 75. Dr. Delgado is attempting to obtain Xolair from the office for patient to take while in the hospital. 07/12: Patient is tentatively scheduled for bronchoscopy today with Dr. Delgado. He is currently pulse oxing 95% on a 73 FiO2, heart rate 70-80, but pressure 106 /69. He has been afebrile. He states he has been getting his chest physiotherapy. Dr. Tavarez is following and continues to recommend Levaquin for now. Patient is feeling more comfortable and breathing is improving very slowly. Patient has been afebrile, heart rate running in 70s and 80s, blood pressure 106/69. 07/13: Patient states that he is much better today. He is ambulating in his room he states he can actually take a normal breath at this point. He remains on AirVo. Blood pressure is stable, heart rate running and 80s, afebrile. Dr. Tavarez is following and continued on Levaquin. Patient underwent bronchoscopy with removal of mucous plugs. Cytology and cultures are in progress. 07/14: Patient states his breathing continues to be improving. He states he slept well last night. Patient states that Dr. Delgado mentioned he may need to have a second bronchoscopy during this hospitalization. He has been afebrile, blood pressure 113/70, afebrile, heart rate running in the 80s, pulse ox 95% on FiO2 of 70. Blood sugar running in the 140s, WBC 12.7, hemoglobin 12.1, platelet creatinine 0.91. Cytology is negative for malignancy. Anticipate patient will be here over the weekend too early to mid next week. 07/15: Patient feels much improved since yesterday tolerating diet denying chest pain, shortness breath, nausea, vomiting or abdominal pain. Would like to continue weaning off oxygen as tolerated, continue aggressive pulmonary hygiene , continue steroid per pulmonary recommendation for prolonged period of time, continue encouraging incentive spirometer and flutter valve, serial chest x-rays , DVT prophylaxis, discharge planning based on clinical progress and we would like to wean off IV steroids to oral medication upon improvement 07/16: Patient feels much improved since yesterday tolerating diet denying chest pain, shortness breath, nausea, vomiting or abdominal pain patient is still lethargic overall and felt slightly short of breath after reducing oxygen this morning. Would like to continue weaning off oxygen as tolerated, continue aggressive pulmonary hygiene, continue steroid per pulmonary recommendation for prolonged period of time, continue encouraging incentive spirometer and flutter valve, serial chest x-rays, DVT prophylaxis, discharge planning based on clinical progress plan discussed with patient and foreign legal consultant on the case 07/17: Repeat chest x-ray shows diffuse bilateral airspace disease and pleural effusion correlate for diffuse pneumonia or pulmonary edema. Bronchoscopy was concern for organizing pneumonia and positive for acute influenza and patient has been started on Tamiflu. He has continued on steroids. Patient does continue to improve very slowly. He continues to have some shortness of breath with exertion. FiO2 is 50% with O2 saturation of 94%. He continues to have cough with very minimal sputum production. He has been afebrile 07/18: Patient's respiratory status is currently stable from yesterday. Patient continues on Tamiflu and is in droplet isolation. He states that he has plan for bronchoscopy tomorrow. O2 needs are decreased to 45 FiO2 with O2 saturation of 100. He remains afebrile. He is continued on Solu-Medrol 60 mg every 12 hours. No change in medications today. 07/19: Patient continues to have improvement of his lung status. He is now on FiO2 64 and maintaining O2 saturation 93%. He is planned for possible bronchoscopy today with Dr. Delgado Review of Systems Constitutional: Denies chills, denies fever, denies weakness, denies daytime sleepiness Eyes: denies blurred vision, denies double vision Ears: deny: decreased hearing Ears, nose, mouth and throat: Denies dysphagia, Denies neck lump, Denies swelling in throat, Denies sore throat Cardiovascular: Reports decreased exercise tolerance, Reports shortness of breath, Denies chest pain, Denies lightheadedness, Denies rapid heart beat, Denies syncope Respiratory: Reports shortness of breath, reports congestion, Reports cough, reports sputum, denies hemoptysis, Reports wheezing, Denies home oxygen, Denies sleep apnea, Denies snoring Gastrointestinal: Denies abdominal pain, Denies belching, Denies bloating, Denies heartburn, Denies melena, Denies nausea, Denies vomiting Genitourinary: Denies dysuria, Denies nocturia Musculoskeletal: Denies myalgias Integumentary: Denies pruritus, Denies rash, denies wounds Neurological: Denies numbness, Denies weakness Psychiatric: Denies anxiety, Denies depression Endocrine: Denies fatigue, abnormal blood sugars Objective - Vital Signs Vital signs: Vital Signs Temp 98.4 F 07/18/18 23:05 Pulse 81 07/19/18 00:04 Resp 18 07/18/18 23:05 BP 106/64 07/18/18 23:05 Pulse Ox 93 L 07/18/18 23:56 Intake & Output 07/18/18 07/19/18 07/19/18 18:59 06:59 18:59 Intake Total 986 350 Output Total 2400 3800 Balance -1414 -3450 Intake: Oral 986 350 Output: Urine 2400 3800 Other: Voiding Method Toilet - Exam General appearance: average body habitus, appears comfortable while in bed, patient appears comfortable with AirVo. - EENT Eyes: anicteric sclerae, EOMI, PERRLA, no ptosis, no scleral icterus, normal appearance ENT: hearing grossly normal, NA/AT, normal oropharynx, no thrush Ears: bilateral: normal - Neck Neck: no lymphadenopathy, normal ROM, no rigidity Carotids: bilateral: upstroke normal Thyroid: bilateral: normal size - Respiratory Respiratory: bilateral: diminished, rhonchi, wheezing, prolonged expiration, negative: dullness, rales - Cardiovascular Rhythm: regular Heart sounds: normal: S1, S2 Abnormal Heart Sounds: systolic murmur, no S3 Gallop, no S4 Gallop - Gastrointestinal General gastrointestinal: normal bowel sounds, soft, no splenomegaly, no tenderness, no umbilical hernia, no ventral hernia - Integumentary Integumentary: normal, normal turgor - Neurologic Neurologic: CNII-XII intact - Musculoskeletal Musculoskeletal: gait normal, strength equal bilaterally - Psychiatric Psychiatric: A&O x's 3, appropriate affect, intact judgment & insight - Labs CBC & Chem 7: 07/16/18 07:57 07/16/18 07:57 Labs: Abnormal Lab Results - Last 24 Hours (Table) 07/18/18 07/18/18 07/19/18 Range/Units 11:10 17:01 07:05 POC Glucose (mg/dL) 120 H 146 H 147 H (75-99) mg/dL Assessment and Plan Plan: 1. Acute hypoxic respiratory failure secondary to cryptogenic organizing pneumonia and acute COPD exacerbation, influenza (most likely present on admission). Continue DuoNeb 3 mL nebulization 4 times every day, Pulmicort 1 mg nebulization twice every day, Perforomist twice daily, Mucinex twice daily, Solu-Medrol 60 mg IV every 12 hours, Singulair, Tamiflu, Diflucan, oxygen to keep saturation greater than 92%, pulmonary consultation from Dr. Delgado. Status post Bronchoscopy. Repeat bronchoscopy. Continue to wean oxygen. 2. COPD exacerbation. Continue oxygen, DuoNeb 3 mL nebulization 4 times every day, Pulmicort 1 mg nebulization twice every day, Solu-Medrol. Continue as in # 1 3. Mild CAD status post left heart cath physician back in 2014 that showed mild disease of the LAD and RCA. Stable at this time continue patient on Toprol -XL 50 mg orally once every day. 4. Hypertension and hypertensive cardiovascular disease. Continue Toprol-XL 50 mg orally once every day, lisinopril 20 mg orally once every day. 5. Bipolar disorder. Continue Lamictal 100 mg orally once every day as well as sertraline 100 mg orally once every day. 6. GI prophylaxis. Protonix 40 mg once every day. 7. DVT prophylaxis. Heparin 5000 units subcutaneously every 8 hours. 8. Patient is full code. Discharge plan: Return home possibly by the end of the week Impression and plan of care have been directed as dictated by the signing physician. Meghna Larry nurse practitioner acting as scribe for signing physician.
[2018-07-19] MEDS: OSELTAMIVIR 75 MG CAP PO SCH ×2 (15:45→22:43)
[2018-07-19] MEDS: FLUCONAZOLE 100 MG TAB PO SCH (15:45)
[2018-07-19] MEDS: SERTRALINE 100 MG TAB PO SCH (15:46)
[2018-07-19 16:57] LABS: Appearance,BF Cloudy; Color,BF Colorless
--- NOTE | 2018-07-19 17:44 | P.PCN ---
Date of Procedure: 07/19/18 Preoperative Diagnosis: Crytpogenic organizing pneumonia Postoperative Diagnosis: Same Procedure(s) Performed: Bronchoscopy with washings Surgeon: Muriel Delgado Estimated Blood Loss (ml): 0 Condition: stable Disposition: floor Indications for Procedure: Mucous plugging Description of Procedure: The patient, in endoscopy suite, was placed on continuous electrocardiogram, noninvasive blood pressure monitoring, and SpO2 monitoring. He was administered supplemental oxygen via Ventimask and given IV sedation by the Department of anesthesia. The video bronchoscope was passed through the right nares and carried down to the level of the vocal cords the vocal cords were seen to be moving freely and phonation and respiration. The larynx is normal. The trachea was normal although there does appear to be some excessive dynamic airway collapse with cough. The yaakov is sharp. The right mainstem bronchus was entered first where the right upper lobe, right middle lobe, and right lower lobe were identified. Scant amount of mucous was noted. Saline was instilled and suctioned until clear. The bronchoscope was then directed into the left mainstem bronchus where a moderate amount of clear-white mucous was noted. Using saline, the mucous was suctioned clear. The lingula, left upper and left lower lobe were clear. Saline was instilled and suctioned for pooled washings of the left lung. The bronchoscope was then retracted and the procedure was terminated. The patient tolerated the procedure well. He was discharged to the recovery suite in stable and satisfactory position.
[2018-07-19 18:07] LABS: Glucose,Whole Blood 162 mg/dL (75-99)
[2018-07-19 21:26] LABS: Nucleated Cells, Body Fluid 93 /uL; RBC, Body Fluid 4 /uL
[2018-07-19 21:30] LABS: Mononuclear WBC,Body Fluid 13 %; Polynuclear WBC,Body Fluid 87 %; Total Cells Counted,Body Fluid 100
--- NOTE | 2018-07-19 21:44 | PN ---
PROGRESS NOTE DATE OF SERVICE: 07/19/2018. REASON FOR FOLLOWUP: Pneumonia. INTERVAL HISTORY: The patient is currently afebrile. He has been breathing more comfortably. Denies having any chest pain. He did have some cough which is dry in nature. No nausea, vomiting. No abdominal pain or any diarrhea. EXAMINATION: Blood pressure is 95/54 with a pulse of 100. Temperature 97.8. General description is an elderly male up in the bed in no distress. Respiratory system: Unlabored breathing with decreased breath sounds in the bases, with no wheeze. Heart S1, S2. Regular rate and rhythm. ABDOMEN: Soft, no tenderness. LABS: No new labs have been obtained today. DIAGNOSTIC IMPRESSION/PLAN: 1. Patient difficulty in breathing. The patient did have bilateral infiltrates. Concern for possible BOOP less likely gram-negative pneumonia currently off antibiotics. Continue the steroids and per pulmonary with repeat today. 2. Patient with positive bronch culture with influenza to finish 5 day course of oral Tamiflu. 3. Continue supportive care. MMODL / IJN: [id number] /
[2018-07-19 22:21] LABS: Glucose,Whole Blood 105 mg/dL (75-99)
[2018-07-19] MEDS: INSULIN DETEMIR (LEVEMIR) 100 UNIT/ML SYR SQ SCH (22:42)
[2018-07-19] MEDS: MONTELUKAST 10 MG TAB PO SCH (22:42)
[2018-07-20] MEDS: HYPERTONIC SALINE 3% NEBULIZ 4 ML NEBU INHALATION SCH ×3 (00:16→19:44)
[2018-07-20] MEDS: IPRATROPIUM-ALBUTEROL 3 ML NEB INHALATION PRN (00:18)
[2018-07-20] MEDS: HEPARIN SODIUM,PORCINE 5,000 UNIT/ML 1 ML VIAL SQ SCH ×3 (01:10→16:29)
[2018-07-20 07:18] LABS: Glucose,Whole Blood 190 mg/dL (75-99)
[2018-07-20] MEDS: IPRATROPIUM-ALBUTEROL 3 ML NEB INHALATION SCH ×4 (07:32→19:43)
[2018-07-20] MEDS: BUDESONIDE 1 MG/2 ML NEBU INHALATION SCH ×2 (07:32→19:43)
[2018-07-20] MEDS: FORMOTEROL FUMARATE 20 MCG/2 ML NEBU INHALATION SCH ×2 (07:32→19:43)
[2018-07-20] MEDS: SERTRALINE 100 MG TAB PO SCH (08:00)
[2018-07-20] MEDS: guaiFENesin 600 MG TABLET.ER PO SCH ×2 (08:00→20:07)
[2018-07-20] MEDS: lamoTRIgine 100 MG TAB PO SCH (08:00)
[2018-07-20] MEDS: METOPROLOL SUCCINATE (ER) 50 MG TAB.ER.24H PO SCH (08:00)
[2018-07-20] MEDS: PANTOPRAZOLE 40 MG TABLET PO SCH ×2 (08:00→16:30)
[2018-07-20] MEDS: LISINOPRIL 20 MG TAB PO SCH (08:00)
[2018-07-20] MEDS: FLUCONAZOLE 100 MG TAB PO SCH (08:00)
[2018-07-20] MEDS: OSELTAMIVIR 75 MG CAP PO SCH (08:01)
[2018-07-20] MEDS: methylPREDNISolone SOD SUCCI 125 MG/2 ML VIAL IV SCH ×2 (08:02→20:09)
[2018-07-20] MEDS: FUROSEMIDE 10 MG/ML 4 ML VIAL IV SCH ×2 (08:02→20:05)
[2018-07-20] MEDS: INSULIN ASPART (NovoLOG) 100 UNIT/ML VIAL SQ SCH ×4 (08:06→20:12)
[2018-07-20 08:11] LABS: HCT 35.9 % (39.0-53.0); HGB 11.3 gm/dL (13.0-17.5); Hypochromasia Slight; MCH 29.9 pg (25.0-35.0); MCHC 31.4 g/dL (31.0-37.0); MCV 95.3 fL (80.0-100.0); Mean Platelet Volume 6.3; Platelet Count 353 k/uL (150-450); RBC 3.76 m/uL (4.30-5.90); RDW 13.7 % (11.5-15.5)
[2018-07-20 08:15] LABS: Anion Gap 5 mmol/L; Blood Urea Nitrogen 30 mg/dL (9-20); Carbon Dioxide 27 mmol/L (22-30); Chloride 105 mmol/L (98-107); Glucose 171 mg/dL (74-99); Sodium 137 mmol/L (137-145)
[2018-07-20 08:16] LABS: Calcium 8.4 mg/dL (8.4-10.2)
--- NOTE | 2018-07-20 08:36 | XR ---
EXAMINATION TYPE: XR chest 1V portable DATE OF EXAM: 07/20/2018 COMPARISON: 07/17/2018 HISTORY: Shortness of breath TECHNIQUE: Single frontal view of the chest is obtained. FINDINGS: There are bilateral pleural effusions with cardiomegaly and bibasilar infiltrate. There is a diffuse interstitial pattern. Arthropathy shoulders. IMPRESSION: 1. Diffuse bilateral airspace disease and pleural effusion correlate for diffuse pneumonia or pulmona ry edema.
[2018-07-20 12:04] LABS: Glucose,Whole Blood 120 mg/dL (75-99)
--- NOTE | 2018-07-20 12:05 | P.PN ---
Subjective Progress Note Date: 07/20/18 This is a 67-year-old male one of Dr. Christy with a previous medical history significant for hypertension and hypertensive cardiovascular disease, mild CAD involving the RCA and the the LAD, with a last heart catheterization was done back in 2014, history of bipolar disorder, COPD, remote history of tobacco use and dependence, patient went to a walking clinic on Tuesday and he was diagnosed of having the flu according to him and he was given a Z-Osmani patient was feeling better up until today when he developed to have a significant coughing and increased yellow phlegm production with bloody streaks to it so he ended up coming to the ER at [facility] where he was found to have a multilobar pneumonia he was started on IV antibiotic in the form of Rocephin and Zithromax and and he was placed in droplet precautions until after obtaining the result of the flu swab, pulmonary consultation was obtained from Dr. ADOLFO Ayon. 07/03: Patient is currently on 10 L high flow O2 pulse oxing 92-96%. He states he is slightly better from yesterday. He is having more cough today. Influenza testing came back negative. Repeat chest x-ray this morning shows chronic interstitial lung disease with underlying COPD and stable patchy bilateral infiltrate. CT injury of the chest showed no evidence of central pulmonary embolism. Subsegmental pulmonary arteries are nondiagnostic. Interstitial lung disease. Findings favoring NSIP with no current evidence of fibrosis. Alternatively hypersensitivity pneumonitis or cryptogenic organizing pneumonia or possible. Consult in place with pulmonary medicine which will be seeing him today. Solu-Medrol will remain the same at 40 mg IV every 8 hours. Continue same medications. 07/04: CT results reviewed with patient. 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 Patient states that he had a rough night and does not seem like he is much better. He is bringing up sputum that is light in color. Patient was seen by Dr. Delgado. Solu-Medrol will remain at 40 mg every 8 hours. Sputum culture is in progress. Blood cultures showing no growth after 24 hours. He has been afebrile, heart rate running in the 80s and 90s, blood pressure 131/70, pulse ox 92% on 10 L high flow. Patient is now on humidified oxygen. 07/05: Patient is now on Airvo with FiO2 of 55 pulse oxing 94%. Breathing status is more comfortable using this. Discussed case with Dr. Delgado for possible bronchoscopy. Patient has had a bowel movement. He denies any diarrhea. Legionella, mycoplasma, hypersensitivity panels and alpha-1 antitrypsin are all pending. IgE is elevated at 115. His white count is normal, hemoglobin 9.2, creatinine 0.68. Blood sugars running between 144 and 187. Sputum culture is finalized with normal respiratory mehran. 07/06: Patient is requiring FiO2 of 90% on Airvo. Pulse ox is 92%. Patient has been afebrile, heart rate running in the 80s. Blood pressure 126/84. Dr. Delgado does not plan to do bronchoscopy while patient oxygen needs are high. Her recommendations are to increase steroids to 60 mg IV every 6 hours and change antibiotics to Levaquin. Perforomist and Mucomyst were added yesterday. Pulmonary as noted in consult with Dr. Ware for inpatient rehab. Alpha I antitrypsin came back negative. Mycoplasma and Legionella are pending. 07/07: Patient continues to have significant shortness of breath and states he can 't catch his breath. He is now on FiO2 of 90. He states he feels well otherwise and is found sitting up in a recliner. He did receive Lasix which is discontinued. Mycoplasma came back negative. Legionella pending. White count was normal, hemoglobin 11.1, creatinine 0.74. Blood sugars run between 132 and 235. Pulse ox is 95% on high flow nasal cannula, afebrile, heart rate running in the 70s and 80s, blood pressure 135/78. Patient has been seen by Dr. Ware and plan is to follow notes. Doubt the patient will be a candidate for inpatient rehab. 07/08: Patient continues to have significant shortness of breath feeling that he cannot catch his breath at all. Mucinex, flutter valve and Diflucan added today. He states he has bringing up a little bit of sputum but not very much. He has been afebrile, pulse ox is 94% on FiO2 of 85, heart rate running in the 80s and 90s, blood pressure 130/71. 07/09: Dr. Delgado has added Lasix 40mg every 8 hours IV. Xolair was attempted but not covered as Inpatient treatment. He has been started on hypertonic nebulizer treatments. Patient denies any improvement in breathing today. He still feels he can't catch his breath. He is onFIO2 85 with pulse ox of 95%. He has been afebrile, heart rate in the 80s, BP 148/78. Repeat chest x-ray reveals marked worsening of multifocal alveolar and interstitial opacities. Multifocal pneumonia, pulmonary edema or ARDS. Chest physiotherapy ordered. 07/10: Patient denies any significant improvement from yesterday. He did start chest physiotherapy yesterday. He states he feels more tired today but he did sleep well last night. Cough is nonproductive. Dr. Núñez discussed case with Dr. Delgado and plan is if patient is not improved by Tuesday, transferred at [facility]. Pulse ox is 95% on FiO2 of 85 by high flow nasal cannula, heart rate running in the 90s, afebrile, blood pressure 103/68. No change in medications. 07/11: Patient states that he woke up this morning feeling better. He states he can almost take a half of breath today. He is not bringing up sputum. Wheezing is improved. He has tried to increase activity within his room. He states he only received chest physiotherapy twice yesterday. We'll plan to request this done 4 times daily. He has been afebrile, heart rate running in the 70s, pulse ox 91% on FiO2 of 75. Dr. Delgado is attempting to obtain Xolair from the office for patient to take while in the hospital. 07/12: Patient is tentatively scheduled for bronchoscopy today with Dr. Delgado. He is currently pulse oxing 95% on a 73 FiO2, heart rate 70-80, but pressure 106 /69. He has been afebrile. He states he has been getting his chest physiotherapy. Dr. Tavarez is following and continues to recommend Levaquin for now. Patient is feeling more comfortable and breathing is improving very slowly. Patient has been afebrile, heart rate running in 70s and 80s, blood pressure 106/69. 07/13: Patient states that he is much better today. He is ambulating in his room he states he can actually take a normal breath at this point. He remains on AirVo. Blood pressure is stable, heart rate running and 80s, afebrile. Dr. Tavarez is following and continued on Levaquin. Patient underwent bronchoscopy with removal of mucous plugs. Cytology and cultures are in progress. 07/14: Patient states his breathing continues to be improving. He states he slept well last night. Patient states that Dr. Delgado mentioned he may need to have a second bronchoscopy during this hospitalization. He has been afebrile, blood pressure 113/70, afebrile, heart rate running in the 80s, pulse ox 95% on FiO2 of 70. Blood sugar running in the 140s, WBC 12.7, hemoglobin 12.1, platelet creatinine 0.91. Cytology is negative for malignancy. Anticipate patient will be here over the weekend too early to mid next week. 07/15: Patient feels much improved since yesterday tolerating diet denying chest pain, shortness breath, nausea, vomiting or abdominal pain. Would like to continue weaning off oxygen as tolerated, continue aggressive pulmonary hygiene , continue steroid per pulmonary recommendation for prolonged period of time, continue encouraging incentive spirometer and flutter valve, serial chest x-rays , DVT prophylaxis, discharge planning based on clinical progress and we would like to wean off IV steroids to oral medication upon improvement 07/16: Patient feels much improved since yesterday tolerating diet denying chest pain, shortness breath, nausea, vomiting or abdominal pain patient is still lethargic overall and felt slightly short of breath after reducing oxygen this morning. Would like to continue weaning off oxygen as tolerated, continue aggressive pulmonary hygiene, continue steroid per pulmonary recommendation for prolonged period of time, continue encouraging incentive spirometer and flutter valve, serial chest x-rays, DVT prophylaxis, discharge planning based on clinical progress plan discussed with patient and senior solutions workflow consultant on the case 07/17: Repeat chest x-ray shows diffuse bilateral airspace disease and pleural effusion correlate for diffuse pneumonia or pulmonary edema. Bronchoscopy was concern for organizing pneumonia and positive for acute influenza and patient has been started on Tamiflu. He has continued on steroids. Patient does continue to improve very slowly. He continues to have some shortness of breath with exertion. FiO2 is 50% with O2 saturation of 94%. He continues to have cough with very minimal sputum production. He has been afebrile 07/18: Patient's respiratory status is currently stable from yesterday. Patient continues on Tamiflu and is in droplet isolation. He states that he has plan for bronchoscopy tomorrow. O2 needs are decreased to 45 FiO2 with O2 saturation of 100. He remains afebrile. He is continued on Solu-Medrol 60 mg every 12 hours. No change in medications today. 07/19: Patient continues to have improvement of his lung status. He is now on FiO2 64 and maintaining O2 saturation 93%. He is planned for possible bronchoscopy today with Dr. Delgado 07/20: Patient underwent bronchoscopy yesterday. After that, patient had hypotension which has been stabilized. Chest x-ray this morning reveals diffuse bilateral airspace disease and pleural effusion correlate for diffuse pneumonia or pulmonary edema. Patient is currently pulse oxing 96% on FiO2 of 50 with AirVo. He remains on Solu-Medrol 60 mg every 12 hours. Discharge plan remains that he woke return home. Review of Systems Constitutional: Denies chills, denies fever, denies weakness, denies daytime sleepiness Eyes: denies blurred vision, denies double vision Ears: deny: decreased hearing Ears, nose, mouth and throat: Denies dysphagia, Denies neck lump, Denies swelling in throat, Denies sore throat Cardiovascular: Reports decreased exercise tolerance, Reports shortness of breath, Denies chest pain, Denies lightheadedness, Denies rapid heart beat, Denies syncope Respiratory: Reports shortness of breath, reports congestion, Reports cough, reports sputum, denies hemoptysis, Reports wheezing, Denies home oxygen, Denies sleep apnea Gastrointestinal: Denies abdominal pain, Denies belching, Denies bloating, Denies heartburn, Denies melena, Denies nausea, Denies vomiting Genitourinary: Denies dysuria, Denies nocturia Musculoskeletal: Denies myalgias Integumentary: Denies pruritus, Denies rash, denies wounds Neurological: Denies numbness, Denies weakness Psychiatric: Denies anxiety, Denies depression Endocrine: Denies fatigue, abnormal blood sugars Objective - Vital Signs Vital signs: Vital Signs Temp 98.3 F 07/20/18 07:00 Pulse 88 07/20/18 07:57 Resp 17 07/20/18 08:10 BP 108/66 07/20/18 07:00 Pulse Ox 96 07/20/18 07:00 Intake & Output 07/19/18 07/20/18 07/20/18 18:59 06:59 18:59 Intake Total 600 780 480 Output Total 1000 Balance 600 -220 480 Intake: IV 600 Oral 780 480 Output: Urine 1000 Other: Voiding Method Toilet Toilet Toilet Urinal Urinal Urinal # Voids 2 3 - Exam General appearance: average body habitus, appears comfortable while in bed, patient appears comfortable with AirVo. - EENT Eyes: anicteric sclerae, EOMI, PERRLA, no ptosis, no scleral icterus, normal appearance ENT: hearing grossly normal, NA/AT, normal oropharynx, no thrush Ears: bilateral: normal - Neck Neck: no lymphadenopathy, normal ROM, no rigidity Carotids: bilateral: upstroke normal Thyroid: bilateral: normal size - Respiratory Respiratory: bilateral: diminished, rhonchi, wheezing, prolonged expiration, negative: dullness, rales, slowly improving - Cardiovascular Rhythm: regular Heart sounds: normal: S1, S2 Abnormal Heart Sounds: systolic murmur, no S3 Gallop, no S4 Gallop - Gastrointestinal General gastrointestinal: normal bowel sounds, soft, no splenomegaly, no tenderness, no umbilical hernia, no ventral hernia - Integumentary Integumentary: normal, normal turgor - Neurologic Neurologic: CNII-XII intact - Musculoskeletal Musculoskeletal: gait normal, strength equal bilaterally - Psychiatric Psychiatric: A&O x's 3, appropriate affect, intact judgment & insight - Labs CBC & Chem 7: 07/20/18 07:10 07/20/18 07:10 Labs: Abnormal Lab Results - Last 24 Hours (Table) 07/19/18 07/19/18 07/19/18 Range/Units 11:36 17:58 22:20 WBC (3.8-10.6) k/uL RBC (4.30-5.90) m/uL Hgb (13.0-17.5) gm/dL Hct (39.0-53.0) % BUN (9-20) mg/dL Glucose (74-99) mg/dL POC Glucose (mg/dL) 131 H 162 H 105 H (75-99) mg/dL 07/20/18 07/20/18 07/20/18 Range/Units 07:10 07:10 07:16 WBC 17.0 H (3.8-10.6) k/uL RBC 3.76 L (4.30-5.90) m/uL Hgb 11.3 L (13.0-17.5) gm/dL Hct 35.9 L (39.0-53.0) % BUN 30 H (9-20) mg/dL Glucose 171 H (74-99) mg/dL POC Glucose (mg/dL) 190 H (75-99) mg/dL Microbiology - Last 24 Hours (Table) 07/19/18 13:15 Acid Fast Bacilli Smear - Final Bronchial Washings - Left Acid Fast Bacilli Culture - Preliminary 07/19/18 13:15 Gram Stain - Preliminary Bronchial Washings - Left Bronchial Washings Culture - Preliminary 07/19/18 13:15 Fungal Culture - Preliminary Bronchial Washings - Left Assessment and Plan Plan: 1. Acute hypoxic respiratory failure secondary to cryptogenic organizing pneumonia and acute COPD exacerbation, influenza (most likely present on admission). Continue DuoNeb 3 mL nebulization 4 times every day, Pulmicort 1 mg nebulization twice every day, Perforomist twice daily, Mucinex twice daily, Solu-Medrol 60 mg IV every 12 hours, Singulair, Tamiflu, Diflucan, oxygen to keep saturation greater than 92%, pulmonary consultation from Dr. Delgado. Status post Bronchoscopy. Repeat bronchoscopy completed yesterday. Continue to wean oxygen. 2. COPD exacerbation. Continue oxygen, DuoNeb 3 mL nebulization 4 times every day, Pulmicort 1 mg nebulization twice every day, Solu-Medrol. Continue as in # 1 3. Mild CAD status post left heart cath physician back in 2014 that showed mild disease of the LAD and RCA. Stable at this time continue patient on Toprol -XL 50 mg orally once every day. 4. Hypertension and hypertensive cardiovascular disease. Continue Toprol-XL 50 mg orally once every day, lisinopril 20 mg orally once every day. 5. Bipolar disorder. Continue Lamictal 100 mg orally once every day as well as sertraline 100 mg orally once every day. 6. GI prophylaxis. Protonix 40 mg once every day. 7. DVT prophylaxis. Heparin 5000 units subcutaneously every 8 hours. 8. Patient is full code. Discharge plan: Return home possibly by the end of the week Impression and plan of care have been directed as dictated by the signing physician. Meghna Larry nurse practitioner acting as scribe for signing physician.
--- NOTE | 2018-07-20 14:18 | P.PN ---
Subjective Progress Note Date: 07/20/18 HPI: This is a 67-year-old male being seen examined and evaluated today for consultation. This patient does have a past medical history significant for hypertension, hypertensive cardiovascular disease, mild CAD involving the RCA and the LAD, last stent heart catheterization was in 2014, history of bipolar, COPD, remote history of tobacco use and dependence. The patient was seen in the urgent care setting on Tuesday and was told he has "the flu" and the patient was given a Z-Osmani to take in the outpatient setting. The patient was starting to feel better and then he started to get significantly worse yesterday so he came into the emergency room. The patient was found to have a multilobar pneumonia he was started on IV antibiotics and steroids. He did have an influenza swab that was negative. 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 He denies any exposures to any birds or farm animals or farmland. He has 3. He quit smoking approximately 12 years ago. He does not have wood-burning stove at home. Upon examination the patient's resting up in bed on 10 L of high flow and oxygen via nasal cannula. He continues to have shortness of breath cough and congestion. He has been unable to provide a sputum sample thus far. He does feel the breathing treatments are helping. He has been afebrile no further complaints. Interval History: 07/04/18- patient is being seen examined and evaluated today on rounds. He is resting up in bed on 10 L high flow nasal cannula. Still feels quite dyspneic and short of breath even at rest. We will switch patient over to Airvo to help his breathing. Currently being worked up for questionable an SIEP versus HP. Multiple labs have been obtained and are pending. Patient will require 1 mg/kg daily of prednisone with a very slow outpatient taper. This is again discussed with the patient at length and he is agreeable. He is afebrile. All labs and reports reviewed 07/05/18- patient is being seen examined and evaluated today on rounds. He currenlty is one Airvo high flow at 55 L and 90% FiO2. He feels his breathing is less labored with using this type of supplemental oxygen. He is slowly improving. Most likely will require a home oxygen assessment prior to discharge. 07/06/18- patient is being seen examined and evaluated today on rounds. He continues on Airvo high flow oxygen at 55 L and 90% FiO2. He is very slow to recover when he does get short of breath. His steroids are increased. His antibiotics is switched to Levaquin. Yesterday we also added Perforomist and Mucomyst inhalation. He seems to feel those are helping him as well. The patient could potentially undergo a bronchoscopy once his oxygen demand significantly decreased. He is not a candidate at this time due to his high oxygen demands. This is discussed with him at length as well as the attending provider. The patient has not ambulated much since being admitted. We will consult PT and OT as well as PMNR for possible inpatient rehab on discharge. 07/07/18- patient is being seen examined and evaluated today on rounds. The patient continues on Airvo high flow oxygen and 55 L and 90% FiO2. This is discussed with the patient's direct care nurse to start weaning the patient, on oxygen as tolerated. He states he feels less short of breath today. He does have multiple environmental ALLERGIES that came back positive which are discussed with him today. He will be provided a list of these ALLERGIES. Neoplasm was negative. Legionella is pending, HP panel is pending. He seems to be responding well to the increase in steroids in the antibiotics. All labs and reports have been reviewed. 07/08/2017: Patient seen and examined with his daughter at bedside. The patient states he is getting discouraged because he is still very short of breath with minimal exertion. The patient is on airvo at 55 L/m and 85% FiO2. Chest x-ray is obtained and reviewed. There is marked worsening of the bilateral infiltrates. Bronchoscopy is discussed with the patient at length. He is aware that he is too unstable at this point for bronchoscopy and that he would likely end up on mechanical ventilation if bronchoscopy were attempted. It is possible that later in the week it will be an option. Continue high-dose steroids and diuresis for now. 07/09/2018: Patient seen and examined with his daughter at bedside. The patient and his daughter expressed concerns that the patient is not getting any better. Chest x-ray from yesterday is reviewed with them and the patient was found to have worsening bilateral infiltrates. The risks versus benefits of doing a bronchoscopy is discussed with the patient. He would like to try to continue the hypertonic saline, antibiotics, diuresis for now and consider bronchoscopy in 48-72 hours if he is not improving. The possibility of a surgical lung biopsy was also discussed with the patient. I did discuss the possibility of Xolair with the pharmacy. It has been declined for inpatient use at this time. However I will continue to try to obtain this for the patient. 07/11/2018: Patient seen and examined. Patient states he feels like his breathing is starting to improve. He has been able to ambulate around the room. He states he finally feels hope that his breathing is improving. He denies fevers and chills. 05/11/2019: See bronchoscopy report 05/12/2019: Patient seen and examined. Patient states he is feeling much better overall. He has been able to ambulate around the room. He has been coughing out some phlegm. He denies fevers and chills. Pathology and cultures are pending on bronchoscopy specimens. 07/15/2018: Patient seen and examined. Patient states he is feeling better. He states he still does get short of breath with exertion around his room. Antibiotics have been discontinued by infectious disease. The patient did have a positive influenza a culture on the bronchoscopy specimen. His FiO2 is down to 60%. His O2 saturation is 94-95%. We will continue to aggressively titrate down the oxygen. 07/16/2018: Patient seen and examined. Patient is ambulating back to bed from the bathroom. O2 saturation is 88% on 50% FiO2. The patient sits down quickly recovers to 90%. He states he still gets does get short of breath with exertion. He denies fevers and chills. 07/17/2018: Patient seen and examined. Patient states he doesn't feel as good today. He is a little more short of breath with exertion. FiO2 is at 50%, O2 saturation 94%. He is having a hard time coughing up phlegm. 07/18/2018: Patient seen and examined. FiO2 has been decreased to 45% and flow has been decreased to 40 L/m. The patient states he is starting to feel better. He still feels like he cannot cough up his phlegm. The respiratory therapist is at bedside and states she will keep a close eye on him and progressively wean his oxygen throughout the day. She also notes that his pulse ox on his ear is markedly higher than on his finger. On his ear his O2 saturation is 98-99%. 07/20/2018: Patient seen and examined. Patient was briefly off of airvo yesterday but had to be placed back on it. He states he feels a little more short of breath today. The patient's chest x-rays reviewed with him. Patient has slightly worsening bilateral infiltrates. Given that the patient has been on high-dose steroids for 18 days with minimal improvement I am recommending transfer to tertiary care center for surgical lung biopsy and interstitial lung disease team. Patient is agreeable. Objective - Vital Signs Vital signs: Vital Signs Temp 98.3 F 07/20/18 07:00 Pulse 88 07/20/18 11:15 Resp 17 07/20/18 08:10 BP 108/66 07/20/18 07:00 Pulse Ox 96 07/20/18 07:00 Intake & Output 07/19/18 07/20/18 07/20/18 18:59 06:59 18:59 Intake Total 600 780 480 Output Total 1000 Balance 600 -220 480 Intake: IV 600 Oral 780 480 Output: Urine 1000 Other: Voiding Method Toilet Toilet Toilet Urinal Urinal Urinal # Voids 2 3 - Exam GENERAL EXAM: Alert, mild apparent distress. HEAD: Normocephalic. EYES: Normal reaction of pupils, equal size. NOSE: Clear with pink turbinates. THROAT: No erythema or exudates. NECK: No masses, no JVD. CHEST: No chest wall deformity. LUNGS: Lungs noted to be rhonchorous with wheezing scattered throughout and prolonged expiration, slowly improving CVS: S1 and S2 normal with no audible mumurs, regular rhythm. ABDOMEN: No hepatosplenomegaly, normal bowel sounds, no guarding or rigidity. EXTREMITIES: No edema noted, pedal pulses palpable. CENTRAL NERVOUS SYSTEM: No focal deficits, tone is normal in all 4 extremities. - Labs CBC & Chem 7: 07/20/18 07:10 07/20/18 07:10 Labs: Abnormal Lab Results - Last 24 Hours (Table) 07/19/18 07/19/18 07/20/18 Range/Units 17:58 22:20 07:10 WBC 17.0 H (3.8-10.6) k/uL RBC 3.76 L (4.30-5.90) m/uL Hgb 11.3 L (13.0-17.5) gm/dL Hct 35.9 L (39.0-53.0) % BUN (9-20) mg/dL Glucose (74-99) mg/dL POC Glucose (mg/dL) 162 H 105 H (75-99) mg/dL 07/20/18 07/20/18 07/20/18 Range/Units 07:10 07:16 12:03 WBC (3.8-10.6) k/uL RBC (4.30-5.90) m/uL Hgb (13.0-17.5) gm/dL Hct (39.0-53.0) % BUN 30 H (9-20) mg/dL Glucose 171 H (74-99) mg/dL POC Glucose (mg/dL) 190 H 120 H (75-99) mg/dL Microbiology - Last 24 Hours (Table) 07/19/18 13:15 Acid Fast Bacilli Smear - Final Bronchial Washings - Left Acid Fast Bacilli Culture - Preliminary 07/19/18 13:15 Gram Stain - Preliminary Bronchial Washings - Left Bronchial Washings Culture - Preliminary 07/19/18 13:15 Fungal Culture - Preliminary Bronchial Washings - Left Assessment and Plan Assessment: Acute hypoxic respiratory failure requiring supplemental oxygen Cryptogenic organizing pneumonia Influenza A Acute exacerbation of COPD CAD with previous stenting Hypertension Bipolar disorder Multiple allergies with elevated IgE Plan Medications have been reviewed and will be continued as ordered. ABX discontinued per ID, continue Tamiflu Solu-Medrol - taper to 60mg Q12 DuoNeb, budesonide, Perforomist Hypertonic saline nebs Will require 1mg/kg daily of prednisone with a slow taper (over 2-3 months) in the outpatient setting Initiate and encourage incentive spirometery and flutter tx, chest PT Continue with pulmonary hygiene, coughing and deep breathing exercises, and supportive care. Supplemental oxygen to maintain oxygen saturations of 92% or better. Continue nebulizer treatments. GI and DVT prophylaxis. Increase activity as tolerated, PT and OT Diuresis to continue - to Lasix 40 mg IV Q12 hours Patient agreeable to transport to [facility] for surgical lung biopsy and ILD team evaluation
[2018-07-20 15:08] VITALS: TEMP 97.7
[2018-07-20 17:06] LABS: Glucose,Whole Blood 154 mg/dL (75-99)
[2018-07-20 19:53] VITALS: BP 113/64; RESP 18
[2018-07-20 20:02] LABS: Glucose,Whole Blood 132 mg/dL (75-99)
[2018-07-20] MEDS: MONTELUKAST 10 MG TAB PO SCH (20:07)
[2018-07-20 20:08] VITALS: PULSE 80
[2018-07-20] MEDS: INSULIN DETEMIR (LEVEMIR) 100 UNIT/ML SYR SQ SCH (20:08)
--- NOTE | 2018-07-20 22:32 | PN ---
PROGRESS NOTE DATE OF SERVICE: 07/20/2018 REASON FOR FOLLOWUP: 1. Possible pneumonia. 2. Influenza. INTERVAL HISTORY: The patient is afebrile. Patient is status post repeat bronchoscopy yesterday. Patient says he is feeling much better after bronchoscopy. The patient denies having any chest pain or shortness of breath. Occasional cough. No abdominal pain. No diarrhea. PHYSICAL EXAMINATION: Blood pressure 115/68 with a pulse of 98, temperature 97.7. He is 98% on high-flow oxygen. General description is an elderly male up in the room in no distress. RESPIRATORY SYSTEM: Unlabored breathing with decreased intensity of breath sounds. No wheeze. HEART: S1, S2. Regular rate and rhythm. ABDOMEN: Soft. No tenderness. LABS: Hemoglobin is 11.3, white count 17,000, BUN of 30, creatinine 0.70. DIAGNOSTIC IMPRESSION/PLAN: 1. Patient with bilateral pulmonary infiltrate with concern for possible BOOP, less likely anterior pneumonia. Currently off antibiotic. 2. Elevated white count, more likely effect plus/minus component of oral thrush. The patient has been on Diflucan. If there is any further worsening of the white count, will have to change his . 3. Positive bronch culture with influenza, for which the patient will finish a 5-day course of therapy. Continue with supportive care. MMJHONATANL / TEJALN: [id number] /
--- NOTE | 2018-07-21 13:11 | P.DS ---
Providers Date of admission: 07/02/18 11:38 Expected date of discharge: 07/20/18 Attending physician: Cecilio Costello Consults: 07/02/18 15:34 Consult Physician Routine Consulting Provider: Charles Ayon Consult Reason/Comments: Pneumonia Do you want consulting provider notified?: Yes 07/06/18 11:30 Consult Physician Routine Consulting Provider: Davey Ware Consult Reason/Comments: weakness, med debility Do you want consulting provider notified?: Yes 07/09/18 12:31 Consult Physician Routine Consulting Provider: Ashli Tavarez Consult Reason/Comments: pna Do you want consulting provider notified?: Yes Primary care physician: Dimas Christy [facility] Course: This is a 67-year-old male one of Dr. Christy with a previous medical history significant for hypertension and hypertensive cardiovascular disease, mild CAD involving the RCA and the the LAD, with a last heart catheterization was done back in 2014, history of bipolar disorder, COPD, remote history of tobacco use and dependence, patient went to a walking clinic on Tuesday and he was diagnosed of having the flu according to him and he was given a Z-Osmani patient was feeling better up until today when he developed to have a significant coughing and increased yellow phlegm production with bloody streaks to it so he ended up coming to the ER at [facility] where he was found to have a multilobar pneumonia he was started on IV antibiotic in the form of Rocephin and Zithromax and and he was placed in droplet precautions until after obtaining the result of the flu swab, pulmonary consultation was obtained from Dr. ADOLFO Ayon. 07/03: Patient is currently on 10 L high flow O2 pulse oxing 92-96%. He states he is slightly better from yesterday. He is having more cough today. Influenza testing came back negative. Repeat chest x-ray this morning shows chronic interstitial lung disease with underlying COPD and stable patchy bilateral infiltrate. CT injury of the chest showed no evidence of central pulmonary embolism. Subsegmental pulmonary arteries are nondiagnostic. Interstitial lung disease. Findings favoring NSIP with no current evidence of fibrosis. Alternatively hypersensitivity pneumonitis or cryptogenic organizing pneumonia or possible. Consult in place with pulmonary medicine which will be seeing him today. Solu-Medrol will remain the same at 40 mg IV every 8 hours. Continue same medications. 07/04: CT results reviewed with patient. 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 Patient states that he had a rough night and does not seem like he is much better. He is bringing up sputum that is light in color. Patient was seen by Dr. Delgado. Solu-Medrol will remain at 40 mg every 8 hours. Sputum culture is in progress. Blood cultures showing no growth after 24 hours. He has been afebrile, heart rate running in the 80s and 90s, blood pressure 131/70, pulse ox 92% on 10 L high flow. Patient is now on humidified oxygen. 07/05: Patient is now on Airvo with FiO2 of 55 pulse oxing 94%. Breathing status is more comfortable using this. Discussed case with Dr. Delgado for possible bronchoscopy. Patient has had a bowel movement. He denies any diarrhea. Legionella, mycoplasma, hypersensitivity panels and alpha-1 antitrypsin are all pending. IgE is elevated at 115. His white count is normal, hemoglobin 9.2, creatinine 0.68. Blood sugars running between 144 and 187. Sputum culture is finalized with normal respiratory mehran. 07/06: Patient is requiring FiO2 of 90% on Airvo. Pulse ox is 92%. Patient has been afebrile, heart rate running in the 80s. Blood pressure 126/84. Dr. Delgado does not plan to do bronchoscopy while patient oxygen needs are high. Her recommendations are to increase steroids to 60 mg IV every 6 hours and change antibiotics to Levaquin. Perforomist and Mucomyst were added yesterday. Pulmonary as noted in consult with Dr. Ware for inpatient rehab. Alpha I antitrypsin came back negative. Mycoplasma and Legionella are pending. 07/07: Patient continues to have significant shortness of breath and states he can 't catch his breath. He is now on FiO2 of 90. He states he feels well otherwise and is found sitting up in a recliner. He did receive Lasix which is discontinued. Mycoplasma came back negative. Legionella pending. White count was normal, hemoglobin 11.1, creatinine 0.74. Blood sugars run between 132 and 235. Pulse ox is 95% on high flow nasal cannula, afebrile, heart rate running in the 70s and 80s, blood pressure 135/78. Patient has been seen by Dr. Ware and plan is to follow notes. Doubt the patient will be a candidate for inpatient rehab. 07/08: Patient continues to have significant shortness of breath feeling that he cannot catch his breath at all. Mucinex, flutter valve and Diflucan added today. He states he has bringing up a little bit of sputum but not very much. He has been afebrile, pulse ox is 94% on FiO2 of 85, heart rate running in the 80s and 90s, blood pressure 130/71. 07/09: Dr. Delgado has added Lasix 40mg every 8 hours IV. Xolair was attempted but not covered as Inpatient treatment. He has been started on hypertonic nebulizer treatments. Patient denies any improvement in breathing today. He still feels he can't catch his breath. He is onFIO2 85 with pulse ox of 95%. He has been afebrile, heart rate in the 80s, BP 148/78. Repeat chest x-ray reveals marked worsening of multifocal alveolar and interstitial opacities. Multifocal pneumonia, pulmonary edema or ARDS. Chest physiotherapy ordered. 07/10: Patient denies any significant improvement from yesterday. He did start chest physiotherapy yesterday. He states he feels more tired today but he did sleep well last night. Cough is nonproductive. Dr. Núñez discussed case with Dr. Delgado and plan is if patient is not improved by Tuesday, transferred at [facility]. Pulse ox is 95% on FiO2 of 85 by high flow nasal cannula, heart rate running in the 90s, afebrile, blood pressure 103/68. No change in medications. 07/11: Patient states that he woke up this morning feeling better. He states he can almost take a half of breath today. He is not bringing up sputum. Wheezing is improved. He has tried to increase activity within his room. He states he only received chest physiotherapy twice yesterday. We'll plan to request this done 4 times daily. He has been afebrile, heart rate running in the 70s, pulse ox 91% on FiO2 of 75. Dr. Delgado is attempting to obtain Xolair from the office for patient to take while in the hospital. 07/12: Patient is tentatively scheduled for bronchoscopy today with Dr. Delgado. He is currently pulse oxing 95% on a 73 FiO2, heart rate 70-80, but pressure 106 /69. He has been afebrile. He states he has been getting his chest physiotherapy. Dr. Tavarez is following and continues to recommend Levaquin for now. Patient is feeling more comfortable and breathing is improving very slowly. Patient has been afebrile, heart rate running in 70s and 80s, blood pressure 106/69. 07/13: Patient states that he is much better today. He is ambulating in his room he states he can actually take a normal breath at this point. He remains on AirVo. Blood pressure is stable, heart rate running and 80s, afebrile. Dr. Tavarez is following and continued on Levaquin. Patient underwent bronchoscopy with removal of mucous plugs. Cytology and cultures are in progress. 07/14: Patient states his breathing continues to be improving. He states he slept well last night. Patient states that Dr. Delgado mentioned he may need to have a second bronchoscopy during this hospitalization. He has been afebrile, blood pressure 113/70, afebrile, heart rate running in the 80s, pulse ox 95% on FiO2 of 70. Blood sugar running in the 140s, WBC 12.7, hemoglobin 12.1, platelet creatinine 0.91. Cytology is negative for malignancy. Anticipate patient will be here over the weekend too early to mid next week. 07/15: Patient feels much improved since yesterday tolerating diet denying chest pain, shortness breath, nausea, vomiting or abdominal pain. Would like to continue weaning off oxygen as tolerated, continue aggressive pulmonary hygiene , continue steroid per pulmonary recommendation for prolonged period of time, continue encouraging incentive spirometer and flutter valve, serial chest x-rays , DVT prophylaxis, discharge planning based on clinical progress and we would like to wean off IV steroids to oral medication upon improvement 07/16: Patient feels much improved since yesterday tolerating diet denying chest pain, shortness breath, nausea, vomiting or abdominal pain patient is still lethargic overall and felt slightly short of breath after reducing oxygen this morning. Would like to continue weaning off oxygen as tolerated, continue aggressive pulmonary hygiene, continue steroid per pulmonary recommendation for prolonged period of time, continue encouraging incentive spirometer and flutter valve, serial chest x-rays, DVT prophylaxis, discharge planning based on clinical progress plan discussed with patient and rewards consultant on the case 07/17: Repeat chest x-ray shows diffuse bilateral airspace disease and pleural effusion correlate for diffuse pneumonia or pulmonary edema. Bronchoscopy was concern for organizing pneumonia and positive for acute influenza and patient has been started on Tamiflu. He has continued on steroids. Patient does continue to improve very slowly. He continues to have some shortness of breath with exertion. FiO2 is 50% with O2 saturation of 94%. He continues to have cough with very minimal sputum production. He has been afebrile 07/18: Patient's respiratory status is currently stable from yesterday. Patient continues on Tamiflu and is in droplet isolation. He states that he has plan for bronchoscopy tomorrow. O2 needs are decreased to 45 FiO2 with O2 saturation of 100. He remains afebrile. He is continued on Solu-Medrol 60 mg every 12 hours. No change in medications today. 07/19: Patient continues to have improvement of his lung status. He is now on FiO2 64 and maintaining O2 saturation 93%. He is planned for possible bronchoscopy today with Dr. Delgado 07/20: Patient underwent bronchoscopy yesterday. After that, patient had hypotension which has been stabilized. Chest x-ray this morning reveals diffuse bilateral airspace disease and pleural effusion correlate for diffuse pneumonia or pulmonary edema. Patient is currently pulse oxing 96% on FiO2 of 50 with AirVo. He remains on Solu-Medrol 60 mg every 12 hours. Discharge plan remains that he will return home. Dr. Delgado requesting transfer to [facility]. She has contacted [facility] and his started arrangements. [facility] is requesting pathology slides be sent. Arrangements made with the pathology department to 70s out tomorrow. Patient transferred to [facility] in stable condition Discharge diagnoses: 1. Acute hypoxic respiratory failure secondary to cryptogenic organizing pneumonia and acute COPD exacerbation, influenza (most likely present on admission). 2. COPD exacerbation. 3. Mild CAD status post left heart cath physician back in 2014 that showed mild disease of the LAD and RCA. 4. Hypertension and hypertensive cardiovascular disease. 5. Bipolar disorder. Discharge plan: Transfer to [facility] Impression and plan of care have been directed as dictated by the signing physician. Meghna Larry nurse practitioner acting as scribe for signing physician. Patient Condition at Discharge: Good Plan - Discharge Summary Discharge Rx Participant: Yes New Discharge Prescriptions: No Action Sertraline [Zoloft] 100 mg PO DAILY Metoprolol Succinate [Toprol XL] 50 mg PO DAILY Montelukast [Singulair] 10 mg PO HS lamoTRIgine [LaMICtal] 100 mg PO DAILY Lisinopril [Prinivil] 20 mg PO DAILY Azithromycin [Zithromax Z-pack] See Taper PO DAILY Discharge Medication List Lisinopril [Prinivil] 20 mg PO DAILY 02/21/15 [History] Metoprolol Succinate [Toprol XL] 50 mg PO DAILY 02/21/15 [History] Montelukast [Singulair] 10 mg PO HS 02/21/15 [History] Sertraline [Zoloft] 100 mg PO DAILY 02/21/15 [History] lamoTRIgine [LaMICtal] 100 mg PO DAILY 02/21/15 [History] Azithromycin [Zithromax Z-pack] See Taper PO DAILY 07/02/18 [History] Follow up Appointment(s)/Referral(s): Muriel Delgado DO [Doctor of Osteopathic Medicine] - 1 Week Dimas Christy MD [Primary Care Provider] - 1-2 days
== END 2018-07-20 21:05 | disposition short-term general hospital (02) | DRG 193 ==
LOC: EC 09:15 → 4SSUR 11:38
PROVIDERS: ADMIT Internal Medicine Geriatric Medicine; ATTEND Internal Medicine Geriatric Medicine
PROC: 0BC38ZZ Extirpation of Matter from Right Main Bronchus, Via Natural or Artificial Opening Endoscopic (ICD-10-PCS; principal; 2018-07-12 12:30)
PROC: 0BDF8ZX Extraction of Right Lower Lung Lobe, Via Natural or Artificial Opening Endoscopic, Diagnostic (ICD-10-PCS; principal; 2018-07-12 12:30)
PROC: 0BC58ZZ Extirpation of Matter from Right Middle Lobe Bronchus, Via Natural or Artificial Opening Endoscopic (ICD-10-PCS; principal; 2018-07-12 12:30)
PROC: 0BC78ZZ Extirpation of Matter from Left Main Bronchus, Via Natural or Artificial Opening Endoscopic (ICD-10-PCS; principal; 2018-07-12 12:30)
PROC: 0BC48ZZ Extirpation of Matter from Right Upper Lobe Bronchus, Via Natural or Artificial Opening Endoscopic (ICD-10-PCS; principal; 2018-07-12 12:30)
PROC: 0B9B8ZZ Drainage of Left Lower Lobe Bronchus, Via Natural or Artificial Opening Endoscopic (ICD-10-PCS; 2018-07-19)
PROC: 0B968ZZ Drainage of Right Lower Lobe Bronchus, Via Natural or Artificial Opening Endoscopic (ICD-10-PCS; 2018-07-19)
PROC: 0B948ZZ Drainage of Right Upper Lobe Bronchus, Via Natural or Artificial Opening Endoscopic (ICD-10-PCS; 2018-07-19)
PROC: 0B958ZZ Drainage of Right Middle Lobe Bronchus, Via Natural or Artificial Opening Endoscopic (ICD-10-PCS; 2018-07-19)
PROC: 0B988ZZ Drainage of Left Upper Lobe Bronchus, Via Natural or Artificial Opening Endoscopic (ICD-10-PCS; 2018-07-19)
DX: J10.08 Influenza due to other identified influenza virus with other specified pneumonia (principal); J96.01 Acute respiratory failure with hypoxia; J84.116 Cryptogenic organizing pneumonia; J81.1 Chronic pulmonary edema; J90 Pleural effusion, not elsewhere classified; J44.0 Chronic obstructive pulmonary disease with (acute) lower respiratory infection; J44.1 Chronic obstructive pulmonary disease with (acute) exacerbation; F31.9 Bipolar disorder, unspecified; I11.9 Hypertensive heart disease without heart failure; I25.10 Atherosclerotic heart disease of native coronary artery without angina pectoris; M19.90 Unspecified osteoarthritis, unspecified site; T17.990A Other foreign object in respiratory tract, part unspecified in causing asphyxiation, initial encounter; Z79.899 Other long term (current) drug therapy; Z82.5 Family history of asthma and other chronic lower respiratory diseases; Z87.891 Personal history of nicotine dependence; Z95.5 Presence of coronary angioplasty implant and graft
CPT/HCPCS: 31623; 31624; 31625; 36415; 71045; 71046; 71250; 71275; 80048; 80053; 82103; 82104; 82550; 82553; 82785; 82803; 83036; 83605; 83735; 83880; 84145; 84484; 85025; 85027; 85610; 85730; 86001; 86003; 86038; 86039; 86431; 86606; 86609; 86635; 86698; 86738; 87040; 87070; 87102; 87116; 87205; 87206; 87252; 87390; 87449; 87496; 87498; 87502; 87529; 87634; 87798; 88104; 88108; 88305; 89050; 93005; 93306; 94640; 94660; 94664; 94667; 94668; 94760; 96365; 96367; 96375; 99285

== ENCOUNTER 2018-11-25 13:31 | Inpatient (IN) | payer MEDICARE ==
[2018-11-25] MEDS ORDERED: methylPREDNISolone SOD SUCCI 125 MG/2 ML VIAL IV STA (13:42)
[2018-11-25] MEDS ORDERED: IPRATROPIUM-ALBUTEROL 3 ML NEB INHALATION STA (13:42)
[2018-11-25] MEDS ORDERED: ASPIRIN 81 MG PO STA (13:42)
--- NOTE | 2018-11-25 13:56 | ED ---
General Adult HPI - General Chief complaint: Shortness of Breath Stated complaint: Tachycardia Time Seen by Provider: 11/25/18 13:41 Source: patient Mode of arrival: ambulatory Limitations: no limitations - History of Present Illness Initial comments: Patient is a 68-year-old male with a history of interstitial lung disease who presents with a chief complaint of heart palpitations and pleuritic chest pain for about 2 weeks. Patient states he was recently discharged from [facility] for lung issues. He cannot identify any inciting incident to his issues today. There are no aggravating or alleviating factors. Timing is constant. Patient normally wears oxygen at home, 3 L but has to increased to 6 L when he exerts himself. He states this is normal for him. Denies any history of heart attacks, states it is a high blood pressure, is not diabetic, does not a family history of cardiac disease. - Related Data Home Medications Medication Instructions Recorded Confirmed Lisinopril [Prinivil] 20 mg PO DAILY 02/21/15 11/25/18 Montelukast [Singulair] 10 mg PO HS 02/21/15 11/25/18 Sertraline [Zoloft] 100 mg PO DAILY 02/21/15 11/25/18 lamoTRIgine [LaMICtal] 100 mg PO DAILY 02/21/15 11/25/18 Aspirin EC [Ecotrin Low Dose] 81 mg PO DAILY 11/25/18 11/25/18 Ranitidine HCl [Zantac] 150 mg PO BID 11/25/18 11/25/18 amLODIPine [Norvasc] 2.5 mg PO DAILY 11/25/18 11/25/18 predniSONE 7.5 mg PO AC-BRKFST 11/25/18 11/25/18 Allergies Allergy/AdvReac Type Severity Reaction Status Date / Time No Known Allergies Allergy Verified 11/25/18 14:04 Review of Systems ROS Statement: Those systems with pertinent positive or pertinent negative responses have been documented in the HPI. ROS Other: All systems not noted in ROS Statement are negative. Respiratory: Reports: dyspnea Cardiovascular: Reports: palpitations Past Medical History Past Medical History: Coronary Artery Disease (CAD), COPD, Hypertension, Osteoarthritis (OA) Additional Past Medical History / Comment(s): interstital lung disease History of Any Multi-Drug Resistant Organisms: None Reported Past Surgical History: No Surgical Hx Reported, Heart Catheterization Past Psychological History: Depression Smoking Status: Former smoker Past Alcohol Use History: None Reported Past Drug Use History: None Reported - Past Family History Father Family Medical History: COPD (Father at age of 89 from old age and he also had COPD.) Mother Family Medical History: No Reported History (Mother at age of 68 and she also had history of fibromyalgia.) Brother(s) Family Medical History: No Reported History (Patient has 3 brothers no major medical problems.) Sister(s) Family Medical History: No Reported History (Patient has one sister no major medical problems.) Daughter(s) Family Medical History: No Reported History (Patient has 4 daughters no medical issues.) General Exam Limitations: no limitations General appearance: alert, in no apparent distress Head exam: Present: atraumatic, normocephalic Eye exam: Present: normal appearance ENT exam: Present: normal exam Neck exam: Present: normal inspection Respiratory exam: Present: normal lung sounds bilaterally, other (Lungs exam shows surprisingly good air entry and exit, no wheezes or rales heard.). Absent: respiratory distress, wheezes Cardiovascular Exam: Present: regular rate, normal rhythm GI/Abdominal exam: Present: soft. Absent: distended, tenderness Rectal exam: Present: deferred Extremities exam: Present: normal inspection Back exam: Present: normal inspection Neurological exam: Present: alert, oriented X3 Psychiatric exam: Present: normal affect, normal mood Skin exam: Present: warm, dry, intact Course Vital Signs 11/25/18 11/25/18 11/25/18 13:36 13:53 14:03 Temperature 98.1 F Pulse Rate 108 H 108 H 108 H Respiratory 18 Rate Blood Pressure 107/68 O2 Sat by Pulse 96 Oximetry Medical Decision Making - Medical Decision Making Patient presents with a chief complaint heart palpitations. On initial evaluation, vital signs are stable though he is mildly tachycardic with a rate of 108. He'll be evaluated basic labs including cardiac enzymes, EKG, chest x- ray and d-dimer. 2:32 PM Lab evaluation this patient shows white blood cells of 14.5, direct elevated at 0.73. Labs otherwise unremarkable. Patient will be sent for computed tomography scan of the chest to rule out PE. EKG performed at 1415 shows sinus tachycardia with a rate of 108 bpm, segments within normal limits, no acute signs of ischemia. 3:42 PM Lab evaluation of this patient is unremarkable. D-dimer is mildly elevated, follow-up computed tomography scan shows pulmonary embolisms within the right lung, nondiagnostic for the left lung. Patient started on heparin. Case discussed with Dr. Núñez who accepts admission and consult to Dr. Hernandez. Patient is agreeable with this care plan. - Lab Data Result diagrams: 11/25/18 14:03 11/25/18 14:03 Lab Results 11/25/18 11/25/18 11/25/18 Range/Units 14:03 14:03 14:03 WBC 14.5 H (3.8-10.6) k/uL RBC 4.80 (4.30-5.90) m/uL Hgb 14.2 (13.0-17.5) gm/dL Hct 43.2 (39.0-53.0) % MCV 90.0 (80.0-100.0) fL MCH 29.5 (25.0-35.0) pg MCHC 32.7 (31.0-37.0) g/dL RDW 14.8 (11.5-15.5) % Plt Count 313 (150-450) k/uL Neutrophils % 73 % Lymphocytes % 17 % Monocytes % 6 % Eosinophils % 1 % Basophils % 1 % Neutrophils # 10.5 H (1.3-7.7) k/uL Lymphocytes # 2.5 (1.0-4.8) k/uL Monocytes # 0.9 (0-1.0) k/uL Eosinophils # 0.2 (0-0.7) k/uL Basophils # 0.1 (0-0.2) k/uL D-Dimer (<0.60) mg/L FEU Sodium 140 (137-145) mmol/L Potassium 4.1 (3.5-5.1) mmol/L Chloride 101 (98-107) mmol/L Carbon Dioxide 28 (22-30) mmol/L Anion Gap 11 mmol/L BUN 24 H (9-20) mg/dL Creatinine 0.98 (0.66-1.25) mg/dL Est GFR (CKD-EPI)AfAm >90 (>60 ml/min/1.73 sqM) Est GFR (CKD-EPI)NonAf 80 (>60 ml/min/1.73 sqM) Glucose 101 H (74-99) mg/dL Calcium 10.0 (8.4-10.2) mg/dL Troponin I (0.000-0.034) ng/mL NT-Pro-B Natriuret Pep 54 pg/mL 11/25/18 11/25/18 Range/Units 14:03 14:03 WBC (3.8-10.6) k/uL RBC (4.30-5.90) m/uL Hgb (13.0-17.5) gm/dL Hct (39.0-53.0) % MCV (80.0-100.0) fL MCH (25.0-35.0) pg MCHC (31.0-37.0) g/dL RDW (11.5-15.5) % Plt Count (150-450) k/uL Neutrophils % % Lymphocytes % % Monocytes % % Eosinophils % % Basophils % % Neutrophils # (1.3-7.7) k/uL Lymphocytes # (1.0-4.8) k/uL Monocytes # (0-1.0) k/uL Eosinophils # (0-0.7) k/uL Basophils # (0-0.2) k/uL D-Dimer 0.73 H (<0.60) mg/L FEU Sodium (137-145) mmol/L Potassium (3.5-5.1) mmol/L Chloride (98-107) mmol/L Carbon Dioxide (22-30) mmol/L Anion Gap mmol/L BUN (9-20) mg/dL Creatinine (0.66-1.25) mg/dL Est GFR (CKD-EPI)AfAm (>60 ml/min/1.73 sqM) Est GFR (CKD-EPI)NonAf (>60 ml/min/1.73 sqM) Glucose (74-99) mg/dL Calcium (8.4-10.2) mg/dL Troponin I <0.012 (0.000-0.034) ng/mL NT-Pro-B Natriuret Pep pg/mL Disposition Clinical Impression: Pulmonary embolism Disposition: ADMITTED IP TO THIS HOSP Condition: Good Is patient prescribed a controlled substance at d/c from ED?: No Referrals: Dimas Christy MD [Primary Care Provider] - 1-2 days Decision to Admit Reason: Admit from EC - Out of Hospital Transfer - Req. Specs Out of Hospital Transfer - Requested Specifics: Telemetry Unit
[2018-11-25 14:13] LABS: Basophils # (A) 0.1 k/uL (0-0.2); Basophils % (A) 1 %; Eosinophils # (A) 0.2 k/uL (0-0.7); Eosinophils % (A) 1 %; HCT 43.2 % (39.0-53.0); HGB 14.2 gm/dL (13.0-17.5); Lymphocytes # (A) 2.5 k/uL (1.0-4.8); Lymphocytes % (A) 17 %; MCH 29.5 pg (25.0-35.0); MCHC 32.7 g/dL (31.0-37.0); Mean Platelet Volume 7.3; Monocytes # (A) 0.9 k/uL (0-1.0); Monocytes % (A) 6 %; Neutrophils # (A) 10.5 k/uL (1.3-7.7); Neutrophils % (A) 73 %; Platelet Count 313 k/uL (150-450); RDW 14.8 % (11.5-15.5); WBC 14.5 k/uL (3.8-10.6)
[2018-11-25 14:25] LABS: African American GFR (CKD) >90 (>60 ml/min/1.73 sqM); Anion Gap 11 mmol/L; Blood Urea Nitrogen 24 mg/dL (9-20); Carbon Dioxide 28 mmol/L (22-30); Chloride 101 mmol/L (98-107); Glucose 101 mg/dL (74-99); Potassium 4.1 mmol/L (3.5-5.1); Sodium 140 mmol/L (137-145)
--- NOTE | 2018-11-25 14:44 | XR ---
EXAMINATION TYPE: XR chest 2V DATE OF EXAM: 11/25/2018 COMPARISON: 07/20/2018 HISTORY: Chest pain TECHNIQUE: Frontal and lateral views of the chest are obtained. FINDINGS: There is near complete resolution of the previously seen extensive multifocal opacities. C hronic right hemidiaphragm elevation is seen. Cardia mediastinal silhouette is mildly enlarged. Right paratracheal fullness may relate to engorgement of the superior vena cava. There is some linear airs pace disease in the right upper lung that likely represents scarring. Minimal degenerative changes of the thoracic spine. IMPRESSION: Near complete resolution of the previously seen extensive multifocal airspace disease as seen on the prior exam. Residual probable right upper lung scarring is noted.
[2018-11-25] MEDS ORDERED: HEPARIN SODIUM,PORCINE 5,000 UNIT/ML 1 ML VIAL IV PRN (15:17)
[2018-11-25] MEDS ORDERED: HEPARIN SODIUM,PORCINE 10,000 UNIT/ML 1 ML VIAL IV ONE (15:17)
--- NOTE | 2018-11-25 15:18 | CT ---
EXAMINATION TYPE: CT chest angio for PE DATE OF EXAM: 11/25/2018 COMPARISON: NONE HISTORY: chest pain, tachycardic CT DLP: 463.6 mGycm. Automated Exposure Control for Dose Reduction was Utilized. CONTRAST: CTA scan of the thorax is performed with IV Contrast, patient injected with 76cc mL of Isovue 370, pu lmonary embolism protocol. MIP Images are created on CT scanner and reviewed. FINDINGS: LUNGS: Diffuse geographic groundglass opacities are seen with linear probable pleural-parenchymal sca rring in the lung apices. Small ground glass pulmonary nodules are seen such as within the posterior right upper lobe on image 38 measuring 5 mm. Coarsened interstitium is seen at the lung bases suggest ing a degree of fibrosis with some peripheral predominance at the lung bases. No pneumothorax or pleu ral effusion. There is no pleural effusion or pneumothorax seen. The tracheobronchial tree is rice nt. MEDIASTINUM: There is suboptimal enhancement of the pulmonary artery and its branches, with greater e nhancement of the aorta rather than the main pulmonary artery. There are no greater than 1 cm hilar or mediastinal lymph nodes. No cardiomegaly or pericardial effusion is seen. Minimal coronary calci fications are present. OTHER: The thyroid gland is diffusely heterogenous with enlargement of the right thyroid gland. A per ipherally calcified approximately 2.4 cm nodule is seen. IMPRESSION: 1. Suboptimal enhancement of the pulmonary artery however there appears to be acute segmental pulmona ry emboli to the right upper lobe with nearly nondiagnostic exam of the left upper lobe. Remainder of the pulmonary arteries to the lower lobes, lingula, and right middle lobe display no evidence of add itional pulmonary embolus. No findings of right heart strain are seen. Findings discussed with the or dering physician in the ER at 1515 on 11/25/[address] Miller. 2. Diffuse geographic groundglass opacities can be on the basis of hypersensitivity pneumonitis, flui d overload, atypical pneumonia, or other etiology. Linear probable pleural-parenchymal scarring is se en at the lung apices. Additional few subcentimeter nodular densities could also be on the basis of p neumonitis and follow up CT chest in 3 months to ensure resolution. 3. Heterogenous thyroid gland with right thyroid nodule for which nonemergent follow-up thyroid ultra sound is recommended.
[2018-11-25] MEDS ORDERED: NALOXONE 0.4 MG/ML 1 ML VIAL IV PRN (15:43)
[2018-11-25 15:56] LABS: INR 0.8 (<1.2); Partial Thromboplastin Time 22.9 sec (22.0-30.0); Prothrombin Time 9.3 sec (9.0-12.0)
[2018-11-25] MEDS: HEPARIN SOD,PORK IN 0.45% NACL 25,000 UNIT in 0.45% NACL 1 250ML.BAG IV SCH (16:52)
--- NOTE | 2018-11-25 18:29 | P.HPIM ---
History of Present Illness H&P Date: 11/25/18 Chief Complaint: shortness of breath this is a 68-year-old gentleman patient of Dr. Christy. He has underlying history of hypertension, CAD involving RCA and LAD, heart cath performed 2014, history of bipolar disorder, remote history of tobacco use, [facility],had a lengthy admission in June 2018, for dyspnea, and had bronchoscopy at that time, was negative for PE at that time,was diagnosed to have cryptogenic organizing pneumonia/BOOP bronchial washing showing Anna albicans, with blood culture showing influenza A, completed course of treatment at that time.along with COPD exacerbation. during the last admission, echocardiogram showed EF 60-65%, right ventricle systolic pressure of 38, right ventricle is mildly enlarged, no pericardial effusion, mild pulmonary hypertension, mild TR. He was recently discharged from [facility] secondary to interstitial fibrosis, currently requiring 3 L at home, however if he has increasing shortness of breath requiring 6 L of oxygen on ambulation, also now with palpitations and pleurisy for approximately 2 weeks He was seen in emergency room d-dimer was elevated, computed tomography scan shows pulmonary emboli within the right lung, 9 nondiagnostic for the left jose manuel ng,troponin is negative, creatinine of 0.98patient was started on IV heparin, and consult to Dr. Melchor Ayon/Dr. David wolff. Review of Systems Constitutional: Reports as per HPI, Denies anorexia, Denies chills, Denies chronic headaches, Denies chronic pain, Denies daytime sleepiness, Denies fatigue, Denies fever, Denies lethargy, Denies malaise, Denies night sweats, Denies poor appetite, Denies sweats, Denies weakness, Denies weight gain, Denies weight loss Ears, nose, mouth and throat: Reports as per HPI Cardiovascular: Reports as per HPI, Reports decreased exercise tolerance, Reports dyspnea on exertion, Reports orthopnea, Reports palpitations, Reports shortness of breath Respiratory: Reports as per HPI, Reports dyspnea, Reports home oxygen, Reports pain on inspiration, Denies congestion, Denies cough, Denies cough with sputum, Denies excessive sputum, Denies hemoptysis, Denies pain, Denies pleurisy, Denies respiratory infections, Denies sleep apnea, Denies snoring, Denies wheezing Gastrointestinal: Reports as per HPI, Denies abdominal pain, Denies belching, Denies bloating, Denies BRBPR, Denies change in bowel habits, Denies coffee ground emesis, Denies constipation, Denies diarrhea, Denies dyspepsia, Denies early satiety, Denies excessive gas, Denies heartburn, Denies hematemesis, Denies hematochezia, Denies indigestion, Denies jaundice, Denies lactose intolerance, Denies loss of appetite, Denies melena, Denies nausea, Denies vomiting Genitourinary: Reports as per HPI, Denies decreased libido, Denies difficulties fathering child, Denies discharge, Denies dysuria, Denies erectile dysfunction, Denies flank pain, Denies genital pain, Denies genital sores, Denies hematuria, Denies impotence, Denies incontinence, Denies kidney stones, Denies nocturia, Denies polyuria, Denies testicular lump, Denies testicular pain, Denies urinary frequency, Denies urinary hesitancy, Denies urinary retention Musculoskeletal: Reports as per HPI, Denies arm numbness/tingling, Denies atrophy, Denies fractures, Denies frequent falls, Denies gait dysfunction, Denies hot joints, Denies leg numbness/tingling, Denies limitation of motion, Denies loss of height, Denies low back pain, Denies morning stiffness, Denies muscle cramps, Denies muscle weakness, Denies myalgias, Denies neck pain, Denies neck stiffness, Denies prior amputations, Denies redness of joints, Denies shooting arm pain, Denies shooting leg pain Integumentary: Reports as per HPI, Denies acne, Denies boils, Denies brittle nails, Denies change in hair/nails, Denies color changes, Denies darkening of sk in, Denies depigmentation, Denies dryness, Denies foot/leg ulcers, Denies growths, Denies hirsutism, Denies lesions, Denies onychomycosis, Denies pruritus, Denies rash, Denies sores, Denies striae, Denies unusual bruising, Denies wounds Neurological: Reports as per HPI Psychiatric: Reports as per HPI Endocrine: Reports as per HPI Hematologic/Lymphatic: Reports as per HPI Allergic/Immunologic: Reports as per HPI Past Medical History Past Medical History: Coronary Artery Disease (CAD), COPD, Hypertension, Osteoarthritis (OA) Additional Past Medical History / Comment(s): interstital lung disease History of Any Multi-Drug Resistant Organisms: None Reported Past Surgical History: No Surgical Hx Reported, Heart Catheterization Past Psychological History: Depression Smoking Status: Former smoker Past Alcohol Use History: None Reported Past Drug Use History: None Reported - Past Family History Father Family Medical History: COPD (Father at age of 89 from old age and he also had COPD.) Mother Family Medical History: No Reported History (Mother at age of 68 and she also had history of fibromyalgia.) Brother(s) Family Medical History: No Reported History (Patient has 3 brothers no major medical problems.) Sister(s) Family Medical History: No Reported History (Patient has one sister no major medical problems.) Daughter(s) Family Medical History: No Reported History (Patient has 4 daughters no medical issues.) Medications and Allergies Home Medications Medication Instructions Recorded Confirmed Type Lisinopril [Prinivil] 20 mg PO DAILY 02/21/15 11/25/18 History Montelukast [Singulair] 10 mg PO HS 02/21/15 11/25/18 History Sertraline [Zoloft] 100 mg PO DAILY 02/21/15 11/25/18 History lamoTRIgine [LaMICtal] 100 mg PO DAILY 02/21/15 11/25/18 History Aspirin EC [Ecotrin Low Dose] 81 mg PO DAILY 11/25/18 11/25/18 History Ranitidine HCl [Zantac] 150 mg PO BID 11/25/18 11/25/18 History amLODIPine [Norvasc] 2.5 mg PO DAILY 11/25/18 11/25/18 History predniSONE 7.5 mg PO AC-BRKFST 11/25/18 11/25/18 History Allergies Allergy/AdvReac Type Severity Reaction Status Date / Time No Known Allergies Allergy Verified 11/25/18 14:04 Physical Exam Vitals: Vital Signs Temp Pulse Resp BP Pulse Ox 11/25/18 16:59 98 18 118/86 96 11/25/18 14:03 108 H 11/25/18 13:53 108 H 11/25/18 13:36 98.1 F 108 H 18 107/68 96 Intake and Output 11/25/18 11/25/18 11/25/18 06:59 14:59 22:59 Other: Weight 97.522 kg - Constitutional General appearance: cooperative, no acute distress, obese - EENT Eyes: anicteric sclerae, EOMI, PERRLA, dentition normal ENT: NA/AT, normal oropharynx - Neck Neck: normal ROM - Respiratory Respiratory: bilateral: CTA, diminished - Cardiovascular Rhythm: regular Heart sounds: normal: S1, S2 - Gastrointestinal General gastrointestinal: normal bowel sounds, soft - Integumentary Integumentary: normal, normal turgor - Neurologic Neurologic: CNII-XII intact - Musculoskeletal Musculoskeletal: gait normal, strength equal bilaterally - Psychiatric Psychiatric: A&O x's 3, appropriate affect, intact judgment & insight Results CBC & Chem 7: 11/25/18 14:03 11/25/18 14:03 Labs: Abnormal Lab Results - Last 24 Hours (Table) 11/25/18 11/25/18 11/25/18 Range/Units 14:03 14:03 14:03 WBC 14.5 H (3.8-10.6) k/uL Neutrophils # 10.5 H (1.3-7.7) k/uL D-Dimer 0.73 H (<0.60) mg/L FEU BUN 24 H (9-20) mg/dL Glucose 101 H (74-99) mg/dL Laboratory Results WBC 14.5 k/uL (3.8-10.6) H 11/25/18 14:03 RBC 4.80 m/uL (4.30-5.90) 11/25/18 14:03 Hgb 14.2 gm/dL (13.0-17.5) 11/25/18 14:03 Hct 43.2 % (39.0-53.0) 11/25/18 14:03 MCV 90.0 fL (80.0-100.0) 11/25/18 14:03 MCH 29.5 pg (25.0-35.0) 11/25/18 14:03 MCHC 32.7 g/dL (31.0-37.0) 11/25/18 14:03 RDW 14.8 % (11.5-15.5) 11/25/18 14:03 Plt Count 313 k/uL (150-450) 11/25/18 14:03 Neutrophils % 73 % 11/25/18 14:03 Lymphocytes % 17 % 11/25/18 14:03 Monocytes % 6 % 11/25/18 14:03 Eosinophils % 1 % 11/25/18 14:03 Basophils % 1 % 11/25/18 14:03 Neutrophils # 10.5 k/uL (1.3-7.7) H 11/25/18 14:03 Lymphocytes # 2.5 k/uL (1.0-4.8) 11/25/18 14:03 Monocytes # 0.9 k/uL (0-1.0) 11/25/18 14:03 Eosinophils # 0.2 k/uL (0-0.7) 11/25/18 14:03 Basophils # 0.1 k/uL (0-0.2) 11/25/18 14:03 PT 9.3 sec (9.0-12.0) 11/25/18 15:17 INR 0.8 (<1.2) 11/25/18 15:17 APTT 22.9 sec (22.0-30.0) 11/25/18 15:17 D-Dimer 0.73 mg/L FEU (<0.60) H 11/25/18 14:03 Sodium 140 mmol/L (137-145) 11/25/18 14:03 Potassium 4.1 mmol/L (3.5-5.1) 11/25/18 14:03 Chloride 101 mmol/L (98-107) 11/25/18 14:03 Carbon Dioxide 28 mmol/L (22-30) 11/25/18 14:03 Anion Gap 11 mmol/L 11/25/18 14:03 BUN 24 mg/dL (9-20) H 11/25/18 14:03 Creatinine 0.98 mg/dL (0.66-1.25) 11/25/18 14:03 Est GFR (CKD-EPI)AfAm >90 (>60 ml/min/1.73 sqM) 11/25/18 14:03 Est GFR (CKD-EPI)NonAf 80 (>60 ml/min/1.73 sqM) 11/25/18 14:03 Glucose 101 mg/dL (74-99) H 11/25/18 14:03 Calcium 10.0 mg/dL (8.4-10.2) 11/25/18 14:03 Troponin I <0.012 ng/mL (0.000-0.034) 11/25/18 14:03 NT-Pro-B Natriuret Pep 54 pg/mL 11/25/18 14:03 Thrombosis Risk Factor Assmnt - DVT/VTE Prophylaxis DVT/VTE Prophylaxis: Pharmacologic Prophylaxis ordered - Choose All That Apply Each Risk Factor Represents 2 Points: Age 61-74 years Each Risk Factor Represents 3 Points: History of DVT/PE Thrombosis Risk Factor Assessment Total Risk Factor Score: 5 Thrombosis Risk Factor Assessment Level: High Risk Assessment and Plan Plan: 1. Acute pulmonary emboli, causing Acute on chronic hypoxic respiratory failure. acute pulmonary embolir ight-sided, echocardiogram to be done to evaluate for right heart strain, IV heparin, would transition to oral factor X a inhibition 2. Interstitial lung disease, with history of cryptogenic organizing pneumonia BOOP COPD has been seen by [facility] pulmonary, for interstitial lung disease, on O2 nebulized treatment at home, 2 L to 6 L a day . Continue DuoNeb 3 mL nebulization 4 times every day, Pulmicort 1 mg nebulization twice every day, Perforomist twice daily, 2. COPD Continue oxygen, DuoNeb 3 mL nebulization 4 times every day, Pulmicort 0.5 mg nebulization twice every day,will need to evaluate for future use of Solu-Medrol. , was given Solu-Medrol 1 time in the emergency room. Resume Pulmicort Continue as in patient is on maintenance prednisone 7.5 mg daily 3. Mild CAD status post left heart cath physician back in 2014 that showed mild disease of the LAD and RCA. Stable at this time continue patient on Toprol-XL 50 mg orally once every day. 4. Hypertension and hypertensive cardiovascular disease. Continue Toprol-XL 50 mg orally once every day, lisinopril 20 mg orally once every day. 5. Bipolar disorder. Continue Lamictal 100 mg orally once every day as well as sertraline 100 mg orally once every day. 6. GI prophylaxis. Protonix 40 mg once every day. 7. DVT prophylaxis. IV Heparin for pulmonary emboli 8. Patient is full code.
[2018-11-25] MEDS: BUDESONIDE 0.5 MG/2 ML NEBU INHALATION SCH (19:35)
[2018-11-25 20:00] VITALS: BMI 32.6
[2018-11-25] MEDS: FAMOTIDINE 20 MG TAB PO SCH (20:39)
[2018-11-25] MEDS: MONTELUKAST 10 MG TAB PO SCH (20:39)
--- NOTE | 2018-11-25 20:53 | P.CNPUL ---
History of Present Illness Consult date: 11/25/18 Reason for consult: dyspnea, chest pain, pulmonary fibrosis Chief complaint: Shortness of breath and chest pain of 2-3 day duration History of present illness: This patient has a history of respiratory failure chronic in nature diagnosed about 4-6 month ago with interstitial lung disease with a reference to [facility] patient was initially considered for a lung transplant subsequently has been taken off of the list, he has been on oxygen at home 4-6 L with 10 mg of prednisone with shortness of breath on exertion as a baseline, the computed tomography scan those were done in June were compared to done recently, this patient started having shortness of breath and chest pain pleuritic in nature about 2-3 days with persistent problem the family advice to be evaluated further in the emergency department, in the ER he underwent computed tomography scan of the chest/PA angiogram with diagnoses of right upper lobe pulmonary embolism patient has been started on IV heparin and continued on oxygen as he was taking before and continued on prednisone, I have reviewed both the scans there is significant improvement of groundglass attenuation at the bases were noted with some cyst formation in the upper lobes with geographic groundglass pattern in upper lobes as well which is persistent and appears to have slightly progressed there are irregular cystic cavities have formed as well in the upper lobes bilaterally. 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, additional also significant history of coronary artery disease involving LAD and RCA Review of Systems All systems: negative Past Medical History Past Medical History: Coronary Artery Disease (CAD), COPD, Hypertension, Osteoarthritis (OA), Pulmonary Embolus (PE) Additional Past Medical History / Comment(s): interstital lung disease History of Any Multi-Drug Resistant Organisms: None Reported Past Surgical History: No Surgical Hx Reported, Heart Catheterization Past Anesthesia/Blood Transfusion Reactions: No Reported Reaction Past Psychological History: Depression Smoking Status: Former smoker Past Alcohol Use History: None Reported Past Drug Use History: None Reported - Past Family History Father Family Medical History: COPD Mother Family Medical History: No Reported History Brother(s) Family Medical History: No Reported History Sister(s) Family Medical History: No Reported History Daughter(s) Family Medical History: No Reported History Medications and Allergies Home Medications Medication Instructions Recorded Confirmed Type Lisinopril [Prinivil] 20 mg PO DAILY 02/21/15 11/25/18 History Montelukast [Singulair] 10 mg PO HS 02/21/15 11/25/18 History Sertraline [Zoloft] 100 mg PO DAILY 02/21/15 11/25/18 History lamoTRIgine [LaMICtal] 100 mg PO DAILY 02/21/15 11/25/18 History Aspirin EC [Ecotrin Low Dose] 81 mg PO DAILY 11/25/18 11/25/18 History Ranitidine HCl [Zantac] 150 mg PO BID 11/25/18 11/25/18 History amLODIPine [Norvasc] 2.5 mg PO DAILY 11/25/18 11/25/18 History predniSONE 7.5 mg PO AC-BRKFST 11/25/18 11/25/18 History Allergies Allergy/AdvReac Type Severity Reaction Status Date / Time No Known Allergies Allergy Verified 11/25/18 14:04 Physical Exam Vitals: Vital Signs Temp Pulse Pulse Resp BP BP Pulse Ox 11/25/18 19:50 97.6 F 106 H 20 133/74 97 11/25/18 19:44 100 11/25/18 19:39 97 11/25/18 19:35 108 H 11/25/18 16:59 98 18 118/86 96 11/25/18 14:03 108 H 11/25/18 13:53 108 H 11/25/18 13:36 98.1 F 108 H 18 107/68 96 Intake and Output 11/25/18 11/25/18 11/25/18 06:59 14:59 22:59 Intake Total 250 Balance 250 Intake: Oral 250 Other: Weight 97.522 kg - Constitutional General appearance: average body habitus, cooperative, disheveled, mild distress, obese - EENT Eyes: EOMI, PERRLA, dentition normal, normal appearance ENT: hearing grossly normal, normal oropharynx Ears: bilateral: normal - Neck Neck: normal ROM Carotids: bilateral: upstroke normal, bruit absent Thyroid: bilateral: normal size - Respiratory Respiratory: bilateral: diminished, rales (Dry in nature), negative: CTA, dullness, rhonchi, wheezing, prolonged expiration - Cardiovascular Rhythm: regular Heart sounds: normal: S1, S2 - Gastrointestinal General gastrointestinal: normal bowel sounds, soft - Integumentary Integumentary: normal turgor - Neurologic Neurologic: CNII-XII intact - Musculoskeletal Musculoskeletal: gait normal, generalized weakness, strength equal bilaterally - Psychiatric Psychiatric: A&O x's 3, appropriate affect, intact judgment & insight Results - Laboratory Findings CBC and BMP: 11/25/18 14:03 11/25/18 14:03 PT/INR, D-dimer PT 9.3 sec (9.0-12.0) 11/25/18 15:17 INR 0.8 (<1.2) 11/25/18 15:17 D-Dimer 0.73 mg/L FEU (<0.60) H 11/25/18 14:03 Abnormal lab findings: Abnormal Labs 11/25/18 11/25/18 11/25/18 14:03 14:03 14:03 WBC 14.5 H Neutrophils # 10.5 H D-Dimer 0.73 H BUN 24 H Glucose 101 H - Diagnostic Findings Chest x-ray: report reviewed, image reviewed CT scan - chest: report reviewed, image reviewed (Compared with CAT scan pe rformed in June 2018 with findings as dictated above) Assessment and Plan Assessment: Acute pulmonary embolism right upper lobe circulation Interstitial lung disease Chronic respiratory failure Coronary artery disease Hypertension hypertensive cardiovascular disease Plan: IV heparin Can be changed to oral anticoagulants 24 hours Continue supplemental oxygen Continue oral prednisone maintenance dose Further evaluation of lungs as outpatient Time with Patient: Greater than 30
[2018-11-25] MEDS: SERTRALINE 100 MG TAB PO SCH (22:16)
[2018-11-25] MEDS: lamoTRIgine 100 MG TAB PO SCH (22:16)
[2018-11-26] MEDS: HEPARIN SOD,PORK IN 0.45% NACL 25,000 UNIT in 0.45% NACL 1 250ML.BAG IV SCH ×2 (06:18→21:19)
[2018-11-26 06:46] LABS: Basophils % (A) 0 %; Eosinophils % (A) 0 %; HCT 41.3 % (39.0-53.0); Lymphocytes % (A) 6 %; MCH 29.5 pg (25.0-35.0); MCHC 31.5 g/dL (31.0-37.0); MCV 93.4 fL (80.0-100.0); Mean Platelet Volume 6.8; Monocytes # (A) 0.8 k/uL (0-1.0); Monocytes % (A) 5 %; Neutrophils # (A) 14.4 k/uL (1.3-7.7); Neutrophils % (A) 88 %; Platelet Count 269 k/uL (150-450); RBC 4.43 m/uL (4.30-5.90); RDW 14.5 % (11.5-15.5); WBC 16.4 k/uL (3.8-10.6)
[2018-11-26] MEDS ORDERED: predniSONE 5 MG TAB PO SCH (07:30)
[2018-11-26 07:36] LABS: ALT 24 U/L (21-72); AST 22 U/L (17-59); African American GFR (CKD) >90 (>60 ml/min/1.73 sqM); Albumin 4.2 g/dL (3.5-5.0); Alkaline Phosphatase 68 U/L (38-126); Anion Gap 10 mmol/L; Blood Urea Nitrogen 23 mg/dL (9-20); Calcium 9.8 mg/dL (8.4-10.2); Carbon Dioxide 26 mmol/L (22-30); Chloride 105 mmol/L (98-107); Glucose 138 mg/dL (74-99); Sodium 141 mmol/L (137-145); Total Bilirubin 0.2 mg/dL (0.2-1.3); Total Protein 7.1 g/dL (6.3-8.2)
[2018-11-26] MEDS: BUDESONIDE 0.5 MG/2 ML NEBU INHALATION SCH (08:13)
[2018-11-26 08:59] LABS: T4, Free (Free Thyroxine) 1.25 ng/dL (0.78-2.19)
[2018-11-26] MEDS ORDERED: SERTRALINE 100 MG TAB PO SCH (09:00)
[2018-11-26] MEDS ORDERED: lamoTRIgine 100 MG TAB PO SCH (09:00)
[2018-11-26] MEDS: LISINOPRIL 20 MG TAB PO SCH (09:32)
[2018-11-26] MEDS: FAMOTIDINE 20 MG TAB PO SCH ×2 (09:32→21:19)
[2018-11-26] MEDS: ASPIRIN 81 MG PO SCH (09:32)
[2018-11-26] MEDS: amLODIPine 2.5 MG TAB PO SCH (09:32)
--- NOTE | 2018-11-26 14:49 | P.PN ---
Subjective Progress Note Date: 11/26/18 Principal diagnosis: Acute pulmonary embolism, interstitial lung disease, chronic respiratory failure, coronary artery disease, hypertension hypertensive cardiovascular disease, 11/26/2018, patient seen eval reexamined during the rounds remains on IV heparin, doing well no chest pain is present still have ongoing shortness of breath which anything his baseline, he is on 4 L nasal cannula saturating well labs reviewed medications reviewed her plan discussed with the patient at length, I have discussed with him about computed tomography scan finding back in June 2018 and compared with the recent one in November 24 2018 at the time of admission This patient has a history of respiratory failure chronic in nature diagnosed about 4-6 month ago with interstitial lung disease with a reference to [facility] patient was initially considered for a lung transplant subs equently has been taken off of the list, he has been on oxygen at home 4-6 L with 10 mg of prednisone with shortness of breath on exertion as a baseline, the computed tomography scan those were done in June were compared to done recently, this patient started having shortness of breath and chest pain pleuritic in nature about 2-3 days with persistent problem the family advice to be evaluated further in the emergency department, in the ER he underwent computed tomography scan of the chest/PA angiogram with diagnoses of right upper lobe pulmonary embolism patient has been started on IV heparin and continued on oxygen as he was taking before and continued on prednisone, I have reviewed both the scans there is significant improvement of groundglass attenuation at the bases were noted with some cyst formation in the upper lobes with geographic groundglass pattern in upper lobes as well which is persistent and appears to have slightly progressed there are irregular cystic cavities have formed as well in the upper lobes bilaterally. 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, additional also significant history of coronary artery disease involving LAD and RCA Objective - Vital Signs Vital signs: Vital Signs Temp 97.7 F 11/26/18 12:00 Pulse 85 11/26/18 12:00 Resp 16 11/26/18 12:00 BP 132/80 11/26/18 12:00 Pulse Ox 97 11/26/18 12:00 Intake & Output 11/25/18 11/26/18 11/26/18 18:59 06:59 18:59 Intake Total 797.803 480 Output Total 1800 630 Balance -1002.197 -150 Weight 97.522 kg Intake: Intake, IV Titration 247.803 Amount Heparin Sod,Pork in 0.45% 247.803 NaCl 25,000 unit In 0.45 % NaCl 1 250ml.bag @ 18 UNITS/KG/HR 17.554 mls/hr IV .[id number] [facility] Rx#: [id number] Oral 550 480 Output: Urine 1800 630 Other: Voiding Method Urinal # Voids 1 1 - Exam Constitutional General appearance: average body habitus, cooperative, disheveled, mild distress, obese - EENT Eyes: EOMI, PERRLA, dentition normal, normal appearance ENT: hearing grossly normal, normal oropharynx Ears: bilateral: normal - Neck Neck: normal ROM Carotids: bilateral: upstroke normal, bruit absent Thyroid: bilateral: normal size - Respiratory Respiratory: bilateral: diminished, rales (Dry in nature), negative: CTA, dullness, rhonchi, wheezing, prolonged expiration - Cardiovascular Rhythm: regular Heart sounds: normal: S1, S2 - Gastrointestinal General gastrointestinal: normal bowel sounds, soft - Integumentary Integumentary: normal turgor - Neurologic Neurologic: CNII-XII intact - Musculoskeletal Musculoskeletal: gait normal, generalized weakness, strength equal bilaterally - Psychiatric Psychiatric: A&O x's 3, appropriate affect, intact judgment & insight - Labs CBC & Chem 7: 11/26/18 06:07 11/26/18 06:07 Labs: Abnormal Lab Results - Last 24 Hours (Table) 11/25/18 11/26/18 11/26/18 Range/Units 22:09 06:07 06:07 WBC 16.4 H (3.8-10.6) k/uL Neutrophils # 14.4 H (1.3-7.7) k/uL APTT 71.5 H (22.0-30.0) sec BUN 23 H (9-20) mg/dL Glucose 138 H (74-99) mg/dL TSH 0.230 L (0.465-4.680) mIU/L 11/26/18 Range/Units 06:07 WBC (3.8-10.6) k/uL Neutrophils # (1.3-7.7) k/uL APTT 63.9 H (22.0-30.0) sec BUN (9-20) mg/dL Glucose (74-99) mg/dL TSH (0.465-4.680) mIU/L Assessment and Plan Assessment: Acute pulmonary embolism right upper lobe circulation Interstitial lung disease Chronic respiratory failure Coronary artery disease Hypertension hypertensive cardiovascular disease Plan: IV heparin Can be changed to oral anticoagulants like Eliquis in 24 hours, then heparin drip can be stopped after getting first dose Continue supplemental oxygen Continue oral prednisone maintenance dose Further evaluation of lungs as outpatient Time with Patient: Greater than 30
--- NOTE | 2018-11-26 17:19 | P.PN ---
Subjective Progress Note Date: 11/26/18 this is a 68-year-old gentleman patient of Dr. Christy. He has underlying history of hypertension, CAD involving RCA and LAD, heart cath performed 2014, history of bipolar disorder, remote history of tobacco use, admitted emergency room secondary to shortness of breath,had a lengthy admission in June 2018, for dyspnea, and had bronchoscopy at that time, was negative for PE at that time,was diagnosed to have cryptogenic organizing pneumonia/BOOP bronchial washing showing Anna albicans, with blood culture showing influenza A, completed course of treatment at that time.along with COPD exacerbation. during the last admission, echocardiogram showed EF 60-65%, right ventricle systolic pressure of 38, right ventricle is mildly enlarged, no pericardial effusion, mild pulmonary hypertension, mild TR. He was recently discharged from secondary to interstitial fibrosis, currently requiring 3 L at home, however if he has increasing shortness of breath requiring 6 L of oxygen on ambulation, also now with palpitations and pleurisy for approximately 2 weeks He was seen in emergency room d-dimer was elevated, computed tomography scan shows pulmonary emboli within the right lung, 9 nondiagnostic for the left lung,troponin is negative, creatinine of 0.98patient was started on IV heparin, and consult to Dr. Melchor Ayon/Dr. David wolff. 11/26: Patient is doing better, with regards to pleurisy and shortness of breath, prednisone has been clarified to maintain at 10 mg till office visit from [facility] pulmonary physician in December, restart budesonide 1 mg twice a day, and Duo Neb when necessary, transition to oral factor X a inhibition today, and discontinue heparin in 2 hours after initiation of eliquis Review of Systems Constitutional: Reports as per HPI, Denies anorexia, Denies chills, Denies chronic headaches, Denies chronic pain, Denies daytime sleepiness, Denies fatigue, Denies fever, Denies lethargy, Denies malaise, Denies night sweats, Denies poor appetite, Denies sweats, Denies weakness, Denies weight gain, Denies weight loss Ears, nose, mouth and throat: Reports as per HPI Cardiovascular: Reports as per HPI, Reports decreased exercise tolerance, Reports dyspnea on exertion, Reports orthopnea, Reports palpitations, Reports shortness of breath Respiratory: Reports as per HPI, Reports dyspnea, Reports home oxygen, Reports pain on inspiration, Denies congestion, Denies cough, Denies cough with sputum, Denies excessive sputum, Denies hemoptysis, Denies pain, Denies pleurisy, Denies respiratory infections, Denies sleep apnea, Denies snoring, Denies wheezing Gastrointestinal: Reports as per HPI, Denies abdominal pain, Denies belching, Denies bloating, Denies BRBPR, Denies change in bowel habits, Denies coffee ground emesis, Denies constipation, Denies diarrhea, Denies dyspepsia, Denies early satiety, Denies excessive gas, Denies heartburn, Denies hematemesis, Denies hematochezia, Denies indigestion, Denies jaundice, Denies lactose intolerance, Denies loss of appetite, Denies melena, Denies nausea, Denies vomiting Genitourinary: Reports as per HPI, Denies decreased libido, Denies difficulties fathering child, Denies discharge, Denies dysuria, Denies erectile dysfunction, Denies flank pain, Denies genital pain, Denies genital sores, Denies hematuria, Denies impotence, Denies incontinence, Denies kidney stones, Denies nocturia, Denies polyuria, Denies testicular lump, Denies testicular pain, Denies urinary frequency, Denies urinary hesitancy, Denies urinary retention Musculoskeletal: Reports as per HPI, Denies arm numbness/tingling, Denies atrop hy, Denies fractures, Denies frequent falls, Denies gait dysfunction, Denies hot joints, Denies leg numbness/tingling, Denies limitation of motion, Denies loss of height, Denies low back pain, Denies morning stiffness, Denies muscle cramps, Denies muscle weakness, Denies myalgias, Denies neck pain, Denies neck stiffness, Denies prior amputations, Denies redness of joints, Denies shooting arm pain, Denies shooting leg pain Integumentary: Reports as per HPI, Denies acne, Denies boils, Denies brittle nails, Denies change in hair/nails, Denies color changes, Denies darkening of skin, Denies depigmentation, Denies dryness, Denies foot/leg ulcers, Denies growths, Denies hirsutism, Denies lesions, Denies onychomycosis, Denies pruritus, Denies rash, Denies sores, Denies striae, Denies unusual bruising, Denies wounds Neurological: Reports as per HPI Psychiatric: Reports as per HPI Endocrine: Reports as per HPI Hematologic/Lymphatic: Reports as per HPI Allergic/Immunologic: Reports as per HPI Objective - Vital Signs Vital signs: Vital Signs Temp 97.7 F 11/26/18 12:00 Pulse 99 11/26/18 16:00 Resp 19 11/26/18 16:00 BP 127/73 11/26/18 16:00 Pulse Ox 96 11/26/18 16:00 Intake & Output 11/25/18 11/26/18 11/26/18 18:59 06:59 18:59 Intake Total 797.803 480 Output Total 1800 630 Balance -1002.197 -150 Weight 97.522 kg Intake: Intake, IV Titration 247.803 Amount Heparin Sod,Pork in 0.45% 247.803 NaCl 25,000 unit In 0.45 % NaCl 1 250ml.bag @ 18 UNITS/KG/HR 17.554 mls/hr IV .[id number] [facility] Rx#: [id number] Oral 550 480 Output: Urine 1800 630 Other: Voiding Method Urinal # Voids 1 1 - Constitutional General appearance: Present: cooperative, no acute distress - EENT Eyes: Present: anicteric sclerae, PERRLA, normal appearance ENT: Present: hearing grossly normal, NA/AT, normal oropharynx - Neck Neck: Present: normal ROM - Respiratory Respiratory: bilateral: CTA, rhonchi, negative: diminished, dullness, wheezing, prolonged expiration, prolonged inspiration - Cardiovascular Rhythm: regular Heart sounds: normal: S1, S2 Abnormal Heart Sounds: Absent: systolic murmur, diastolic murmur, rub, S3 Gallop, S4 Gallop, click, other - Gastrointestinal General gastrointestinal: Present: normal bowel sounds, soft - Integumentary Integumentary: Present: normal, normal turgor - Neurologic Neurologic: Present: CNII-XII intact - Musculoskeletal Musculoskeletal: Present: gait normal, strength equal bilaterally - Psychiatric Psychiatric: Present: A&O x's 3, appropriate affect, intact judgment & insight - Labs CBC & Chem 7: 11/26/18 06:07 11/26/18 06:07 Labs: Abnormal Lab Results - Last 24 Hours (Table) 11/25/18 11/26/18 11/26/18 Range/Units 22:09 06:07 06:07 WBC 16.4 H (3.8-10.6) k/uL Neutrophils # 14.4 H (1.3-7.7) k/uL APTT 71.5 H (22.0-30.0) sec BUN 23 H (9-20) mg/dL Glucose 138 H (74-99) mg/dL TSH 0.230 L (0.465-4.680) mIU/L 11/26/18 Range/Units 06:07 WBC (3.8-10.6) k/uL Neutrophils # (1.3-7.7) k/uL APTT 63.9 H (22.0-30.0) sec BUN (9-20) mg/dL Glucose (74-99) mg/dL TSH (0.465-4.680) mIU/L Assessment and Plan Plan: 1. Acute pulmonary emboli, causing Acute on chronic hypoxic respiratory failure. acute pulmonary embolir ight-sided, echocardiogram to be done to evaluate for right heart strain, IV heparin, would transition to oral factor X a inhibition. Start" his 10 mg twice a day for 7 days then 5 mg twice a day thereafter for total of 6 months, Doppler lower extremities requested 2. Interstitial lung disease, with history of cryptogenic organizing pneumonia BOOP COPD has been seen by pulmonary, for interstitial lung disease, on O2 nebulized treatment at home, 2 L to 6 L a day . Continue DuoNeb 3 mL nebulization 4 times every day, Pulmicort 1 mg nebulization twice every day, Perforomist twice daily, 2. COPD Continue oxygen, DuoNeb 3 mL nebulization 4 times every day, Pulmicort 0.5 mg nebulization twice every day,will need to evaluate for future use of Solu-Medrol. , was given Solu-Medrol 1 time in the emergency room. Resume Pulmicort Continue as in patient is on maintenance prednisone 7.5 mg daily 3. Mild CAD status post left heart cath physician back in 2014 that showed mild disease of the LAD and RCA. Stable at this time continue patient on Toprol-XL 50 mg orally once every day. 4. Hypertension and hypertensive cardiovascular disease. Continue Toprol-XL 50 mg orally once every day, lisinopril 20 mg orally once every day. 5. Bipolar disorder. Continue Lamictal 100 mg orally once every day as well as sertraline 100 mg orally once every day. 6. GI prophylaxis. Protonix 40 mg once every day.Patient will be discharged either o while on Ahlquist and prednisone maintenance 7. DVT prophylaxis. IV Heparin for pulmonary emboli 8. Patient is full code.
[2018-11-26] MEDS: IPRATROPIUM-ALBUTEROL 3 ML NEB INHALATION PRN (20:53)
[2018-11-26] MEDS: BUDESONIDE 1 MG/2 ML NEBU INHALATION SCH (20:53)
[2018-11-26] MEDS: lamoTRIgine 100 MG TAB PO SCH (21:19)
[2018-11-26] MEDS: SERTRALINE 100 MG TAB PO SCH (21:19)
[2018-11-26] MEDS: APIXABAN 5 MG TAB PO SCH (21:19)
[2018-11-26] MEDS: MONTELUKAST 10 MG TAB PO SCH (21:19)
[2018-11-27] MEDS: BUDESONIDE 1 MG/2 ML NEBU INHALATION SCH (07:28)
[2018-11-27] MEDS: IPRATROPIUM-ALBUTEROL 3 ML NEB INHALATION PRN ×2 (07:28→10:44)
[2018-11-27 07:44] LABS: Basophils # (A) 0.1 k/uL (0-0.2); Basophils % (A) 1 %; Eosinophils # (A) 0.1 k/uL (0-0.7); Eosinophils % (A) 1 %; HCT 41.8 % (39.0-53.0); HGB 12.7 gm/dL (13.0-17.5); Hypochromasia Slight; Lymphocytes # (A) 2.1 k/uL (1.0-4.8); Lymphocytes % (A) 18 %; MCH 28.4 pg (25.0-35.0); MCHC 30.5 g/dL (31.0-37.0); MCV 93.2 fL (80.0-100.0); Mean Platelet Volume 7.3; Monocytes # (A) 0.7 k/uL (0-1.0); Monocytes % (A) 6 %; Neutrophils # (A) 8.3 k/uL (1.3-7.7); Neutrophils % (A) 72 %; Platelet Count 257 k/uL (150-450); RBC 4.49 m/uL (4.30-5.90); RDW 14.9 % (11.5-15.5); WBC 11.5 k/uL (3.8-10.6)
[2018-11-27] MEDS ORDERED: predniSONE 10 MG TAB PO SCH (09:00)
[2018-11-27] MEDS: ASPIRIN 81 MG PO SCH (09:02)
[2018-11-27] MEDS: FAMOTIDINE 20 MG TAB PO SCH (09:02)
[2018-11-27] MEDS: amLODIPine 2.5 MG TAB PO SCH (09:03)
[2018-11-27] MEDS: LISINOPRIL 20 MG TAB PO SCH (09:03)
[2018-11-27] MEDS: APIXABAN 5 MG TAB PO SCH (09:03)
--- NOTE | 2018-11-27 11:38 | ECHOF ---
Referral Reason:pulmonary emboili MEASUREMENTS -------- HEIGHT: 172.7 cm WEIGHT: 81.6 kg BP: 130/79 RVIDd: 3.2 cm (< 3.3) IVSd: 1.2 cm (0.6 - 1.1) LVIDd: 3.8 cm (3.9 - 5.3) LVPWd: 1.2 cm (0.6 - 1.1) IVSs: 1.6 cm LVIDs: 2.7 cm LVPWs: 1.2 cm LA Diam: 3.4 cm (2.7 - 3.8) LAESV Index (A-L): 13.25 ml/m Ao Diam: 3.3 cm (2.0 - 3.7) AV Cusp: 2.1 cm (1.5 - 2.6) MV EXCURSION: 14.230 mm (> 18.000) MV EF SLOPE: 44 mm/s (70 - 150) EPSS: 0.8 cm MV E Wilmer: 0.80 m/s MV DecT: 215 ms MV A Wilmer: 1.08 m/s MV E/A Ratio: 0.74 AV maxP.23 mmHg AV meanP.70 mmHg FINDINGS -------- Sinus rhythm. This was a technically adequate study. The left ventricular size is normal. There is borderline concentric left ventricular hypertrophy. Overall left ventricular systolic function is normal with, an EF between 60 - 65 %. The right ventricle is normal in size. Normal LA size by volume 22+/-6 ml/m2. The right atrium is normal in size. Interatrial and interventricular septum intact. There is mild aortic valve sclerosis. Peak/mean gradient across the Aortic Valve is 13.23mmHg / 6.7 0mmHg. No mitral regurgitation. Trace tricuspid regurgitation present. The pulmonic valve was not well visualized. The aortic root size is normal. Normal inferior vena cava with normal inspiratory collapse consistent with estimated right atrial pre ssure of 5 mmHg. There is no pericardial effusion. CONCLUSIONS -------- 1. Sinus rhythm. 2. This was a technically adequate study. 3. The left ventricular size is normal. 4. There is borderline concentric left ventricular hypertrophy. 5. Overall left ventricular systolic function is normal with, an EF between 60 - 65 %. 6. The right ventricle is normal in size. 7. Normal LA size by volume 22+/-6 ml/m2. 8. The right atrium is normal in size. 9. Interatrial and interventricular septum intact. 10. There is mild aortic valve sclerosis. 11. Peak/mean gradient across the Aortic Valve is 13.23mmHg / 6.70mmHg. 12. No mitral regurgitation. 13. Trace tricuspid regurgitation present. 14. The pulmonic valve was not well visualized. 15. The aortic root size is normal. 16. Normal inferior vena cava with normal inspiratory collapse consistent with estimated right atrial pressure of 5 mmHg. 17. There is no pericardial effusion. FILTER PRESS SUPERVISOR: Faith Merino RDCS
[2018-11-27 11:55] VITALS: BP 113/68; PULSE 94; RESP 20; TEMP 97.8
--- NOTE | 2018-11-27 12:59 | US ---
EXAMINATION TYPE: US venous doppler duplex LE DATE OF EXAM: 11/27/2018 8:54 AM COMPARISON: NONE CLINICAL HISTORY: pe. PE. No hx of DVT. On heparin. No leg symptoms. SIDE PERFORMED: Bilateral TECHNIQUE: The lower extremity deep venous system is examined utilizing real time linear array sonog sharif with graded compression, doppler sonography and color-flow sonography. VESSELS IMAGED: External Iliac Vein (EIV) Common Femoral Vein Deep Femoral Vein Greater Saphenous Vein * Femoral Vein Popliteal Vein Small Saphenous Vein * Proximal Calf Veins (* superficial vessels) There is normal flow, compressibility, vascular waveforms. Right Leg: Negative for DVT Left Leg: Negative for DVT IMPRESSION: No evident deep venous thrombosis at or above the knees.
--- NOTE | 2018-11-29 08:33 | P.DS ---
Providers Date of admission: 11/25/18 15:43 Expected date of discharge: 11/27/18 Attending physician: Mandi Núñez Consults: 11/25/18 15:43 Consult Physician Routine Consulting Provider: Leobardo Hernandez Consult Reason/Comments: Pulmonary embolism, NO evidence of heart strain Do you want consulting provider notified?: Yes Primary care physician: Dimas Christy [facility] Course: this is a 68-year-old gentleman patient of Dr. Christy. He has underlying history of hypertension, CAD involving RCA and LAD, heart cath performed 2014, history of bipolar disorder, remote history of tobacco use, admitted emergency room secondary to shortness of breath,had a lengthy admission in June 2018, for dyspnea, and had bronchoscopy at that time, was negative for PE at that time,was diagnosed to have cryptogenic organizing pneumonia/BOOP bronchial washing showing Anna albicans, with blood culture showing influenza A, completed course of treatment at that time.along with COPD exacerbation. during the last admission, echocardiogram showed EF 60-65%, right ventricle systolic pressure of 38, right ventricle is mildly enlarged, no pericardial effusion, mild pulmonary hypertension, mild TR. He was recently discharged from [facility] secondary to interstitial fibrosis, currently requiring 3 L at home, however if he has increasing shortness of breath requiring 6 L of oxygen on ambulation, also now with palpitations and pleurisy for approximately 2 weeks He was seen in emergency room d-dimer was elevated, computed tomography scan shows pulmonary emboli within the right lung, 9 nondiagnostic for the left lung,troponin is negative, creatinine of 0.98patient was started on IV heparin, and consult to Dr. Melchor Aoyn/Dr. Hernandez covering. 11/26: Patient is doing better, with regards to pleurisy and shortness of breath, prednisone has been clarified to maintain at 10 mg till office visit from [facility] pulmonary physician in December, restart budesonide 1 mg twice a day, and DuoNeb when necessary, transition to oral factor X a inhibition today, and discontinue heparin in 2 hours after initiation of eliquis 11/27: Echocardiogram reveals EF of 60-65%, borderline concentric left hypertrophy, mild aortic valve sclerosis, no mitral regurgitation, trace tricuspid regurgitation. Right atrial pressure 5 mmHg. No pericardial effusion. Venous Doppler was negative for DVT bilateral lower extremities. Patient was seen in consultation by Dr. Hernandez. Patient was transitioned to eliquis and case management working on coverage as patient states he does not have any insurance coverage. Patient will be discharged home today in stable condition. Discharge diagnoses: 1. Acute pulmonary emboli, causing Acute on chronic hypoxic respiratory failure. 2. Interstitial lung disease, with history of cryptogenic organizing pneumonia BOOP COPD has been seen by [facility] pulmonary, for interstitial lung disease 3. Chronic hypoxic respiratory failure on home O2. 4. COPD 5. Mild CAD status post left heart cath in 2014 that showed mild disease of the LAD and RCA. 6. Hypertension and hypertensive cardiovascular disease. 7. Bipolar disorder. Discharge plan: Home Impression and plan of care have been directed as dictated by the signing physician. Meghna Larry nurse practitioner acting as scribe for signing physician. Patient Condition at Discharge: Good Plan - Discharge Summary New Discharge Prescriptions: New Ipratropium-Albuterol Nebulize [Duoneb 0.5 mg-3 mg/3 ml Soln] 3 ml INHALATION RT-QID PRN ampul.neb PRN Reason: Shortness Of Breath Or Wheezing Apixaban [Eliquis Starter Pack (for VTE)] 0 mg PO DIRECTED 30 Days #1 pack Budesonide [Pulmicort] 1 mg INHALATION RT-BID nebu Famotidine [Pepcid] 20 mg PO BID #60 tablet Continue Sertraline [Zoloft] 100 mg PO DAILY Montelukast [Singulair] 10 mg PO HS lamoTRIgine [LaMICtal] 100 mg PO DAILY Lisinopril [Prinivil] 20 mg PO DAILY amLODIPine [Norvasc] 2.5 mg PO DAILY Ranitidine HCl [Zantac] 150 mg PO BID Aspirin EC [Ecotrin Low Dose] 81 mg PO DAILY Changed predniSONE 10 mg PO AC-BRKFST #0 Discharge Medication List Lisinopril [Prinivil] 20 mg PO DAILY 02/21/15 [History] Montelukast [Singulair] 10 mg PO HS 02/21/15 [History] Sertraline [Zoloft] 100 mg PO DAILY 02/21/15 [History] lamoTRIgine [LaMICtal] 100 mg PO DAILY 02/21/15 [History] Aspirin EC [Ecotrin Low Dose] 81 mg PO DAILY 11/25/18 [History] Ranitidine HCl [Zantac] 150 mg PO BID 11/25/18 [History] amLODIPine [Norvasc] 2.5 mg PO DAILY 11/25/18 [History] Apixaban [Eliquis Starter Pack (for VTE)] 0 mg PO DIRECTED 30 Days #1 pack 11/27/18 [Rx] Budesonide [Pulmicort] 1 mg INHALATION RT-BID nebu 11/27/18 [Rx] Famotidine [Pepcid] 20 mg PO BID #60 tablet 11/27/18 [Rx] Ipratropium-Albuterol Nebulize [Duoneb 0.5 mg-3 mg/3 ml Soln] 3 ml INHALATION RT-QID PRN ampul.neb 11/27/18 [Rx] predniSONE 10 mg PO AC-BRKFST #0 11/27/18 [Rx] Follow up Appointment(s)/Referral(s): Dimas Christy MD [Primary Care Provider] - 12/07/18 10:45 am (Office does not have samples of eliquis, please call Dr. Hernandez and ask for samples when you schedule your follow up appointment. You will need 5mg pills.) Leobardo Hernandez MD [STAFF PHYSICIAN] - 1 Week (Please call office to schedule follow up appointment during normal business hours. Office closed today, Tuesday November 27, 2018. [employer] Technician.) Patient Instructions/Handouts: Pulmonary Embolism (DC), Safe Use of Anticoagulants (DC) Activity/Diet/Wound Care/Special Instructions: Follow-up with pulmonary hypertension physician in 2 weeks. Discharge Disposition: HOME SELF-CARE
== END 2018-11-27 12:49 | disposition home or self-care (01) | DRG 175 ==
LOC: EC 13:31 → 3SCARD 15:43
PROVIDERS: ADMIT Family Medicine; ATTEND Family Medicine
DX: I26.99 Other pulmonary embolism without acute cor pulmonale (principal); J96.21 Acute and chronic respiratory failure with hypoxia; J84.10 Pulmonary fibrosis, unspecified; J44.9 Chronic obstructive pulmonary disease, unspecified; I11.9 Hypertensive heart disease without heart failure; I25.10 Atherosclerotic heart disease of native coronary artery without angina pectoris; F31.9 Bipolar disorder, unspecified; M19.90 Unspecified osteoarthritis, unspecified site; Z99.81 Dependence on supplemental oxygen; Z79.82 Long term (current) use of aspirin; Z79.52 Long term (current) use of systemic steroids; Z79.899 Other long term (current) drug therapy; Z86.711 Personal history of pulmonary embolism; Z87.01 Personal history of pneumonia (recurrent); Z57.2 Occupational exposure to dust; Z82.5 Family history of asthma and other chronic lower respiratory diseases; Z82.69 Family history of other diseases of the musculoskeletal system and connective tissue
CPT/HCPCS: 36415; 71046; 71275; 80048; 80053; 83880; 84439; 84443; 84484; 85025; 85379; 85610; 85730; 93005; 93306; 93970; 94640; 94760; 96365; 96375; 96376; 99285

== ENCOUNTER 2019-08-08 11:59 | Inpatient (IN) | payer MEDICARE ==
[2019-08-08] MEDS ORDERED: SODIUM CHLORIDE 0.9% 500 ML 500 ML IV STA (12:21)
[2019-08-08] MEDS ORDERED: IPRATROPIUM-ALBUTEROL 3 ML NEB INHALATION STA (12:28)
--- NOTE | 2019-08-08 12:33 | ED ---
General Adult HPI - General Chief complaint: Shortness of Breath Stated complaint: WILFREDO Time Seen by Provider: 08/08/19 12:20 Source: patient Mode of arrival: ambulatory Limitations: no limitations - History of Present Illness Initial comments: Dictation was produced using [employer] dictation software. please excuse any grammatical, word or spelling errors. Chief Complaint: Extremity 68-year-old male past medical history of interstitial lung disease, chronic home O2 presents with pleuritic chest History of Present Illness: This 68-year-old male he has significant lung disease. Patient states he has idiopathic pulmonary fibrosis. He's had this disease for several years. Patient reports having being admitted to the hospital for 47 days in the past. He was supposedly on the list for transplant at [facility] however his lungs improved at that time. Patient uses 3 L of oxygen at home. Patient has multiple lung doctors. He is here today mostly because the aching in his chest with deep inspiration. Patient states th e pain is crampy and dull. He notices it when takes a deep breath. He does have a history of blood clots. Denies any lower extremity pain. Patient is slowly being weaned from steroids by his qualified craft worker electrician. His main qualified craft worker electrician is out of [place] based out of [facility]. Denies any fever, chills or night sweats. Denies any chest pain. He does report worsening shortness of breath with exertion. He reports that he has increases oxygen to 6 L during ambulation. The ROS documented in this emergency department record has been reviewed and confirmed by me. Those systems with pertinent positive or negative responses have been documented in the HPI. All other systems are other negative and/or noncontributory. PHYSICAL EXAM: General Impression: Alert and oriented x3, not in acute distress HEENT: Normocephalic atraumatic, extra-ocular movements intact, pupils equal and reactive to light bilaterally, mucous membranes moist. Cardiovascular: Heart regular rate and rhythm, S1&S2 audible, no murmurs, rubs or gallops Chest: Bilateral lung wheezing Abdomen: Bowel sounds present, abdomen soft, non-tender, non-distended, no organomegaly Musculoskeletal: Pulses present and equal in all extremities, no peripheral edema, no asymmetrical leg swelling, no calf Tenderness, popliteal pain, no medial thigh pain Motor: no focal deficits noted Neurological: CN II-XII grossly intact, no focal motor or sensory deficits noted Skin: Intact with no visualized rashes Psych: Normal affect and mood ED course: 68-year-old male past medical history of pulmonary fibrosis and pulmonary embolus presents with pleuritic chest pain. Signs upon arrival shows 93% on 3 L nasal cannula. Patient is a comfortable without any signs of increased work of breathing. Laboratory evaluation obtained showing no acute processes. Patient does however have elevated d-dimer 0.61. First set troponins negative. Given elevated d- dimer CT of the angioma of the chest was obtained showing no obvious signs of pulmonary embolus however there is a limited study peak is there was suboptimal enhancement of the tertiary and distal branches. Clinically it's less likely the patient has a pulmonary embolus that is of significant size. Given patient's past medical history and clinical presentation platelets reasonable admit patient to observation with consultation to pulmonology. Discussed patient case with Dr. Núñez who is willing to accept patients care. EKG interpretation: Ventricular rate 67, normal sinus rhythm, AL interval 162, QRS 90, QTc 431. No AL prolongation, no QTC prolongation, no ST or T-wave changes noted. Overall, this EKG is unremarkable - Related Data Home Medications Medication Instructions Recorded Confirmed Lisinopril [Prinivil] 20 mg PO HS 02/21/15 08/08/19 Montelukast [Singulair] 10 mg PO HS 02/21/15 08/08/19 Sertraline [Zoloft] 150 mg PO HS 02/21/15 08/08/19 lamoTRIgine [LaMICtal] 100 mg PO HS 02/21/15 08/08/19 Aspirin EC [Ecotrin Low Dose] 81 mg PO HS 11/25/18 08/08/19 Ipratropium-Albuterol Nebulize 3 ml INHALATION RT-TID PRN 08/08/19 08/08/19 [Duoneb 0.5 mg-3 mg/3 ml Soln] Metoprolol Tartrate [Lopressor] 100 mg PO BID 08/08/19 08/08/19 predniSONE 7.5 mg PO HS 08/08/19 08/08/19 Allergies Allergy/AdvReac Type Severity Reaction Status Date / Time No Known Allergies Allergy Verified 08/08/19 12:57 Review of Systems ROS Statement: Those systems with pertinent positive or pertinent negative responses have been documented in the HPI. ROS Other: All systems not noted in ROS Statement are negative. Past Medical History Past Medical History: Coronary Artery Disease (CAD), COPD, Hypertension, Osteoarthritis (OA), Pulmonary Embolus (PE) Additional Past Medical History / Comment(s): interstital lung disease, pulmonary fibrosis History of Any Multi-Drug Resistant Organisms: None Reported Past Surgical History: Heart Catheterization Past Anesthesia/Blood Transfusion Reactions: No Reported Reaction Past Psychological History: Depression Smoking Status: Former smoker Past Alcohol Use History: None Reported Past Drug Use History: None Reported - Past Family History Father Family Medical History: COPD Mother Family Medical History: No Reported History Brother(s) Family Medical History: No Reported History Sister(s) Family Medical History: No Reported History Daughter(s) Family Medical History: No Reported History General Exam Limitations: no limitations Course Vital Signs 08/08/19 08/08/19 08/08/19 12:16 12:35 12:47 Temperature 98.3 F Pulse Rate 79 80 78 Respiratory 20 Rate Blood Pressure 159/71 O2 Sat by Pulse 93 L Oximetry 08/08/19 14:28 Temperature 97.9 F Pulse Rate 74 Respiratory 18 Rate Blood Pressure 135/81 O2 Sat by Pulse 98 Oximetry Medical Decision Making - Lab Data Result diagrams: 08/08/19 12:42 08/08/19 12:42 Lab Results 08/08/19 08/08/19 08/08/19 Range/Units 12:42 12:42 12:42 WBC 9.4 (3.8-10.6) k/uL RBC 4.28 L (4.30-5.90) m/uL Hgb 12.7 L (13.0-17.5) gm/dL Hct 39.4 (39.0-53.0) % MCV 92.2 (80.0-100.0) fL MCH 29.8 (25.0-35.0) pg MCHC 32.3 (31.0-37.0) g/dL RDW 13.9 (11.5-15.5) % Plt Count 279 (150-450) k/uL Neutrophils % 65 % Lymphocytes % 21 % Monocytes % 7 % Eosinophils % 3 % Basophils % 1 % Neutrophils # 6.1 (1.3-7.7) k/uL Lymphocytes # 2.0 (1.0-4.8) k/uL Monocytes # 0.7 (0-1.0) k/uL Eosinophils # 0.3 (0-0.7) k/uL Basophils # 0.1 (0-0.2) k/uL PT 9.3 (9.0-12.0) sec INR 0.9 (<1.2) APTT 22.8 (22.0-30.0) sec D-Dimer 0.61 H (<0.60) mg/L FEU Sodium 139 (137-145) mmol/L Potassium 4.3 (3.5-5.1) mmol/L Chloride 104 (98-107) mmol/L Carbon Dioxide 26 (22-30) mmol/L Anion Gap 9 mmol/L BUN 14 (9-20) mg/dL Creatinine 0.84 (0.66-1.25) mg/dL Est GFR (CKD-EPI)AfAm >90 (>60 ml/min/1.73 sqM) Est GFR (CKD-EPI)NonAf >90 (>60 ml/min/1.73 sqM) Glucose 88 (74-99) mg/dL Plasma Lactic Acid Shan (0.7-2.0) mmol/L Calcium 9.1 (8.4-10.2) mg/dL Total Bilirubin 0.3 (0.2-1.3) mg/dL AST 24 (17-59) U/L ALT 19 (4-49) U/L Alkaline Phosphatase 73 (38-126) U/L Troponin I (0.000-0.034) ng/mL NT-Pro-B Natriuret Pep pg/mL Total Protein 6.9 (6.3-8.2) g/dL Albumin 4.1 (3.5-5.0) g/dL Lipase 95 (23-300) U/L 08/08/19 08/08/19 08/08/19 Range/Units 12:42 12:42 12:42 WBC (3.8-10.6) k/uL RBC (4.30-5.90) m/uL Hgb (13.0-17.5) gm/dL Hct (39.0-53.0) % MCV (80.0-100.0) fL MCH (25.0-35.0) pg MCHC (31.0-37.0) g/dL RDW (11.5-15.5) % Plt Count (150-450) k/uL Neutrophils % % Lymphocytes % % Monocytes % % Eosinophils % % Basophils % % Neutrophils # (1.3-7.7) k/uL Lymphocytes # (1.0-4.8) k/uL Monocytes # (0-1.0) k/uL Eosinophils # (0-0.7) k/uL Basophils # (0-0.2) k/uL PT (9.0-12.0) sec INR (<1.2) APTT (22.0-30.0) sec D-Dimer (<0.60) mg/L FEU Sodium (137-145) mmol/L Potassium (3.5-5.1) mmol/L Chloride (98-107) mmol/L Carbon Dioxide (22-30) mmol/L Anion Gap mmol/L BUN (9-20) mg/dL Creatinine (0.66-1.25) mg/dL Est GFR (CKD-EPI)AfAm (>60 ml/min/1.73 sqM) Est GFR (CKD-EPI)NonAf (>60 ml/min/1.73 sqM) Glucose (74-99) mg/dL Plasma Lactic Acid Shan 1.0 (0.7-2.0) mmol/L Calcium (8.4-10.2) mg/dL Total Bilirubin (0.2-1.3) mg/dL AST (17-59) U/L ALT (4-49) U/L Alkaline Phosphatase (38-126) U/L Troponin I <0.012 (0.000-0.034) ng/mL NT-Pro-B Natriuret Pep 68 pg/mL Total Protein (6.3-8.2) g/dL Albumin (3.5-5.0) g/dL Lipase (23-300) U/L Disposition Clinical Impression: Dyspnea Disposition: ADMITTED IP TO THIS HOSP Condition: Fair Referrals: Dimas Christy MD [Primary Care Provider] - 1-2 days Time of Disposition: 15:50
[2019-08-08 12:50] LABS: Basophils # (A) 0.1 k/uL (0-0.2); Basophils % (A) 1 %; Eosinophils # (A) 0.3 k/uL (0-0.7); Eosinophils % (A) 3 %; HCT 39.4 % (39.0-53.0); HGB 12.7 gm/dL (13.0-17.5); Lymphocytes % (A) 21 %; MCH 29.8 pg (25.0-35.0); MCHC 32.3 g/dL (31.0-37.0); MCV 92.2 fL (80.0-100.0); Mean Platelet Volume 7.4; Monocytes # (A) 0.7 k/uL (0-1.0); Monocytes % (A) 7 %; Neutrophils # (A) 6.1 k/uL (1.3-7.7); Neutrophils % (A) 65 %; Platelet Count 279 k/uL (150-450); RBC 4.28 m/uL (4.30-5.90); RDW 13.9 % (11.5-15.5); WBC 9.4 k/uL (3.8-10.6)
[2019-08-08 13:06] LABS: INR 0.9 (<1.2); Partial Thromboplastin Time 22.8 sec (22.0-30.0); Prothrombin Time 9.3 sec (9.0-12.0)
[2019-08-08 13:12] LABS: D-Dimer 0.61 mg/L FEU (<0.60)
--- NOTE | 2019-08-08 13:20 | XR ---
EXAMINATION TYPE: XR chest 2V DATE OF EXAM: 08/08/2019 COMPARISON: Prior chest x-ray and CT 11/25/2018 HISTORY: Difficulty breathing, interstitial lung disease and shortness of breath TECHNIQUE: Frontal and lateral views of the chest are obtained. FINDINGS: There is no significant change. IMPRESSION: Stable exam. Interstitial lung disease.
[2019-08-08 13:59] LABS: ALT 19 U/L (4-49); AST 24 U/L (17-59); African American GFR (CKD) >90 (>60 ml/min/1.73 sqM); Albumin 4.1 g/dL (3.5-5.0); Alkaline Phosphatase 73 U/L (38-126); Anion Gap 9 mmol/L; Blood Urea Nitrogen 14 mg/dL (9-20); Calcium 9.1 mg/dL (8.4-10.2); Carbon Dioxide 26 mmol/L (22-30); Chloride 104 mmol/L (98-107); Glucose 88 mg/dL (74-99); Non-African American GFR(CKD) >90 (>60 ml/min/1.73 sqM); Potassium 4.3 mmol/L (3.5-5.1); Sodium 139 mmol/L (137-145); Total Bilirubin 0.3 mg/dL (0.2-1.3); Total Protein 6.9 g/dL (6.3-8.2)
--- NOTE | 2019-08-08 14:43 | CT ---
EXAMINATION TYPE: CT angio chest DATE OF EXAM: 08/08/2019 2:23 PM COMPARISON: 07/09/2018, 11/25/2018 HISTORY: Shortness of breath. CT DLP: 535.5 mGycm Automated exposure control for dose reduction was used. CONTRAST: CTA scan of the thorax is performed with IV Contrast, patient injected with 100 mL of Isovue 370, pul monary embolism protocol. . FINDINGS: LUNGS: Diffuse hyperinflation of the lungs. Interstitial interlobular septal thickening is compatible with a degree of pulmonary fibrosis and chronic interstitial lung disease and there is central and b asilar bronchiectasis. 5 mm nodule superior segment right lower lobe not seen with certainty and the prior exam. There is no pneumothorax. MEDIASTINUM: There is suboptimal enhancement pulmonary arteries. Central pulmonary arteries demonstra te no diagnostic evidence of pulmonary embolism. Tertiary and distal branches particularly on the lef t are limited in assessment and could be correlated with V/Q scan as there is high clinical suspicion . Coronary artery calcification is seen and there is normal caliber to the thoracic aorta. OTHER: There is a calcified right thyroid nodule measuring 2 cm. There is a soft tissue intramuscula r lipoma along the right scapula.. IMPRESSION: 1. No central pulmonary embolism. There is suboptimal enhancement with tertiary and distal branches. This is particularly notable on the left. Could not exclude a third order branch left lower lobe pulm onary artery embolism. 2. COPD and findings suggestive of pulmonary interstitial chronic lung disease such as pulmonary fibr osis. 3. Stable changes involving the thyroid with a nodule measuring 2.4 cm. 4. There is interval development of a 5 mm nodule superior segment right lower lobe.
[2019-08-08] MEDS ORDERED: ONDANSETRON 4 MG/2 ML VIAL IVP PRN (15:27)
[2019-08-08] MEDS ORDERED: NALOXONE 0.4 MG/ML 1 ML VIAL IV PRN (15:27)
[2019-08-08] MEDS ORDERED: IPRATROPIUM-ALBUTEROL 3 ML NEB INHALATION PRN (15:29)
[2019-08-08] MEDS: SODIUM CHLORIDE 0.9% 1,000 ML IV SCH (15:34)
[2019-08-08] MEDS: ASPIRIN 81 MG PO SCH (20:10)
[2019-08-08] MEDS: MONTELUKAST 10 MG TAB PO SCH (20:10)
[2019-08-08] MEDS: METOPROLOL TARTRATE 50 MG TAB PO SCH (20:10)
[2019-08-08] MEDS: SERTRALINE 100 MG TAB PO SCH (20:11)
[2019-08-08] MEDS: lamoTRIgine 100 MG TAB PO SCH (20:11)
[2019-08-08] MEDS ORDERED: predniSONE 5 MG TAB PO SCH (21:00)
[2019-08-08] MEDS: methylPREDNISolone SOD SUCCI 125 MG/2 ML VIAL IV SCH (23:00)
[2019-08-09] MEDS: methylPREDNISolone SOD SUCCI 125 MG/2 ML VIAL IV SCH ×3 (04:56→17:14)
[2019-08-09 07:10] LABS: Glucose,Whole Blood 168 mg/dL (75-99)
[2019-08-09] MEDS: INSULIN ASPART (NovoLOG) 100 UNIT/ML VIAL SQ SCH ×4 (07:17→21:00)
[2019-08-09] MEDS: IPRATROPIUM-ALBUTEROL 3 ML NEB INHALATION SCH ×4 (07:19→20:24)
[2019-08-09] MEDS: LISINOPRIL 20 MG TAB PO SCH (07:56)
[2019-08-09] MEDS: METOPROLOL TARTRATE 50 MG TAB PO SCH ×2 (07:56→20:57)
[2019-08-09 09:35] LABS: Basophils % (A) 0 %; Eosinophils % (A) 0 %; HCT 40.8 % (39.0-53.0); HGB 12.9 gm/dL (13.0-17.5); Lymphocytes # (A) 0.7 k/uL (1.0-4.8); Lymphocytes % (A) 10 %; MCH 29.2 pg (25.0-35.0); MCHC 31.5 g/dL (31.0-37.0); MCV 92.7 fL (80.0-100.0); Mean Platelet Volume 7.6; Monocytes # (A) 0.1 k/uL (0-1.0); Monocytes % (A) 1 %; Neutrophils # (A) 6.3 k/uL (1.3-7.7); Neutrophils % (A) 88 %; Platelet Count 288 k/uL (150-450); RBC 4.41 m/uL (4.30-5.90); RDW 13.5 % (11.5-15.5); WBC 7.2 k/uL (3.8-10.6)
[2019-08-09 09:41] LABS: ALT 18 U/L (4-49); AST 22 U/L (17-59); African American GFR (CKD) >90 (>60 ml/min/1.73 sqM); Albumin 4.2 g/dL (3.5-5.0); Alkaline Phosphatase 78 U/L (38-126); Anion Gap 9 mmol/L; Blood Urea Nitrogen 13 mg/dL (9-20); Calcium 9.3 mg/dL (8.4-10.2); Carbon Dioxide 26 mmol/L (22-30); Chloride 103 mmol/L (98-107); Glucose 220 mg/dL (74-99); Non-African American GFR(CKD) >90 (>60 ml/min/1.73 sqM); Potassium 4.5 mmol/L (3.5-5.1); Sodium 138 mmol/L (137-145); Total Bilirubin 0.3 mg/dL (0.2-1.3); Total Protein 6.9 g/dL (6.3-8.2)
[2019-08-09 11:41] LABS: Glucose,Whole Blood 171 mg/dL (75-99)
[2019-08-09] MEDS: SODIUM CHLORIDE 0.9% 1,000 ML IV SCH (12:30)
--- NOTE | 2019-08-09 14:58 | P.HPIM ---
History of Present Illness H&P Date: 08/09/19 Chief Complaint: Shortness of breath chest tightness pleurisy this is a 68-year-old gentleman patient of Dr. Christy. He has underlying history of idiopathic pulmonary fibrosis, CAD involving RCA and LAD, heart cath performed 2014, history of bipolar disorder, remote history of tobacco use, admitted emergency room secondary to shortness of breath, his last admission from our facility 11/25/2018 for dyspnea, . Prior admission had bronchoscopy 2019 was negative for PE at that time,was diagnosed to have cryptogenic organizing pneumonia/BOOP bronchial washing showing Anna albicans, last echocardiogram performed November 2018 showed EF 60-65%, right ventricle systolic pressure of 38, right ventricle is mildly enlarged, no pericardial effusion, mild pulmonary hypertension, mild TR. He follows with the pulmonary physician also at [facility] as he was on the transplant list at that time until his pulmonary emboli in October 2018 thereafter completed his treatment, 6 months regimen. He is chronically on oral prednisone, He was off his transplant placed [facility] secondary to interstitial fibrosis, currently requiring 3 L at home, however if he has increasing shortness of breath requiring 6 L of oxygen on ambulation he now presents to emergency room with increasing shortness of breath and difficulty breathing, chest tightness, pleurisy, cough productive of yellowish sputum, no fever no chills, no recent foreign travels, no sick contacts, patient admitted secondary to shortness of breath, hypoxemia worsening, He was seen in emergency room d-dimer was elevated, computed tomography scan negative for central pulmonary emboli, calcified right thyroid 2 cm, soft tissue intermuscular lipoma right scapula, has chronic pulmonary fibrosis, stable, this new 5 mm nodule superior segment right lower lobe, cannot rule out or exclude third order branch left lower lobe pulmonary artery embolism, Dr. Hernandez on consult, echocardiogram to be obtained, to evaluate for RV strain, aortic stenosis, as well as eval for pulmonary hypertension. D-dimer slightly elevated 0.61 INR 0.9 WBC count of 9.4 creatinine of 0.79 Review of Systems Constitutional: Reports as per HPI, Denies anorexia, Denies chills, Denies c hronic headaches, Denies chronic pain, Denies daytime sleepiness, Denies fatigue, Denies fever, Denies lethargy, Denies malaise, Denies night sweats, Denies poor appetite, Denies sweats, Denies weakness, Denies weight gain, Denies weight loss Ears, nose, mouth and throat: Reports as per HPI, Denies ant. neck pain, Denies bleeding gums, Denies dental pain, Denies dysphagia, Denies epistaxis, Denies headache, Denies hoarseness, Denies mouth pain, Denies nasal congestion, Denies nasal discharge, Denies neck fullness/pressure, Denies neck lump, Denies nose pain, Denies odynophagia, Denies post-nasal drip, Denies sinus pain, Denies sinus pressure, Denies swelling in mouth, Denies swelling in throat, Denies sore throat, Denies vertigo, Denies voice changes Cardiovascular: Reports as per HPI, Denies chest pain, Denies claudication, Denies decreased exercise tolerance, Denies dyspnea on exertion, Denies edema, Denies high blood pressure, Denies irregular heart beat, Denies leg edema, Denies lightheadedness, Denies orthopnea, Denies palpitations, Denies paroxysmal nocturnal dyspnea, Denies phlebitis, Denies rapid heart beat, Denies shortness of breath, Denies syncope Respiratory: Reports as per HPI Gastrointestinal: Reports as per HPI Genitourinary: Reports as per HPI, Denies decreased libido, Denies difficulties fathering child, Denies discharge, Denies dysuria, Denies erectile dysfunction, Denies flank pain, Denies genital pain, Denies genital sores, Denies hematuria, Denies impotence, Denies incontinence, Denies kidney stones, Denies nocturia, Denies polyuria, Denies testicular lump, Denies testicular pain, Denies urinary frequency, Denies urinary hesitancy, Denies urinary retention Musculoskeletal: Reports as per HPI, Denies arm numbness/tingling, Denies atrophy, Denies fractures, Denies frequent falls, Denies gait dysfunction, Denies hot joints, Denies leg numbness/tingling, Denies limitation of motion, Denies loss of height, Denies low back pain, Denies morning stiffness, Denies muscle cramps, Denies muscle weakness, Denies myalgias, Denies neck pain, Denies neck stiffness, Denies prior amputations, Denies redness of joints, Denies shooting arm pain, Denies shooting leg pain Integumentary: Reports as per HPI Neurological: Reports as per HPI Psychiatric: Reports as per HPI, Denies anhedonia, Denies anxiety, Denies anxiety attacks, Denies change in appetite, Denies change in libido, Denies change in sleep habits, Denies confusion, Denies depression, Denies difficulty concentrating, Denies disorientation, Denies hallucinations, Denies hopelessness, Denies hypersomnia, Denies insomnia, Denies irritability, Denies memory loss, Denies mood swings, Denies paranoia, Denies sadness/tearfulness, Denies sleep disturbances, Denies suicidal ideation Endocrine: Reports as per HPI Hematologic/Lymphatic: Reports as per HPI Allergic/Immunologic: Reports as per HPI, Denies allergic rhinitis, Denies anaphylaxis, Denies angioedema, Denies gluten intolerance, Denies persistent infections, Denies seasonal allergies, Denies urticaria, Denies wheezing Past Medical History Past Medical History: Coronary Artery Disease (CAD), COPD, Hypertension, Osteoarthritis (OA), Pulmonary Embolus (PE) Additional Past Medical History / Comment(s): interstital lung disease, pulmonary fibrosis History of Any Multi-Drug Resistant Organisms: None Reported Past Surgical History: Heart Catheterization Past Anesthesia/Blood Transfusion Reactions: No Reported Reaction Past Psychological History: Depression Smoking Status: Never smoker Past Alcohol Use History: None Reported Past Drug Use History: None Reported - Past Family History Father Family Medical History: COPD Mother Family Medical History: No Reported History Brother(s) Family Medical History: No Reported History Sister(s) Family Medical History: No Reported History Daughter(s) Family Medical History: No Reported History Medications and Allergies Home Medications Medication Instructions Recorded Confirmed Type Lisinopril [Prinivil] 20 mg PO HS 02/21/15 08/08/19 History Montelukast [Singulair] 10 mg PO HS 02/21/15 08/08/19 History Sertraline [Zoloft] 150 mg PO HS 02/21/15 08/08/19 History lamoTRIgine [LaMICtal] 100 mg PO HS 02/21/15 08/08/19 History Aspirin EC [Ecotrin Low Dose] 81 mg PO HS 11/25/18 08/08/19 History Ipratropium-Albuterol Nebulize 3 ml INHALATION RT-TID PRN 08/08/19 08/08/19 History [Duoneb 0.5 mg-3 mg/3 ml Soln] Metoprolol Tartrate [Lopressor] 100 mg PO BID 08/08/19 08/08/19 History predniSONE 7.5 mg PO HS 08/08/19 08/08/19 History Allergies Allergy/AdvReac Type Severity Reaction Status Date / Time No Known Allergies Allergy Verified 08/08/19 12:57 Physical Exam Vitals: Vital Signs Temp Pulse Pulse Resp BP BP Pulse Ox 08/09/19 11:21 82 08/09/19 11:11 78 08/09/19 07:35 80 08/09/19 07:22 97.6 F 76 80 18 143/91 93 L 08/09/19 03:59 16 08/09/19 01:52 97.6 F 77 19 105/62 95 08/09/19 00:00 18 08/08/19 21:05 84 08/08/19 21:00 18 08/08/19 20:53 80 96 08/08/19 19:25 97.4 F L 78 18 144/86 94 L 08/08/19 18:49 97.7 F 77 18 128/75 97 08/08/19 14:28 97.9 F 74 18 135/81 98 Intake and Output 08/08/19 08/09/19 08/09/19 22:59 06:59 14:59 Intake Total 120 Balance 120 Intake: Oral 120 Other: Voiding Method Toilet # Voids 1 Weight 95.254 kg - Constitutional General appearance: cooperative, no acute distress - EENT Eyes: anicteric sclerae, PERRLA, dentition normal ENT: NA/AT, normal oropharynx - Neck Neck: normal ROM - Respiratory Respiratory: bilateral: CTA, negative: diminished, dullness, rales - Cardiovascular Rhythm: regular Heart sounds: normal: S1, S2 Abnormal Heart Sounds: no systolic murmur, no diastolic murmur, no rub, no S3 Gallop, no S4 Gallop, no click, no other - Gastrointestinal General gastrointestinal: normal bowel sounds, soft - Integumentary Integumentary: decreased turgor, normal - Neurologic Neurologic: CNII-XII intact - Musculoskeletal Musculoskeletal: gait normal, strength equal bilaterally - Psychiatric Psychiatric: A&O x's 3, appropriate affect Results CBC & Chem 7: 08/09/19 08:25 08/09/19 08:25 Labs: Abnormal Lab Results - Last 24 Hours (Table) 08/09/19 08/09/19 08/09/19 Range/Units 07:08 08:25 08:25 Hgb 12.9 L (13.0-17.5) gm/dL Lymphocytes # 0.7 L (1.0-4.8) k/uL Glucose 220 H (74-99) mg/dL POC Glucose (mg/dL) 168 H (75-99) mg/dL 08/09/19 Range/Units 11:40 Hgb (13.0-17.5) gm/dL Lymphocytes # (1.0-4.8) k/uL Glucose (74-99) mg/dL POC Glucose (mg/dL) 171 H (75-99) mg/dL Laboratory Results WBC 7.2 k/uL (3.8-10.6) 08/09/19 08:25 RBC 4.41 m/uL (4.30-5.90) 08/09/19 08:25 Hgb 12.9 gm/dL (13.0-17.5) L 08/09/19 08:25 Hct 40.8 % (39.0-53.0) 08/09/19 08:25 MCV 92.7 fL (80.0-100.0) 08/09/19 08:25 MCH 29.2 pg (25.0-35.0) 08/09/19 08:25 MCHC 31.5 g/dL (31.0-37.0) 08/09/19 08:25 RDW 13.5 % (11.5-15.5) 08/09/19 08:25 Plt Count 288 k/uL (150-450) 08/09/19 08:25 Neutrophils % 88 % 08/09/19 08:25 Lymphocytes % 10 % 08/09/19 08:25 Monocytes % 1 % 08/09/19 08:25 Eosinophils % 0 % 08/09/19 08:25 Basophils % 0 % 08/09/19 08:25 Neutrophils # 6.3 k/uL (1.3-7.7) 08/09/19 08:25 Lymphocytes # 0.7 k/uL (1.0-4.8) L 08/09/19 08:25 Monocytes # 0.1 k/uL (0-1.0) 08/09/19 08:25 Eosinophils # 0.0 k/uL (0-0.7) 08/09/19 08:25 Basophils # 0.0 k/uL (0-0.2) 08/09/19 08:25 PT 9.3 sec (9.0-12.0) 08/08/19 12:42 INR 0.9 (<1.2) 08/08/19 12:42 APTT 22.8 sec (22.0-30.0) 08/08/19 12:42 D-Dimer 0.61 mg/L FEU (<0.60) H 08/08/19 12:42 Sodium 138 mmol/L (137-145) 08/09/19 08:25 Potassium 4.5 mmol/L (3.5-5.1) 08/09/19 08:25 Chloride 103 mmol/L (98-107) 08/09/19 08:25 Carbon Dioxide 26 mmol/L (22-30) 08/09/19 08:25 Anion Gap 9 mmol/L 08/09/19 08:25 BUN 13 mg/dL (9-20) 08/09/19 08:25 Creatinine 0.79 mg/dL (0.66-1.25) 08/09/19 08:25 Est GFR (CKD-EPI)AfAm >90 (>60 ml/min/1.73 sqM) 08/09/19 08:25 Est GFR (CKD-EPI)NonAf >90 (>60 ml/min/1.73 sqM) 08/09/19 08:25 Glucose 220 mg/dL (74-99) H 08/09/19 08:25 POC Glucose (mg/dL) 171 mg/dL (75-99) H 08/09/19 11:40 POC Glu Pyrotechnician Artem Roman 08/09/19 11:40 Plasma Lactic Acid Shan 1.0 mmol/L (0.7-2.0) 08/08/19 12:42 Calcium 9.3 mg/dL (8.4-10.2) 08/09/19 08:25 Total Bilirubin 0.3 mg/dL (0.2-1.3) 08/09/19 08:25 AST 22 U/L (17-59) 08/09/19 08:25 ALT 18 U/L (4-49) 08/09/19 08:25 Alkaline Phosphatase 78 U/L (38-126) 08/09/19 08:25 Troponin I <0.012 ng/mL (0.000-0.034) 08/08/19 12:42 NT-Pro-B Natriuret Pep 68 pg/mL 08/08/19 12:42 Total Protein 6.9 g/dL (6.3-8.2) 08/09/19 08:25 Albumin 4.2 g/dL (3.5-5.0) 08/09/19 08:25 Lipase 95 U/L (23-300) 08/08/19 12:42 Thrombosis Risk Factor Assmnt - DVT/VTE Prophylaxis DVT/VTE Prophylaxis: Pharmacologic Prophylaxis ordered - Choose All That Apply Any of the Below Risk Factors Present?: Yes Other Risk Factors: Yes Other congenital or acquired thrombophilia - If yes, enter type in comment: Yes Assessment and Plan Plan: 1. Acute on chronic hypoxic respiratory failure underlying Interstitial lung fibrosis d with history of cryptogenic organizing pneumonia BOOP, COPD has been seen by [facility] pulmonary, for interstitial lung disease, at one time was on the transplant list and has been off the transplant list since his pulmonary emboli in November 2018 on O2 nebulized treatment at home, 2 L to 6 L a day . Continue DuoNeb 3 mL nebulization 4 times every day, Pulmicort 1 mg nebulization twice every day, Perforomist twice daily, check for pro-calcitonin level antibiotic will be given if pro-calcitonin level is elevated 2. Prior history of cute pulmonary embolir right-sided, October 2018 completed regimen six-month treatment in May 2019 3. severe persistent asthma, suspected. has chronic ALLERGIES, on budesonide at home as well as DuoNeb, and Singulair no changes made, unsure whether patient was evaluated for anti-IgE, has cat Home he mentions that he is ALLERGIC to a lot of things and everything. 4 COPD with exacerbation Continue oxygen, DuoNeb 3 mL nebulization 4 times every day, Pulmicort 0.5 mg nebulization twice every day start IV Solu-Medrol , was given Solu-Medrol 60 mg every 6 hours. Resume Pulmicort Continue as in patient is on maintenance prednisone 7.5 mg daily 5 Mild CAD status post left heart cath physician back in 2014 that showed mild disease of the LAD and RCA. Stable at this time continue patient on Toprol-XL 50 mg orally once every day. 6 Hypertension and hypertensive cardiovascular disease. Continue Toprol-XL 50 mg orally once every day, lisinopril 20 mg orally once every day. 7. Bipolar disorder. Continue Lamictal 100 mg orally once every day as well as sertraline 100 mg orally once every day. 8 GI prophylaxis. Protonix 40 mg once every day.Patient will be discharged either o while on Ahlquist and prednisone maintenance 9. 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 Chronic prednisone use, on maintenance 7.5 mg prednisone daily at home. Outpatient monitoring for chronic complications to bone disease osteoporosis, skin integrity including diabetes mellitus. 11. 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 IV Heparin for pulmonary emboli 10 Patient is full code.
[2019-08-09 17:02] LABS: Glucose,Whole Blood 190 mg/dL (75-99)
--- NOTE | 2019-08-09 17:35 | ECHOF ---
Referral Reason:LVF MEASUREMENTS -------- HEIGHT: 172.7 cm WEIGHT: 95.3 kg BP: 143/91 RVIDd: 3.0 cm (< 3.3) IVSd: 1.3 cm (0.6 - 1.1) LVIDd: 4.5 cm (3.9 - 5.3) LVPWd: 1.3 cm (0.6 - 1.1) IVSs: 1.8 cm LVIDs: 2.8 cm LVPWs: 1.8 cm LA Diam: 3.4 cm (2.7 - 3.8) LAESV Index (A-L): 24.42 ml/m Ao Diam: 3.3 cm (2.0 - 3.7) AV Cusp: 2.1 cm (1.5 - 2.6) MV EXCURSION: 13.536 mm (> 18.000) MV EF SLOPE: 77 mm/s (70 - 150) EPSS: 0.5 cm MV E Wilmer: 1.00 m/s MV DecT: 245 ms MV A Wilmer: 1.34 m/s MV E/A Ratio: 0.74 RAP: 5.00 mmHg RVSP: 30.35 mmHg TAPSE: 24.73 mm FINDINGS -------- Sinus rhythm. This was a technically good study. The left ventricular size is normal. There is mild concentric left ventricular hypertrophy. Overa ll left ventricular systolic function is normal with, an EF between 60 - 65 %. The right ventricle is normal in size. Normal LA size by volume 22+/-6 ml/m2. The right atrium is normal in size. Interatrial and interventricular septum intact. There is mild aortic valve sclerosis. The mitral valve is normal. Mild tricuspid regurgitation present. Right ventricular systolic pressure is normal at < 35 mmHg. There is no pulmonic regurgitation present. The aortic root size is normal. Normal inferior vena cava with normal inspiratory collapse consistent with estimated right atrial pre ssure of 5 mmHg. There is no pericardial effusion. CONCLUSIONS -------- 1. Sinus rhythm. 2. This was a technically good study. 3. The left ventricular size is normal. 4. There is mild concentric left ventricular hypertrophy. 5. Overall left ventricular systolic function is normal with, an EF between 60 - 65 %. 6. The right ventricle is normal in size. 7. Normal LA size by volume 22+/-6 ml/m2. 8. The right atrium is normal in size. 9. Interatrial and interventricular septum intact. 10. There is mild aortic valve sclerosis. 11. The mitral valve is normal. 12. Mild tricuspid regurgitation present. 13. Right ventricular systolic pressure is normal at < 35 mmHg. 14. There is no pulmonic regurgitation present. 15. The aortic root size is normal. 16. Normal inferior vena cava with normal inspiratory collapse consistent with estimated right atrial pressure of 5 mmHg. 17. There is no pericardial effusion. PERCUSSION INSTRUMENT TUNER: Faith Merino RDCS
[2019-08-09] MEDS: ACETAMINOPHEN TAB 325 MG TAB PO PRN (17:55)
[2019-08-09 20:19] LABS: Glucose,Whole Blood 206 mg/dL (75-99)
[2019-08-09] MEDS: BUDESONIDE 0.5 MG/2 ML NEBU INHALATION SCH (20:24)
--- NOTE | 2019-08-09 20:46 | CONS ---
CONSULTATION Hussain Zee is a 68-year-old male who presented to the ED at [facility] with chest tightness. This was located circumferentially around his chest for approximately 3-4 weeks, he has a known history of bronchiolitis obliterans organizing pneumonia and had been on chronic doses of steroids. He had been having a taper of his steroids where he was down to 7.5 mg approximately 5-6 weeks ago. He had a CT scan of the chest which showed interstitial interlobular septal thickening compatible with a degree of pulmonary fibrosis, chronic interstitial lung disease and some hyperinflation. There was no diagnostic evidence of pulmonary embolism in the central pulmonary arteries. He was subsequently admitted for further evaluation and management. PAST MEDICAL HISTORY: Positive for bronchiolitis obliterans organizing pneumonia. His blood work at that time was positive on the hypersensitivity pneumonitis panel as well. History of coronary artery disease, COPD, asthma, interstitial lung disease. FAMILY HISTORY: Positive for COPD in his father. SOCIAL HISTORY: Patient is a former smoker. Does not drink alcohol excessively. MEDICATIONS: Prior to admission were prednisone 7.5 mg, Lamictal, Zoloft, Singulair, Lopressor, Prinivil, DuoNeb, aspirin low dose. He did not seem like he was on an inhaled steroid. REVIEW OF SYSTEMS: Noncontributory other than for what is described in history of present illness, past medical history. PHYSICAL EXAMINATION: Blood pressure is 143/91, respiratory rate of 18, pulse rate of 80, temperature 97.6, O2 saturation on 3 L by nasal cannula is 93 percent. HEENT is unremarkable. Chest reveals scattered crackles, mild prolonged exhalation. No clear wheeze. Cardiovascular system reveals an S1, S2. Abdomen is soft. There is no pedal edema. LABORATORY DATA: White count of 7.2, hemoglobin of 12.9, sodium 138, potassium 4.5, chloride 103, bicarb 26, BUN 13, creatinine 0.79. D-dimer 0.61. Lipase 95. NT proBNP of 68. Troponin less than 0.012. IMPRESSION: At this time: Chest pain, likely secondary to inflammatory changes within the chest cavity, possibly related to his bronchiolitis obliterans organizing pneumonia with recent taper of the steroids. We will increase his systemic steroids starting initially at 60 mg IV push q6 and transitioning him to a higher dose of prednisone. Doubt that there is an infectious etiology to his current symptomatology. Would keep him on gastrointestinal and deep vein thrombosis prophylaxis. I would like to thank you for allowing the privilege of participating in his care. Upon discharge, he will likely follow up with his physicians at [facility] as he had apparently been on the lung transplant list. He would benefit from outpatient pulmonary rehab. I would like to thank you for allowing me the privilege of participating in his care. MMJHONATANL / TEJALN: [id number] /
[2019-08-09] MEDS: MONTELUKAST 10 MG TAB PO SCH (20:58)
[2019-08-09] MEDS: SERTRALINE 100 MG TAB PO SCH (20:58)
[2019-08-09] MEDS: FAMOTIDINE 20 MG TAB PO SCH (21:00)
[2019-08-09] MEDS: ASPIRIN 81 MG PO SCH (21:00)
[2019-08-09] MEDS: HEPARIN SODIUM,PORCINE 5,000 UNIT/ML 1 ML VIAL SQ SCH (21:00)
[2019-08-09] MEDS: lamoTRIgine 100 MG TAB PO SCH (21:00)
[2019-08-10] MEDS: methylPREDNISolone SOD SUCCI 125 MG/2 ML VIAL IV SCH ×2 (00:25→05:58)
[2019-08-10] MEDS: ACETAMINOPHEN TAB 325 MG TAB PO PRN (00:27)
[2019-08-10] MEDS: IPRATROPIUM-ALBUTEROL 3 ML NEB INHALATION SCH ×4 (07:08→20:34)
[2019-08-10] MEDS: BUDESONIDE 0.5 MG/2 ML NEBU INHALATION SCH ×2 (07:08→20:34)
[2019-08-10 07:25] LABS: Glucose,Whole Blood 154 mg/dL (75-99)
[2019-08-10] MEDS: FAMOTIDINE 20 MG TAB PO SCH ×2 (07:33→21:03)
[2019-08-10] MEDS: METOPROLOL TARTRATE 50 MG TAB PO SCH ×2 (07:33→21:03)
[2019-08-10] MEDS: HEPARIN SODIUM,PORCINE 5,000 UNIT/ML 1 ML VIAL SQ SCH ×2 (07:33→21:04)
[2019-08-10] MEDS: INSULIN ASPART (NovoLOG) 100 UNIT/ML VIAL SQ SCH ×4 (07:33→21:04)
[2019-08-10] MEDS: LISINOPRIL 20 MG TAB PO SCH (07:33)
[2019-08-10 08:39] LABS: Basophils % (A) 0 %; Eosinophils % (A) 0 %; HCT 39.4 % (39.0-53.0); HGB 12.7 gm/dL (13.0-17.5); Lymphocytes # (A) 0.9 k/uL (1.0-4.8); Lymphocytes % (A) 5 %; MCHC 32.2 g/dL (31.0-37.0); MCV 93.2 fL (80.0-100.0); Mean Platelet Volume 7.4; Monocytes # (A) 0.6 k/uL (0-1.0); Monocytes % (A) 3 %; Neutrophils # (A) 18.5 k/uL (1.3-7.7); Neutrophils % (A) 92 %; Platelet Count 331 k/uL (150-450); RBC 4.23 m/uL (4.30-5.90); RDW 13.7 % (11.5-15.5); WBC 20.1 k/uL (3.8-10.6)
[2019-08-10 08:48] LABS: ALT 17 U/L (4-49); AST 25 U/L (17-59); African American GFR (CKD) >90 (>60 ml/min/1.73 sqM); Albumin 4.1 g/dL (3.5-5.0); Alkaline Phosphatase 71 U/L (38-126); Anion Gap 10 mmol/L; Blood Urea Nitrogen 21 mg/dL (9-20); Calcium 9.8 mg/dL (8.4-10.2); Carbon Dioxide 23 mmol/L (22-30); Chloride 104 mmol/L (98-107); Glucose 212 mg/dL (74-99); Non-African American GFR(CKD) >90 (>60 ml/min/1.73 sqM); Potassium 4.5 mmol/L (3.5-5.1); Sodium 137 mmol/L (137-145); Total Bilirubin 0.1 mg/dL (0.2-1.3)
[2019-08-10 11:36] LABS: Glucose,Whole Blood 143 mg/dL (75-99)
--- NOTE | 2019-08-10 14:21 | P.PN ---
Subjective Progress Note Date: 08/10/19 this is a 68-year-old gentleman patient of Dr. Christy. He has underlying history of idiopathic pulmonary fibrosis, CAD involving RCA and LAD, heart cath performed 2014, history of bipolar disorder, remote history of tobacco use, admitted emergency room secondary to shortness of breath, his last admission fr om our facility 11/25/2018 for dyspnea, . Prior admission had bronchoscopy 2019 was negative for PE at that time,was diagnosed to have cryptogenic organizing pneumonia/BOOP bronchial washing showing Anna albicans, last echocardiogram performed November 2018 showed EF 60-65%, right ventricle systolic pressure of 38, right ventricle is mildly enlarged, no pericardial effusion, mild pulmonary hypertension, mild TR. He follows with the pulmonary physician also at [facility] as he was on the transplant list at that time until his pulmonary emboli in October 2018 thereafter completed his treatment, 6 months regimen. He is chronically on oral prednisone, He was off his transplant placed [facility] secondary to interstitial fibrosis, currently requiring 3 L at home, however if he has increasing shortness of breath requiring 6 L of oxygen on ambulation he now presents to emergency room with increasing shortness of breath and difficulty breathing, chest tightness, pleurisy, cough productive of yellowish sputum, no fever no chills, no recent foreign travels, no sick contacts, patient admitted secondary to shortness of breath, hypoxemia worsening, He was seen in emergency room d-dimer was elevated, computed tomography scan negative for central pulmonary emboli, calcified right thyroid 2 cm, soft tissue intermuscular lipoma right scapula, has chronic pulmonary fibrosis, stable, this new 5 mm nodule superior segment right lower lobe, cannot rule out or exclude third order branch left lower lobe pulmonary artery embolism, Dr. Hernandez on consult, echocardiogram to be obtained, to evaluate for RV strain, aortic stenosis, as well as eval for pulmonary hypertension. D-dimer slightly elevated 0.61 INR 0.9 WBC count of 9.4 creatinine of 0.79 08/09: WBC 20.1 secondary to steroids, hemoglobin 12.7, platelet count 331. Electrolytes normal, BUN 21 creatinine 0.77. Blood sugars have been elevated secondary to steroids. Hemoglobin A1c pending. Patient has been seen by Dr. ADOLFO Ayon. No infectious process. Pro-calcitonin 0.03. Echocardiogram reveals EF of 60-65%, mild tricuspid regurgitation. Solu-Medrol will be decreased to 40 mg every 8 hours. Anticipate discharge in the next 24-48 hours. Objective - Vital Signs Vital signs: Vital Signs Temp 97.9 F 08/10/19 07:00 Pulse 80 08/10/19 07:26 Resp 17 08/10/19 07:00 BP 121/77 08/10/19 07:00 Pulse Ox 92 L 08/10/19 07:11 Intake & Output 08/09/19 08/10/19 08/10/19 18:59 06:59 18:59 Intake Total 540 790 Balance 540 790 Intake: Oral 540 790 Other: Voiding Method Toilet Toilet # Voids 2 2 - Exam Review of Systems Constitutional: Reports as per HPI, Denies anorexia, Denies chills, Denies chronic headaches, Denies chronic pain, Denies daytime sleepiness, Denies fatigue, Denies fever, Denies lethargy, Denies malaise, Denies night sweats, Denies poor appetite, Denies sweats, Denies weakness, Denies weight gain, Denies weight loss Ears, nose, mouth and throat: Reports as per HPI, Denies ant. neck pain, Denies bleeding gums, Denies dental pain, Denies dysphagia, Denies epistaxis, Denies headache, Denies hoarseness, Denies mouth pain, Denies nasal congestion, Denies nasal discharge, Denies neck fullness/pressure, Denies neck lump, Denies nose pain, Denies odynophagia, Denies post-nasal drip, Denies sinus pain, Denies sinus pressure, Denies swelling in mouth, Denies swelling in throat, Denies sore throat, Denies vertigo, Denies voice changes Cardiovascular: Reports as per HPI, Denies chest pain, Denies claudication, Denies decreased exercise tolerance, Denies dyspnea on exertion, Denies edema, Denies high blood pressure, Denies irregular heart beat, Denies leg edema, Denies lightheadedness, Denies orthopnea, Denies palpitations, Denies paroxysmal nocturnal dyspnea, Denies phlebitis, Denies rapid heart beat, Denies shortness of breath, Denies syncope Respiratory: Reports as per HPI Gastrointestinal: Reports as per HPI Genitourinary: Reports as per HPI, Denies decreased libido, Denies difficulties fathering child, Denies discharge, Denies dysuria, Denies erectile dysfunction, Denies flank pain, Denies genital pain, Denies genital sores, Denies hematuria, Denies impotence, Denies incontinence, Denies kidney stones, Denies nocturia, Denies polyuria, Denies testicular lump, Denies testicular pain, Denies urinary frequency, Denies urinary hesitancy, Denies urinary retention Musculoskeletal: Reports as per HPI, Denies arm numbness/tingling, Denies atrophy, Denies fractures, Denies frequent falls, Denies gait dysfunction, Denies hot joints, Denies leg numbness/tingling, Denies limitation of motion, Denies loss of height, Denies low back pain, Denies morning stiffness, Denies muscle cramps, Denies muscle weakness, Denies myalgias, Denies neck pain, Denies neck stiffness, Denies prior amputations, Denies redness of joints, Denies guille oting arm pain, Denies shooting leg pain Integumentary: Denied rashes, denies wounds Neurological: Denies neurological deficits Psychiatric: Reports as per HPI, Denies anhedonia, Denies anxiety, Denies anxiety attacks, Denies change in appetite, Denies change in libido, Denies change in sleep habits, Denies confusion, Denies depression, Denies difficulty concentrating, Denies disorientation, Denies hallucinations, Denies hopelessness, Denies hypersomnia, Denies insomnia, Denies irritability, Denies memory loss, Denies mood swings, Denies paranoia, Denies sadness/tearfulness, Denies sleep disturbances, Denies suicidal ideation Endocrine: Reports as per HPI Hematologic/Lymphatic: Reports as per HPI Allergic/Immunologic: Reports as per HPI, Denies allergic rhinitis, Denies anaphylaxis, Denies angioedema, Denies gluten intolerance, Denies persistent infections, Denies seasonal allergies, Denies urticaria, Denies wheezing Physical examination - Constitutional General appearance: cooperative, no acute distress, resting in bed - EENT Eyes: anicteric sclerae, PERRLA, dentition normal ENT: NA/AT, normal oropharynx - Neck Neck: normal ROM - Respiratory Respiratory: bilateral: CTA, negative: diminished, dullness, rales - Cardiovascular Rhythm: regular Heart sounds: normal: S1, S2 Abnormal Heart Sounds: no systolic murmur, no diastolic murmur, no rub, no S3 Gallop, no S4 Gallop, no click, no other - Gastrointestinal General gastrointestinal: normal bowel sounds, soft - Integumentary Integumentary: decreased turgor, normal - Neurologic Neurologic: CNII-XII intact - Musculoskeletal Musculoskeletal: gait normal, strength equal bilaterally - Psychiatric Psychiatric: A&O x's 3, appropriate affect - Labs CBC & Chem 7: 08/10/19 08:17 08/10/19 08:17 Labs: Abnormal Lab Results - Last 24 Hours (Table) 08/09/19 08/09/19 08/09/19 Range/Units 11:40 17:01 20:18 WBC (3.8-10.6) k/uL RBC (4.30-5.90) m/uL Hgb (13.0-17.5) gm/dL Neutrophils # (1.3-7.7) k/uL Lymphocytes # (1.0-4.8) k/uL BUN (9-20) mg/dL Glucose (74-99) mg/dL POC Glucose (mg/dL) 171 H 190 H 206 H (75-99) mg/dL Total Bilirubin (0.2-1.3) mg/dL 08/10/19 08/10/19 08/10/19 Range/Units 07:22 08:17 08:17 WBC 20.1 H (3.8-10.6) k/uL RBC 4.23 L (4.30-5.90) m/uL Hgb 12.7 L (13.0-17.5) gm/dL Neutrophils # 18.5 H (1.3-7.7) k/uL Lymphocytes # 0.9 L (1.0-4.8) k/uL BUN 21 H (9-20) mg/dL Glucose 212 H (74-99) mg/dL POC Glucose (mg/dL) 154 H (75-99) mg/dL Total Bilirubin 0.1 L (0.2-1.3) mg/dL Assessment and Plan Plan: 1. Acute on chronic hypoxic respiratory failure underlying Interstitial lung fibrosis with history of cryptogenic organizing pneumonia, BOOP, COPD. Follows at [facility] pulmonary, for interstitial lung disease, at one time was on the transplant list and has been off the transplant list since his pulmonary emboli in November 2018 on O2 nebulized treatment at home, 2 L to 6 L a day . Continue DuoNeb 3 mL nebulization 4 times every day, Pulmicort 1 mg nebulization twice every day, Perforomist twice daily, Solu-Medrol decreased to 40 mg every 8 hours. No sign of pneumonia. 2. Prior history of cute pulmonary embolir right-sided, October 2018 completed regimen six-month treatment in May 2019 3. severe persistent asthma, suspected. has chronic ALLERGIES, on budesonide at home as well as DuoNeb, and Singulair no changes made, unsure whether patient was evaluated for anti-IgE, has cat Home he mentions that he is ALLERGIC to a lot of things and everything. 4. COPD with exacerbation Continue oxygen, DuoNeb 3 mL nebulization 4 times every day, Pulmicort 0.5 mg nebulization twice every day start IV Solu-Medrol , was given Solu-Medrol 60 mg every 6 hours. Resume Pulmicort Continue as in patient is on maintenance prednisone 7.5 mg daily 5. Mild CAD status post left heart cath physician back in 2014 that showed mild disease of the LAD and RCA. Stable at this time continue patient on Toprol-XL 50 mg orally once every day. 6. Hypertension and hypertensive cardiovascular disease. Continue Toprol-XL 50 mg orally once every day, lisinopril 20 mg orally once every day. 7. Bipolar disorder. Continue Lamictal 100 mg orally once every day as well as sertraline 100 mg orally once every day. 8. GI prophylaxis. Protonix 40 mg once every day. 9. 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 check for A1c, NovoLog scale coverage 10. Chronic prednisone use, on maintenance 7.5 mg prednisone daily at home. Outpatient monitoring for chronic complications to bone disease osteoporosis, skin integrity including diabetes mellitus. 11. Hypersensitivity pneumonitis, positive for Phoma species in June 2018, IgE level elevated at 127 patient will be a candidate for an anti-IgE treatment like Xolair, re-eval from pulmonary outpatient 12. DVT prophylaxis. Heparin subcu Patient is full code. Discharge plan: Home in the next 24-48 hours. Impression and plan of care have been directed as dictated by the signing physician. Meghna Larry nurse practitioner acting as scribe for signing physician.
[2019-08-10] MEDS: methylPREDNISolone SOD SUCCI 40 MG/ML 1 ML VIAL IV SCH (16:50)
[2019-08-10 16:57] LABS: Glucose,Whole Blood 154 mg/dL (75-99)
[2019-08-10 17:40] LABS: Hemoglobin A1C 6.2 % (4.0-6.0)
--- NOTE | 2019-08-10 20:23 | P.PN ---
Subjective Progress Note Date: 08/10/19 Principal diagnosis: Acute COPD exacerbation, pulmonary fibrosis, end-stage lung disease, coronary artery disease, 08/10/2019, patient seen eval reexamined during the rounds labs reviewed medications reviewed computed tomography scan of the chest has been reviewed as well patient is well-known to me he is a following and [facility] for lung transplantation, for his pulmonary fibrosis, currently on high-dose steroids for COPD exacerbation and tracheobronchitis this is a 68-year-old gentleman patient of Dr. Christy. He has underlying history of idiopathic pulmonary fibrosis, currently requiring 3 L at home, however he has increasing shortness of breath requiring 6 L of oxygen on ambulation he now presents to emergency room with increasing shortness of breath and difficulty breathing, chest tightness, pleurisy, cough productive of yellowish sputum, no fever no chills, no recent foreign travels, no sick contacts, patient admitted secondary to shortness of breath, hypoxemia worsening, Objective - Vital Signs Vital signs: Vital Signs Temp 98.2 F 08/10/19 14:11 Pulse 84 08/10/19 16:52 Resp 16 08/10/19 14:11 BP 124/75 08/10/19 14:11 Pulse Ox 97 08/10/19 14:11 Intake & Output 08/10/19 08/10/19 08/11/19 06:59 18:59 06:59 Intake Total 790 Balance 790 Intake: Oral 790 Other: Voiding Method Toilet Toilet # Voids 2 1 - Exam - Constitutional General appearance: cooperative, no acute distress - EENT Eyes: anicteric sclerae, PERRLA, dentition normal ENT: NA/AT, normal oropharynx - Neck Neck: normal ROM - Respiratory Respiratory: bilateral: CTA, negative: diminished, dullness, rales - Cardiovascular Rhythm: regular Heart sounds: normal: S1, S2 Abnormal Heart Sounds: no systolic murmur, no diastolic murmur, no rub, no S3 Gallop, no S4 Gallop, no click, no other - Gastrointestinal General gastrointestinal: normal bowel sounds, soft - Integumentary Integumentary: decreased turgor, normal - Neurologic Neurologic: CNII-XII intact - Musculoskeletal Musculoskeletal: gait normal, strength equal bilaterally - Psychiatric Psychiatric: A&O x's 3, appropriate affect - Labs CBC & Chem 7: 08/10/19 08:17 08/10/19 08:17 Labs: Abnormal Lab Results - Last 24 Hours (Table) 08/09/19 08/10/19 08/10/19 Range/Units 20:18 07:22 08:17 WBC (3.8-10.6) k/uL RBC (4.30-5.90) m/uL Hgb (13.0-17.5) gm/dL Neutrophils # (1.3-7.7) k/uL Lymphocytes # (1.0-4.8) k/uL BUN (9-20) mg/dL Glucose (74-99) mg/dL POC Glucose (mg/dL) 206 H 154 H (75-99) mg/dL Hemoglobin A1c 6.2 H (4.0-6.0) % Total Bilirubin (0.2-1.3) mg/dL 08/10/19 08/10/19 08/10/19 Range/Units 08:17 08:17 11:35 WBC 20.1 H (3.8-10.6) k/uL RBC 4.23 L (4.30-5.90) m/uL Hgb 12.7 L (13.0-17.5) gm/dL Neutrophils # 18.5 H (1.3-7.7) k/uL Lymphocytes # 0.9 L (1.0-4.8) k/uL BUN 21 H (9-20) mg/dL Glucose 212 H (74-99) mg/dL POC Glucose (mg/dL) 143 H (75-99) mg/dL Hemoglobin A1c (4.0-6.0) % Total Bilirubin 0.1 L (0.2-1.3) mg/dL 08/10/19 Range/Units 16:54 WBC (3.8-10.6) k/uL RBC (4.30-5.90) m/uL Hgb (13.0-17.5) gm/dL Neutrophils # (1.3-7.7) k/uL Lymphocytes # (1.0-4.8) k/uL BUN (9-20) mg/dL Glucose (74-99) mg/dL POC Glucose (mg/dL) 154 H (75-99) mg/dL Hemoglobin A1c (4.0-6.0) % Total Bilirubin (0.2-1.3) mg/dL Assessment and Plan Assessment: Acute on chronic hypoxic respiratory failure Purulent tracheobronchitis Acute COPD exacerbation IPF on lung transplant list at [facility] Coronary artery disease history of stent placement Plan: Continue steroids breathing treatment antibiotics will send a sputum for Gram stain and culture continue supportive care Time with Patient: Greater than 30
[2019-08-10 21:01] LABS: Glucose,Whole Blood 186 mg/dL (75-99)
[2019-08-10] MEDS: SERTRALINE 100 MG TAB PO SCH (21:03)
[2019-08-10] MEDS: MONTELUKAST 10 MG TAB PO SCH (21:04)
[2019-08-10] MEDS: ASPIRIN 81 MG PO SCH (21:04)
[2019-08-10] MEDS: lamoTRIgine 100 MG TAB PO SCH (21:04)
[2019-08-11] MEDS: methylPREDNISolone SOD SUCCI 40 MG/ML 1 ML VIAL IV SCH ×2 (00:09→08:08)
[2019-08-11 06:53] LABS: Glucose,Whole Blood 140 mg/dL (75-99)
[2019-08-11 07:39] LABS: Basophils % (A) 0 %; Eosinophils % (A) 0 %; HCT 40.2 % (39.0-53.0); HGB 12.4 gm/dL (13.0-17.5); Lymphocytes # (A) 0.9 k/uL (1.0-4.8); Lymphocytes % (A) 5 %; MCH 29.2 pg (25.0-35.0); MCV 94.2 fL (80.0-100.0); Mean Platelet Volume 7.6; Monocytes # (A) 0.8 k/uL (0-1.0); Monocytes % (A) 4 %; Neutrophils # (A) 17.1 k/uL (1.3-7.7); Neutrophils % (A) 90 %; Platelet Count 318 k/uL (150-450); RBC 4.26 m/uL (4.30-5.90); RDW 13.9 % (11.5-15.5)
[2019-08-11 07:52] LABS: ALT 16 U/L (4-49); AST 22 U/L (17-59); African American GFR (CKD) >90 (>60 ml/min/1.73 sqM); Albumin 4.1 g/dL (3.5-5.0); Alkaline Phosphatase 63 U/L (38-126); Anion Gap 9 mmol/L; Blood Urea Nitrogen 23 mg/dL (9-20); Calcium 9.7 mg/dL (8.4-10.2); Carbon Dioxide 26 mmol/L (22-30); Chloride 105 mmol/L (98-107); Glucose 132 mg/dL (74-99); Non-African American GFR(CKD) >90 (>60 ml/min/1.73 sqM); Potassium 4.5 mmol/L (3.5-5.1); Sodium 140 mmol/L (137-145); Total Bilirubin 0.1 mg/dL (0.2-1.3); Total Protein 6.7 g/dL (6.3-8.2)
[2019-08-11] MEDS: HEPARIN SODIUM,PORCINE 5,000 UNIT/ML 1 ML VIAL SQ SCH ×2 (08:08→20:20)
[2019-08-11] MEDS: INSULIN ASPART (NovoLOG) 100 UNIT/ML VIAL SQ SCH ×4 (08:08→20:21)
[2019-08-11] MEDS: FAMOTIDINE 20 MG TAB PO SCH ×2 (08:09→20:22)
[2019-08-11] MEDS: LISINOPRIL 20 MG TAB PO SCH (08:09)
[2019-08-11] MEDS: METOPROLOL TARTRATE 50 MG TAB PO SCH ×2 (08:09→20:21)
[2019-08-11] MEDS: IPRATROPIUM-ALBUTEROL 3 ML NEB INHALATION SCH ×4 (08:19→20:50)
[2019-08-11] MEDS: BUDESONIDE 0.5 MG/2 ML NEBU INHALATION SCH ×2 (08:19→20:50)
[2019-08-11] MEDS: predniSONE 20 MG TAB PO SCH (09:47)
--- NOTE | 2019-08-11 11:18 | P.PN ---
Subjective Progress Note Date: 08/11/19 this is a 68-year-old gentleman patient of Dr. Christy. He has underlying history of idiopathic pulmonary fibrosis, CAD involving RCA and LAD, heart cath performed 2014, history of bipolar disorder, remote history of tobacco use, admitted emergency room secondary to shortness of breath, his last admission fr om our facility 11/25/2018 for dyspnea, . Prior admission had bronchoscopy 2019 was negative for PE at that time,was diagnosed to have cryptogenic organizing pneumonia/BOOP bronchial washing showing Anna albicans, last echocardiogram performed November 2018 showed EF 60-65%, right ventricle systolic pressure of 38, right ventricle is mildly enlarged, no pericardial effusion, mild pulmonary hypertension, mild TR. He follows with the pulmonary physician also at [facility] as he was on the transplant list at that time until his pulmonary emboli in October 2018 thereafter completed his treatment, 6 months regimen. He is chronically on oral prednisone, He was off his transplant placed [facility] secondary to interstitial fibrosis, currently requiring 3 L at home, however if he has increasing shortness of breath requiring 6 L of oxygen on ambulation he now presents to emergency room with increasing shortness of breath and difficulty breathing, chest tightness, pleurisy, cough productive of yellowish sputum, no fever no chills, no recent foreign travels, no sick contacts, patient admitted secondary to shortness of breath, hypoxemia worsening, He was seen in emergency room d-dimer was elevated, computed tomography scan negative for central pulmonary emboli, calcified right thyroid 2 cm, soft tissue intermuscular lipoma right scapula, has chronic pulmonary fibrosis, stable, this new 5 mm nodule superior segment right lower lobe, cannot rule out or exclude third order branch left lower lobe pulmonary artery embolism, Dr. Hernandez on consult, echocardiogram to be obtained, to evaluate for RV strain, aortic stenosis, as well as eval for pulmonary hypertension. D-dimer slightly elevated 0.61 INR 0.9 WBC count of 9.4 creatinine of 0.79 08/09: WBC 20.1 secondary to steroids, hemoglobin 12.7, platelet count 331. Electrolytes normal, BUN 21 creatinine 0.77. Blood sugars have been elevated secondary to steroids. Hemoglobin A1c pending. Patient has been seen by Dr. ADOLFO Ayon. No infectious process. Pro-calcitonin 0.03. Echocardiogram reveals EF of 60-65%, mild tricuspid regurgitation. Solu-Medrol will be decreased to 40 mg every 8 hours. Anticipate discharge in the next 24-48 hours. 08/10: Patient states he is feeling better. He is able to ambulate in the hallway. He continues to be on 3 L of O2 which he uses at home currently. We will transition him to oral prednisone. For possible discharge tomorrow or Tuesday. Patient remained afebrile. Vital signs are within normal limits. Labs are unremarkable. Review Of Systems: Constitutional: No fever, no chills, no night sweats. No weight change. No weakness, fatigue or lethargy. No daytime sleepiness. EENT: No headache. No blurred vision or double vision, no loss of vision. No loss of Hearing, no ringing in the ears, no dizziness. No nasal drainage or congestion. No epistaxis. No sore throat. Lungs: Denies shortness of breath, reports cough, no sputum production. No wheezing. Cardiovascular: No chest pain, no lower extremity edema. No palpitations. No paroxysmal nocturnal dyspnea. No orthopnea. No lightheadedness or dizziness. No syncopal episodes. Abdominal: no abdominal discomfort. No nausea, vomiting. no diarrhea. No constipation. No bloody or tarry stools. no loss of appetite. Genitourinary: No dysuria, increased frequency, urgency. No urinary retention. Musculoskeletal: No myalgias. No muscle weakness, no gait dysfunction, no frequent falls. No back pain. No neck pain. Integumentary: No wounds, no lesions. No rash or pruritus. No unusual bruising. No change in hair or nails. Neurologic: No aphasia. No facial droop. No change in mentation. No head injury. No headache. No paralysis. No paresthesia. Psychiatric: No depression. No anxiety. No mood swings. Endocrine: No abnormal blood sugars. No weight change. No excessive sweating or thirst. Objective - Vital Signs Vital signs: Vital Signs Temp 98 F 08/11/19 07:00 Pulse 80 08/11/19 08:32 Resp 14 08/11/19 07:58 BP 124/75 08/11/19 07:00 Pulse Ox 97 08/11/19 08:19 Intake & Output 08/10/19 08/11/19 08/11/19 18:59 06:59 18:59 Other: Voiding Method Toilet Toilet Toilet # Voids 1 1 1 - Exam General Appearance: Alert, cooperative, no distress, appears stated age. Neck HEENT: Supple, no lymphadenopathy, no thyroid enlargement, no carotid bruits. Lungs: Clear to auscultation without crackles or wheezes no rhonchi, no deformity. Chest Wall: Chest wall normal expansion with deep inspiration no tenderness and no deformity was found on exam, no costochondral pain or discomfort. Heart: Regular rate and rhythm, S1, S2 normal, no murmur, rub or gallop. Back: Symmetric, no curvature, ROM normal, no CVA tenderness. Abdomen: Soft, non-tender, no rebound or rigidity, no hepatosplenomegaly. Extremities: Extremities normal, atraumatic, no cyanosis or edema. Pulses: 2+ and symmetric. Skin: Skin color, texture, tugor normal, no rashes or lesions. Neurologic: Alert oriented x3 cranial nerves II through XII intact, no motor deficit, no abnormal balance or gait - Labs CBC & Chem 7: 08/11/19 07:10 08/11/19 07:10 Labs: Abnormal Lab Results - Last 24 Hours (Table) 08/10/19 08/10/19 08/10/19 Range/Units 08:17 11:35 16:54 WBC (3.8-10.6) k/uL RBC (4.30-5.90) m/uL Hgb (13.0-17.5) gm/dL Neutrophils # (1.3-7.7) k/uL Lymphocytes # (1.0-4.8) k/uL BUN (9-20) mg/dL Glucose (74-99) mg/dL POC Glucose (mg/dL) 143 H 154 H (75-99) mg/dL Hemoglobin A1c 6.2 H (4.0-6.0) % Total Bilirubin (0.2-1.3) mg/dL 08/10/19 08/11/19 08/11/19 Range/Units 21:00 06:49 07:10 WBC 19.0 H (3.8-10.6) k/uL RBC 4.26 L (4.30-5.90) m/uL Hgb 12.4 L (13.0-17.5) gm/dL Neutrophils # 17.1 H (1.3-7.7) k/uL Lymphocytes # 0.9 L (1.0-4.8) k/uL BUN (9-20) mg/dL Glucose (74-99) mg/dL POC Glucose (mg/dL) 186 H 140 H (75-99) mg/dL Hemoglobin A1c (4.0-6.0) % Total Bilirubin (0.2-1.3) mg/dL 08/11/19 Range/Units 07:10 WBC (3.8-10.6) k/uL RBC (4.30-5.90) m/uL Hgb (13.0-17.5) gm/dL Neutrophils # (1.3-7.7) k/uL Lymphocytes # (1.0-4.8) k/uL BUN 23 H (9-20) mg/dL Glucose 132 H (74-99) mg/dL POC Glucose (mg/dL) (75-99) mg/dL Hemoglobin A1c (4.0-6.0) % Total Bilirubin 0.1 L (0.2-1.3) mg/dL Assessment and Plan Plan: 1. Acute on chronic hypoxic respiratory failure underlying Interstitial lung fibrosis with history of cryptogenic organizing pneumonia, BOOP, COPD. Follows at [facility] pulmonary, for interstitial lung disease, at one time was on the transplant list and has been off the transplant list since his pulmonary emboli in November 2018 on O2 nebulized treatment at home, 2 L to 6 L a day . C ontinue DuoNeb 3 mL nebulization 4 times every day, Pulmicort 1 mg nebulization twice every day, Perforomist twice daily, change Solu-Medrol to prednisone 40 mg by mouth daily. No sign of pneumonia. 2. Prior history of cute pulmonary embolir right-sided, October 2018 completed regimen six-month treatment in May 2019 3. severe persistent asthma, suspected. has chronic ALLERGIES, on budesonide at home as well as DuoNeb, and Singulair no changes made, unsure whether patient was evaluated for anti-IgE, has cat Home he mentions that he is ALLERGIC to a lot of things and everything. 4. COPD with exacerbation Continue oxygen, DuoNeb 3 mL nebulization 4 times every day, Pulmicort 0.5 mg nebulization twice every day start IV Solu-Medrol , was given Solu-Medrol 60 mg every 6 hours. Resume Pulmicort Continue as in patient is on maintenance prednisone 7.5 mg daily 5. Mild CAD status post left heart cath physician back in 2014 that showed mild disease of the LAD and RCA. Stable at this time continue patient on Toprol-XL 50 mg orally once every day. 6. Hypertension and hypertensive cardiovascular disease. Continue Toprol-XL 50 mg orally once every day, lisinopril 20 mg orally once every day. 7. Bipolar disorder. Continue Lamictal 100 mg orally once every day as well as sertraline 100 mg orally once every day. 8. GI prophylaxis. Protonix 40 mg once every day. 9. 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 check for A1c, NovoLog scale coverage 10. Chronic prednisone use, on maintenance 7.5 mg prednisone daily at home. Outpatient monitoring for chronic complications to bone disease osteoporosis, skin integrity including diabetes mellitus. 11. Hypersensitivity pneumonitis, positive for Phoma species in June 2018, IgE level elevated at 127 patient will be a candidate for an anti-IgE treatment like Xolair, re-eval from pulmonary outpatient 12. DVT prophylaxis. Heparin subcu Patient is full code. Discharge plan: Home in the next 24-48 hours. Impression and plan of care have been directed as dictated by the signing physician. Clemencia Yao nurse practitioner acting as scribe for signing physician.
[2019-08-11 11:32] LABS: Glucose,Whole Blood 132 mg/dL (75-99)
--- NOTE | 2019-08-11 13:32 | P.PN ---
Subjective Progress Note Date: 08/11/19 Principal diagnosis: Acute COPD exacerbation, pulmonary fibrosis, end-stage lung disease, coronary artery disease, 08/11/2019, patient seen eval reexamined breathing comfortably oxygenation is back to baseline of 3 L nasal cannula, labs reviewed medications reviewed, care plan discussed with the patient, further data has been obtained now patient has been off of transplants chest as he is breathing stable, agree with discharge planning in next 24 hours remained stable on tapering steroids and oral antibiotics 08/10/2019, patient seen eval reexamined during the rounds labs reviewed medications reviewed computed tomography scan of the chest has been reviewed as well patient is well-known to me he is a following and [facility] for lung transplantation, for his pulmonary fibrosis, currently on high-dose steroids for COPD exacerbation and tracheobronchitis this is a 68-year-old gentleman patient of Dr. Christy. He has underlying history of idiopathic pulmonary fibrosis, currently requiring 3 L at home, however he has increasing shortness of breath requiring 6 L of oxygen on ambulation he now presents to emergency room with increasing shortness of breath and difficulty breathing, chest tightness, pleurisy, cough productive of yellowish sputum, no fever no chills, no recent foreign travels, no sick contacts, patient admitted secondary to shortness of breath, hypoxemia worsening, Objective - Vital Signs Vital signs: Vital Signs Temp 98 F 08/11/19 07:00 Pulse 81 08/11/19 12:02 Resp 14 08/11/19 07:58 BP 124/75 08/11/19 07:00 Pulse Ox 97 08/11/19 08:19 Intake & Output 08/10/19 08/11/19 08/11/19 18:59 06:59 18:59 Other: Voiding Method Toilet Toilet Toilet # Voids 1 1 1 - Exam - Constitutional General appearance: cooperative, no acute distress - EENT Eyes: anicteric sclerae, PERRLA, dentition normal ENT: NA/AT, normal oropharynx - Neck Neck: normal ROM - Respiratory Respiratory: bilateral: CTA, negative: diminished, dullness, rales - Cardiovascular Rhythm: regular Heart sounds: normal: S1, S2 Abnormal Heart Sounds: no systolic murmur, no diastolic murmur, no rub, no S3 Gallop, no S4 Gallop, no click, no other - Gastrointestinal General gastrointestinal: normal bowel sounds, soft - Integumentary Integumentary: decreased turgor, normal - Neurologic Neurologic: CNII-XII intact - Musculoskeletal Musculoskeletal: gait normal, strength equal bilaterally - Psychiatric Psychiatric: A&O x's 3, appropriate affect - Labs CBC & Chem 7: 08/11/19 07:10 08/11/19 07:10 Labs: Abnormal Lab Results - Last 24 Hours (Table) 08/10/19 08/10/19 08/10/19 Range/Units 08:17 16:54 21:00 WBC (3.8-10.6) k/uL RBC (4.30-5.90) m/uL Hgb (13.0-17.5) gm/dL Neutrophils # (1.3-7.7) k/uL Lymphocytes # (1.0-4.8) k/uL BUN (9-20) mg/dL Glucose (74-99) mg/dL POC Glucose (mg/dL) 154 H 186 H (75-99) mg/dL Hemoglobin A1c 6.2 H (4.0-6.0) % Total Bilirubin (0.2-1.3) mg/dL 08/11/19 08/11/19 08/11/19 Range/Units 06:49 07:10 07:10 WBC 19.0 H (3.8-10.6) k/uL RBC 4.26 L (4.30-5.90) m/uL Hgb 12.4 L (13.0-17.5) gm/dL Neutrophils # 17.1 H (1.3-7.7) k/uL Lymphocytes # 0.9 L (1.0-4.8) k/uL BUN 23 H (9-20) mg/dL Glucose 132 H (74-99) mg/dL POC Glucose (mg/dL) 140 H (75-99) mg/dL Hemoglobin A1c (4.0-6.0) % Total Bilirubin 0.1 L (0.2-1.3) mg/dL 08/11/19 Range/Units 11:30 WBC (3.8-10.6) k/uL RBC (4.30-5.90) m/uL Hgb (13.0-17.5) gm/dL Neutrophils # (1.3-7.7) k/uL Lymphocytes # (1.0-4.8) k/uL BUN (9-20) mg/dL Glucose (74-99) mg/dL POC Glucose (mg/dL) 132 H (75-99) mg/dL Hemoglobin A1c (4.0-6.0) % Total Bilirubin (0.2-1.3) mg/dL Assessment and Plan Assessment: Acute on chronic hypoxic respiratory failure Purulent tracheobronchitis Acute COPD exacerbation IPF on lung transplant list at [facility] Coronary artery disease history of stent placement Plan: Continue steroids breathing treatment antibiotics will send a sputum for Gram stain and culture continue supportive care, start tapering steroids antibiotics changed to oral agree with discharge planning Time with Patient: Greater than 30
[2019-08-11 16:58] LABS: Glucose,Whole Blood 139 mg/dL (75-99)
[2019-08-11 20:01] LABS: Glucose,Whole Blood 134 mg/dL (75-99)
[2019-08-11] MEDS: lamoTRIgine 100 MG TAB PO SCH (20:21)
[2019-08-11] MEDS: SERTRALINE 100 MG TAB PO SCH (20:21)
[2019-08-11] MEDS: ASPIRIN 81 MG PO SCH (20:21)
[2019-08-11] MEDS: MONTELUKAST 10 MG TAB PO SCH (20:22)
[2019-08-12 06:52] LABS: Glucose,Whole Blood 97 mg/dL (75-99)
[2019-08-12 07:42] VITALS: BP 118/68; RESP 12; TEMP 98.6
[2019-08-12] MEDS: BUDESONIDE 0.5 MG/2 ML NEBU INHALATION SCH (08:05)
[2019-08-12] MEDS: IPRATROPIUM-ALBUTEROL 3 ML NEB INHALATION SCH ×2 (08:05→11:40)
[2019-08-12] MEDS: INSULIN ASPART (NovoLOG) 100 UNIT/ML VIAL SQ SCH ×2 (08:09→11:44)
[2019-08-12] MEDS: METOPROLOL TARTRATE 50 MG TAB PO SCH (08:10)
[2019-08-12] MEDS: predniSONE 20 MG TAB PO SCH (08:10)
[2019-08-12] MEDS: FAMOTIDINE 20 MG TAB PO SCH (08:10)
[2019-08-12] MEDS: LISINOPRIL 20 MG TAB PO SCH (08:10)
[2019-08-12] MEDS: HEPARIN SODIUM,PORCINE 5,000 UNIT/ML 1 ML VIAL SQ SCH (08:10)
--- NOTE | 2019-08-12 11:09 | P.DS ---
Providers Date of admission: 08/10/19 08:38 Attending physician: Mandi Núñez Consults: 08/08/19 15:28 Consult Physician Routine Consulting Provider: Leobardo Hernandez Consult Reason/Comments: dyspnea Do you want consulting provider notified?: Yes Primary care physician: Dimas Christy [facility] Course: this is a 68-year-old gentleman patient of Dr. Christy. He has underlying history of idiopathic pulmonary fibrosis, CAD involving RCA and LAD, heart cath performed 2014, history of bipolar disorder, remote history of tobacco use, admitted emergency room secondary to shortness of breath, his last admission from our facility 11/25/2018 for dyspnea, . Prior admission had bronchoscopy 2019 was negative for PE at that time,was diagnosed to have cryptogenic organizing pneumonia/BOOP bronchial washing showing Anna albicans, last echocardiogram performed November 2018 showed EF 60-65%, right ventricle systolic pressure of 38, right ventricle is mildly enlarged, no pericardial effusion, mild pulmonary hypertension, mild TR. He follows with the pulmonary physician also at [facility] as he was on the transplant list at that time until his pulmonary emboli in October 2018 thereafter completed his treatment, 6 months regimen. He is chronically on oral prednisone, He was off his transplant placed [facility] secondary to interstitial fibrosis, currently requiring 3 L at home, however if he has increasing shortness of breath requiring 6 L of oxygen on ambulation he now presents to emergency room with increasing shortness of breath and difficulty breathing, chest tightness, pleurisy, cough productive of yellowish sputum, no fever no chills, no recent foreign travels, no sick contacts, patient admitted secondary to shortness of breath, hypoxemia worsening, He was seen in emergency room d-dimer was elevated, computed tomography scan negative for central pulmonary emboli, calcified right thyroid 2 cm, soft tissue intermuscular lipoma right scapula, has chronic pulmonary fibrosis, stable, this new 5 mm nodule superior segment right lower lobe, cannot rule out or exclude third order branch left lower lobe pulmonary artery embolism, Dr. Hernandez on consult, echocardiogram to be obtained, to evaluate for RV strain, aortic stenosis, as well as eval for pulmonary hypertension. D-dimer slightly elevated 0.61 INR 0.9 WBC count of 9.4 creatinine of 0.79 08/09: WBC 20.1 secondary to steroids, hemoglobin 12.7, platelet count 331. Electrolytes normal, BUN 21 creatinine 0.77. Blood sugars have been elevated secondary to steroids. Hemoglobin A1c pending. Patient has been seen by Dr. ADOLFO Ayon. No infectious process. Pro-calcitonin 0.03. Echocardiogram reveals EF of 60-65%, mild tricuspid regurgitation. Solu-Medrol will be decreased to 40 mg every 8 hours. Anticipate discharge in the next 24-48 hours. 08/10: Patient states he is feeling better. He is able to ambulate in the hallway. He continues to be on 3 L of O2 which he uses at home currently. We will transition him to oral prednisone. For possible discharge tomorrow or Tuesday. Patient remained afebrile. Vital signs are within normal limits. Labs are unremarkable. 08/11: Patient states he is feeling better today. He has been emulating in the hallway. He continues to be on 3 L of O2 which she uses at home. Patient is tolerating the oral prednisone. He will have a taper dose and then resume his normal home dose. Patient remains afebrile vital signs are within normal limits at labs are unremarkable. Discharge diagnosis: 1. Acute on chronic hypoxic respiratory failure underlying Interstitial lung f ibrosis with history of cryptogenic organizing pneumonia, BOOP, COPD. 2. Prior history of cute pulmonary embolir right-sided, 3. severe persistent asthma, suspected. has chronic ALLERGIES, 4. COPD with exacerbation 5. Mild CAD status post left heart cath physician back in 2014 that showed mild disease of the LAD and RCA. 6. Hypertension and hypertensive cardiovascular disease. 7. Bipolar disorder. 8. 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 9.. Chronic prednisone use, on maintenance 7.5 mg prednisone daily at home. 10. Hypersensitivity pneumonitis, positive for Phoma species Discharge disposition: Home with self-care Impression and plan of care have been directed as dictated by the signing physician. Clemencia Yao nurse practitioner acting as scribe for signing physician. Patient Condition at Discharge: Fair Plan - Discharge Summary Discharge Rx Participant: No New Discharge Prescriptions: New predniSONE 10 mg PO DIRECTED #21 tab Azithromycin [Zithromax Z-pack] 250 mg PO DIRECTED #6 tab Continue Sertraline [Zoloft] 150 mg PO HS Montelukast [Singulair] 10 mg PO HS lamoTRIgine [LaMICtal] 100 mg PO HS Lisinopril [Prinivil] 20 mg PO HS Aspirin EC [Ecotrin Low Dose] 81 mg PO HS Metoprolol Tartrate [Lopressor] 100 mg PO BID Ipratropium-Albuterol Nebulize [Duoneb 0.5 mg-3 mg/3 ml Soln] 3 ml INHALATION RT-TID PRN PRN Reason: Shortness Of Breath Or Wheezing Discontinued predniSONE 7.5 mg PO HS Discharge Medication List Lisinopril [Prinivil] 20 mg PO HS 02/21/15 [History] Montelukast [Singulair] 10 mg PO HS 02/21/15 [History] Sertraline [Zoloft] 150 mg PO HS 02/21/15 [History] lamoTRIgine [LaMICtal] 100 mg PO HS 02/21/15 [History] Aspirin EC [Ecotrin Low Dose] 81 mg PO HS 11/25/18 [History] Ipratropium-Albuterol Nebulize [Duoneb 0.5 mg-3 mg/3 ml Soln] 3 ml INHALATION RT-TID PRN 08/08/19 [History] Metoprolol Tartrate [Lopressor] 100 mg PO BID 08/08/19 [History] Azithromycin [Zithromax Z-pack] 250 mg PO DIRECTED #6 tab 08/12/19 [Rx] predniSONE 10 mg PO DIRECTED #21 tab 08/12/19 [Rx] Follow up Appointment(s)/Referral(s): Dimas Christy MD [Primary Care Provider] - 1-2 days Leobardo Hernandez MD [STAFF PHYSICIAN] - 1 Week
[2019-08-12 11:26] LABS: Glucose,Whole Blood 101 mg/dL (75-99)
[2019-08-12 11:42] VITALS: PULSE 64
--- NOTE | 2019-08-12 12:14 | P.PN ---
Subjective Progress Note Date: 08/12/19 Principal diagnosis: Acute COPD exacerbation, pulmonary fibrosis, end-stage lung disease, coronary artery disease, 08/12/2019, he shouldn't seen evaluated examined patient is being discharged on tapering steroids and antibiotics breathing much better now back to baseline of 3 L, patient will be evaluated outpatient setting 08/11/2019, patient seen eval reexamined breathing comfortably oxygenation is back to baseline of 3 L nasal cannula, labs reviewed medications reviewed, care plan discussed with the patient, further data has been obtained now patient has been off of transplants chest as he is breathing stable, agree with discharge planning in next 24 hours remained stable on tapering steroids and oral antibiotics 08/10/2019, patient seen eval reexamined during the rounds labs reviewed medications reviewed computed tomography scan of the chest has been reviewed as well patient is well-known to me he is a following and [facility] for lung transplantation, for his pulmonary fibrosis, currently on high-dose steroids for COPD exacerbation and tracheobronchitis this is a 68-year-old gentleman patient of Dr. Christy. He has underlying history of idiopathic pulmonary fibrosis, currently requiring 3 L at home, however he has increasing shortness of breath requiring 6 L of oxygen on ambulation he now presents to emergency room with increasing shortness of breath and difficulty breathing, chest tightness, pleurisy, cough productive of yellowish sputum, no fever no chills, no recent foreign travels, no sick contacts, patient admitted secondary to shortness of breath, hypoxemia worsening, Objective - Vital Signs Vital signs: Vital Signs Temp 98.6 F 08/12/19 07:00 Pulse 64 08/12/19 11:50 Resp 12 08/12/19 07:45 BP 118/68 08/12/19 07:00 Pulse Ox 95 08/12/19 08:05 Intake & Output 08/11/19 08/12/19 08/12/19 18:59 06:59 18:59 Intake Total 140 590 Balance 140 590 Intake: Intake, IV Titration 140 Amount Sodium Chloride 0.9% 1, 140 000 ml @ 20 mls/hr IV . Q24H GREYSON Rx#:[id number] Oral 590 Other: Voiding Method Toilet Toilet Toilet # Voids 2 0 2 - Exam - Constitutional General appearance: cooperative, no acute distress - EENT Eyes: anicteric sclerae, PERRLA, dentition normal ENT: NA/AT, normal oropharynx - Neck Neck: normal ROM - Respiratory Respiratory: bilateral: CTA, negative: diminished, dullness, rales - Cardiovascular Rhythm: regular Heart sounds: normal: S1, S2 Abnormal Heart Sounds: no systolic murmur, no diastolic murmur, no rub, no S3 Gallop, no S4 Gallop, no click, no other - Gastrointestinal General gastrointestinal: normal bowel sounds, soft - Integumentary Integumentary: decreased turgor, normal - Neurologic Neurologic: CNII-XII intact - Musculoskeletal Musculoskeletal: gait normal, strength equal bilaterally - Psychiatric Psychiatric: A&O x's 3, appropriate affect - Labs CBC & Chem 7: 08/11/19 07:10 08/11/19 07:10 Labs: Abnormal Lab Results - Last 24 Hours (Table) 08/11/19 08/11/19 08/12/19 Range/Units 16:57 19:52 11:25 POC Glucose (mg/dL) 139 H 134 H 101 H (75-99) mg/dL Assessment and Plan Assessment: Acute on chronic hypoxic respiratory failure Purulent tracheobronchitis Acute COPD exacerbation IPF on lung transplant list at [facility] Coronary artery disease history of stent placement Plan: Continue steroids breathing treatment antibiotics agree with discharge planning Time with Patient: Greater than 30
== END 2019-08-12 12:16 | disposition home or self-care (01) | DRG 196 ==
LOC: EC 11:59 → 4SSUR 15:27 → OBSVTOIN 08-10 08:38
PROVIDERS: ADMIT Family Medicine; ATTEND Family Medicine
DX: J84.112 Idiopathic pulmonary fibrosis (principal); J96.21 Acute and chronic respiratory failure with hypoxia; J44.1 Chronic obstructive pulmonary disease with (acute) exacerbation; J67.9 Hypersensitivity pneumonitis due to unspecified organic dust; Z76.82 Awaiting organ transplant status; I27.20 Pulmonary hypertension, unspecified; I08.2 Rheumatic disorders of both aortic and tricuspid valves; E09.65 Drug or chemical induced diabetes mellitus with hyperglycemia; Z99.81 Dependence on supplemental oxygen; I11.9 Hypertensive heart disease without heart failure; J45.50 Severe persistent asthma, uncomplicated; I25.10 Atherosclerotic heart disease of native coronary artery without angina pectoris; F31.9 Bipolar disorder, unspecified; M19.90 Unspecified osteoarthritis, unspecified site; T38.0X5A Adverse effect of glucocorticoids and synthetic analogues, initial encounter; J98.4 Other disorders of lung; Z79.82 Long term (current) use of aspirin; Z79.899 Other long term (current) drug therapy; Z79.52 Long term (current) use of systemic steroids; Z86.711 Personal history of pulmonary embolism; Z87.01 Personal history of pneumonia (recurrent); Z87.891 Personal history of nicotine dependence; Z82.5 Family history of asthma and other chronic lower respiratory diseases
CPT/HCPCS: 36415; 71046; 71275; 80053; 83036; 83605; 83690; 83880; 84145; 84484; 85025; 85379; 85610; 85730; 93005; 93306; 94640; 94760; 99285

== ENCOUNTER → 2024-12-06 | Outpatient (CLI) | payer MEDICARE ==
--- NOTE | 2024-12-06 09:14 | CT ---
INDICATION: Patient age:Male; 74 years old; Reason for study: J84.9 INTERSTITIAL PULMONARY DISEASE; PHH. COMPARISON: CTA chest 08/08/2019, 11/25/2018, CT chest 07/09/2018 TECHNIQUE: Multiple thin axial images were obtained through the chest at selected intervals. Prone and supine in spiratory along with supine expiratory images were submitted for review. Please note that due to inte rval acquisition images as defined by high-resolution CT protocol the entire lung parenchyma is not e valuated, therefore small nodular densities may not be visualized. Evaluation of vascular structures , viscera and lymphatics is limited due to lack of intravenous contrast administration. One or more C T dose reduction strategies were utilized during this examination. Total DLP 1245 mGycm. FINDINGS: LUNGS: Scattered bilateral upper lobe pleural parenchymal scarring redemonstrated consistent with arc hitecture distortion. Mild scattered reticular groundglass changes. Scattered small pulmonary cysts. Development of small amount of honeycombing within the right lung base, right middle lobe, and lingul a. Consistent with basilar predominance. Scattered subpleural reticular opacities No bronchiectasis. There is some segmental and subsegmental expiratory air trapping present. No acute area of infiltrati ve or consolidative change. LARGE AIRWAYS: Central airways are patent. No dynamic airway collapse on expiratory imaging. PLEURA: No pleural effusion or thickening. HEART AND PERICARDIUM: Heart is normal in size. There is no pericardial effusion. Mild coronary arter y calcifications present. MEDIASTINUM AND PASTOR: No mediastinal or hilar lymphadenopathy or soft tissue mass. VESSELS: The thoracic aorta is normal in course and caliber. CHEST WALL AND DIAPHRAGM: Normal. LOWER NECK: Normal. UPPER ABDOMEN: Unremarkable. MUSCULOSKELETAL: No acute fracture. IMPRESSION: Progression of interstitial lung disease suggesting possible UIP pattern versus fibrotic hypersensiti vity pneumonitis. [facility], , 12/06/2024 9:12 AM
== END | disposition home or self-care (01) ==
LOC: RADCTMAIN 08:21
PROVIDERS: ATTEND Internal Medicine Critical Care Medicine
DX: J84.9 Interstitial pulmonary disease, unspecified (principal)
CPT/HCPCS: 71250